=== PATIENT | female | born 1950 | race Caucasian/White ===

== ENCOUNTER 2016-10-13 14:54 | Emergency (ER) | payer OTHER ==
[~2016-10-13] VITALS: Ht 157.5 cm; Wt 46.5 kg
[2016-10-13 14:56] VITALS: BP 182/105; PULSE 85; RESP 18; TEMP 98.4; O2SAT 97
--- NOTE | 2016-10-13 15:13 | PD ---
Physical Exam Time Seen by Provider: 15:08 Narrative 66 y/o female presents for evaluation of h/a stuffy ears, nasal congestion, cough, vomiting. On amoxicillin for 2 weeks, finished one week ago. Sen by urgent care and sent here for further evaluation. vss Seen at triage desk. Awaiting bed placement. Data Data Last Documented VS Vital Signs Date Time Temp Pulse Resp B/P Pulse Ox O2 Delivery O2 Flow Rate FiO2 10/13/16 14:56 98.4 85 18 182/105 97 Room Air [facility] Medical Record Reviewed: Yes Supervised Visit with KELLY: Lamont Galeas October 13, 2016 15:13
== END 2016-10-13 19:05 | disposition left against medical advice (07) ==
LOC: NED 14:54
DX: R05 Cough (principal); R11.10 Vomiting, unspecified; R09.81 Nasal congestion
CPT/HCPCS: 99282

== ENCOUNTER 2016-10-27 22:10 | Inpatient (IN) | payer OTHER, MEDICARE ==
[2016-10-27 22:10] VITALS: O2SAT 98
[2016-10-27 22:13] VITALS: BP 182/96; PULSE 79; RESP 16; TEMP 99.4; O2SAT 94
[2016-10-27] MEDS ORDERED: SODIUM CHLORIDE 0.9% FLUSH 10 ML FLUSH IVF PRN (22:15)
[2016-10-27] MEDS ORDERED: SODIUM CHLOR 0.9% 1000 ML INJ 1,000 ML IV SCH (22:15)
[2016-10-27 22:38] LABS: AUTOMATED NEUTROPHIL # 10.9 TH/MM3 (1.8-7.7); BASOPHIL # 0.1 TH/MM3 (0-0.2); BASOPHIL % 0.9 % (0.0-2.0); EOSINOPHIL % 0.2 % (0.0-4.0); HEMATOCRIT 43.8 % (35.0-46.0); HEMO FLAGS DIFF FINAL; LYMPHOCYTE # 1.6 TH/MM3 (1.0-4.8); MEAN CORPUSCULAR HEMOGLOBIN 31.3 PG (27.0-34.0); MEAN CORPUSCULAR HGB CONC 34.4 % (32.0-36.0); MONO % 5.2 % (0.0-8.0); NEUT % 81.7 % (16.0-70.0); PLATELET COUNT 367 TH/MM3 (150-450); RED BLOOD COUNT 4.82 MIL/MM3 (4.00-5.30); RED CELL DISTRIBUTION WIDTH 13.3 % (11.6-17.2); WHITE BLOOD COUNT 13.3 TH/MM3 (4.0-11.0)
[2016-10-27] MEDS ORDERED: ONDANSETRON HCL 4 MG/2 ML VIAL ONE (22:52)
--- NOTE | 2016-10-27 22:53 | RADRPT ---
EXAM DATE/TIME: 10/27/2016 22:37 [facility] COMPARISON: No previous studies available for comparison. INDICATIONS : Syncope. Altered mental status. MEDICAL HISTORY : None. SURGICAL HISTORY : None. ENCOUNTER: Initial ACUITY: 1 day PAIN SCORE: Non-responsive. LOCATION: Bilateral chest FINDINGS: A single view of the chest demonstrates the lungs to be symmetrically aerated without evidence of mas s, infiltrate or effusion. The cardiomediastinal contours are unremarkable. Osseous structures are intact. CONCLUSION: No acute disease. Kemal Downey MD on October 27, 2016 at 22:51 Board Certified Radiologist. This report was verified electronically.
[2016-10-27] MEDS ORDERED: ONDANSETRON HCL 4 MG/2 ML VIAL IV PUSH ONE (23:00)
[2016-10-27 23:01] LABS: ANION GAP 10 MEQ/L (5-15)
[2016-10-27 23:06] LABS: ACETAMINOPHEN LESS THAN 2.0 MCG/ML (10.0-30.0); ALKALINE PHOSPHATASE 48 U/L (45-117); ALT (GPT) 18 U/L (10-53); AST (GOT) 25 U/L (15-37); BICARBONATE 26.6 MEQ/L (21.0-32.0); BLOOD UREA NITROGEN 8 MG/DL (7-18); CHLORIDE 104 MEQ/L (98-107); CREATINE KINASE 378 U/L (26-192); GLOMERULAR FILTRATION RATE 86 ML/MIN (>89); POTASSIUM 3.2 MEQ/L (3.5-5.1); SODIUM (NA) 141 MEQ/L (136-145); TOTAL BILIRUBIN ADULT 0.7 MG/DL (0.2-1.0)
[2016-10-27] MEDS ORDERED: niCARdipine INJ 25 MG in SODIUM CHLOR 0.9% 250 ML INJ 250 ML IV SCH ×2 (23:15→23:45)
[2016-10-27 23:17] LABS: APTT (PATIENT) 25.9 SEC (24.3-30.1); INTERNATIONAL NORMALIZED RATIO 0.9 RATIO; PROTHROMBIN TIME - PATIENT 10.2 SEC (9.8-11.6)
--- NOTE | 2016-10-27 23:19 | RADRPT ---
EXAM DATE/TIME: 10/27/2016 22:58 [facility] COMPARISON: No previous studies available for comparison. INDICATIONS : Altered mental status. RADIATION DOSE: 37.86 CTDIvol (mGy) MEDICAL HISTORY : None SURGICAL HISTORY : None. ENCOUNTER: Initial ACUITY: 1 day PAIN SCALE: 0/10 LOCATION: cranial TECHNIQUE: Multiple contiguous axial images were obtained of the head. Using automated exposure control and adj ustment of the mA and/or kV according to patient size, radiation dose was kept as low as reasonably a chievable to obtain optimal diagnostic quality images. FINDINGS: There is a large high density acute intracerebral hemorrhage measuring 4 x 3.7 cm in greatest diamete r centered along the anterior interhemispheric fissure above the level of the lateral ventricles. Thi s is mildly eccentric to the left. There is mass effect on the adjacent left lateral ventricle with n o definite intraventricular hemorrhage identified. There is subarachnoid hemorrhage extending along t he interhemispheric fissure with no midline shift. There is mild asymmetry of the pontine cisterns. T he bone windows demonstrate no evidence of fracture. CONCLUSION: Large intracerebral hemorrhage with subarachnoid hemorrhage as well. Nicola Childs MD on October 27, 2016 at 23:14 Board Certified Radiologist. This report was verified electronically.
[2016-10-27 23:21] LABS: CKMB 2.8 NG/ML (0.5-3.6)
[2016-10-27 23:30] VITALS: BP 181/98; PULSE 81; RESP 18; O2SAT 99
[2016-10-27] MEDS ORDERED: METOCLOPRAMIDE HCL 10 MG/2 ML VIAL IV PRN (23:30)
[2016-10-27] MEDS ORDERED: SODIUM CHLORIDE 0.9% FLUSH 10 ML FLUSH PRN (23:30)
[2016-10-27] MEDS ORDERED: ACETAMINOPHEN 325 MG TAB PO PRN (23:30)
[2016-10-27] MEDS ORDERED: ONDANSETRON HCL 4 MG/2 ML VIAL IV PRN (23:30)
[2016-10-27] MEDS ORDERED: MISCELLANEOUS NURSING INFORMATION XX SCH (23:30)
[2016-10-27] MEDS ORDERED: CHLORHEXIDINE GLUCONATE 2 % 1 PACK (2 CLOTHS) TOP PRN (23:30)
[2016-10-27] MEDS ORDERED: MORPHINE SULFATE 4 MG/ML INJ IV PRN (23:30)
[2016-10-27] MEDS ORDERED: RESP: ALBUTEROL 2.5 MG/IPRATROPIUM 0.5 MG NEB (PRN) INH (23:30)
[2016-10-27] MEDS: hydrALAZINE HCL 20 MG/ML VIAL IV PUSH PRN (23:39)
--- NOTE | 2016-10-27 23:40 | HHI.HP ---
HPI Service Critical Care Medicine Primary Care Physician Jose Roberto Sutherland, DO Admission Diagnosis Diagnosis: Travel History International Travel<30 Days: No Contact w/Intl Traveler <30 Da: No Traveled to Known Affected Are: No History of Present Illness 66 year old female was found in her bathtub, fully clothed with no water on. She was unable to get up or talk. She was last seen to be normal yesterday. Patient follows commands appropriately however is unable to talk and cannot provide a history. Per documentation she was recently treated with antibiotics amoxicillin for bronchitis as well as started on blood pressure medications due to new onset of hypertension for about last [address] of the head revealed the ICH with IVH extension. The stat CTA revealed ACOM aneurysm. Review of Systems ROS Unable to obtain patient is nonverbal Past Family Social History Allergies: Coded Allergies: No Known Allergies (Unverified , 10/27/16) Past Medical History Hypertension Past Surgical History None Reported Medications Reported Meds & Active Scripts Active Reported [Blood Pressure] Active Ordered Medications Current Medications Medications (Trade) Dose Ordered Sig/Nilesh Route PRN Reason Start Time Stop Time Status Last Admin Dose Admin Sodium Chloride 2 ml 2 ml UNSCH PRN IVF FLUSH AFTER USING IV ACCESS 10/27/16 22:15 Sodium Chloride (NS 1000 ml Inj) 1,000 ml @ 84 mls/hr [id number] IV 10/27/16 23:30 10/28/16 01:32 Sodium Chloride (NS Flush) 2 ml UNSCH PRN .XX FLUSH AFTER USING IV ACCESS 10/27/16 23:30 Sodium Chloride (NS Flush) 2 ml BID .XX 10/28/16 09:00 Acetaminophen (Tylenol) 650 mg Q6H PRN PO PAIN 1-10 AND/OR FEVER >101F 10/27/16 23:30 Morphine Sulfate (Morphine Inj) 2 mg Q2H PRN IV PAIN SCALE 6 TO 10 10/27/16 23:30 Famotidine (Pepcid Inj) 20 mg Q12HR IV PUSH 10/28/16 09:00 Ondansetron HCl (Zofran Inj) 4 mg Q6H PRN IV NAUSEA OR VOMITING 10/27/16 23:30 Metoclopramide HCl (Reglan Inj) 10 mg Q6H PRN IV NAUSEA OR VOMITING 10/27/16 23:30 10/28/16 00:47 Docusate Sodium (Colace) 100 mg BID PO 10/28/16 09:00 Miscellaneous Information 1 [id number] XX 10/27/16 23:30 Chlorhexidine Gluconate (Chlorhexidine 2% Cloth) 3 pack Taper DAILY@04 TOP 10/28/16 04:00 10/24/17 03:59 Chlorhexidine Gluconate (Chlorhexidine 2% Cloth) 3 pack UNSCH PRN TOP HYGIENIC CARE 10/27/16 23:30 Hydralazine HCl 20 mg 20 mg Q4H PRN IV PUSH SBP>140, DBP>90 10/27/16 23:45 10/27/16 23:39 Nicardipine HCl/ Sodium Chloride (Cardene Inj/NS 250 ml Inj) 260 ml @ 0 mls/hr TITRATE IV 10/27/16 23:45 10/27/16 23:43 Nimodipine (Nimotop) 60 mg Q4HR PO 10/28/16 01:00 10/28/16 01:32 Pravastatin Sodium (Pravachol) 40 mg DAILY PO 10/28/16 09:00 Family History Noncontributory Social History Lifelong smoking No alcohol or illicit drug abuse Physical Exam Vital Signs Vital Signs Date Time Temp Pulse Resp B/P Pulse Ox O2 Delivery O2 Flow Rate FiO2 10/27/16 23:30 81 18 181/98 99 Nasal Cannula 2 10/27/16 22:13 99.4 79 16 182/96 94 10/27/16 22:10 98 Nasal Cannula 2 Physical Exam GENERAL: Well-nourished, well-developed patient. In no acute distress nonverbal. Appropriately following commands SKIN: Warm and dry. HEAD: Normocephalic. EYES: No scleral icterus. No injection or drainage. NECK: Supple, trachea midline. No JVD or lymphadenopathy. CARDIOVASCULAR: Regular rate and rhythm without murmurs, gallops, or rubs. RESPIRATORY: Breath sounds equal bilaterally. No accessory muscle use. GASTROINTESTINAL: Abdomen soft, non-tender, nondistended. MUSCULOSKELETAL: No cyanosis, or edema. BACK: Nontender without obvious deformity. No CVA tenderness. EXTREMITIES: No clubbing cyanosis or edema Laboratory Laboratory Tests Test 10/27/16 22:20 White Blood Count 13.3 Red Blood Count 4.82 Hemoglobin 15.1 Hematocrit 43.8 Mean Corpuscular Volume 91.0 Mean Corpuscular Hemoglobin 31.3 Mean Corpuscular Hemoglobin 34.4 Concent Red Cell Distribution Width 13.3 Platelet Count 367 Mean Platelet Volume 7.4 Neutrophils (%) (Auto) 81.7 Lymphocytes (%) (Auto) 12.0 Monocytes (%) (Auto) 5.2 Eosinophils (%) (Auto) 0.2 Basophils (%) (Auto) 0.9 Neutrophils # (Auto) 10.9 Lymphocytes # (Auto) 1.6 Monocytes # (Auto) 0.7 Eosinophils # (Auto) 0.0 Basophils # (Auto) 0.1 CBC Comment DIFF FINAL Differential Comment Prothrombin Time 10.2 Prothromb Time International 0.9 Ratio Activated Partial 25.9 Thromboplast Time Sodium Level 141 Potassium Level 3.2 Chloride Level 104 Carbon Dioxide Level 26.6 Anion Gap 10 Blood Urea Nitrogen 8 Creatinine 0.68 Estimat Glomerular Filtration 86 Rate Random Glucose 103 Lactic Acid Level 1.3 Calcium Level 8.8 Total Bilirubin 0.7 Aspartate Amino Transf 25 (AST/SGOT) Alanine Aminotransferase 18 (ALT/SGPT) Alkaline Phosphatase 48 Ammonia 12 Total Creatine Kinase 378 Creatine Kinase MB 2.8 Creatine Kinase MB % 0.7 Troponin I LESS THAN 0.02 Total Protein 7.1 Albumin 3.4 Salicylates Level 2.2 Acetaminophen Level LESS THAN 2.0 Ethyl Alcohol Level LESS THAN 3 Date/Time Procedure Status Source Growth 10/27/16 22:25 Aerobic Blood Culture Received Blood Peripheral Pending 10/27/16 22:25 Anaerobic Blood Culture Received Blood Peripheral Pending Result Diagram: 10/27/16 22210/27/16 222 Imaging Last [address] 10/27/162214 Signed Impressions: Service Date/Time: Thursday, October 27, 2016 22:58 - CONCLUSION: Large intracerebral hemorrhage with subarachnoid hemorrhage as well. Nicola Childs MD Chest X-Ray 10/27/162214 Signed Impressions: Service Date/Time: Thursday, October 27, 2016 22:37 - CONCLUSION: No acute disease. 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 - Blood pressure control - Nimodipine - Pravachol - TCD's daily to monitor for vasospasm - Management per neurosurgery Hypertension - Cardene drip - SBP goal less than 140 until aneurysm secured - Hydralazine when necessary Tobacco use disorder - Monitor for withdrawal - Start nicotine replacement if indicated DVT GI prophylaxis - Teds SCDs - No pharmacological DVT prophylaxis due to ICH - Pepcid Critical Care: The total critical care time was 35 minutes. Time to perform other separately billable procedures was not included in the critical care time. Julio Woods MD October 27, 2016 23:40
[2016-10-27 23:41] VITALS: BP 168/87; PULSE 89; RESP 16; O2SAT 99
[2016-10-27 23:42] LABS: AMPHETAMINE, URINE NEG (NEG); BARBITURATES, URINE NEG (NEG); COCAINE, URINE NEG (NEG)
[2016-10-27 23:45] VITALS: BP 153/74; PULSE 101; RESP 16; O2SAT 99
--- NOTE | 2016-10-27 23:47 | PD ---
HPI Chief Complaint: Neuro Symptoms/ Deficits Time Seen by Provider: 22:15 Travel History International Travel<30 days: No Contact w/Intl Traveler<30days: No Traveled to known affect area: No History of Present Illness HPI Patient is a 66 year old female who is BIBEMS due to altered mental status. Patient is unable to talk and cannot provide a history. Per EMS, patient was found in her bathtub, fully clothed with no water on. She was unable to talk. She was last seen to be normal yesterday. Per EMS there is no evidence of trauma. EMS states there able to get her up to walk, but her right leg seemed weak. They found high blood pressure medication as well as a prescription for amoxicillin in her house. Per family they had dinner with her yesterday and she was in her normal state of health. Family states she was recently diagnosed with high blood pressure. They said they were unable to get ahold of her today, so they went to check on her and that is when the found her altered and in the bathtub. [facility] Past Medical History Hypertension: Yes Tetanus Vaccination: Unknown Past Surgical History Surgical History: No Previous Surgery Social History Alcohol Use: No Tobacco Use: Yes Substance Use: No Allergies-Medications (Allergen,Severity, Reaction): Coded Allergies: No Known Allergies (Unverified , 10/27/16) Reported Meds & Prescriptions Reported Meds & Active Scripts Active Reported [Blood Pressure] Review of Systems ROS Limitations: Altered Mental Status Physical Exam Narrative GENERAL: Awake and alert, unable to speak. SKIN: Focused skin assessment warm/dry. HEAD: Atraumatic. Normocephalic. EYES: Pupils equal and round and reactive. No scleral icterus. Extraocular movements intact. ENT: Mucous membranes pink and moist. NECK: Trachea midline. No JVD. CARDIOVASCULAR: Regular rate and rhythm. No murmur appreciated. RESPIRATORY: No accessory muscle use. Clear to auscultation. Breath sounds equal bilaterally. GASTROINTESTINAL: Abdomen soft, non-tender, nondistended. MUSCULOSKELETAL: No obvious deformities. No clubbing. No cyanosis. No edema. NEUROLOGICAL: Awake and alert. No obvious cranial nerve deficits. Complete aphasia. Right leg appears weaker than the left, otherwise moving all of her extremities. Data Data Last Documented VS Vital Signs Date Time Temp Pulse Resp B/P Pulse Ox O2 Delivery O2 Flow Rate FiO2 10/27/16 23:45 101 16 153/74 99 Nasal Cannula 2 10/27/16 22:13 99.4 Orders Ammonia (10/27/16 22:15) Complete Blood Count With Diff (10/27/16 22:15) Comprehensive Metabolic Panel (10/27/16 22:15) Creatine Kinase (Cpk) (10/27/16 22:15) Prothrombin Time / Inr (Pt) (10/27/16 22:15) Act Partial Throm Time (Ptt) (10/27/16 22:15) Troponin I (10/27/16 22:15) Lactic Acid Sepsis Protocol (10/27/16 22:15) Urinalysis - C+S If Indicated (10/27/16 22:15) Ua Includes Microscopic (10/27/16 22:15) Blood Culture (10/27/16 22:15) Chest, Single Ap (10/27/16 22:15) Ct Brain W/O Iv Contrast(Rout) (10/27/16 22:15) Blood Glucose (10/27/16 22:15) Ecg Monitoring (10/27/16 22:15) Iv Access Insert/Monitor (10/27/16 22:15) Cath For Specimen (10/27/16 22:15) Oximetry (10/27/16 22:15) Sodium Chloride 0.9% Flush (Ns Flush) (10/27/16 22:15) Sodium Chlor 0.9% 1000 Ml Inj (Ns 1000 M (10/27/16 22:15) Drug Screen, Random Urine (10/27/16 22:15) Alcohol (Ethanol) (10/27/16 22:15) Salicylates (Aspirin) (10/27/16 22:15) Tylenol (Acetaminophen) (10/27/16 22:15) Ondansetron Inj (Zofran Inj) (10/27/16 23:00) Ondansetron Inj (Zofran Inj) (10/27/16 22:52) Nicardipine Inj (Cardene Inj) (10/27/16 23:15) CKMB (10/27/16 22:20) CKMB% (10/27/16 22:20) Cta Brain W Iv Contrast W 3d (10/27/16 ) Cta Neck W Iv Contrast W 3d (10/27/16 ) Admit To Inpatient (10/27/16 ) Code Status (10/27/16 23:30) Vital Signs (Adult) CAM.Q1H (10/27/16 23:30) Activity Bed Rest (10/27/16 23:30) ^ Elevate Head Of Bed (10/27/16 23:30) Neuro Checks . ORDERED (10/27/16 23:30) Intake + Output Q1H (10/27/16 23:30) Bedside Glucose CAM.BGM (10/27/16 23:30) Diet Npo (10/28/16 Breakfast) Sodium Chlor 0.9% 1000 Ml Inj (Ns 1000 M (10/27/16 23:30) Sodium Chloride 0.9% Flush (Ns Flush) (10/27/16 23:30) Sodium Chloride 0.9% Flush (Ns Flush) (10/28/16 09:00) Acetaminophen (Tylenol) (10/27/16 23:30) Morphine Inj (Morphine Inj) (10/27/16 23:30) Famotidine Inj (Pepcid Inj) (10/28/16 09:00) Ondansetron Inj (Zofran Inj) (10/27/16 23:30) Metoclopramide Inj (Reglan Inj) (10/27/16 23:30) Docusate Sodium (Colace) (10/28/16 09:00) Albuterol-Ipratropium Neb (Duoneb Neb) (10/27/16 23:30) Complete Blood Count With Diff (10/28/16 04:00) Comprehensive Metabolic Panel (10/28/16 04:00) Prothrombin Time / Inr (Pt) (10/28/16 04:00) Magnesium (Mg) (10/28/16 04:00) Phosphorus (Po4) (10/28/16 04:00) Mammal Keeper / Telemetry CAM.Q8H (10/27/16 23:30) Scd Bilateral/Knee High CAM.BID (10/27/16 23:30) Sonny Bilateral/Knee High CAM.QSHIFT (10/27/16 23:30) ^ Initiate Protocol (10/27/16 23:30) ^ Instruction (10/27/16 23:30) Misc Nursing Information (10/27/16 23:30) Chlorhexidine 2% Cloth (Chlorhexidine 2% (10/28/16 04:00) Chlorhexidine 2% Cloth (Chlorhexidine 2% (10/27/16 23:30) Mrsa Pcr Surveillance (10/27/16 23:30) Inpatient Certification (10/27/16 ) Hydralazine Inj (Apresoline Inj) (10/27/16 23:45) Nicardipine Inj (Cardene Inj) (10/27/16 23:45) Consult Neurosurgery (10/27/16 ) Admit Order (Ed Use Only) (10/27/16 ) Urinary Catheter Management CAM.Q8H (10/27/16 23:48) Labs Laboratory Tests Test 10/27/16 10/27/16 22:20 23:10 White Blood Count 13.3 TH/MM3 Red Blood Count 4.82 MIL/MM3 Hemoglobin 15.1 GM/DL Hematocrit 43.8 % Mean Corpuscular Volume 91.0 FL Mean Corpuscular Hemoglobin 31.3 PG Mean Corpuscular Hemoglobin 34.4 % Concent Red Cell Distribution Width 13.3 % Platelet Count 367 TH/MM3 Mean Platelet Volume 7.4 FL Neutrophils (%) (Auto) 81.7 % Lymphocytes (%) (Auto) 12.0 % Monocytes (%) (Auto) 5.2 % Eosinophils (%) (Auto) 0.2 % Basophils (%) (Auto) 0.9 % Neutrophils # (Auto) 10.9 TH/MM3 Lymphocytes # (Auto) 1.6 TH/MM3 Monocytes # (Auto) 0.7 TH/MM3 Eosinophils # (Auto) 0.0 TH/MM3 Basophils # (Auto) 0.1 TH/MM3 CBC Comment DIFF FINAL Differential Comment Prothrombin Time 10.2 SEC Prothromb Time International 0.9 RATIO Ratio Activated Partial 25.9 SEC Thromboplast Time Sodium Level 141 MEQ/L Potassium Level 3.2 MEQ/L Chloride Level 104 MEQ/L Carbon Dioxide Level 26.6 MEQ/L Anion Gap 10 MEQ/L Blood Urea Nitrogen 8 MG/DL Creatinine 0.68 MG/DL Estimat Glomerular Filtration 86 ML/MIN Rate Random Glucose 103 MG/DL Lactic Acid Level 1.3 mmol/L Calcium Level 8.8 MG/DL Total Bilirubin 0.7 MG/DL Aspartate Amino Transf 25 U/L (AST/SGOT) Alanine Aminotransferase 18 U/L (ALT/SGPT) Alkaline Phosphatase 48 U/L Ammonia 12 MCMOL/L Total Creatine Kinase 378 U/L Creatine Kinase MB 2.8 NG/ML Creatine Kinase MB % 0.7 % Troponin I LESS THAN 0.02 NG/ML Total Protein 7.1 GM/DL Albumin 3.4 GM/DL Salicylates Level 2.2 MG/DL Acetaminophen Level LESS THAN 2.0 MCG/ML Ethyl Alcohol Level LESS THAN 3 MG/DL Urine Color YELLOW Urine Turbidity CLEAR Urine pH 7.0 Urine Specific [place] 1.015 Urine Protein TRACE mg/dL Urine Glucose (UA) NEG mg/dL Urine Ketones 40 mg/dL Urine Occult Blood NEG Urine Nitrite NEG Urine Bilirubin NEG Urine Urobilinogen LESS THAN 2.0 MG/DL Urine Leukocyte Esterase NEG Urine RBC 4 /hpf Urine WBC 2 /hpf Urine Bacteria RARE /hpf Urine Mucus FEW /lpf Microscopic Urinalysis Comment CATH-CULTURE IND Urine Opiates Screen NEG Urine Barbiturates Screen NEG Urine Amphetamines Screen NEG Urine Benzodiazepines Screen NEG Urine Cocaine Screen NEG Urine Cannabinoids Screen POS MDM Medical Decision Making Medical Screen Exam Complete: Yes Emergency Medical Condition: Yes Medical Record Reviewed: Yes Interpretation(s) ECG shows normal sinus rhythm at 77, no ST elevation or depression, normal intervals Differential Diagnosis ICH versus CVA versus sepsis versus electrolyte abnormality Narrative Course Patient is a 66-year-old female who comes in due to altered mental status. Exam shows complete aphasia. 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 Patient had an episode of vomiting here, given Zofran. CT of the head performed shows large ICH as well as subarachnoid hemorrhage. Patient started on Cardene drip. She is awake and alert, she is now able to speak her name, she is protecting her airway appropriately. Dr. Cool of neurosurgery consulted. Admitted to ICU, Dr. Woods. Critical Care Narrative Aggregate critical care time was 35 minutes. Time to perform other separately billable procedures was not included in the critical care time. My time did not include minutes spent treating any other patients simultaneously or on activities that did not directly contribute to the patient's treatment. The services I provided to this patient were to treat and/or prevent clinically significant deterioration that could result in: Serious illness or I provided critical care services requiring my management, as noted below: Chart data review, documentation time, medication orders and management, vital sign assessments/reviewing monitor data, ordering and reviewing lab tests, ordering and interpreting/reviewing x-rays and diagnostic studies, care of the patient and discussion of the patient with the admitting physicians. Diagnosis Primary Impression: ICH (intracerebral hemorrhage) Qualified Code: I61.1 - Nontraumatic cortical hemorrhage of left cerebral hemisphere Admitting Information Admitting Physician Requests: it Cari George MD October 27, 2016 23:47
[2016-10-27 23:49] LABS: BACTERIA, URINE RARE /hpf; BLOOD, URINE NEG (NEG); GLUCOSE,URINE NEG (NEG); KETONE, URINE 40 mg/dL (NEG); MUCUS URINE FEW /lpf (OCC); NITRITE,URINE NEG (NEG); URINE COLOR YELLOW (YELLW/STRAW)
[2016-10-27 23:50] LABS: COMMENT (UR) CATH-CULTURE IND; CULTURE IF INDICATED CATH CULTURE IND
[2016-10-27] MEDS ORDERED: BLOOD PRESSURE (23:51)
[2016-10-27 23:55] VITALS: BP 150/72; PULSE 80; RESP 18; O2SAT 99
[2016-10-28] VITALS (14 sets, daily range): BP systolic 110–142; BP diastolic 54–77; PULSE 48–104; RESP 18–21; TEMP 97.8–98.5; O2SAT 94–99
[2016-10-28] MEDS ORDERED: IOHEXOL 350 MG/ML 10 ML VIAL (for RAD DIAG) IV ONE (00:05)
--- NOTE | 2016-10-28 00:05 | PD.CONS ---
History of Present Illness Service Neurosurgery Consult Requested By Emergency room Reason for Consult Intraventricular hemorrhage Primary Care Physician Jose Roberto Sutherland, Diagnoses: History of Present Illness 66-year-old female in relatively good health until 3 or 4 weeks ago when she developed bronchitis. She was treated with a course of amoxicillin which did not help the symptoms. She was given another antibiotic which she finished approximately 3 days ago. She has continued to have a nonproductive cough. No definite fevers or chills. She has had a frontal headache for 2 or 3 weeks. Also some neck pain and stiffness. She was diagnosed with hypertension in the past 2 or 3 months and has been on medication. She does have a long history of smoking cigarettes. She ate dinner with her friend last evening. Her brother called her approximately 10:00 this morning on the telephone, and there was no answer. Her friend found the patient lying in her bathtub at home, significant speech difficulty with no definite seizure activity. Patient indicated to her friend that she had been lying in the bathtub all day long, unable to get up. Review of Systems Review of systems cannot be readily obtained from the patient who is nonverbal. Pertinent review of systems obtained from the family as noted above. In addition she has not had any recent weight gain or change in appetite, fevers, chills. She has had some blockage in her ears diagnosed in the past 2 or 3 weeks and was using some eardrops. Also recently diagnosed with sinusitis. According to family she has had no recent myalgia or arthralgia, swelling in the extremities. Past Family Social History Allergies: Coded Allergies: No Known Allergies (Unverified , 10/27/16) Past Medical History Hypertension Recent bronchitis Sinusitis No other history of significant cardiac, gastrointestinal disease, diabetes Past Surgical History No major surgeries reported Reported Medications Reported Meds & Active Scripts Active Reported [Blood Pressure] She has been on 2 different antibiotics in the past 3 or 4 weeks Family History Her mother who smoked heavily and was obese of lung cancer and had a history of hypertension Social History Patient has smoked cigarettes "all her life" No alcohol use Physical Exam Vital Signs Vital Signs Date Time Temp Pulse Resp B/P Pulse Ox O2 Delivery O2 Flow Rate FiO2 10/27/16 23:45 101 16 153/74 99 Nasal Cannula 2 10/27/16 23:41 89 16 168/87 99 Nasal Cannula 2 10/27/16 23:30 81 18 181/98 99 Nasal Cannula 2 10/27/16 22:13 99.4 79 16 182/96 94 10/27/16 22:10 98 Nasal Cannula 2 Physical Exam GENERAL: Patient is a thin lady, calm and in no apparent distress. SKIN: No rashes, ecchymoses or lesions. Cool and dry. HEAD: Atraumatic. Normocephalic. No temporal or scalp tenderness. EYES: Sclerae are clear and nonicteric ENT: She has a couple firm nontender nodules just beneath the tongue. Tympanic membranes are not seen due to extensive cerumen in the external auditory canals. NECK: Trachea midline. No JVD or lymphadenopathy. Supple, nontender, no meningeal signs. CARDIOVASCULAR: Regular rate and rhythm without murmurs, gallops, or rubs. RESPIRATORY: Clear to auscultation. Breath sounds equal bilaterally. No wheezes , rales, or rhonchi. GASTROINTESTINAL: Abdomen soft, non-tender, nondistended. No hepato-splenomegaly , or palpable masses. No guarding. MUSCULOSKELETAL: Extremities without clubbing, cyanosis, or edema. No joint tenderness, effusion, or edema noted. No calf tenderness. NEUROLOGICAL: Awake and alert Nonverbal. She attempts to say words but can only pucker her lips. Follow simple commands with mild to moderate difficulty Nods her head yes and no in response to questions. Appears to do so mostly appropriately Recent and remote memory cannot be assessed. No obvious anxiety Pupils are equal and reactive to accommodation. Extra-ocular movements, visual gr to confrontation, facial sensorimotor, tongue, palate, sternocleidomastoid testing, hearing to finger rub testing, and bilateral shoulder shrug are all intact. Sensation is intact to light touch in all extremities Strength normal major flexion and extension groups all extremities Juan's absent bilaterally No ankle clonus Plantar responses absent bilateral Fine motor movements are moderately impaired in the right greater than left upper extremity Laboratory Laboratory Tests Test 10/27/16 10/27/16 22:20 23:10 White Blood Count 13.3 Red Blood Count 4.82 Hemoglobin 15.1 Hematocrit 43.8 Mean Corpuscular Volume 91.0 Mean Corpuscular Hemoglobin 31.3 Mean Corpuscular Hemoglobin 34.4 Concent Red Cell Distribution Width 13.3 Platelet Count 367 Mean Platelet Volume 7.4 Neutrophils (%) (Auto) 81.7 Lymphocytes (%) (Auto) 12.0 Monocytes (%) (Auto) 5.2 Eosinophils (%) (Auto) 0.2 Basophils (%) (Auto) 0.9 Neutrophils # (Auto) 10.9 Lymphocytes # (Auto) 1.6 Monocytes # (Auto) 0.7 Eosinophils # (Auto) 0.0 Basophils # (Auto) 0.1 CBC Comment DIFF FINAL Differential Comment Prothrombin Time 10.2 Prothromb Time International 0.9 Ratio Activated Partial 25.9 Thromboplast Time Sodium Level 141 Potassium Level 3.2 Chloride Level 104 Carbon Dioxide Level 26.6 Anion Gap 10 Blood Urea Nitrogen 8 Creatinine 0.68 Estimat Glomerular Filtration 86 Rate Random Glucose 103 Lactic Acid Level 1.3 Calcium Level 8.8 Total Bilirubin 0.7 Aspartate Amino Transf 25 (AST/SGOT) Alanine Aminotransferase 18 (ALT/SGPT) Alkaline Phosphatase 48 Ammonia 12 Total Creatine Kinase 378 Creatine Kinase MB 2.8 Creatine Kinase MB % 0.7 Troponin I LESS THAN 0.02 Total Protein 7.1 Albumin 3.4 Salicylates Level 2.2 Acetaminophen Level LESS THAN 2.0 Ethyl Alcohol Level LESS THAN 3 Urine Color YELLOW Urine Turbidity CLEAR Urine pH 7.0 Urine Specific [place] 1.015 Urine Protein TRACE Urine Glucose (UA) NEG Urine Ketones 40 Urine Occult Blood NEG Urine Nitrite NEG Urine Bilirubin NEG Urine Urobilinogen LESS THAN 2.0 Urine Leukocyte Esterase NEG Urine RBC 4 Urine WBC 2 Urine Bacteria RARE Urine Mucus FEW Microscopic Urinalysis Comment CATH-CULTURE IND Urine Opiates Screen NEG Urine Barbiturates Screen NEG Urine Amphetamines Screen NEG Urine Benzodiazepines Screen NEG Urine Cocaine Screen NEG Urine Cannabinoids Screen POS Date/Time Procedure Status Source Growth 10/27/16 23:10 Urine Culture Received Urine Catheterized Urine Pending 10/27/16 22:25 Aerobic Blood Culture Received Blood Peripheral Pending 10/27/16 22:25 Anaerobic Blood Culture Received Blood Peripheral Pending Result Diagram: 10/27/16 2220 10/27/16 2220 Imaging 10/27/16 CT scan of the head images are reviewed by the undersigned. Patient has a large left primarily frontal parenchymal hemorrhage with intraventricular extension with primarily interhemispheric subarachnoid hemorrhage. There is a calcified lesion just to the right of midline in the suprasellar region. CT angiogram reveals anterior inferior pointing anterior communicating artery aneurysm, approximately 5 x 6 x [address] 10/27/162214 Signed Impressions: Service Date/Time: Thursday, October 27, 2016 22:58 - CONCLUSION: Large intracerebral hemorrhage with subarachnoid hemorrhage as well. Nicola Childs MD Chest X-Ray 10/27/162214 Signed Impressions: Service Date/Time: Thursday, October 27, 2016 22:37 - CONCLUSION: No acute disease. Kemal Downey MD Head CTA 10/27/16 0000 Signed Impressions: Service Date/Time: Friday, October 28, 2016 00:02 - CONCLUSION: Lobular aneurysm extending off the anterior communicating artery. Nicola Childs MD Assessment and Plan Assessment and Plan Impression: 1. Intracranial-intraventricular and subarachnoid hemorrhage. Anterior communicating artery aneurysm 2. Hypertension 3. Recent history of bronchitis Impression: Findings were discussed at length with the patient and her family in the emergency room. CT angiogram results discussed Discussed with cream dipper She is admitted to the intensive surgical care unit No significant hydrocephalus on the initial CT scan. Advised the family that we will watch her clinical exam and follow-up imaging studies closely with possible ventriculostomy required. She has been placed on Cardene for initial management of hypertension Nimodipine started Cerebral angiogram requested for possible aneurysm coiling. Johnnie Cool MD October 28, 2016 00:05
--- NOTE | 2016-10-28 00:39 | RADRPT ---
EXAM DATE/TIME: 10/28/2016 00:02 [facility] COMPARISON: CT BRAIN W/O CONTRAST, October 27, 2016, 22:58. INDICATIONS : Aneurysm. IV CONTRAST: 80 cc Omnipaque 350 (iohexol) IV ; Cumulative dose for multiple exams. RADIATION DOSE: 25.99 CTDIvol (mGy) ; Combined studies MEDICAL HISTORY : None SURGICAL HISTORY : None. ENCOUNTER: Initial ACUITY: 1 day PAIN SCALE: 0/10 LOCATION: cranial TECHNIQUE: Volumetric scanning was performed using a multi-row detector CT scanner. The data was post processed with a variety of visualization algorithms including full volume maximum intensity projection, multi -planar sliding thin slab reformation, curved planar reformation, and surface rendering techniques. Using automated exposure control and adjustment of the mA and/or kV according to patient size, radiat ion dose was kept as low as reasonably achievable to obtain optimal diagnostic quality images. FINDINGS: There is excellent visualization of the major intracranial arteries out to the second-order branch ve ssels. There is no evidence of vessel truncation or stenosis. There is a lobular aneurysm extending off the inferior anterior communicating artery measuring up to 8 x 5 x 6 mm in greatest diameter. No other aneurysm or vascular malformation is identified. The known large intracerebral hemorrhage is ag ain identified. CONCLUSION: Lobular aneurysm extending off the anterior communicating artery. Nicola Childs MD on October 28, 2016 at 0:33 Board Certified Radiologist. This report was verified electronically.
--- NOTE | 2016-10-28 01:11 | RADRPT ---
EXAM DATE/TIME: 10/28/2016 00:02 This report includes an Addendum and supersedes previous reports for this exam. [facility] COMPARISON: CTA BRAIN W 3D RECON, October 28, 2016, 0:02. INDICATIONS : Patient with acute mental status changes and intracerebral hemorrhage from aneurysm. IV CONTRAST: 80 cc Omnipaque 350 (iohexol) IV ; Cumulative dose for multiple exams. RADIATION DOSE: 25.99 CTDIvol (mGy) ; Combined studies MEDICAL HISTORY : None SURGICAL HISTORY : None. ENCOUNTER: Initial ACUITY: 1 day PAIN SCALE: 0/10 LOCATION: neck Elevated flow velocities and ICA/CCA ratios have been found to correlate with increased degrees of vessel stenosis, calculated as percentage of diameter relative to a normal segment of distal ICA/CCA. TECHNIQUE: Volumetric scanning was performed using a multirow detector CT scanner. The data was post processed with a variety of visualization algorithms including full-volume maximum intensity projection, multip lanar sliding thin-slab reformation, curved-planar reformation, and surface-rendering techniques. Us ing automated exposure control and adjustment of the mA and/or kV according to patient size, radiatio n dose was kept as low as reasonably achievable to obtain optimal diagnostic quality images. FINDINGS: The known aneurysm of the anterior communicating artery is again visualized. AORTIC ARCH: There is a three-vessel origin of the great vessels from the aorta. No evidence of ostial narrowing. RIGHT CAROTID: The common carotid artery is intact. The carotid bulb has a normal configuration with minimal calcifi cation and plaque. The internal carotid artery lumen is smooth without stenosis. The external caroti d artery is intact. LEFT CAROTID: The common carotid artery is intact. The carotid bulb has a normal configuration with minimal calcif ication and plaque. The internal carotid artery lumen is smooth without stenosis. The external carot id artery is intact. VERTEBRALS: The vertebral arteries have a symmetric diameter. No stenotic lesions are seen. CONCLUSION: 1. Minimal calcification plaque noted in the carotid systems with no significant stenosis. 2. The known aneurysm extending off the anterior communicating artery is again visualized. Nicola Childs MD on October 28, 2016 at 1:08 Board Certified Radiologist. This report was verified electronically. ADDENDUM: COMPARISON: CT BRAIN W/O CONTRAST, October 27, 2016, 22:58. Note is made of a short segment, nonflow limiting dissection in the distal right internal carotid jus t below the level the skull base. The carotid is minimally aneurysmal in this segment measuring 8 mm in maximum diameter. The remainder of the internal carotid measures 4 mm. Carl Hernandez MD on October 28, 2016 at 8:47 Board Certified Radiologist. This report was verified electronically.
[2016-10-28] MEDS: niMODipine 30 MG CAP PO SCH ×7 (01:32→22:32)
[2016-10-28] MEDS: SODIUM CHLOR 0.9% 1000 ML INJ 1,000 ML IV SCH ×3 (01:32→22:32)
[2016-10-28] MEDS ORDERED: MAGNESIUM OXIDE 400 MG TAB PO PRN (02:15)
[2016-10-28] MEDS ORDERED: POTASSIUM PHOSPHATE MONOBASIC 500 MG TAB PO PRN (02:15)
[2016-10-28] MEDS ORDERED: POTASSIUM PHOSPHATE MONOBASIC 500 MG TAB PO/TUBE PRN (02:15)
[2016-10-28] MEDS ORDERED: MAGNESIUM SULFATE INJ 4 GM in SODIUM CHLORIDE 0.9% INJ 92 ML IV PRN (02:15)
[2016-10-28] MEDS ORDERED: POTASSIUM CHLOR 40 MEQ PREMIX 100 ML IV PRN ×2 (02:15)
[2016-10-28] MEDS ORDERED: MAGNESIUM SULFATE INJ 2 GM in SODIUM CHLORIDE 0.9% INJ 96 ML IV PRN (02:15)
[2016-10-28] MEDS ORDERED: POTASSIUM CHLORIDE 25 MEQ EFFERVESCENT TAB PO PRN (02:15)
[2016-10-28] MEDS ORDERED: SODIUM PHOSPHATE INJ 30 MMOL in SODIUM CHLOR 0.9% 250 ML INJ 240 ML IV PRN (02:15)
[2016-10-28] MEDS: CHLORHEXIDINE GLUCONATE 2 % 1 PACK (2 CLOTHS) TOP SCH (03:08)
[2016-10-28] MEDS ORDERED: niMODipine 30 MG CAP PO SCH (04:00)
[2016-10-28 06:27] LABS: ALT (GPT) 18 U/L (10-53); ANION GAP 11 MEQ/L (5-15); AST (GOT) 22 U/L (15-37); BICARBONATE 22.8 MEQ/L (21.0-32.0); BLOOD UREA NITROGEN 8 MG/DL (7-18); CHLORIDE 109 MEQ/L (98-107); GLOMERULAR FILTRATION RATE 146 ML/MIN (>89); INTERNATIONAL NORMALIZED RATIO 0.9 RATIO; MAGNESIUM 2.1 MG/DL (1.5-2.5); POTASSIUM 3.1 MEQ/L (3.5-5.1); PROTHROMBIN TIME - PATIENT 10.2 SEC (9.8-11.6); SODIUM (NA) 143 MEQ/L (136-145)
[2016-10-28 06:28] LABS: ALKALINE PHOSPHATASE 44 U/L (45-117); TOTAL BILIRUBIN ADULT 0.6 MG/DL (0.2-1.0)
[2016-10-28 07:06] LABS: AUTOMATED NEUTROPHIL # 15.8 TH/MM3 (1.8-7.7); BASOPHIL % 0.2 % (0.0-2.0); HEMATOCRIT 40.3 % (35.0-46.0); HEMO FLAGS DIFF FINAL; LYMPH % 5.9 % (9.0-44.0); MEAN CELL VOLUME 93.2 FL (80.0-100.0); MEAN CORPUSCULAR HEMOGLOBIN 31.6 PG (27.0-34.0); MONO % 2.4 % (0.0-8.0); NEUT % 91.5 % (16.0-70.0); PLATELET COUNT 350 TH/MM3 (150-450); RED BLOOD COUNT 4.33 MIL/MM3 (4.00-5.30); RED CELL DISTRIBUTION WIDTH 13.4 % (11.6-17.2); WHITE BLOOD COUNT 17.3 TH/MM3 (4.0-11.0)
[2016-10-28] MEDS: DOCUSATE SODIUM 100 MG CAP PO SCH ×2 (08:20→19:55)
[2016-10-28] MEDS: FAMOTIDINE 20 MG/2 ML VIAL IV PUSH SCH ×2 (08:20→19:55)
[2016-10-28] MEDS: SODIUM CHLORIDE 0.9% FLUSH 10 ML FLUSH SCH ×2 (08:20→19:55)
[2016-10-28] MEDS: PRAVASTATIN SOD 40 MG TAB PO SCH (08:28)
[2016-10-28] MEDS ORDERED: PHENYLEPH/NS 1000 MCG/10 ML SYR IV ONE ×2 (08:29)
[2016-10-28] MEDS ORDERED: PROPOFOL 200 MG/20 ML AMP IV ONE (08:29)
[2016-10-28] MEDS: POTASSIUM CHLOR 20 MEQ PREMIX 100 ML IV PRN ×3 (08:29→17:40)
[2016-10-28] MEDS ORDERED: ePHEDrine/NS 25 MG/5 ML SYR IV ONE (08:29)
[2016-10-28] MEDS ORDERED: SODIUM CHLOR 0.9% 1000 ML BAG IV ONE (08:29)
[2016-10-28] MEDS ORDERED: VERAPAMIL HCL 5 MG/2 ML VIAL ONE ×3 (08:51→08:58)
[2016-10-28] MEDS ORDERED: ceFAZolin 2 GM PREMIX 50 ML ONE (09:30)
--- NOTE | 2016-10-28 10:17 | HHI.CCPN ---
Subjective Remarks/Hospital Course 10/27: 66 year old female was found in her bathtub, fully clothed with no water on. She was unable to get up or talk. She was last seen to be normal yesterday. Patient follows commands appropriately however is unable to talk and cannot provide a history. Per documentation she was recently treated with antibiotics amoxicillin for bronchitis as well as started on blood pressure medications due to new onset of hypertension for about last [address] of the head revealed the ICH with IVH extension. The stat CTA revealed ACOM aneurysm 10/28: Resting in bed comfortably. Awake and alert. Following commands. Having speech difficulties. Objective Vital Signs Date Time Temp Pulse Resp B/P Pulse Ox O2 Delivery O2 Flow Rate FiO2 10/28/16 06:00 78 10/28/16 04:00 98.5 21 97 121/54 10/28/16 02:00 Nasal Cannula 2.00 Result Diagram: 10/28/16 0355 10/28/16 0355 Imaging Last [address] 10/27/162214 Signed Impressions: Service Date/Time: Thursday, October 27, 2016 22:58 - CONCLUSION: Large intracerebral hemorrhage with subarachnoid hemorrhage as well. Nicola Childs MD Chest X-Ray 10/27/162214 Signed Impressions: Service Date/Time: Thursday, October 27, 2016 22:37 - CONCLUSION: No acute disease. Kemal Downey MD Objective Remarks GENERAL: Well-nourished, well-developed patient. In no acute distress nonverbal. Appropriately following commands SKIN: Warm and dry. HEAD: Normocephalic. EYES: No scleral icterus. No injection or drainage. NECK: Supple, trachea midline. No JVD or lymphadenopathy. CARDIOVASCULAR: Regular rate and rhythm without murmurs, gallops, or rubs. RESPIRATORY: Breath sounds equal bilaterally. No accessory muscle use. GASTROINTESTINAL: Abdomen soft, non-tender, nondistended. MUSCULOSKELETAL: No cyanosis, or edema. BACK: Nontender without obvious deformity. No CVA tenderness. EXTREMITIES: No clubbing cyanosis or edema Neuro: Awake alert, following commands. Pupils equal reacting to light actively. Continues to have speech difficulty. Cannot tell me her name. Moving all 4 extremities A/P Assessment and Plan ICH - Due to ruptured ACom aneurysm Subarachnoid hemorrhage - Nagel Kennedy grade 2 - Mcmillan grade 4 - Awaiting Cerebral angiogram. - Blood pressure control - Nimodipine - Pravachol - TCD's daily to monitor for vasospasm - Management per neurosurgery Hypertension - Cardene drip - SBP goal less than 140 until aneurysm secured - Hydralazine when necessary Tobacco use disorder - Monitor for withdrawal - Start nicotine replacement if indicated DVT GI prophylaxis - Teds SCDs - No pharmacological DVT prophylaxis due to ICH - Arnol Box MD October 28, 2016 10:16
[2016-10-28] MEDS ORDERED: SODIUM CHLOR 0.9% 1000 ML INJ 1,000 ML IV SCH (11:28)
[2016-10-28] MEDS ORDERED: HEPARIN SODIUM - IV 10,000 UNITS/10 ML VIAL ONE (11:30)
--- NOTE | 2016-10-28 11:30 | PD.RAD ---
Post Procedure Progress Note Pre Procedure Diagnosis: (1) ICH (intracerebral hemorrhage) Post Procedure Diagnosis: (1) ICH (intracerebral hemorrhage) Procedure Date: October 28, 2016 Supervising Radiologist: Carl Hernandez Anesthesia: General Plan of Activity Patient to Unit: PACU Patient Condition: Fair Additional Comments: successful coiling of the ACOM aneurism. Complete exclusion from the circulation. Both anterior cerebral remain patent Groin closed with an angioseal Full dictated report to follow. See PACS Report for procedural detail/treatment Carl Hernandez MD October 28, 2016 11:30
[2016-10-28] MEDS ORDERED: IODIXANOL 320 MG/ML 50 ML VIAL (for Cath Lab) I-ARTERIAL ONE (11:49)
[2016-10-28] MEDS ORDERED: fentaNYL CITRATE 250 MCG/5 ML AMP ONE (12:15)
--- NOTE | 2016-10-28 13:26 | RADRPT ---
EXAM DATE/TIME: 10/28/2016 09:47 [facility] COMPARISON: F/U THRU EXISTING CATHETER, October 28, 2016, 0:00. INDICATIONS : Patient is in need of a cerebral angiogram with coiling due to acute ruptured cerebral aneurysm. MEDICAL HISTORY : History of intrancaranial hemorrhage with intraventricylar hemorrhage, HTN, sinusitis, bronchitis. SURGICAL HISTORY : Unknown. ENCOUNTER: Initial ACUITY: 1 day PAIN SCORE: 0/10 FLUORO TIME: 30.4 minutes IMAGE SERIES: 12 ACCESS SITE: Right Femoral artery CONTRAST: 62 cc Visipaque (iodixanol) 1.) 5000 units Heparin IART Vancomycin within 2 hours of procedure, Ancef (or alternative) within 1 hour of procedure. DEVICE(S): 1.) Anterior communicating artery 6mm x 15cm embolic coil(s) Complex Fill 2.) Anterior communicating artery 6mm x 10cm embolic coil(s) Complex Fill 3.) Anterior communicating artery 4mm x 6cm embolic coil(s) Complex Xtrasoft 4.) Anterior communicating artery 3mm x 6cm embolic coil(s) Complex Xtrasoft 5.) Right common femoral artery 6Fr Angio-Seal PROCEDURE : 1. Ultrasound-guided puncture of the access site. 2. Angiography of the access site prior to closure device. 3. Conscious sedation with continuous EKG and Oximetry monitoring. 4. Percutaneous closure of the access site. 5. Angiography of the intracranial situation on the right. 6. Angiography of the intracranial circulation on the left. 7. Multiple followup angiograms. The risks, benefits and alternatives to the procedure were explained to the patient and 2 for brother via telephone verbal and written consent was obtained. The site was prepped in sterile fashion. Fu sterile technique was used, including cap, mask, sterile gloves and gown and a large sterile sheet . Hand hygiene and 2% chlorhexidine and/or betadine/alcohol prep was utilized per protocol for cutan eous antisepsis. The skin and subcutaneous tissues were infiltrated with local anesthetic solution. With ultrasound and fluoroscopic guidance the selected artery was punctured and a vascular sheath was placed. Angiography of the common femoral artery was performed for evaluation prior to percutaneous closure device placement. The patient's CT angiogram was reviewed prior to the procedure. The patient had a known short segment [id number] dissection and area of aneurysmal dilation of the right internal carotid just belo w the level of the skull base. The initial plan was to approach the patient's aneurysm via the left c arotid circulation however, several attempts were made to engage the left internal carotid origin. Th is patient has a semi-bovine arch and an acute angle of the origin of the left common carotid. The ri ght-sided approach provided more favorable access. A 4 Dominican JB2 catheter was advanced into the arch. Several attempts were made to select the left com mon carotid. These were unsuccessful. The right carotid circulation was easily accessed. Angiography of the right carotid confirm the small area of aneurysmal dilation at the level the skull base as well as the patient's large anterior communicating artery aneurysm. A 0.035 angled Glidewire was advanced into the external carotid circulation. The JB2 catheter was adv anced out into the children librarian regular artery. The Glidewire a JB2 catheter were exchanged for a Magic tor que wire. A neuron guide catheter was advanced over the Magic torque wire. The Magic require neuron g uide catheter were then advanced into the internal carotid to a point just below the skull base. Multiple angiographic runs were performed. The patient's intercommunicating artery was easily identif ied. A Prowler select microcatheter and agility wire were advanced through the neuron guide catheter and o ut into the aneurysm without difficulty. Placement was confirmed with multiple angiographic runs. The aneurysm was coiled with a total of 4 coils as listed above. At the conclusion of the procedure t here was complete exclusion of the aneurysm from the circulation. Completion angiography was performed. Both the right and left anterior cerebral circulation was confi rmed to be widely patent. The patient tolerated the procedure well. Completion angiogram again noted the patient's small area o f aneurysmal dilation within the mid right carotid this was unchanged in appearance. Hemostasis was obtained with the prescribed medicated closure device. Conscious sedation was perform ed with the prescribed dosages and duration as above in the presence of an independent trained radiol ogy nurse to assist in the monitoring of the patient. EKG and oximetry remained stable throughout th e procedure. CONCLUSION: 1. 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 There was good filling of the aneurysm with complete exclusion of the aneurysm from the circulation at the conclusion of the procedure. Carl Hernandez MD on October 28, 2016 at 12:47 Board Certified Radiologist. This report was verified electronically.
[2016-10-28] MEDS ORDERED: DO NOT ADM ANY ANTICOAGULANT DRUGS PRN (14:00)
--- NOTE | 2016-10-28 14:20 | EKG ---
Date Performed: 10/27/2016 Time Performed: 22:13:45 PTAGE: 66 years EKG: Sinus rhythm NORMAL ECG NO PREVIOUS TRACING DOCTOR: Vernon Lyons Interpretating Date/Time 10/28/2016 14:17:42
--- NOTE | 2016-10-28 16:14 | HHI.NSPN ---
(Kyaw Talavera) Note Status Status: Progress Note ([facility] WARREN) Interval History Interval History 10/27: 66-year-old female in relatively good health until 3 or 4 weeks ago when she developed bronchitis. She was treated with a course of amoxicillin which did not help the symptoms. She was given another antibiotic which she finished approximately 3 days ago. She has continued to have a nonproductive cough. No definite fevers or chills. She has had a frontal headache for 2 or 3 weeks. Also some neck pain and stiffness. She was diagnosed with hypertension in the past 2 or 3 months and has been on medication. She does have a long history of smoking cigarettes. She ate dinner with her friend last evening. Her brother called her approximately 10:00 this morning on the telephone, and there was no answer. Her friend found the patient lying in her bathtub at home, significant speech difficulty with no definite seizure activity. Patient indicated to her friend that she had been lying in the bathtub all day long, unable to get up. 10/28: The patient went down for an aneurysm coiling in Interventional Radiology this morning. This afternoon when seen the patient is asleep but awakens to verbal stimuli. She remains nonverbal but shook her head "no" when asked if she had a headache or any numbness or tingling. She did follow some commands. ( Kyaw Talavera) Labs, Micro, & Vital Signs Results Allergies Coded Allergies Type Severity Reaction Last Updated Verified No Known Allergies 10/27/16 No Recent Impressions Embolization, Transcatheter 10/28/16 0000 Signed Impressions: Service Date/Time: Friday, October 28, 2016 09:47 - CONCLUSION: 1. 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 There was good filling of the aneurysm with complete exclusion of the aneurysm from the circulation at the conclusion of the procedure. Carl Hernandez MD Head CT 10/27/16 2215 Signed Impressions: Service Date/Time: Thursday, October 27, 2016 22:58 - CONCLUSION: Large intracerebral hemorrhage with subarachnoid hemorrhage as well. Nicola Childs MD Chest X-Ray 10/27/16 2215 Signed Impressions: Service Date/Time: Thursday, October 27, 2016 22:37 - CONCLUSION: No acute disease. Kemal Downey MD Neck CTA 10/27/16 0000 Signed Impressions: Service Date/Time: Friday, October 28, 2016 00:02 - CONCLUSION: 1. Minimal calcification plaque noted in the carotid systems with no significant stenosis. 2. The known aneurysm extending off the anterior communicating artery is again visualized. Nicola Childs MD ADDENDUM: COMPARISON: CT BRAIN W/O CONTRAST, October 27, 2016, 22:58. 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 The carotid is minimally aneurysmal in this segment measuring 8 mm in maximum diameter. The remainder of the internal carotid measures 4 mm. Carl Hernandez MD Head CTA 10/27/16 0000 Signed Impressions: Service Date/Time: Friday, October 28, 2016 00:02 - CONCLUSION: Lobular aneurysm extending off the anterior communicating artery. Nicola Childs MD 10/26///175//175/15/175/16///17 06:00 18:00 06:00 18:00 06:00 18:00 Intake Total 447 ml 324 ml Output Total 650 ml 650 ml Balance -203 ml -326 ml Intake Oral 90 ml IV Total 447 ml 217 ml Other 17 ml Output Urine Total 650 ml 600 ml Estimated Blood Loss 50 ml # Bowel Movements 0 0 Laboratory Tests Test 10/27/16 10/27/16 10/28/16 10/28/16 22:20 23:10 02:10 03:55 White Blood Count 13.3 TH/MM3 17.3 TH/MM3 Red Blood Count 4.82 MIL/MM3 4.33 MIL/MM3 Hemoglobin 15.1 GM/DL 13.7 GM/DL Hematocrit 43.8 % 40.3 % Mean Corpuscular Volume 91.0 FL 93.2 FL Mean Corpuscular Hemoglobin 31.3 PG 31.6 PG Mean Corpuscular Hemoglobin 34.4 % 34.0 % Concent Red Cell Distribution Width 13.3 % 13.4 % Platelet Count 367 TH/MM3 350 TH/MM3 Mean Platelet Volume 7.4 FL 7.7 FL Neutrophils (%) (Auto) 81.7 % 91.5 % Lymphocytes (%) (Auto) 12.0 % 5.9 % Monocytes (%) (Auto) 5.2 % 2.4 % Eosinophils (%) (Auto) 0.2 % 0.0 % Basophils (%) (Auto) 0.9 % 0.2 % Neutrophils # (Auto) 10.9 TH/MM3 15.8 TH/MM3 Lymphocytes # (Auto) 1.6 TH/MM3 1.0 TH/MM3 Monocytes # (Auto) 0.7 TH/MM3 0.4 TH/MM3 Eosinophils # (Auto) 0.0 TH/MM3 0.0 TH/MM3 Basophils # (Auto) 0.1 TH/MM3 0.0 TH/MM3 CBC Comment DIFF FINAL DIFF FINAL Differential Comment Prothrombin Time 10.2 SEC 10.2 SEC Prothromb Time International 0.9 RATIO 0.9 RATIO Ratio Activated Partial 25.9 SEC Thromboplast Time Sodium Level 141 MEQ/L 143 MEQ/L Potassium Level 3.2 MEQ/L 3.1 MEQ/L Chloride Level 104 MEQ/L 109 MEQ/L Carbon Dioxide Level 26.6 MEQ/L 22.8 MEQ/L Anion Gap 10 MEQ/L 11 MEQ/L Blood Urea Nitrogen 8 MG/DL 8 MG/DL Creatinine 0.68 MG/DL 0.43 MG/DL Estimat Glomerular Filtration 86 ML/MIN 146 ML/MIN Rate Random Glucose 103 MG/DL 117 MG/DL Lactic Acid Level 1.3 mmol/L Calcium Level 8.8 MG/DL 8.6 MG/DL Total Bilirubin 0.7 MG/DL 0.6 MG/DL Aspartate Amino Transf 25 U/L 22 U/L (AST/SGOT) Alanine Aminotransferase 18 U/L 18 U/L (ALT/SGPT) Alkaline Phosphatase 48 U/L 44 U/L Ammonia 12 MCMOL/L Total Creatine Kinase 378 U/L Creatine Kinase MB 2.8 NG/ML Creatine Kinase MB % 0.7 % Troponin I LESS THAN 0.02 NG/ML Total Protein 7.1 GM/DL 6.5 GM/DL Albumin 3.4 GM/DL 3.1 GM/DL Salicylates Level 2.2 MG/DL Acetaminophen Level LESS THAN 2.0 MCG/ML Ethyl Alcohol Level LESS THAN 3 MG/DL Urine Color YELLOW Urine Turbidity CLEAR Urine pH 7.0 Urine Specific [place] 1.015 Urine Protein TRACE mg/dL Urine Glucose (UA) NEG mg/dL Urine Ketones 40 mg/dL Urine Occult Blood NEG Urine Nitrite NEG Urine Bilirubin NEG Urine Urobilinogen LESS THAN 2.0 MG/DL Urine Leukocyte Esterase NEG Urine RBC 4 /hpf Urine WBC 2 /hpf Urine Bacteria RARE /hpf Urine Mucus FEW /lpf Microscopic Urinalysis Comment CATH-CULTURE IND Urine Opiates Screen NEG Urine Barbiturates Screen NEG Urine Amphetamines Screen NEG Urine Benzodiazepines Screen NEG Urine Cocaine Screen NEG Urine Cannabinoids Screen POS Nasal Screen MRSA (PCR) MRSA NOT DETECTED Phosphorus Level 2.9 MG/DL Magnesium Level 2.1 MG/DL Constitutional Vital Signs Date Time Temp Pulse Resp B/P Pulse Ox O2 Delivery O2 Flow Rate FiO2 10/28/16 14:00 64 10/28/16 13:00 99 Nasal Cannula 2.00 10/28/16 13:00 97.9 72 18 130/70 99 130/57 10/28/16 12:45 65 16 130/60 99 Nasal Cannula 2 10/28/16 12:30 71 16 137/65 100 Nasal Cannula 2 10/28/16 12:15 69 24 135/64 99 Nasal Cannula 2 10/28/16 12:04 98.0 72 20 135/40 99 Nasal Cannula 4 10/28/16 12:01 98.0 72 20 99 10/28/16 08:15 96 Room Air 10/28/16 08:00 98.4 62 19 120/65 99 118/56 10/28/16 08:00 99 Nasal Cannula 1.00 10/28/16 08:00 62 10/28/16 06:00 78 10/28/16 04:00 98.5 78 21 97 121/54 10/28/16 04:00 78 10/28/16 02:00 96 Nasal Cannula 2.00 10/28/16 02:00 98.3 96 20 116/67 96 10/28/16 02:00 96 10/28/16 01:15 100 18 110/59 98 Nasal Cannula 2 10/28/16 01:00 97 18 117/60 98 Nasal Cannula 2 10/28/16 00:32 104 18 125/67 97 Nasal Cannula 2 10/28/16 00:14 103 18 135/77 97 Nasal Cannula 2 10/27/16 23:55 80 18 150/72 99 Nasal Cannula 2 10/27/16 23:45 101 16 153/74 99 Nasal Cannula 2 10/27/16 23:41 89 16 168/87 99 Nasal Cannula 2 10/27/16 23:30 81 18 181/98 99 Nasal Cannula 2 10/27/16 22:13 99.4 79 16 182/96 94 10/27/16 22:10 98 Nasal Cannula 2 10/28/16 07:00 Intake Total 447 ml Output Total 650 ml Balance -203 ml (Kyaw Talavera) Review of Systems/Exam ROS Unable to obtain a ROS due to the patient being nonverbal. She did shake her head "no" when asked if she had any headache, numbness or tingling. Exam GENERAL: Patient is a thin lady, calm and in no apparent distress. HEENT: Normocephalic, atraumatic. PERRL. CARDIOVASCULAR: S1S2 w/RRR w/o M/G/R, radial & pedal pulses 2+ bilaterally, cap refill < 2 sec, no pedal edema. Monitor is sinus rhythm w/o any ectopy noted. RESPIRATORY: Slight expiratory wheeze noted bilaterally, equal excursion, non- laboured, on NC. GASTROINTESTINAL: Abdomen soft, non-tender, no organomegaly or palpable masses, positive bowel sounds. MUSCULOSKELETAL: WALSH to a degree. No evident deformity, discolouration or clubbing. NEUROLOGICAL: Asleep but awakens to verbal stimuli, drifts back off to sleep Nonverbal, unable to stick tongue out Follow simple commands with mild to moderate difficulty Sensation is intact to light touch in all extremities Motor strength LUE & LUE 5/5, RUE 4+/5, right plantar flexion 5/5, right plantar extension 4/5, right hip flexion 3/5 Right foot drop noted (Kyaw Talavera) Medications Current Medications Current Medications Medications (Trade) Dose Ordered Sig/Nilesh Route Start Time Stop Time Status Last Admin Sodium Chloride 2 ml 2 ml UNSCH PRN IVF 10/27/16 22:15 (NS 1000 ml Inj) 1,000 ml @ 84 mls/hr [id number] IV 10/27/16 23:30 10/28/16 01:32 (NS Flush) 2 ml UNSCH PRN .XX 10/27/16 23:30 (NS Flush) 2 ml BID .XX 10/28/16 09:00 10/28/16 08:20 (Tylenol) 650 mg Q6H PRN PO 10/27/16 23:30 (Morphine Inj) 2 mg Q2H PRN IV 10/27/16 23:30 (Pepcid Inj) 20 mg Q12HR IV PUSH 10/28/16 09:00 10/28/16 08:20 (Zofran Inj) 4 mg Q6H PRN IV 10/27/16 23:30 (Reglan Inj) 10 mg Q6H PRN IV 10/27/16 23:30 10/28/16 00:47 (Colace) 100 mg BID PO 10/28/16 09:00 Miscellaneous Information 1 Q361D XX 10/27/16 23:30 10/27/16 23:30 (Chlorhexidine 2% Cloth) 3 pack Taper DAILY@04 TOP 10/28/16 04:00 10/24/17 03:59 10/28/16 03:08 (Chlorhexidine 2% Cloth) 3 pack UNSCH PRN TOP 10/27/16 23:30 Hydralazine HCl 20 mg 20 mg Q4H PRN IV PUSH 10/27/16 23:45 10/27/16 23:39 (Cardene Inj/NS 250 ml Inj) 260 ml @ 0 mls/hr TITRATE IV 10/27/16 23:45 10/27/16 23:43 (Nimotop) 60 mg Q4HR PO 10/28/16 01:00 10/28/16 13:04 Pravastatin Sodium 40 mg 40 mg DAILY PO 10/28/16 09:00 10/28/16 08:28 Potassium Chloride 100 ml @ 50 mls/hr Q2H PRN IV 10/28/16 02:15 (KCl 20 Meq Premix Inj) 100 ml @ 50 mls/hr Q2H PRN IV 10/28/16 02:15 10/28/16 15:35 Potassium Bicarb/ Potassium Chloride 50 meq 50 meq UNSCH PRN PO 10/28/16 02:15 Potassium Chloride 100 ml @ 25 mls/hr UNSCH PRN IV 10/28/16 02:15 Potassium Chloride 100 ml @ 50 mls/hr Q2H PRN IV 10/28/16 02:15 (Magnesium Sulfate Inj/NS Inj) 100 ml @ 50 mls/hr UNSCH PRN IV 10/28/16 02:15 Magnesium Oxide 800 mg 800 mg UNSCH PRN PO 10/28/16 02:15 (Magnesium Sulfate Inj/NS Inj) 100 ml @ 50 mls/hr UNSCH PRN IV 10/28/16 02:15 Potassium Phosphate 2000 mg 2,000 mg Q4H PRN PO 10/28/16 02:15 (Sodium Phosphate Inj/NS 250 ml Inj) 250 ml @ 42 mls/hr UNSCH PRN IV 10/28/16 02:15 Potassium Phosphate 2000 mg 2,000 mg UNSCH PRN PO/TUBE 10/28/16 02:15 (NS 1000 ml Inj) 1,000 ml @ 100 mls/hr Q10H IV 10/28/16 11:28 10/28/16 21:27 10/28/16 13:03 Miscellaneous Information ALL NURSING DEPARTME... UNSCH PRN .XX 10/28/16 14:00 10/29/16 13:59 (Kyaw Talavera) Medical Decision Making MDM Remarks Impression: 1. Intracranial-intraventricular and subarachnoid hemorrhage. Anterior communicating artery aneurysm 2. Hypertension 3. Recent history of bronchitis POD # 0 s/p (): 1. ACOM aneurysm coiling (Kyaw Talavera) Plan Plan Remarks Continue frequent neuro checks Continue critical care management per Senior Site Manager Will follow patient closely Will need follow up imaging to monitor for possible ventriculostomy Management of hypertension (Kyaw Talavera) Attending Statement I have personally seen and examined the patient on the date of this note. Pertinent documentation and study results have been reviewed by the undersigned. I have personally developed the treatment plan and performed medical decision making. Agree with findings, exam, and treatment plan as noted above. Neurologic exam stable following aneurysm coiling CT scan head without significant overall hydrocephalus. We will continue to follow head CT scans for monitoring of hydrocephalus Continuing on nimodipine for vasospasm prophylaxis (Johnnie Cool MD) Kyaw Talavera October 28, 2016 16:13 Johnnie Cool MD October 29, 2016 20:48
[2016-10-28] MEDS ORDERED: niCARdipine INJ 25 MG in SODIUM CHLOR 0.9% 250 ML INJ 250 ML IV SCH (16:45)
[2016-10-29] VITALS (15 sets, daily range): BP systolic 141–175; BP diastolic 7–99; PULSE 49–92; RESP 20–29; TEMP 97.9–99.5; O2SAT 91–98
[2016-10-29] MEDS: niMODipine 30 MG CAP PO SCH ×6 (02:50→23:28)
[2016-10-29] MEDS: CHLORHEXIDINE GLUCONATE 2 % 1 PACK (2 CLOTHS) TOP SCH (02:50)
[2016-10-29] MEDS ORDERED: EPINEPHrine HCL (1:10,000) 1 MG/10 ML SYRINGE ONE (03:08)
[2016-10-29] MEDS ORDERED: LIDOCAINE HCL 2% 100 MG/5 ML SYRINGE ONE (03:08)
[2016-10-29] MEDS ORDERED: ATROPINE SULFATE 1 MG/10 ML SYRINGE ONE (03:08)
--- NOTE | 2016-10-29 05:05 | RADRPT ---
EXAM DATE/TIME: 10/29/2016 04:28 [facility] COMPARISON: CT BRAIN W/O CONTRAST, October 27, 2016, 22:58. INDICATIONS : Patient with intracranial hemorrhage and anterior communicating artery aneurysm. Patient is status po st aneurysm coiling.. RADIATION DOSE: 36.18 CTDIvol (mGy) MEDICAL HISTORY : Aneurysm, intracranial. SURGICAL HISTORY : None. ENCOUNTER: Initial ACUITY: 1 day PAIN SCALE: 0/10 LOCATION: cranial TECHNIQUE: Multiple contiguous axial images were obtained of the head. Using automated exposure control and adj ustment of the mA and/or kV according to patient size, radiation dose was kept as low as reasonably a chievable to obtain optimal diagnostic quality images. FINDINGS: The patient is status post aneurysm coiling with significant streak artifact noted in the supras ellar region. The hematoma above the lateral ventricles has decreased mildly in size and now measures approximately 3.8 x 3.1 cm in diameter compared to 4 x 3 cm on the prior study. Subarachnoid hemorrh age remains along the falx. There is a small amount of intraventricular hemorrhage now noted in the o ccipital horns. There is no midline shift. Mild mass effect is again noted on the left lateral ventri joycelyn. There is no definite new hemorrhage. CONCLUSION: 1. Status post aneurysm coiling in the anterior cerebral artery. 2. Mild interval decrease in intercerebral hemorrhage. 3. Small amount of intraventricular hemorrhage now noted. Nicola Childs MD on October 29, 2016 at 5:00 Board Certified Radiologist. This report was verified electronically.
[2016-10-29] MEDS: PRAVASTATIN SOD 40 MG TAB PO SCH (08:11)
[2016-10-29] MEDS: FAMOTIDINE 20 MG/2 ML VIAL IV PUSH SCH ×2 (08:11→19:48)
[2016-10-29] MEDS: SODIUM CHLORIDE 0.9% FLUSH 10 ML FLUSH SCH ×2 (08:11→19:48)
[2016-10-29] MEDS: DOCUSATE SODIUM 100 MG CAP PO SCH ×2 (08:11→19:47)
[2016-10-29] MEDS: SODIUM CHLOR 0.9% 1000 ML INJ 1,000 ML IV SCH ×2 (08:45→23:35)
[2016-10-29 11:05] LABS: AUTOMATED NEUTROPHIL # 10.7 TH/MM3 (1.8-7.7); BASOPHIL # 0.1 TH/MM3 (0-0.2); BASOPHIL % 0.7 % (0.0-2.0); HEMATOCRIT 36.1 % (35.0-46.0); HEMO FLAGS DIFF FINAL; LYMPH % 10.3 % (9.0-44.0); LYMPHOCYTE # 1.3 TH/MM3 (1.0-4.8); MEAN CORPUSCULAR HEMOGLOBIN 30.6 PG (27.0-34.0); MEAN CORPUSCULAR HGB CONC 33.6 % (32.0-36.0); MONO % 5.3 % (0.0-8.0); NEUT % 83.7 % (16.0-70.0); PLATELET COUNT 341 TH/MM3 (150-450); RED BLOOD COUNT 3.96 MIL/MM3 (4.00-5.30); RED CELL DISTRIBUTION WIDTH 13.7 % (11.6-17.2); WHITE BLOOD COUNT 12.7 TH/MM3 (4.0-11.0)
--- NOTE | 2016-10-29 11:06 | HHI.NSPN ---
(Kyaw Talavera) Note Status Status: Progress Note (Kyaw Talavera) Interval History Interval History 10/27: 66-year-old female in relatively good health until 3 or 4 weeks ago when she developed bronchitis. She was treated with a course of amoxicillin which did not help the symptoms. She was given another antibiotic which she finished approximately 3 days ago. She has continued to have a nonproductive cough. No definite fevers or chills. She has had a frontal headache for 2 or 3 weeks. Also some neck pain and stiffness. She was diagnosed with hypertension in the past 2 or 3 months and has been on medication. She does have a long history of smoking cigarettes. She ate dinner with her friend last evening. Her brother called her approximately 10:00 this morning on the telephone, and there was no answer. Her friend found the patient lying in her bathtub at home, significant speech difficulty with no definite seizure activity. Patient indicated to her friend that she had been lying in the bathtub all day long, unable to get up. 10/28: The patient went down for an aneurysm coiling in Interventional Radiology this morning. This afternoon when seen the patient is asleep but awakens to verbal stimuli. She remains nonverbal but shook her head "no" when asked if she had a headache or any numbness or tingling. She did follow some commands. 10/29: When the patient was seen with Dr Cool late yesterday afternoon the patient was able to say her name. This morning prior to being seen Nursing reports that the is not verbalising although she was yesterday. When seen the patient was not able to verbalise but she did nod her head appropriately. She nodded "yes" to having a headache. The patient did have a transcranial doppler study this morning, the report is pending. (Kyaw Talavera) Labs, Micro, & Vital Signs Results Allergies Coded Allergies Type Severity Reaction Last Updated Verified No Known Allergies 10/27/16 No Recent Impressions Head CT 10/29/16 0600 Signed Impressions: Service Date/Time: Saturday, October 29, 2016 04:28 - CONCLUSION: 1. Status post aneurysm coiling in the anterior cerebral artery. 2. Mild interval decrease in intercerebral hemorrhage. 3. Small amount of intraventricular hemorrhage now noted. Nicola Childs MD Embolization, Transcatheter 10/28/16 Signed Impressions: Service Date/Time: Friday, October 28, 2016 09:47 - CONCLUSION: 1. 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 There was good filling of the aneurysm with complete exclusion of the aneurysm from the circulation at the conclusion of the procedure. Carl Hernandez MD Head CT 10/27/162214 Signed Impressions: Service Date/Time: Thursday, October 27, 2016 22:58 - CONCLUSION: Large intracerebral hemorrhage with subarachnoid hemorrhage as well. Nicola Childs MD Chest X-Ray 10/27/162214 Signed Impressions: Service Date/Time: Thursday, October 27, 2016 22:37 - CONCLUSION: No acute disease. Kemal Downey MD Neck CTA 10/27/16 Signed Impressions: Service Date/Time: Friday, October 28, 2016 00:02 - CONCLUSION: 1. Minimal calcification plaque noted in the carotid systems with no significant stenosis. 2. The known aneurysm extending off the anterior communicating artery is again visualized. Nicola Childs MD ADDENDUM: COMPARISON: CT BRAIN W/O CONTRAST, October 27, 2016, 22:58. 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 The carotid is minimally aneurysmal in this segment measuring 8 mm in maximum diameter. The remainder of the internal carotid measures 4 mm. Carl Hernandez MD Head CTA 10/27/16 0000 Signed Impressions: Service Date/Time: Friday, October 28, 2016 00:02 - CONCLUSION: Lobular aneurysm extending off the anterior communicating artery. Nicola Childs MD //////// 06:00 18:00 06:00 18:00 06:00 18:00 Intake Total 447 ml 324 ml 1478 ml Output Total 650 ml 650 ml 1400 ml Balance -203 ml -326 ml 78 ml Intake Oral 90 ml IV Total 447 ml 217 ml 1478 ml Other 17 ml Output Urine Total 650 ml 600 ml 1400 ml Estimated Blood Loss 50 ml # Bowel Movements 0 0 Laboratory Tests Test 10/27/16 10/27/16 10/28/16 10/28/16 22:20 23:10 02:10 03:55 White Blood Count 13.3 TH/MM3 17.3 TH/MM3 Red Blood Count 4.82 MIL/MM3 4.33 MIL/MM3 Hemoglobin 15.1 GM/DL 13.7 GM/DL Hematocrit 43.8 % 40.3 % Mean Corpuscular Volume 91.0 FL 93.2 FL Mean Corpuscular Hemoglobin 31.3 PG 31.6 PG Mean Corpuscular Hemoglobin 34.4 % 34.0 % Concent Red Cell Distribution Width 13.3 % 13.4 % Platelet Count 367 TH/MM3 350 TH/MM3 Mean Platelet Volume 7.4 FL 7.7 FL Neutrophils (%) (Auto) 81.7 % 91.5 % Lymphocytes (%) (Auto) 12.0 % 5.9 % Monocytes (%) (Auto) 5.2 % 2.4 % Eosinophils (%) (Auto) 0.2 % 0.0 % Basophils (%) (Auto) 0.9 % 0.2 % Neutrophils # (Auto) 10.9 TH/MM3 15.8 TH/MM3 Lymphocytes # (Auto) 1.6 TH/MM3 1.0 TH/MM3 Monocytes # (Auto) 0.7 TH/MM3 0.4 TH/MM3 Eosinophils # (Auto) 0.0 TH/MM3 0.0 TH/MM3 Basophils # (Auto) 0.1 TH/MM3 0.0 TH/MM3 CBC Comment DIFF FINAL DIFF FINAL Differential Comment Prothrombin Time 10.2 SEC 10.2 SEC Prothromb Time International 0.9 RATIO 0.9 RATIO Ratio Activated Partial 25.9 SEC Thromboplast Time Sodium Level 141 MEQ/L 143 MEQ/L Potassium Level 3.2 MEQ/L 3.1 MEQ/L Chloride Level 104 MEQ/L 109 MEQ/L Carbon Dioxide Level 26.6 MEQ/L 22.8 MEQ/L Anion Gap 10 MEQ/L 11 MEQ/L Blood Urea Nitrogen 8 MG/DL 8 MG/DL Creatinine 0.68 MG/DL 0.43 MG/DL Estimat Glomerular Filtration 86 ML/MIN 146 ML/MIN Rate Random Glucose 103 MG/DL 117 MG/DL Lactic Acid Level 1.3 mmol/L Calcium Level 8.8 MG/DL 8.6 MG/DL Total Bilirubin 0.7 MG/DL 0.6 MG/DL Aspartate Amino Transf 25 U/L 22 U/L (AST/SGOT) Alanine Aminotransferase 18 U/L 18 U/L (ALT/SGPT) Alkaline Phosphatase 48 U/L 44 U/L Ammonia 12 MCMOL/L Total Creatine Kinase 378 U/L Creatine Kinase MB 2.8 NG/ML Creatine Kinase MB % 0.7 % Troponin I LESS THAN 0.02 NG/ML Total Protein 7.1 GM/DL 6.5 GM/DL Albumin 3.4 GM/DL 3.1 GM/DL Salicylates Level 2.2 MG/DL Acetaminophen Level LESS THAN 2.0 MCG/ML Ethyl Alcohol Level LESS THAN 3 MG/DL Urine Color YELLOW Urine Turbidity CLEAR Urine pH 7.0 Urine Specific [place] 1.015 Urine Protein TRACE mg/dL Urine Glucose (UA) NEG mg/dL Urine Ketones 40 mg/dL Urine Occult Blood NEG Urine Nitrite NEG Urine Bilirubin NEG Urine Urobilinogen LESS THAN 2.0 MG/DL Urine Leukocyte Esterase NEG Urine RBC 4 /hpf Urine WBC 2 /hpf Urine Bacteria RARE /hpf Urine Mucus FEW /lpf Microscopic Urinalysis Comment CATH-CULTURE IND Urine Opiates Screen NEG Urine Barbiturates Screen NEG Urine Amphetamines Screen NEG Urine Benzodiazepines Screen NEG Urine Cocaine Screen NEG Urine Cannabinoids Screen POS Nasal Screen MRSA (PCR) MRSA NOT DETECTED Phosphorus Level 2.9 MG/DL Magnesium Level 2.1 MG/DL Constitutional Vital Signs Date Time Temp Pulse Resp B/P Pulse Ox O2 Delivery O2 Flow Rate FiO2 10/29/16 06:00 50 10/29/16 04:00 98.8 50 21 158/75 94 10/29/16 04:00 50 10/29/16 02:00 69 10/29/16 00:00 98.6 74 21 141/76 95 146/71 10/29/16 00:00 74 10/28/16 22:00 48 10/28/16 20:00 98.4 76 21 95 142/70 10/28/16 20:00 76 10/28/16 19:00 95 Room Air 10/28/16 18:00 67 10/28/16 16:00 97.8 72 20 126/71 94 126/54 10/28/16 16:00 94 Room Air 10/28/16 16:00 72 10/28/16 14:00 64 10/28/16 13:45 98 Nasal Cannula 1.00 10/28/16 13:00 99 Nasal Cannula 2.00 10/28/16 13:00 97.9 72 18 130/70 99 130/57 10/28/16 12:45 65 16 130/60 99 Nasal Cannula 2 10/28/16 12:30 71 16 137/65 100 Nasal Cannula 2 10/28/16 12:15 69 24 135/64 99 Nasal Cannula 2 10/28/16 12:04 98.0 72 20 135/40 99 Nasal Cannula 4 10/28/16 12:01 98.0 72 20 99 10/29/16 07:00 Intake Total 1802 ml Output Total 2050 ml Balance -248 ml (Kyaw Talavera) Review of Systems/Exam ROS CARDIOVASCULAR: Patient shook her head "no" to any chest pain, palpitations or irregular heart beat. RESPIRATORY: Patient shook her head "no" to any shortness of breath. GASTROINTESTINAL: Patient shook her head "no" to any abdominal pain or nausea. MUSCULOSKELETAL: Patient shook her head "no" to any arm or leg pain. NEUROLOGICAL: Patient shook her head "yes" to having a headache but "no" to any dizziness, numbness or tingling. Exam GENERAL: Asleep but awakens to verbal stimuli, calm and in no apparent distress. HEENT: Normocephalic, atraumatic. PERRL. CARDIOVASCULAR: S1S2 w/RRR w/o M/G/R, radial & pedal pulses 2+ bilaterally, cap refill < 2 sec, no pedal edema. Monitor is sinus rhythm w/o any ectopy noted. RESPIRATORY: CTAB w/o W/R/R, equal excursion, non-laboured, on NC. GASTROINTESTINAL: Abdomen soft, non-tender, positive bowel sounds. MUSCULOSKELETAL: Only moves LUE spontaneously. No evident deformity, discolouration or clubbing. 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+/5 otherwise LUE 2+ to 3/5, RUE 0+ to 1/5, RLE 0/5, LLE 0/5 except plantar flexion 4/5 as response to touch (Kyaw Talavera) Medications Current Medications Current Medications Medications (Trade) Dose Ordered Sig/Nilesh Route Start Time Stop Time Status Last Admin Sodium Chloride 2 ml 2 ml UNSCH PRN IVF 10/27/16 22:15 (NS 1000 ml Inj) 1,000 ml @ 84 mls/hr [id number] IV 10/27/16 23:30 10/29/16 08:45 (NS Flush) 2 ml UNSCH PRN .XX 10/27/16 23:30 (NS Flush) 2 ml BID .XX 10/28/16 09:00 10/29/16 08:11 (Tylenol) 650 mg Q6H PRN PO 10/27/16 23:30 (Morphine Inj) 2 mg Q2H PRN IV 10/27/16 23:30 (Pepcid Inj) 20 mg Q12HR IV PUSH 10/28/16 09:00 10/29/16 08:11 (Zofran Inj) 4 mg Q6H PRN IV 10/27/16 23:30 (Reglan Inj) 10 mg Q6H PRN IV 10/27/16 23:30 10/28/16 00:47 (Colace) 100 mg BID PO 10/28/16 09:00 10/29/16 08:11 Miscellaneous Information 1 Q361D XX 10/27/16 23:30 10/27/16 23:30 (Chlorhexidine 2% Cloth) 3 pack Taper DAILY@04 TOP 10/28/16 04:00 10/24/17 03:59 10/29/16 02:50 (Chlorhexidine 2% Cloth) 3 pack UNSCH PRN TOP 10/27/16 23:30 (Apresoline Inj) 20 mg Q4H PRN IV PUSH 10/27/16 23:45 10/27/16 23:39 (Nimotop) 60 mg Q4HR PO 10/28/16 01:00 10/29/16 08:11 Pravastatin Sodium 40 mg 40 mg DAILY PO 10/28/16 09:00 10/29/16 08:11 Potassium Chloride 100 ml @ 50 mls/hr Q2H PRN IV 10/28/16 02:15 (KCl 20 Meq Premix Inj) 100 ml @ 50 mls/hr Q2H PRN IV 10/28/16 02:15 10/28/16 17:40 Potassium Bicarb/ Potassium Chloride 50 meq 50 meq UNSCH PRN PO 10/28/16 02:15 Potassium Chloride 100 ml @ 25 mls/hr UNSCH PRN IV 10/28/16 02:15 Potassium Chloride 100 ml @ 50 mls/hr Q2H PRN IV 10/28/16 02:15 (Magnesium Sulfate Inj/NS Inj) 100 ml @ 50 mls/hr UNSCH PRN IV 10/28/16 02:15 Magnesium Oxide 800 mg 800 mg UNSCH PRN PO 10/28/16 02:15 (Magnesium Sulfate Inj/NS Inj) 100 ml @ 50 mls/hr UNSCH PRN IV 10/28/16 02:15 Potassium Phosphate 2000 mg 2,000 mg Q4H PRN PO 10/28/16 02:15 (Sodium Phosphate Inj/NS 250 ml Inj) 250 ml @ 42 mls/hr UNSCH PRN IV 10/28/16 02:15 (K-Phos) 2,000 mg UNSCH PRN PO/TUBE 10/28/16 02:15 Miscellaneous Information ALL NURSING DEPARTME... UNSCH PRN .XX 10/28/16 14:00 10/29/16 13:59 (Cardene Inj/NS 250 ml Inj) 260 ml @ 0 mls/hr TITRATE IV 10/28/16 16:45 (Kyaw Talavera) Medical Decision Making MDM Remarks Impression: 1. Intracranial-intraventricular and subarachnoid hemorrhage. Anterior communicating artery aneurysm 2. Hypertension 3. Recent history of bronchitis POD # 1 s/p (): 1. ACOM aneurysm coiling Worsening neurological exam CT brain w/slight improvement in ICH but now demonstrates new IVH ( Kyaw Talavera) Plan Plan Remarks Continue frequent neuro checks Continue critical care management per Location And Measurement Technician Will follow patient closely Will need follow up imaging to monitor for possible ventriculostomy Management of hypertension (Kyaw Talavera) Attending Statement I have personally seen and examined the patient on the date of this note. Pertinent documentation and study results have been reviewed by the undersigned. I have personally developed the treatment plan and performed medical decision making. Agree with findings, exam, and treatment plan as noted above. Right upper extremity weakness and lower extremity weakness seems somewhat worse today. A follow-up CT angiogram does reveal mostly mild anterior and middle cerebral artery distribution vasospasm. Discussed with process engineering intern today We will maintain systolic blood pressure 160-180 range. Follow transcranial Dopplers. May need interventional radiology depending on clinical course and follow-up transcranial Doppler studies (Johnnie Cool MD) Kyaw Talavera October 29, 2016 11:06 Johnnie Cool MD October 29, 2016 20:50
[2016-10-29 11:29] LABS: BICARBONATE 25.1 MEQ/L (21.0-32.0); POTASSIUM 3.1 MEQ/L (3.5-5.1)
[2016-10-29] MEDS: POTASSIUM CHLOR 20 MEQ PREMIX 100 ML IV PRN ×4 (12:46→20:50)
--- NOTE | 2016-10-29 12:52 | HHI.CCPN ---
Subjective Remarks/Hospital Course 10/27: 66 year old female was found in her bathtub, fully clothed with no water on. She was unable to get up or talk. She was last seen to be normal yesterday. Patient follows commands appropriately however is unable to talk and cannot provide a history. Per documentation she was recently treated with antibiotics amoxicillin for bronchitis as well as started on blood pressure medications due to new onset of hypertension for about last [address] of the head revealed the ICH with IVH extension. The stat CTA revealed ACOM aneurysm 10/28: Resting in bed comfortably. Awake and alert. Following commands. Having speech difficulties. 10/29: Underwent ACOM aneurysm coiling on 10/28. This morning speech appears to have worsened. Patient is nonverbal. Following commands. Head CT shows decreasing size of hemorrhage, the CT is done with results pending. Objective Vital Signs Date Time Temp Pulse Resp B/P Pulse Ox O2 Delivery O2 Flow Rate FiO2 10/29/16 10:00 50 10/29/16 09:00 91 Nasal Cannula 2.00 10/29/16 08:00 98.4 20 152/83 143/95 Intake and Output 10/28/16 10/28/16 10/29/16 08:00 16:00 00:00 Intake Total 447 ml 324 ml 736 ml Output Total 650 ml 650 ml 350 ml Balance -203 ml -326 ml 386 ml Result Diagram: 10/29/16 1040 10/29/16 1040 Other Results Microbiology Date/Time Procedure Status Source Growth 10/27/16 23:10 Urine Culture - Final Complete Urine Catheterized Urine 10-50,000 CFU/ML MIXED GRAM POSITIVE ... Imaging Last [address] 10/27/162214 Signed Impressions: Service Date/Time: Thursday, October 27, 2016 22:58 - CONCLUSION: Large intracerebral hemorrhage with subarachnoid hemorrhage as well. Nicola Childs MD Chest X-Ray 10/27/162214 Signed Impressions: Service Date/Time: Thursday, October 27, 2016 22:37 - CONCLUSION: No acute disease. Kemal Downey MD Objective Remarks GENERAL: Well-nourished, well-developed patient. In no acute distress nonverbal. Appropriately following commands SKIN: Warm and dry. HEAD: Normocephalic. EYES: No scleral icterus. No injection or drainage. NECK: Supple, trachea midline. No JVD or lymphadenopathy. CARDIOVASCULAR: Regular rate and rhythm without murmurs, gallops, or rubs. RESPIRATORY: Breath sounds equal bilaterally. No accessory muscle use. GASTROINTESTINAL: Abdomen soft, non-tender, nondistended. MUSCULOSKELETAL: No cyanosis, or edema. BACK: Nontender without obvious deformity. No CVA tenderness. EXTREMITIES: No clubbing cyanosis or edema Neuro: Awake alert, following commands. Pupils equal reacting to light actively. nonverbal. Weakness in bilateral upper and lower extremities grade 2 power A/P Assessment and Plan ICH - Due to ruptured ACom aneurysm Subarachnoid hemorrhage - Nagel Kennedy grade 2 - Mcmillan grade 4 -Status post A, aneurysm coiling - Blood pressure control - Nimodipine - Pravachol - TCD's daily to monitor for vasospasm - Ventriculostomy to be decided by Neurosurgery - Management per neurosurgery Hypertension - Cardene drip - SBP goal less than 160 - Hydralazine when necessary Tobacco use disorder - Monitor for withdrawal - Start nicotine replacement if indicated DVT GI prophylaxis - Teds SCDs - No pharmacological DVT prophylaxis due to ICH - Arnol Box MD October 29, 2016 12:52
--- NOTE | 2016-10-29 13:11 | RADRPT ---
EXAM DATE/TIME: 10/29/2016 07:41 [facility] COMPARISON: ANGIOGRAM, CEREBRAL WO ARCH, October 28, 2016, 0:00. ANGIOGRAM,SELECT ADD VESSEL,RT, October 28, 2016, 0:00. INDICATIONS : Subarachnoid hemorrhage. MEDICAL HISTORY : Hypertension. CVA. Depression. SURGICAL HISTORY : Bilateral cataract surgery. ENCOUNTER: Initial ACUITY: 1 day PAIN SCORE: 5/10 LOCATION: Bilateral cranial Current Exam: October 29, 2016 [place] Ratio: Right: 4.4 Left: 2.5 De Jesus Ratio: Right: 2.9 Left: Unable to obtain Right: Left: Right: Left: FINDINGS: Examination performed at bedside. Real-time ultrasound with the assistance of color and spectral Dop pler was utilized to evaluate the intracerebral circulation. Time-averaged maximal velocities are ca lculated in cm/s. There are findings of mild spasm involving the right middle cerebral artery. CONCLUSION: 1. Mild spasm involving the right middle cerebral artery Robin Muir MD on October 29, 2016 at 13:07 Board Certified Radiologist. This report was verified electronically.
[2016-10-29] MEDS ORDERED: IOHEXOL 350 MG/ML 10 ML VIAL (for RAD DIAG) IV ONE (13:39)
--- NOTE | 2016-10-29 14:38 | RADRPT ---
EXAM DATE/TIME: 10/29/2016 13:29 [facility] COMPARISON: CT BRAIN W/O CONTRAST, October 29, 2016, 4:28. INDICATIONS : Evaluate for aneurysm. IV CONTRAST: 50 cc Omnipaque 350 (iohexol) IV RADIATION DOSE: 24.73 CTDIvol (mGy) ; Combined studies MEDICAL HISTORY : Hypertension. Cardiovascular disease SURGICAL HISTORY : None. ENCOUNTER: Initial ACUITY: 2 days PAIN SCALE: Non-responsive LOCATION: Bilateral cranial Elevated flow velocities and ICA/CCA ratios have been found to correlate with increased degrees of vessel stenosis, calculated as percentage of diameter relative to a normal segment of distal ICA/CCA. TECHNIQUE: Volumetric scanning was performed using a multirow detector CT scanner. The data was post processed with a variety of visualization algorithms including full-volume maximum intensity projection, multip lanar sliding thin-slab reformation, curved-planar reformation, and surface-rendering techniques. Us ing automated exposure control and adjustment of the mA and/or kV according to patient size, radiatio n dose was kept as low as reasonably achievable to obtain optimal diagnostic quality images. FINDINGS: AORTIC ARCH: There is bilateral branching of the great pulse and arch. The origins of the great vessels are widely patent. RIGHT CAROTID: The common carotid is widely patent throughout its course. There is no significant plaquing at the bi furcation. The internal carotid demonstrates a small nonflow limiting dissection and small pseudoaneu rysm just below the skull base. The internal carotid is widely patent throughout its course. LEFT CAROTID: The common carotid, internal carotid and external carotid arteries are widely patent. The VERTEBRALS: The vertebral arteries have a symmetric diameter. No stenotic lesions are seen. CONCLUSION: 1. There is a small nonflow limiting dissection and small area of aneurysmal dilation in the distal r ight common carotid just below the skull base. This is unchanged from previous exam. The carotid and vertebral circulation is otherwise widely patent. 2. Patient has embolization coils in an anterior communicating artery aneurysm. Intracranial circulat ion will be assessed by separate examination. Carl Hernandez MD on October 29, 2016 at 14:34 Board Certified Radiologist. This report was verified electronically.
--- NOTE | 2016-10-29 15:39 | RADRPT ---
EXAM DATE/TIME: 10/29/2016 13:29 [facility] COMPARISON: CT BRAIN W/O CONTRAST, October 27, 2016, 22:58. CTA BRAIN W 3D RECON, October 28, 2016, 0:02. INDICATIONS : Evaluate for aneurysm. IV CONTRAST: 50 cc Omnipaque 350 (iohexol) IV RADIATION DOSE: 24.73 CTDIvol (mGy) ; Combined studies MEDICAL HISTORY : Cardiovascular disease. Hypertension. CVA SURGICAL HISTORY : None. ENCOUNTER: Initial ACUITY: 1 day PAIN SCALE: Non-responsive LOCATION: Bilateral cranial TECHNIQUE: Volumetric scanning was performed using a multi-row detector CT scanner. The data was post processed with a variety of visualization algorithms including full volume maximum intensity projection, multi -planar sliding thin slab reformation, curved planar reformation, and surface rendering techniques. Using automated exposure control and adjustment of the mA and/or kV according to patient size, radiat ion dose was kept as low as reasonably achievable to obtain optimal diagnostic quality images. FINDINGS: There is coiling of a previous anterior communicating artery aneurysm. No vasospasm is identified in the proximal vessels with mild spasm involving the right middle cerebral artery trifurcation. There i s a patent posterior communicating artery on the right. There is an infundibulum at the origin of the left posterior to indicating artery. CONCLUSION: 1. Mild spasm involving the right middle cervical artery trifurcation vessels within the fissure. The re is also minimal spasm involving the left anterior temporal artery. Robin Muir MD on October 29, 2016 at 15:24 Board Certified Radiologist. This report was verified electronically.
[2016-10-30] VITALS (12 sets, daily range): BP systolic 142–191; BP diastolic 72–99; PULSE 56–101; RESP 18–39; TEMP 98–99.9; O2SAT 95–97
[2016-10-30] MEDS: hydrALAZINE HCL 20 MG/ML VIAL IV PUSH PRN ×2 (02:30→16:09)
[2016-10-30 03:26] LABS: BASOPHIL # 0.1 TH/MM3 (0-0.2); BASOPHIL % 0.4 % (0.0-2.0); EOSINOPHIL % 0.1 % (0.0-4.0); HEMATOCRIT 39.4 % (35.0-46.0); HEMO FLAGS DIFF FINAL; LYMPH % 12.4 % (9.0-44.0); LYMPHOCYTE # 1.9 TH/MM3 (1.0-4.8); MEAN CELL VOLUME 90.7 FL (80.0-100.0); MEAN CORPUSCULAR HEMOGLOBIN 30.2 PG (27.0-34.0); MEAN CORPUSCULAR HGB CONC 33.3 % (32.0-36.0); MONO % 6.6 % (0.0-8.0); NEUT % 80.5 % (16.0-70.0); PLATELET COUNT 361 TH/MM3 (150-450); RED BLOOD COUNT 4.35 MIL/MM3 (4.00-5.30); RED CELL DISTRIBUTION WIDTH 13.3 % (11.6-17.2)
[2016-10-30] MEDS: CHLORHEXIDINE GLUCONATE 2 % 1 PACK (2 CLOTHS) TOP SCH (04:00)
[2016-10-30] MEDS: niMODipine 30 MG CAP PO SCH ×6 (04:10→23:44)
[2016-10-30 04:17] LABS: ALKALINE PHOSPHATASE 43 U/L (45-117); ALT (GPT) 17 U/L (10-53); ANION GAP 11 MEQ/L (5-15); AST (GOT) 16 U/L (15-37); BICARBONATE 22.4 MEQ/L (21.0-32.0); BLOOD UREA NITROGEN 6 MG/DL (7-18); CHLORIDE 104 MEQ/L (98-107); GLOMERULAR FILTRATION RATE 191 ML/MIN (>89); SODIUM (NA) 137 MEQ/L (136-145)
[2016-10-30 04:20] LABS: POTASSIUM 2.9 MEQ/L (3.5-5.1)
[2016-10-30] MEDS: POTASSIUM CHLOR 20 MEQ PREMIX 100 ML IV PRN ×5 (04:25→21:59)
--- NOTE | 2016-10-30 06:17 | PD.PROCEDR ---
Procedure Note Procedure Radial A-line Julio Woods MD October 30, 2016 06:17
[2016-10-30] MEDS: SODIUM CHLORIDE 0.9% FLUSH 10 ML FLUSH SCH ×2 (09:00→19:50)
[2016-10-30] MEDS: PRAVASTATIN SOD 40 MG TAB PO SCH (09:00)
[2016-10-30] MEDS: DOCUSATE SODIUM 100 MG CAP PO SCH ×2 (09:00→19:50)
--- NOTE | 2016-10-30 09:06 | HHI.NSPN ---
([facility]ala[facility] Estelita WARREN) Note Status Status: Progress Note ([facility]ala[facility]) Interval History Interval History 10/27: 66-year-old female in relatively good health until 3 or 4 weeks ago when she developed bronchitis. She was treated with a course of amoxicillin which did not help the symptoms. She was given another antibiotic which she finished approximately 3 days ago. She has continued to have a nonproductive cough. No definite fevers or chills. She has had a frontal headache for 2 or 3 weeks. Also some neck pain and stiffness. She was diagnosed with hypertension in the past 2 or 3 months and has been on medication. She does have a long history of smoking cigarettes. She ate dinner with her friend last evening. Her brother called her approximately 10:00 this morning on the telephone, and there was no answer. Her friend found the patient lying in her bathtub at home, significant speech difficulty with no definite seizure activity. Patient indicated to her friend that she had been lying in the bathtub all day long, unable to get up. 10/28: The patient went down for an aneurysm coiling in Interventional Radiology this morning. This afternoon when seen the patient is asleep but awakens to verbal stimuli. She remains nonverbal but shook her head "no" when asked if she had a headache or any numbness or tingling. She did follow some commands. 10/29: When the patient was seen with Dr Cool late yesterday afternoon the patient was able to say her name. This morning prior to being seen Nursing reports that the is not verbalising although she was yesterday. When seen the patient was not able to verbalise but she did nod her head appropriately. She nodded "yes" to having a headache. The patient did have a transcranial doppler study this morning, the report is pending. 10/30: The patient remains nonverbal this morning and makes no attempt to shake her head "no" when asked if she is able to speak. She is spontaneously moving the left side. A TCD is being done when seen. Yesterday a repeat CT brain demonstrated some improvement in the ICH and a new small IVH. A TCD & CTA demonstrated a right middle cerebral artery vasospasm. A minimal left anterior temporal artery vasospasm was noted on the CTA only. (Ky[facility] Talavera) Labs, Micro, & Vital Signs Results Allergies Coded Allergies Type Severity Reaction Last Updated Verified No Known Allergies 10/27/16 No Recent Impressions Head CT 10/29/16 0600 Signed Impressions: Service Date/Time: Saturday, October 29, 2016 04:28 - CONCLUSION: 1. Status post aneurysm coiling in the anterior cerebral artery. 2. Mild interval decrease in intercerebral hemorrhage. 3. Small amount of intraventricular hemorrhage now noted. Nicola Childs MD Transcranial Doppler Study Complete 10/29/16 0000 Signed Impressions: Service Date/Time: Saturday, October 29, 2016 07:41 - CONCLUSION: 1. Mild spasm involving the right middle cerebral artery Robin Muir MD Neck CTA 10/29/16 0000 Signed Impressions: Service Date/Time: Saturday, October 29, 2016 13:29 - CONCLUSION: 1. There is a small nonflow limiting dissection and small area of aneurysmal dilation in the distal right common carotid just below the skull base. This is unchanged from previous exam. The carotid and vertebral circulation is otherwise widely patent. 2. Patient has embolization coils in an anterior communicating artery aneurysm. Intracranial circulation will be assessed by separate examination. Carl Hernandez MD Head CTA 10/29/16 0000 Signed Impressions: Service Date/Time: Saturday, October 29, 2016 13:29 - CONCLUSION: 1. Mild spasm involving the right middle cervical artery trifurcation vessels within the fissure. There is also minimal spasm involving the left anterior temporal artery. Robin Muir MD Embolization, Transcatheter 10/28/16 0000 Signed Impressions: Service Date/Time: Friday, October 28, 2016 09:47 - CONCLUSION: 1. 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 There was good filling of the aneurysm with complete exclusion of the aneurysm from the circulation at the conclusion of the procedure. Carl Hernandez MD Head CT 10/27/16 2215 Signed Impressions: Service Date/Time: Thursday, October 27, 2016 22:58 - CONCLUSION: Large intracerebral hemorrhage with subarachnoid hemorrhage as well. Nicola Childs MD Chest X-Ray 10/27/16 9823 Signed Impressions: Service Date/Time: Thursday, October 27, 2016 22:37 - CONCLUSION: No acute disease. Kemal Downey MD ///////// 06:00 18:00 06:00 18:00 06:00 18:00 Intake Total 447 ml 324 ml 1478 ml 800 ml 1805 ml Output Total 650 ml 650 ml 1400 ml 975 ml 2325 ml Balance -203 ml -326 ml 78 ml -175 ml -520 ml Intake Oral 90 ml 120 ml IV Total 447 ml 217 ml 1478 ml 680 ml 1805 ml Other 17 ml Output Urine Total 650 ml 600 ml 1400 ml 975 ml 2325 ml Estimated Blood Loss 50 ml # Bowel Movements 0 0 0 0 Laboratory Tests Test 10/27/16 10/27/16 10/28/16 10/28/16 22:20 23:10 02:10 03:55 White Blood Count 13.3 TH/MM3 17.3 TH/MM3 Red Blood Count 4.82 MIL/MM3 4.33 MIL/MM3 Hemoglobin 15.1 GM/DL 13.7 GM/DL Hematocrit 43.8 % 40.3 % Mean Corpuscular Volume 91.0 FL 93.2 FL Mean Corpuscular Hemoglobin 31.3 PG 31.6 PG Mean Corpuscular Hemoglobin 34.4 % 34.0 % Concent Red Cell Distribution Width 13.3 % 13.4 % Platelet Count 367 TH/MM3 350 TH/MM3 Mean Platelet Volume 7.4 FL 7.7 FL Neutrophils (%) (Auto) 81.7 % 91.5 % Lymphocytes (%) (Auto) 12.0 % 5.9 % Monocytes (%) (Auto) 5.2 % 2.4 % Eosinophils (%) (Auto) 0.2 % 0.0 % Basophils (%) (Auto) 0.9 % 0.2 % Neutrophils # (Auto) 10.9 TH/MM3 15.8 TH/MM3 Lymphocytes # (Auto) 1.6 TH/MM3 1.0 TH/MM3 Monocytes # (Auto) 0.7 TH/MM3 0.4 TH/MM3 Eosinophils # (Auto) 0.0 TH/MM3 0.0 TH/MM3 Basophils # (Auto) 0.1 TH/MM3 0.0 TH/MM3 CBC Comment DIFF FINAL DIFF FINAL Differential Comment Prothrombin Time 10.2 SEC 10.2 SEC Prothromb Time International 0.9 RATIO 0.9 RATIO Ratio Activated Partial 25.9 SEC Thromboplast Time Sodium Level 141 MEQ/L 143 MEQ/L Potassium Level 3.2 MEQ/L 3.1 MEQ/L Chloride Level 104 MEQ/L 109 MEQ/L Carbon Dioxide Level 26.6 MEQ/L 22.8 MEQ/L Anion Gap 10 MEQ/L 11 MEQ/L Blood Urea Nitrogen 8 MG/DL 8 MG/DL Creatinine 0.68 MG/DL 0.43 MG/DL Estimat Glomerular Filtration 86 ML/MIN 146 ML/MIN Rate Random Glucose 103 MG/DL 117 MG/DL Lactic Acid Level 1.3 mmol/L Calcium Level 8.8 MG/DL 8.6 MG/DL Total Bilirubin 0.7 MG/DL 0.6 MG/DL Aspartate Amino Transf 25 U/L 22 U/L (AST/SGOT) Alanine Aminotransferase 18 U/L 18 U/L (ALT/SGPT) Alkaline Phosphatase 48 U/L 44 U/L Ammonia 12 MCMOL/L Total Creatine Kinase 378 U/L Creatine Kinase MB 2.8 NG/ML Creatine Kinase MB % 0.7 % Troponin I LESS THAN 0.02 NG/ML Total Protein 7.1 GM/DL 6.5 GM/DL Albumin 3.4 GM/DL 3.1 GM/DL Salicylates Level 2.2 MG/DL Acetaminophen Level LESS THAN 2.0 MCG/ML Ethyl Alcohol Level LESS THAN 3 MG/DL Urine Color YELLOW Urine Turbidity CLEAR Urine pH 7.0 Urine Specific [place] 1.015 Urine Protein TRACE mg/dL Urine Glucose (UA) NEG mg/dL Urine Ketones 40 mg/dL Urine Occult Blood NEG Urine Nitrite NEG Urine Bilirubin NEG Urine Urobilinogen LESS THAN 2.0 MG/DL Urine Leukocyte Esterase NEG Urine RBC 4 /hpf Urine WBC 2 /hpf Urine Bacteria RARE /hpf Urine Mucus FEW /lpf Microscopic Urinalysis Comment CATH-CULTURE IND Urine Opiates Screen NEG Urine Barbiturates Screen NEG Urine Amphetamines Screen NEG Urine Benzodiazepines Screen NEG Urine Cocaine Screen NEG Urine Cannabinoids Screen POS Nasal Screen MRSA (PCR) MRSA NOT DETECTED Phosphorus Level 2.9 MG/DL Magnesium Level 2.1 MG/DL Test 10/29/16 10/30/16 10:40 03:11 White Blood Count 12.7 TH/MM3 15.0 TH/MM3 Red Blood Count 3.96 MIL/MM3 4.35 MIL/MM3 Hemoglobin 12.1 GM/DL 13.1 GM/DL Hematocrit 36.1 % 39.4 % Mean Corpuscular Volume 91.0 FL 90.7 FL Mean Corpuscular Hemoglobin 30.6 PG 30.2 PG Mean Corpuscular Hemoglobin 33.6 % 33.3 % Concent Red Cell Distribution Width 13.7 % 13.3 % Platelet Count 341 TH/MM3 361 TH/MM3 Mean Platelet Volume 7.7 FL 7.4 FL Neutrophils (%) (Auto) 83.7 % 80.5 % Lymphocytes (%) (Auto) 10.3 % 12.4 % Monocytes (%) (Auto) 5.3 % 6.6 % Eosinophils (%) (Auto) 0.0 % 0.1 % Basophils (%) (Auto) 0.7 % 0.4 % Neutrophils # (Auto) 10.7 TH/MM3 12.0 TH/MM3 Lymphocytes # (Auto) 1.3 TH/MM3 1.9 TH/MM3 Monocytes # (Auto) 0.7 TH/MM3 1.0 TH/MM3 Eosinophils # (Auto) 0.0 TH/MM3 0.0 TH/MM3 Basophils # (Auto) 0.1 TH/MM3 0.1 TH/MM3 CBC Comment DIFF FINAL DIFF FINAL Differential Comment Sodium Level 139 MEQ/L 137 MEQ/L Potassium Level 3.1 MEQ/L 2.9 MEQ/L Chloride Level 106 MEQ/L 104 MEQ/L Carbon Dioxide Level 25.1 MEQ/L 22.4 MEQ/L Anion Gap 8 MEQ/L 11 MEQ/L Blood Urea Nitrogen 6 MG/DL 6 MG/DL Creatinine 0.31 MG/DL 0.34 MG/DL Estimat Glomerular Filtration 213 ML/MIN 191 ML/MIN Rate Random Glucose 109 MG/DL 121 MG/DL Calcium Level 8.4 MG/DL 8.7 MG/DL Total Bilirubin 1.0 MG/DL Aspartate Amino Transf 16 U/L (AST/SGOT) Alanine Aminotransferase 17 U/L (ALT/SGPT) Alkaline Phosphatase 43 U/L Total Protein 6.5 GM/DL Albumin 3.1 GM/DL Constitutional Vital Signs Date Time Temp Pulse Resp B/P Pulse Ox O2 Delivery O2 Flow Rate FiO2 10/30/16 06:00 71 10/30/16 04:00 72 10/30/16 04:00 98.0 72 23 142/72 96 148/99 10/30/16 02:00 58 10/30/16 00:00 58 10/30/16 00:00 98.0 60 30 173/92 95 10/29/16 22:00 74 10/29/16 20:00 92 10/29/16 20:00 99.5 81 29 147/78 95 10/29/16 19:00 98 Nasal Cannula 2.00 10/29/16 18:00 81 10/29/16 16:00 98.2 81 29 175/92 95 163/73 10/29/16 16:00 81 10/29/16 16:00 95 Nasal Cannula 2.00 10/29/16 14:00 53 10/29/16 13:00 92 Nasal Cannula 1.00 10/29/16 12:30 93 Room Air 10/29/16 12:00 70 10/29/16 12:00 97.9 70 21 173/99 98 165/70 10/29/16 11:45 98 Nasal Cannula 1.00 10/29/16 10:00 50 10/29/16 09:00 91 Nasal Cannula 2.00 10/30/16 07:00 Intake Total 2605 ml Output Total 3300 ml Balance -695 ml ([facility]) Review of Systems/Exam ROS Unable to obtain a ROS due to the patient's mental status. Exam GENERAL: Awake, calm, no apparent distress. HEENT: Normocephalic, atraumatic. PERRL. CARDIOVASCULAR: S1S2 w/RRR w/o M/G/R, radial & pedal pulses 2+ bilaterally, cap refill < 2 sec, no pedal edema. Monitor is sinus rhythm w/o any ectopy noted. RESPIRATORY: CTAB w/o W/R/R, equal excursion, non-laboured, on NC. GASTROINTESTINAL: Abdomen soft, non-tender, positive bowel sounds. MUSCULOSKELETAL: Moving left side spontaneously. No evident deformity, discolouration or clubbing. NEUROLOGICAL: Awake & alert Nonverbal, no attempt to nod head to questions Did not follow simple commands Spontaneously moving LUE purposefully & LLE nonpurposefully, did have facial grimace with noxious stimuli to right foot, no response to noxious stimuli to RUE Unable to ascertain sensation due to patient's mental status ([facility]) Medications Current Medications Current Medications Medications (Trade) Dose Ordered Sig/Nilesh Route Start Time Stop Time Status Last Admin Sodium Chloride 2 ml 2 ml UNSCH PRN IVF 10/27/16 22:15 (NS 1000 ml Inj) 1,000 ml @ 84 mls/hr [id number] IV 10/27/16 23:30 10/29/16 23:35 (NS Flush) 2 ml UNSCH PRN .XX 10/27/16 23:30 (NS Flush) 2 ml BID .XX 10/28/16 09:00 10/29/16 19:48 (Tylenol) 650 mg Q6H PRN PO 10/27/16 23:30 (Morphine Inj) 2 mg Q2H PRN IV 10/27/16 23:30 (Pepcid Inj) 20 mg Q12HR IV PUSH 10/28/16 09:00 10/29/16 19:48 (Zofran Inj) 4 mg Q6H PRN IV 10/27/16 23:30 (Reglan Inj) 10 mg Q6H PRN IV 10/27/16 23:30 10/28/16 00:47 (Colace) 100 mg BID PO 10/28/16 09:00 10/29/16 19:47 Miscellaneous Information 1 [id number] XX 10/27/16 23:30 10/27/16 23:30 (Chlorhexidine 2% Cloth) 3 pack Taper DAILY@04 TOP 10/28/16 04:00 10/24/17 03:59 10/30/16 04:00 (Chlorhexidine 2% Cloth) 3 pack UNSCH PRN TOP 10/27/16 23:30 (Apresoline Inj) 20 mg Q4H PRN IV PUSH 10/27/16 23:45 10/30/16 02:30 (Nimotop) 60 mg Q4HR PO 10/28/16 01:00 10/30/16 04:10 Pravastatin Sodium 40 mg 40 mg DAILY PO 10/28/16 09:00 10/29/16 08:11 Potassium Chloride 100 ml @ 50 mls/hr Q2H PRN IV 10/28/16 02:15 (KCl 20 Meq Premix Inj) 100 ml @ 50 mls/hr Q2H PRN IV 10/28/16 02:15 10/30/16 06:30 Potassium Bicarb/ Potassium Chloride 50 meq 50 meq UNSCH PRN PO 10/28/16 02:15 Potassium Chloride 100 ml @ 25 mls/hr UNSCH PRN IV 10/28/16 02:15 Potassium Chloride 100 ml @ 50 mls/hr Q2H PRN IV 10/28/16 02:15 (Magnesium Sulfate Inj/NS Inj) 100 ml @ 50 mls/hr UNSCH PRN IV 10/28/16 02:15 Magnesium Oxide 800 mg 800 mg UNSCH PRN PO 10/28/16 02:15 (Magnesium Sulfate Inj/NS Inj) 100 ml @ 50 mls/hr UNSCH PRN IV 10/28/16 02:15 Potassium Phosphate 2000 mg 2,000 mg Q4H PRN PO 10/28/16 02:15 (Sodium Phosphate Inj/NS 250 ml Inj) 250 ml @ 42 mls/hr UNSCH PRN IV 10/28/16 02:15 Potassium Phosphate 2000 mg 2,000 mg UNSCH PRN PO/TUBE 10/28/16 02:15 (Cardene Inj/NS 250 ml Inj) 260 ml @ 0 mls/hr TITRATE IV 10/28/16 16:45 ([facility]) Medical Decision Making MDM Remarks Impression: 1. Intracranial-intraventricular and subarachnoid hemorrhage. Anterior communicating artery aneurysm 2. Hypertension 3. Recent history of bronchitis POD # 2 s/p (): 1. ACOM aneurysm coiling CT brain w/slight improvement in ICH but now demonstrates new IVH Right cerebral artery vasospasm, mild on Left temporal artery vasospams, minimal on Neurological function seems to still be declining Hypokalemia, being treated ([facility]ala[facility]) Plan Plan Remarks Continue frequent neuro checks Continue critical care management per Nurse Discharge Planner Daily TCD studies Will follow patient closely May need ventriculostomy Maintain SBP between 160 and 180 mm Hg due to vasospasms Vasopressors as needed to maintain SBP ([facility]alavera) Attending Statement I have personally seen and examined the patient on the date of this note. Pertinent documentation and study results have been reviewed by the undersigned. I have personally developed the treatment plan and performed medical decision making. Agree with findings, exam, and treatment plan as noted above. Patient a little more alert on examination this evening. She waves with her left hand to her family. Still seems weak with the right upper and lower extremity. Remains nonverbal Transcranial Doppler study today without definite vasospasm. Continuing hypertensive therapy with Levophed for possible vasospasm as evidenced on this recent CTA. Discussed at length with the patient's family in the room this evening and all questions answered. (Johnnei Cool MD) [facility] October 30, 2016 09:06 Johnnie Cool MD October 30, 2016 20:39
[2016-10-30] MEDS: FAMOTIDINE 20 MG/2 ML VIAL IV PUSH SCH ×2 (09:23→19:50)
--- NOTE | 2016-10-30 10:54 | HHI.CCPN ---
Subjective Remarks/Hospital Course 10/27: 66 year old female was found in her bathtub, fully clothed with no water on. She was unable to get up or talk. She was last seen to be normal yesterday. Patient follows commands appropriately however is unable to talk and cannot provide a history. Per documentation she was recently treated with antibiotics amoxicillin for bronchitis as well as started on blood pressure medications due to new onset of hypertension for about last [address] of the head revealed the ICH with IVH extension. The stat CTA revealed ACOM aneurysm 10/28: Resting in bed comfortably. Awake and alert. Following commands. Having speech difficulties. 10/29: Underwent ACOM aneurysm coiling on 10/28. This morning speech appears to have worsened. Patient is nonverbal. Following commands. Head CT shows decreasing size of hemorrhage, the CT is done with results pending. 10/30: Remains nonverbal. Awake and alert. Moves bilateral upper extremities and left lower extremity. Does not move right lower extremity. Objective Vital Signs Date Time Temp Pulse Resp B/P Pulse Ox O2 Delivery O2 Flow Rate FiO2 10/30/16 07:00 100 Mechanical Ventilator 40 10/30/16 06:00 71 10/30/16 04:00 98.0 23 142/72 148/99 10/29/16 19:00 2.00 Intake and Output 10/29/16 10/29/16 10/30/16 08:00 16:00 00:00 Intake Total 742 ml 800 ml 955 ml Output Total 1050 ml 975 ml 1700 ml Balance -308 ml -175 ml -745 ml Result Diagram: 10/30/16 0311 10/30/16 0311 Other Results Laboratory Tests Test 10/30/16 03:11 White Blood Count 15.0 TH/MM3 Red Blood Count 4.35 MIL/MM3 Hemoglobin 13.1 GM/DL Hematocrit 39.4 % Mean Corpuscular Volume 90.7 FL Mean Corpuscular Hemoglobin 30.2 PG Mean Corpuscular Hemoglobin 33.3 % Concent Red Cell Distribution Width 13.3 % Platelet Count 361 TH/MM3 Mean Platelet Volume 7.4 FL Neutrophils (%) (Auto) 80.5 % Lymphocytes (%) (Auto) 12.4 % Monocytes (%) (Auto) 6.6 % Eosinophils (%) (Auto) 0.1 % Basophils (%) (Auto) 0.4 % Neutrophils # (Auto) 12.0 TH/MM3 Lymphocytes # (Auto) 1.9 TH/MM3 Monocytes # (Auto) 1.0 TH/MM3 Eosinophils # (Auto) 0.0 TH/MM3 Basophils # (Auto) 0.1 TH/MM3 CBC Comment DIFF FINAL Differential Comment Sodium Level 137 MEQ/L Potassium Level 2.9 MEQ/L Chloride Level 104 MEQ/L Carbon Dioxide Level 22.4 MEQ/L Anion Gap 11 MEQ/L Blood Urea Nitrogen 6 MG/DL Creatinine 0.34 MG/DL Estimat Glomerular Filtration 191 ML/MIN Rate Random Glucose 121 MG/DL Calcium Level 8.7 MG/DL Total Bilirubin 1.0 MG/DL Aspartate Amino Transf 16 U/L (AST/SGOT) Alanine Aminotransferase 17 U/L (ALT/SGPT) Alkaline Phosphatase 43 U/L Total Protein 6.5 GM/DL Albumin 3.1 GM/DL Imaging Last [address] 10/27/162214 Signed Impressions: Service Date/Time: Thursday, October 27, 2016 22:58 - CONCLUSION: Large intracerebral hemorrhage with subarachnoid hemorrhage as well. Nicola Childs MD Chest X-Ray 10/27/162214 Signed Impressions: Service Date/Time: Thursday, October 27, 2016 22:37 - CONCLUSION: No acute disease. Kemal Downey MD Objective Remarks GENERAL: Well-nourished, well-developed patient. In no acute distress nonverbal. Not following commands SKIN: Warm and dry. HEAD: Normocephalic. EYES: No scleral icterus. No injection or drainage. NECK: Supple, trachea midline. No JVD or lymphadenopathy. CARDIOVASCULAR: Regular rate and rhythm without murmurs, gallops, or rubs. RESPIRATORY: Breath sounds equal bilaterally. No accessory muscle use. GASTROINTESTINAL: Abdomen soft, non-tender, nondistended. MUSCULOSKELETAL: No cyanosis, or edema. BACK: Nontender without obvious deformity. No CVA tenderness. EXTREMITIES: No clubbing cyanosis or edema Neuro: Awake alert, following commands. Pupils equal reacting to light actively. nonverbal. Moves bilateral upper extremities and left lower extremity. Not moving right lower extremity. A/P Assessment and Plan ICH - Due to ruptured ACom aneurysm Subarachnoid hemorrhage - Nagel Kennedy grade 2 - Mcmillan grade 4 -Status post ACOM aneurysm coiling - Start Levophed to keep SBP 160-1 80 mmHg. PICC line placement - Nimodipine - Pravachol - TCD's daily to monitor for vasospasm - Ventriculostomy to be decided by Neurosurgery - Management per neurosurgery Hypertension -Hold antihypertensives - SBP goal 160-180 due to vasospasm Tobacco use disorder - Monitor for withdrawal - Start nicotine replacement if indicated DVT GI prophylaxis - Teds SCDs - No pharmacological DVT prophylaxis due to ICH - Pepcid Condition critical. Time spent on critical care excluding procedures 30 minutes Arnol Jones MD October 30, 2016 10:54
[2016-10-30] MEDS ORDERED: TERBUTALINE INJ 1 MG/ML AMP SQ PRN (12:15)
--- NOTE | 2016-10-30 14:10 | RADRPT ---
EXAM DATE/TIME: 10/30/2016 07:49 [facility] COMPARISON: US TRANSCRANIAL DOPPLER COMPLETE, October 29, 2016, 7:41. INDICATIONS : Subarachnoid hemorrhage. MEDICAL HISTORY : Hypertension. CVA. Depression. SURGICAL HISTORY : Bilateral cataract surgery. ENCOUNTER: Subsequent ACUITY: 2 days PAIN SCORE: Nonresponsive. LOCATION: Bilateral cranial Current Exam: October 30, 2016 [place] Ratio: Right: 3.95 Left: 1.5 [place] Ratio: Right: 2.98 Left: Previous Exam: October 29, 2016 [place] Ratio: Right: 4.4 Left: 2.5 [place] Ratio: Right: 2.9 Left: Unable to obtain FINDINGS: Examination performed at bedside. Real-time ultrasound with the assistance of color and spectral Dop pler was utilized to evaluate the intracerebral circulation. Time-averaged maximal velocities are ca lculated in cm/s. There is a upper limits of normal ratios on the right slightly decreased from the prior study. Left s hansa remains normal. CONCLUSION: 1. No evidence of vasospasm. Robin Muir MD on October 30, 2016 at 13:56 Board Certified Radiologist. This report was verified electronically.
[2016-10-30] MEDS ORDERED: SODIUM CHLORIDE 0.9% FLUSH 10 ML FLUSH IV FLUSH PRN (16:00)
--- NOTE | 2016-10-30 16:17 | RADRPT ---
EXAM DATE/TIME: 10/30/2016 15:58 [facility] COMPARISON: CHEST SINGLE AP, October 27, 2016, 22:37. INDICATIONS : PICC line placement MEDICAL HISTORY : Hypertension. CVA. Depression. SURGICAL HISTORY : ENCOUNTER: Subsequent ACUITY: 3 days PAIN SCORE: Non-responsive. LOCATION: Bilateral chest FINDINGS: The cardiac silhouette is normal in transverse diameter. A PICC line is in place via right-sided appr oac with its tip in the region of the superior vena cava. The lungs are free of acute parenchymal op acity. No effusions are identified. CONCLUSION: 1. Uncomplicated PICC line placement. Robin Muir MD on October 30, 2016 at 16:14 Board Certified Radiologist. This report was verified electronically.
[2016-10-30] MEDS: NOREPINEPHRINE-DEXTROSE DRIP 250 ML IV SCH (16:40)
[2016-10-30] MEDS: SODIUM CHLOR 0.9% 1000 ML INJ 1,000 ML IV SCH ×2 (16:47→21:59)
[2016-10-31] VITALS (14 sets, daily range): BP systolic 157–178; BP diastolic 76–96; PULSE 65–91; RESP 15–21; TEMP 98.4–99.6; O2SAT 95–99
[2016-10-31] MEDS: POTASSIUM CHLOR 20 MEQ PREMIX 100 ML IV PRN ×4 (00:07→23:28)
[2016-10-31] MEDS: CHLORHEXIDINE GLUCONATE 2 % 1 PACK (2 CLOTHS) TOP SCH (03:07)
[2016-10-31] MEDS: niMODipine 30 MG CAP PO SCH ×6 (03:07→23:28)
[2016-10-31] MEDS: hydrALAZINE HCL 20 MG/ML VIAL IV PUSH PRN (06:32)
[2016-10-31] MEDS: PRAVASTATIN SOD 40 MG TAB PO SCH (08:08)
--- NOTE | 2016-10-31 08:53 | HHI.NSPN ---
(Kyaw Talavera Estelita WARREN) Note Status Status: Progress Note (Kyaw Talavera) Interval History Interval History 10/27: 66-year-old female in relatively good health until 3 or 4 weeks ago when she developed bronchitis. She was treated with a course of amoxicillin which did not help the symptoms. She was given another antibiotic which she finished approximately 3 days ago. She has continued to have a nonproductive cough. No definite fevers or chills. She has had a frontal headache for 2 or 3 weeks. Also some neck pain and stiffness. She was diagnosed with hypertension in the past 2 or 3 months and has been on medication. She does have a long history of smoking cigarettes. She ate dinner with her friend last evening. Her brother called her approximately 10:00 this morning on the telephone, and there was no answer. Her friend found the patient lying in her bathtub at home, significant speech difficulty with no definite seizure activity. Patient indicated to her friend that she had been lying in the bathtub all day long, unable to get up. 10/28: The patient went down for an aneurysm coiling in Interventional Radiology this morning. This afternoon when seen the patient is asleep but awakens to verbal stimuli. She remains nonverbal but shook her head "no" when asked if she had a headache or any numbness or tingling. She did follow some commands. 10/29: When the patient was seen with Dr Cool late yesterday afternoon the patient was able to say her name. This morning prior to being seen Nursing reports that the is not verbalising although she was yesterday. When seen the patient was not able to verbalise but she did nod her head appropriately. She nodded "yes" to having a headache. The patient did have a transcranial doppler study this morning, the report is pending. 10/30: The patient remains nonverbal this morning and makes no attempt to shake her head "no" when asked if she is able to speak. She is spontaneously moving the left side. A TCD is being done when seen. Yesterday a repeat CT brain demonstrated some improvement in the ICH and a new small IVH. A TCD & CTA demonstrated a right middle cerebral artery vasospasm. A minimal left anterior temporal artery vasospasm was noted on the CTA only. 10/31: The patient is having a TCD done when seen this morning. She remains nonverbal and makes no attempt to speak or stick her tongue out. She does follow commands to wiggle the toes and electrical inspector with the left hand. Yesterday the TCD was unremarkable for any vasospasm. (Kyaw Talavera) Labs, Micro, & Vital Signs Constitutional Vital Signs Date Time Temp Pulse Resp B/P Pulse Ox O2 Delivery O2 Flow Rate FiO2 10/31/16 08:00 98.5 80 17 169/84 96 10/31/16 08:00 74 10/31/16 07:00 96 Room Air 10/31/16 06:00 68 10/31/16 04:00 99.4 66 16 157/84 95 10/31/16 04:00 70 10/31/16 02:00 91 10/31/16 00:00 98.5 70 21 168/76 99 10/31/16 00:00 70 10/30/16 22:00 84 10/30/16 20:00 101 10/30/16 20:00 98.8 101 18 191/86 96 10/30/16 19:00 95 Room Air 10/30/16 18:00 71 10/30/16 16:00 99.9 56 18 184/79 96 10/30/16 16:00 56 10/30/16 14:00 87 10/30/16 12:00 74 10/30/16 12:00 98.4 74 34 188/84 97 10/30/16 10:00 64 10/31/16 07:00 Intake Total 4001 ml Output Total 3247 ml Balance 754 ml (Kyaw Talavera) Review of Systems/Exam ROS Unable to obtain a ROS due to the patient's mental status. Exam GENERAL: Awake, calm, no apparent distress. HEENT: Normocephalic, atraumatic. PERRL. CARDIOVASCULAR: S1S2 w/RRR w/o M/G/R, radial & pedal pulses 2+ bilaterally, cap refill < 2 sec, no pedal edema. Monitor is sinus rhythm w/o any ectopy noted. RESPIRATORY: CTAB w/o W/R/R, equal excursion, non-laboured, on RA. GASTROINTESTINAL: Abdomen soft, non-tender, positive bowel sounds. MUSCULOSKELETAL: Limited movement only to command. No evident deformity, discolouration or clubbing. NEUROLOGICAL: Awake & alert Nonverbal, no attempt to nod head to questions Followed simple commands Patient wiggles toes to both feet to command, tries to lift knees but unable, only trace movement, extremely weak electrical inspector left hand, no further movement of LUE noted to command, no response RUE to noxious stimuli Unable to ascertain sensation due to patient's mental status (Kyaw Talavera) Medications Current Medications Current Medications Medications (Trade) Dose Ordered Sig/Nilesh Route Start Time Stop Time Status Last Admin Sodium Chloride 2 ml 2 ml UNSCH PRN IVF 10/27/16 22:15 (NS 1000 ml Inj) 1,000 ml @ 84 mls/hr [id number] IV 10/27/16 23:30 10/30/16 21:59 (NS Flush) 2 ml UNSCH PRN .XX 10/27/16 23:30 (NS Flush) 2 ml BID .XX 10/28/16 09:00 10/30/16 19:50 (Tylenol) 650 mg Q6H PRN PO 10/27/16 23:30 (Morphine Inj) 2 mg Q2H PRN IV 10/27/16 23:30 (Pepcid Inj) 20 mg Q12HR IV PUSH 10/28/16 09:00 10/30/16 19:50 (Zofran Inj) 4 mg Q6H PRN IV 10/27/16 23:30 (Reglan Inj) 10 mg Q6H PRN IV 10/27/16 23:30 10/28/16 00:47 (Colace) 100 mg BID PO 10/28/16 09:00 10/30/16 19:50 Miscellaneous Information 1 [id number] XX 10/27/16 23:30 10/27/16 23:30 (Chlorhexidine 2% Cloth) 3 pack Taper DAILY@04 TOP 10/28/16 04:00 10/24/17 03:59 10/31/16 03:07 (Chlorhexidine 2% Cloth) 3 pack UNSCH PRN TOP 10/27/16 23:30 (Apresoline Inj) 20 mg Q4H PRN IV PUSH 10/27/16 23:45 10/31/16 06:32 (Nimotop) 60 mg Q4HR PO 10/28/16 01:00 10/31/16 03:07 Pravastatin Sodium 40 mg 40 mg DAILY PO 10/28/16 09:00 10/29/16 08:11 Potassium Chloride 100 ml @ 50 mls/hr Q2H PRN IV 10/28/16 02:15 (KCl 20 Meq Premix Inj) 100 ml @ 50 mls/hr Q2H PRN IV 10/28/16 02:15 10/31/16 02:11 Potassium Bicarb/ Potassium Chloride 50 meq 50 meq UNSCH PRN PO 10/28/16 02:15 Potassium Chloride 100 ml @ 25 mls/hr UNSCH PRN IV 10/28/16 02:15 Potassium Chloride 100 ml @ 50 mls/hr Q2H PRN IV 10/28/16 02:15 (Magnesium Sulfate Inj/NS Inj) 100 ml @ 50 mls/hr UNSCH PRN IV 10/28/16 02:15 Magnesium Oxide 800 mg 800 mg UNSCH PRN PO 10/28/16 02:15 (Magnesium Sulfate Inj/NS Inj) 100 ml @ 50 mls/hr UNSCH PRN IV 10/28/16 02:15 Potassium Phosphate 2000 mg 2,000 mg Q4H PRN PO 10/28/16 02:15 (Sodium Phosphate Inj/NS 250 ml Inj) 250 ml @ 42 mls/hr UNSCH PRN IV 10/28/16 02:15 Potassium Phosphate 2000 mg 2,000 mg UNSCH PRN PO/TUBE 10/28/16 02:15 Nicardipine HCl 25 mg/Sodium Chloride 260 ml @ 0 mls/hr TITRATE IV 10/28/16 16:45 (Levophed-Dextrose Drip) 250 ml @ 0 mls/hr TITRATE IV 10/30/16 12:15 10/30/16 16:40 (Brethine Inj) 1 mg UNSCH PRN SQ 10/30/16 12:15 (NS Flush) See Protocol DAILY IV FLUSH 10/31/16 09:00 (NS Flush) See Protocol UNSCH PRN IV FLUSH 10/30/16 16:00 (Heparin Central Flush) See Protocol DAILY IV FLUSH 10/31/16 09:00 (Heparin Central Flush) See Protocol UNSCH PRN IV FLUSH 10/30/16 16:00 (NS Flush) UNSCH PRN IV FLUSH 10/30/16 16:00 (Kyaw Talavera) Medical Decision Making MDM Remarks Impression: 1. Intracranial-intraventricular and subarachnoid hemorrhage. Anterior communicating artery aneurysm 2. Hypertension 3. Recent history of bronchitis POD # 3 s/p (): 1. ACOM aneurysm coiling CT brain w/slight improvement in ICH but now demonstrates new IVH No vasospasms on TCD Neurological function slightly better today Hypokalemia, minimal improvement (Kyaw Talavera) Plan Plan Remarks Continue frequent neuro checks Continue critical care management per Plastics [employer]ator Or Welder Daily TCD studies Will follow patient closely May need ventriculostomy Maintain SBP between 160 and 180 mm Hg due to vasospasms Vasopressors as needed to maintain SBP (Kyaw Talavera) Attending Statement I have personally seen and examined the patient on 10/31/2016. Pertinent documentation and study results have been reviewed by the undersigned. I have personally developed the treatment plan and performed medical decision making. Agree with findings, exam, and treatment plan as noted above. Patient's transcranial Doppler study reviewed earlier today. Discussed with radiology. Patient has undergone endovascular verapamil injection for vasospasm. Undersigned present during part of the procedure today, and discussed with radiology during the endovascular procedure. This evening the patient is a little more alert, still with right hemiparesis and nonverbal. She seems to attempt to follow some commands with her left upper extremity. Continuing to maintain blood pressure and 160-180 range. Continuing nimodipine. Continuing transcranial Doppler studies (Johnnie Cool MD) Kyaw Talavera October 31, 2016 08:53 Johnnie Cool MD November 01, 2016 00:07
[2016-10-31] MEDS: SODIUM CHLORIDE 0.9% FLUSH 10 ML FLUSH IV FLUSH SCH (09:00)
[2016-10-31] MEDS: SODIUM CHLORIDE 0.9% FLUSH 10 ML FLUSH SCH ×2 (09:00→20:36)
[2016-10-31] MEDS: FAMOTIDINE 20 MG/2 ML VIAL IV PUSH SCH ×2 (09:32→20:36)
[2016-10-31] MEDS: DOCUSATE SODIUM 100 MG CAP PO SCH ×2 (09:32→20:37)
--- NOTE | 2016-10-31 09:41 | HHI.CCPN ---
Subjective Remarks/Hospital Course 10/27: 66 year old female was found in her bathtub, fully clothed with no water on. She was unable to get up or talk. She was last seen to be normal yesterday. Patient follows commands appropriately however is unable to talk and cannot provide a history. Per documentation she was recently treated with antibiotics amoxicillin for bronchitis as well as started on blood pressure medications due to new onset of hypertension for about last [address] of the head revealed the ICH with IVH extension. The stat CTA revealed ACOM aneurysm 10/28: Resting in bed comfortably. Awake and alert. Following commands. Having speech difficulties. 10/29: Underwent ACOM aneurysm coiling on 10/28. This morning speech appears to have worsened. Patient is nonverbal. Following commands. Head CT shows decreasing size of hemorrhage, the CT is done with results pending. 10/30: Remains nonverbal. Awake and alert. Moves bilateral upper extremities and left lower extremity. Does not move right lower extremity. 10/31: Awake and alert, remains nonverbal. Does not move right lower extremity, moves bilateral upper extremities and left lower extremity. On Levophed to keep systolic blood pressure 160-180 Objective Vital Signs Date Time Temp Pulse Resp B/P Pulse Ox O2 Delivery O2 Flow Rate FiO2 10/31/16 08:00 98.5 80 17 169/84 96 10/31/16 07:00 Room Air 10/30/16 07:00 40 10/29/16 19:00 2.00 Intake and Output 10/30/16 10/30/16 10/31/16 08:00 16:00 00:00 Intake Total 850 ml 1609 ml 806 ml Output Total 625 ml 1900 ml 522 ml Balance 225 ml -291 ml 284 ml Result Diagram: 10/30/16 0311 10/30/16 1700 Imaging Last [address] 10/27/162214 Signed Impressions: Service Date/Time: Thursday, October 27, 2016 22:58 - CONCLUSION: Large intracerebral hemorrhage with subarachnoid hemorrhage as well. Nicola Childs MD Chest X-Ray 10/27/162214 Signed Impressions: Service Date/Time: Thursday, October 27, 2016 22:37 - CONCLUSION: No acute disease. Kemal Downey MD Objective Remarks GENERAL: Well-nourished, well-developed patient. In no acute distress nonverbal. Not following commands SKIN: Warm and dry. HEAD: Normocephalic. EYES: No scleral icterus. No injection or drainage. NECK: Supple, trachea midline. No JVD or lymphadenopathy. CARDIOVASCULAR: Regular rate and rhythm without murmurs, gallops, or rubs. RESPIRATORY: Breath sounds equal bilaterally. No accessory muscle use. GASTROINTESTINAL: Abdomen soft, non-tender, nondistended. MUSCULOSKELETAL: No cyanosis, or edema. BACK: Nontender without obvious deformity. No CVA tenderness. EXTREMITIES: No clubbing cyanosis or edema Neuro: Awake alert, following commands. Pupils equal reacting to light actively. nonverbal. Moves bilateral upper extremities and left lower extremity. Not moving right lower extremity. A/P Assessment and Plan ICH - Due to ruptured ACom aneurysm Subarachnoid hemorrhage - Nagel Kennedy grade 2 - Mcmillan grade 4 -Status post ACOM aneurysm coiling - Levophed as needed to keep SBP 160-180 mmHg. PICC line placement on 10/31 - Nimodipine - Pravachol - TCD's daily to monitor for vasospasm - Ventriculostomy to be decided by Neurosurgery - Management per neurosurgery Hypertension -Hold antihypertensives - SBP goal 160-180 due to vasospasm Tobacco use disorder - Monitor for withdrawal - Start nicotine replacement if indicated DVT GI prophylaxis - Teds SCDs - No pharmacological DVT prophylaxis due to ICH - Pepcid Condition critical. Time spent on critical care excluding procedures 30 minutes Arnol Jones MD October 31, 2016 09:41
--- NOTE | 2016-10-31 13:35 | RADRPT ---
EXAM DATE/TIME: 10/31/2016 07:50 [facility] COMPARISON: CT BRAIN W/O CONTRAST, October 27, 2016, 22:58. ANGIOGRAM, CEREBRAL WO ARCH, October 28, 2016, 0:00. US TRA NSCRANIAL DOPPLER COMPLETE, October 30, 2016, 7:49. INDICATIONS : Subarachnoid hemorrhage. MEDICAL HISTORY : Hypertension. CVA. Depression. SURGICAL HISTORY : Bilateral cataract surgery. ENCOUNTER: Subsequent ACUITY: 3 days PAIN SCORE: Nonresponsive. LOCATION: Bilateral cranial Current Exam: October 31, 2016 [place] Ratio: Right: 8.4 Left: 2.5 De Jesus Ratio: Right: 3.2 Left: 1.2 Previous Exam: October 30, 2016 [place] Ratio: Right: 3.95 Left: 1.5 De Jesus Ratio: Right: 2.98 Left: Unable to obtain FINDINGS: Examination performed at bedside. Real-time ultrasound with the assistance of color and spectral Dop pler was utilized to evaluate the intracerebral circulation. Time-averaged maximal velocities are ca lculated in cm/s. There is elevation of the Lindegaard ratio on the right side significantly changed from the prior curt dy characteristic of severe spasm. Catheter angiography is recommended for further evaluation if clin ically indicated. The left side is unremarkable. CONCLUSION: 1. Findings of severe vasospasm involving the right middle cerebral artery. The findings have worsene d when compared with the prior examination. Catheter angiography is recommended for further evaluati on if clinically indicated. Robin Muir MD on October 31, 2016 at 13:30 Board Certified Radiologist. This report was verified electronically.
[2016-10-31] MEDS: SODIUM CHLOR 0.9% 1000 ML INJ 1,000 ML IV SCH ×2 (14:00→21:19)
[2016-10-31] MEDS ORDERED: MIDAZOLAM HCL 5 MG/5 ML VIAL ONE (14:23)
[2016-10-31] MEDS ORDERED: VERAPAMIL INJ 10 MG/4 ML VIAL ONE (14:23)
[2016-10-31] MEDS ORDERED: fentaNYL CITRATE 250 MCG/5 ML AMP ONE (14:23)
[2016-10-31] MEDS ORDERED: VERAPAMIL HCL 5 MG/2 ML VIAL ONE (14:24)
[2016-10-31] MEDS ORDERED: IODIXANOL 320 MG/ML 50 ML VIAL (for RAD SPEC) I-ARTERIAL ONE (15:35)
--- NOTE | 2016-10-31 15:55 | PD.RAD ---
Post Procedure Progress Note Pre Procedure Diagnosis: (1) ICH (intracerebral hemorrhage) (2) Cerebral vasospasm Post Procedure Diagnosis: (1) ICH (intracerebral hemorrhage) (2) Cerebral vasospasm Procedure Date: October 31, 2016 Supervising Radiologist: Chidi Elise Proceduralist/Assist: Melly Torres, RT(R), Khloe Rey RT(R) Anesthesia: Local, Analgesia, Conscious Sedation Plan of Activity Patient to Unit: Nursing Unit Patient Condition: Fair See PACS Report for procedural detail/treatment Vascular-Arterial Procedure Procedure 1 Procedure Site: Cerebral (Bilateral ICA) Procedure(s): Angiogram (Spasmolytic therapy bilateral ICA) Access Access Site(s): Right Femoral Artery Closure Site(s): Right hemostasis patch, Right manual pressure Findings: No significant spasm on the right. Moderately severe spasm in the left LEONARDO territory. Verapamil injected into both ICA's (10mg on each side) Chidi Elise MD October 31, 2016 15:55
--- NOTE | 2016-10-31 17:13 | RADRPT ---
EXAM DATE/TIME: 10/31/2016 14:45 [facility] COMPARISON: No previous studies available for comparison. INDICATIONS : Patient with history of ruptured brain aneurysm in need of angiogram for spasmolytic therapy. MEDICAL HISTORY : HTN, SAH SURGICAL HISTORY : ACOM aneurysm coiling ENCOUNTER: Subsequent ACUITY: 4-6 days PAIN SCORE: Nonresponsive. FLUORO TIME: 17.3 minutes IMAGE SERIES: 3 ACCESS SITE: Right Femoral artery SEDATION TIME: 45 minutes CONTRAST: 30 cc Visipaque (iodixanol) MEDICATION(S): 1.) 1.5 mg midazolam (Versed) IV 2.) 75 mcg fentanyl (Sublimaze) IV 3.) 20 mg Verapamil IART DEVICE(S): 1.) Right common femoral artery Syvek patch PROCEDURE : 1. Ultrasound-guided puncture of the access site. 2. Conscious sedation with continuous EKG and Oximetry monitoring. 3. Angiography of the right internal carotid 4. Angiography of the left internal carotid 5. Spasmolytic infusion, right and left internal carotid arteries. The risks, benefits and alternatives to the procedure were explained and verbal and written consent w as obtained. The site was prepped in sterile fashion. Full sterile technique was used, including ca p, mask, sterile gloves and gown and a large sterile sheet. Hand hygiene and 2% chlorhexidine and/or betadine/alcohol prep was utilized per protocol for cutaneous antisepsis. The skin and subcutaneous tissues were infiltrated with local anesthetic solution. With ultrasound and fluoroscopic guidance the selected artery was punctured and a vascular sheath was placed A DAVID 2 catheter was used to select the right internal carotid artery. Contrast injection confirmed po sition. 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 This was identified on the prior CTA. Otherwise, the internal carotid artery w as patent. Despite the elevated Lindegard ratios, both the MCA and LEONARDO vessels on the right appear pa tent. Dense compaction of the previously coiled a- com aneurysm with no residual opacification. Due t o the elevated ratios, 10 mg of verapamil was infused directly into the internal carotid. A modu one type catheter was used to select the left common carotid/internal. Position was confirm ed with positive contrast. This did show some spasm in the anterior cerebral artery but the left MCA appear to be patent. An additional 10 mg of verapamil was infused directly into the left internal car otid. The puncture site was closed with manual pressure and hemostasis was obtained. The patient tolerated the procedure well and there were no complications. Conscious sedation was performed with the prescribed dosages and duration as above in the presence of an independent trained radiology nurse to assist in the monitoring of the patient. EKG and oximetry remained stable throughout the procedure. CONCLUSION: 1. Moderately severe vasospasm in the left LEONARDO territory. The left MCA territory and the right MCA an d LEONARDO territories remain patent. 2. 10 mg of verapamil was infused into both internal carotid arteries as detailed above. 3. 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 This is below the dural ring it would not be contributing to the intracranial hemorrhage identi fied. Chidi Elise MD on October 31, 2016 at 17:04 Board Certified Radiologist. This report was verified electronically.
[2016-10-31] MEDS: NOREPINEPHRINE-DEXTROSE DRIP 250 ML IV SCH (20:37)
[2016-11-01] VITALS (15 sets, daily range): BP systolic 130–186; BP diastolic 67–104; PULSE 62–85; RESP 17–23; TEMP 97.5–99.4; O2SAT 95–99
[2016-11-01] MEDS: CHLORHEXIDINE GLUCONATE 2 % 1 PACK (2 CLOTHS) TOP SCH (03:42)
[2016-11-01] MEDS: niMODipine 30 MG CAP PO SCH ×5 (03:42→20:44)
[2016-11-01 04:25] LABS: AUTOMATED NEUTROPHIL # 8.6 TH/MM3 (1.8-7.7); BASOPHIL % 0.3 % (0.0-2.0); EOSINOPHIL % 0.2 % (0.0-4.0); HEMATOCRIT 35.4 % (35.0-46.0); HEMO FLAGS DIFF FINAL; LYMPH % 15.1 % (9.0-44.0); LYMPHOCYTE # 1.7 TH/MM3 (1.0-4.8); MEAN CELL VOLUME 89.7 FL (80.0-100.0); MEAN CORPUSCULAR HEMOGLOBIN 31.1 PG (27.0-34.0); MEAN CORPUSCULAR HGB CONC 34.6 % (32.0-36.0); MONO % 7.8 % (0.0-8.0); NEUT % 76.6 % (16.0-70.0); PLATELET COUNT 376 TH/MM3 (150-450); RED BLOOD COUNT 3.94 MIL/MM3 (4.00-5.30); RED CELL DISTRIBUTION WIDTH 13.5 % (11.6-17.2); WHITE BLOOD COUNT 11.2 TH/MM3 (4.0-11.0)
[2016-11-01 05:07] LABS: ALT (GPT) 19 U/L (10-53); ANION GAP 11 MEQ/L (5-15); AST (GOT) 13 U/L (15-37); BICARBONATE 23.2 MEQ/L (21.0-32.0); BLOOD UREA NITROGEN 7 MG/DL (7-18); CHLORIDE 101 MEQ/L (98-107); GLOMERULAR FILTRATION RATE 221 ML/MIN (>89); POTASSIUM 3.1 MEQ/L (3.5-5.1); SODIUM (NA) 135 MEQ/L (136-145)
[2016-11-01 05:09] LABS: ALKALINE PHOSPHATASE 38 U/L (45-117); TOTAL BILIRUBIN ADULT 1.1 MG/DL (0.2-1.0)
[2016-11-01] MEDS: SODIUM CHLOR 0.9% 1000 ML INJ 1,000 ML IV SCH (05:27)
[2016-11-01] MEDS: POTASSIUM CHLOR 20 MEQ PREMIX 100 ML IV PRN ×4 (05:27→10:20)
[2016-11-01] MEDS: SODIUM CHLORIDE 0.9% FLUSH 10 ML FLUSH SCH ×2 (08:13→20:44)
[2016-11-01] MEDS: SODIUM CHLORIDE 0.9% FLUSH 10 ML FLUSH IV FLUSH SCH (08:13)
[2016-11-01] MEDS: PRAVASTATIN SOD 40 MG TAB PO SCH (08:14)
[2016-11-01] MEDS: FAMOTIDINE 20 MG/2 ML VIAL IV PUSH SCH ×2 (08:14→20:44)
[2016-11-01] MEDS ORDERED: BISACODYL 10 MG SUPP RECTAL PRN (08:15)
[2016-11-01] MEDS: DOCUSATE SODIUM 50 MG/SENNA 8.6 MG TAB PO SCH ×2 (08:18→17:05)
[2016-11-01] MEDS: NS + KCL 40 MEQ INJ 1,000 ML IV SCH ×2 (08:18→17:05)
--- NOTE | 2016-11-01 08:35 | HHI.CCPN ---
Subjective Remarks/Hospital Course 10/27: 66 year old female was found in her bathtub, fully clothed with no water on. She was unable to get up or talk. She was last seen to be normal yesterday. Patient follows commands appropriately however is unable to talk and cannot provide a history. Per documentation she was recently treated with antibiotics amoxicillin for bronchitis as well as started on blood pressure medications due to new onset of hypertension for about last [address] of the head revealed the ICH with IVH extension. The stat CTA revealed ACOM aneurysm 10/28: Resting in bed comfortably. Awake and alert. Following commands. Having speech difficulties. 10/29: Underwent ACOM aneurysm coiling on 10/28. This morning speech appears to have worsened. Patient is nonverbal. Following commands. Head CT shows decreasing size of hemorrhage, the CT is done with results pending. 10/30: Remains nonverbal. Awake and alert. Moves bilateral upper extremities and left lower extremity. Does not move right lower extremity. 10/31: Awake and alert, remains nonverbal. Does not move right lower extremity, moves bilateral upper extremities and left lower extremity. On Levophed to keep systolic blood pressure 160-180 11/01: Awake, alert, still having speech difficulty. On asking her name she repeats mind. Moves both upper extremities and left lower extremity. Underwent angiogram with injection of verapamil and bilateral internal carotid arteries by interventional radiology on 10/31 for vasospasm. Objective Vital Signs Date Time Temp Pulse Resp B/P Pulse Ox O2 Delivery O2 Flow Rate FiO2 11/01/16 07:14 99 21 11/01/16 06:00 64 11/01/16 04:45 172/81 11/01/16 04:00 98.9 22 10/31/16 20:00 Room Air 10/29/16 19:00 2.00 Intake and Output 10/31/16 10/31/16 11/01/16 08:00 16:00 00:00 Intake Total 1586 ml 1793 ml Output Total 825 ml 1650 ml Balance 761 ml 143 ml Result Diagram: 11/01/16 0328 11/01/16 0328 Imaging Last [address] 10/27/16 4360 Signed Impressions: Service Date/Time: Thursday, October 27, 2016 22:58 - CONCLUSION: Large intracerebral hemorrhage with subarachnoid hemorrhage as well. Nicola Childs MD Chest X-Ray 10/27/16 2215 Signed Impressions: Service Date/Time: Thursday, October 27, 2016 22:37 - CONCLUSION: No acute disease. Kemal Downey MD Objective Remarks GENERAL: Well-nourished, well-developed patient. In no acute distress nonverbal. Not following commands SKIN: Warm and dry. HEAD: Normocephalic. EYES: No scleral icterus. No injection or drainage. NECK: Supple, trachea midline. No JVD or lymphadenopathy. CARDIOVASCULAR: Regular rate and rhythm without murmurs, gallops, or rubs. RESPIRATORY: Breath sounds equal bilaterally. No accessory muscle use. GASTROINTESTINAL: Abdomen soft, non-tender, nondistended. MUSCULOSKELETAL: No cyanosis, or edema. BACK: Nontender without obvious deformity. No CVA tenderness. EXTREMITIES: No clubbing cyanosis or edema Neuro: Awake alert, continues to have speech difficulty. Mall Manager my fingers with bilateral upper extremities. Pupils equal reacting to light actively. nonverbal. Moves bilateral upper extremities and left lower extremity. Not moving right lower extremity. A/P Assessment and Plan ICH - Due to ruptured ACom aneurysm Subarachnoid hemorrhage - Nagel Kennedy grade 2 - Mcmillan grade 4 -Status post ACOM aneurysm coiling - Levophed as needed to keep SBP 160-180 mmHg. PICC line placement on 10/31 - Nimodipine - Pravachol - TCD's daily to monitor for vasospasm. Underwent cerebral angiogram with intra -arterial verapamil and bilateral internal carotid arteries on 10/31 by interventional radiology. - Ventriculostomy to be decided by Neurosurgery - Management per neurosurgery Hypertension -Hold antihypertensives - SBP goal 160-180 due to vasospasm Tobacco use disorder - Monitor for withdrawal - Start nicotine replacement if indicated DVT GI prophylaxis - Teds SCDs - No pharmacological DVT prophylaxis due to ICH - Pepcid Condition critical. Time spent on critical care excluding procedures 30 minutes Arnol Jones MD November 01, 2016 08:35
[2016-11-01] MEDS: NOREPINEPHRINE-DEXTROSE DRIP 250 ML IV SCH (09:01)
--- NOTE | 2016-11-01 09:47 | HHI.NSPN ---
(Kyaw Talavera Estelita WARREN) Note Status Status: Progress Note (Kyaw Talavera) Interval History Interval History 10/27: 66-year-old female in relatively good health until 3 or 4 weeks ago when she developed bronchitis. She was treated with a course of amoxicillin which did not help the symptoms. She was given another antibiotic which she finished approximately 3 days ago. She has continued to have a nonproductive cough. No definite fevers or chills. She has had a frontal headache for 2 or 3 weeks. Also some neck pain and stiffness. She was diagnosed with hypertension in the past 2 or 3 months and has been on medication. She does have a long history of smoking cigarettes. She ate dinner with her friend last evening. Her brother called her approximately 10:00 this morning on the telephone, and there was no answer. Her friend found the patient lying in her bathtub at home, significant speech difficulty with no definite seizure activity. Patient indicated to her friend that she had been lying in the bathtub all day long, unable to get up. 10/28: The patient went down for an aneurysm coiling in Interventional Radiology this morning. This afternoon when seen the patient is asleep but awakens to verbal stimuli. She remains nonverbal but shook her head "no" when asked if she had a headache or any numbness or tingling. She did follow some commands. 10/29: When the patient was seen with Dr Cool late yesterday afternoon the patient was able to say her name. This morning prior to being seen Nursing reports that the is not verbalising although she was yesterday. When seen the patient was not able to verbalise but she did nod her head appropriately. She nodded "yes" to having a headache. The patient did have a transcranial doppler study this morning, the report is pending. 10/30: The patient remains nonverbal this morning and makes no attempt to shake her head "no" when asked if she is able to speak. She is spontaneously moving the left side. A TCD is being done when seen. Yesterday a repeat CT brain demonstrated some improvement in the ICH and a new small IVH. A TCD & CTA demonstrated a right middle cerebral artery vasospasm. A minimal left anterior temporal artery vasospasm was noted on the CTA only. 10/31: The patient is having a TCD done when seen this morning. She remains nonverbal and makes no attempt to speak or stick her tongue out. She does follow commands to wiggle the toes and clinical nurse specialist with the left hand. Yesterday the TCD was unremarkable for any vasospasm. 11/01: The patient is awake and alert this morning. Ultrasound is finishing the TCD. She is nonverbal but does try to speak. She is able to stick her tongue out and has varying degrees of movement to the extremities. She went to Interventional Radiology yesterday afternoon for a cerebral angiogram which demonstrated a moderately severe spasm in the left LEONARDO territory. She received verapamil injected into both ICAs. (Kyaw Talavera) Labs, Micro, & Vital Signs Results Allergies Coded Allergies Type Severity Reaction Last Updated Verified No Known Allergies 10/27/16 No Recent Impressions Cerebral Arteriogram 10/31/16 0000 Signed Impressions: Service Date/Time: Monday, October 31, 2016 14:45 - CONCLUSION: 1. Moderately severe vasospasm in the left LEONARDO territory. The left MCA territory and the right MCA and LEONARDO territories remain patent. 2. 10 mg of verapamil was infused into both internal carotid arteries as detailed above. 3. 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 This is below the dural ring it would not be contributing to the intracranial hemorrhage identified. Chidi Elise MD Transcranial Doppler Study Complete 10/31/16 0000 Signed Impressions: Service Date/Time: Monday, October 31, 2016 07:50 - CONCLUSION: 1. Findings of severe vasospasm involving the right middle cerebral artery. The findings have worsened when compared with the prior examination. Catheter angiography is recommended for further evaluation if clinically indicated. Robin Muir MD Chest X-Ray 10/30/16 0000 Signed Impressions: Service Date/Time: October 15:58 - CONCLUSION: 1. Uncomplicated PICC line placement. Robin Muir MD Transcranial Doppler Study Complete 10/30/16 0000 Signed Impressions: Service Date/Time: October 07:49 - CONCLUSION: 1. No evidence of vasospasm. Robin Muir MD ///// 06:00 18:00 06:00 18:00 06:00 18:00 Intake Total 1805 ml 1609 ml 2392 ml 815 ml 2079 ml 240 ml Output Total 2325 ml 1900 ml 1347 ml 700 ml 1950 ml 800 ml Balance -520 ml -291 ml 1045 ml 115 ml 129 ml -560 ml Intake Oral 240 ml 240 ml IV Total 1805 ml 1609 ml 2392 ml 815 ml 1839 ml Output Urine Total 2325 ml 1900 ml 1347 ml 700 ml 1950 ml 800 ml # Bowel Movements 0 0 0 0 0 Laboratory Tests Test 10/29/16 10/30/16 10/30/16 10/31/16 10:40 03:11 17:00 10:38 White Blood Count 12.7 TH/MM3 15.0 TH/MM3 Red Blood Count 3.96 MIL/MM3 4.35 MIL/MM3 Hemoglobin 12.1 GM/DL 13.1 GM/DL Hematocrit 36.1 % 39.4 % Mean Corpuscular Volume 91.0 FL 90.7 FL Mean Corpuscular Hemoglobin 30.6 PG 30.2 PG Mean Corpuscular Hemoglobin 33.6 % 33.3 % Concent Red Cell Distribution Width 13.7 % 13.3 % Platelet Count 341 TH/MM3 361 TH/MM3 Mean Platelet Volume 7.7 FL 7.4 FL Neutrophils (%) (Auto) 83.7 % 80.5 % Lymphocytes (%) (Auto) 10.3 % 12.4 % Monocytes (%) (Auto) 5.3 % 6.6 % Eosinophils (%) (Auto) 0.0 % 0.1 % Basophils (%) (Auto) 0.7 % 0.4 % Neutrophils # (Auto) 10.7 TH/MM3 12.0 TH/MM3 Lymphocytes # (Auto) 1.3 TH/MM3 1.9 TH/MM3 Monocytes # (Auto) 0.7 TH/MM3 1.0 TH/MM3 Eosinophils # (Auto) 0.0 TH/MM3 0.0 TH/MM3 Basophils # (Auto) 0.1 TH/MM3 0.1 TH/MM3 CBC Comment DIFF FINAL DIFF FINAL Differential Comment Sodium Level 139 MEQ/L 137 MEQ/L Potassium Level 3.1 MEQ/L 2.9 MEQ/L 3.0 MEQ/L 2.9 MEQ/L Chloride Level 106 MEQ/L 104 MEQ/L Carbon Dioxide Level 25.1 MEQ/L 22.4 MEQ/L Anion Gap 8 MEQ/L 11 MEQ/L Blood Urea Nitrogen 6 MG/DL 6 MG/DL Creatinine 0.31 MG/DL 0.34 MG/DL Estimat Glomerular Filtration 213 ML/MIN 191 ML/MIN Rate Random Glucose 109 MG/DL 121 MG/DL Calcium Level 8.4 MG/DL 8.7 MG/DL Total Bilirubin 1.0 MG/DL Aspartate Amino Transf 16 U/L (AST/SGOT) Alanine Aminotransferase 17 U/L (ALT/SGPT) Alkaline Phosphatase 43 U/L Total Protein 6.5 GM/DL Albumin 3.1 GM/DL Test 10/31/16 11/01/16 18:15 03:28 Potassium Level 3.3 MEQ/L 3.1 MEQ/L White Blood Count 11.2 TH/MM3 Red Blood Count 3.94 MIL/MM3 Hemoglobin 12.2 GM/DL Hematocrit 35.4 % Mean Corpuscular Volume 89.7 FL Mean Corpuscular Hemoglobin 31.1 PG Mean Corpuscular Hemoglobin 34.6 % Concent Red Cell Distribution Width 13.5 % Platelet Count 376 TH/MM3 Mean Platelet Volume 7.6 FL Neutrophils (%) (Auto) 76.6 % Lymphocytes (%) (Auto) 15.1 % Monocytes (%) (Auto) 7.8 % Eosinophils (%) (Auto) 0.2 % Basophils (%) (Auto) 0.3 % Neutrophils # (Auto) 8.6 TH/MM3 Lymphocytes # (Auto) 1.7 TH/MM3 Monocytes # (Auto) 0.9 TH/MM3 Eosinophils # (Auto) 0.0 TH/MM3 Basophils # (Auto) 0.0 TH/MM3 CBC Comment DIFF FINAL Differential Comment Sodium Level 135 MEQ/L Chloride Level 101 MEQ/L Carbon Dioxide Level 23.2 MEQ/L Anion Gap 11 MEQ/L Blood Urea Nitrogen 7 MG/DL Creatinine 0.30 MG/DL Estimat Glomerular Filtration 221 ML/MIN Rate Random Glucose 112 MG/DL Calcium Level 8.3 MG/DL Total Bilirubin 1.1 MG/DL Aspartate Amino Transf 13 U/L (AST/SGOT) Alanine Aminotransferase 19 U/L (ALT/SGPT) Alkaline Phosphatase 38 U/L Total Protein 6.0 GM/DL Albumin 2.8 GM/DL Constitutional Vital Signs Date Time Temp Pulse Resp B/P Pulse Ox O2 Delivery O2 Flow Rate FiO2 11/01/16 08:00 98 Room Air 11/01/16 07:14 99 21 11/01/16 06:00 64 11/01/16 04:45 172/81 11/01/16 04:00 98.9 85 22 139/69 95 11/01/16 04:00 85 11/01/16 02:00 70 11/01/16 01:30 174/86 11/01/16 00:00 99.4 85 18 130/67 98 11/01/16 00:00 85 10/31/16 22:00 65 10/31/16 20:06 95 10/31/16 20:00 65 10/31/16 20:00 97 Room Air 10/31/16 20:00 99.6 65 15 178/95 97 10/31/16 19:17 69 10/31/16 18:00 74 10/31/16 16:00 98.6 68 21 175/96 97 10/31/16 16:00 69 10/31/16 14:00 86 10/31/16 12:00 88 10/31/16 12:00 98.4 88 18 174/91 96 10/31/16 10:00 75 11/01/16 07:00 Intake Total 2894 ml Output Total 2650 ml Balance 244 ml (Kyaw Talavera) Review of Systems/Exam ROS Unable to obtain a ROS due to the patient's mental status. Exam GENERAL: Awake, calm, no apparent distress. HEENT: Normocephalic, atraumatic. PERRLA, EOM intact. MMM & pink. CARDIOVASCULAR: S1S2 w/RRR w/o M/G/R, radial & pedal pulses 2+ bilaterally, cap refill < 2 sec, no pedal edema. Monitor is sinus rhythm w/o any ectopy noted. RESPIRATORY: CTAB w/o W/R/R, equal excursion, non-laboured, on RA. GASTROINTESTINAL: Abdomen soft, non-tender, positive bowel sounds. MUSCULOSKELETAL: Limited movement of all extremities. No evident deformity, discolouration or clubbing. NEUROLOGICAL: Awake & alert Nonverbal but does try to speak/mouth words. Nursing reports she has verbalised for her this morning. She is able to stick her tongue out to command. Followed simple commands She is independently moving the LUE and has a weak clinical nurse specialist. She moves the right thumb and does open the right hand partially. She did move the RUE minimally and lift the elbow off the pillow. She does wiggle the toes of both feet to command and is able to lift the left leg slightly off the bed but not the right. Unable to ascertain sensation due to patient's mental status (Kyaw Talavera) Medications Current Medications Current Medications Medications (Trade) Dose Ordered Sig/Nilesh Route Start Time Stop Time Status Last Admin (NS Flush) 2 ml UNSCH PRN .XX 10/27/16 23:30 (NS Flush) 2 ml BID .XX 10/28/16 09:00 11/01/16 08:13 (Tylenol) 650 mg Q6H PRN PO 10/27/16 23:30 (Morphine Inj) 2 mg Q2H PRN IV 10/27/16 23:30 (Pepcid Inj) 20 mg Q12HR IV PUSH 10/28/16 09:00 11/01/16 08:14 (Zofran Inj) 4 mg Q6H PRN IV 10/27/16 23:30 (Reglan Inj) 10 mg Q6H PRN IV 10/27/16 23:30 10/28/16 00:47 Miscellaneous Information 1 Q361D XX 10/27/16 23:30 10/27/16 23:30 (Chlorhexidine 2% Cloth) 3 pack Taper DAILY@04 TOP 10/28/16 04:00 10/24/17 03:59 11/01/16 03:42 (Chlorhexidine 2% Cloth) 3 pack UNSCH PRN TOP 10/27/16 23:30 (Apresoline Inj) 20 mg Q4H PRN IV PUSH 10/27/16 23:45 10/31/16 06:32 (Nimotop) 60 mg Q4HR PO 10/28/16 01:00 11/01/16 08:13 Pravastatin Sodium 40 mg 40 mg DAILY PO 10/28/16 09:00 11/01/16 08:14 Potassium Chloride 100 ml @ 50 mls/hr Q2H PRN IV 10/28/16 02:15 (KCl 20 Meq Premix Inj) 100 ml @ 50 mls/hr Q2H PRN IV 10/28/16 02:15 11/01/16 09:02 Potassium Bicarb/ Potassium Chloride 50 meq 50 meq UNSCH PRN PO 10/28/16 02:15 Potassium Chloride 100 ml @ 25 mls/hr UNSCH PRN IV 10/28/16 02:15 Potassium Chloride 100 ml @ 50 mls/hr Q2H PRN IV 10/28/16 02:15 10/31/16 23:28 (Magnesium Sulfate Inj/NS Inj) 100 ml @ 50 mls/hr UNSCH PRN IV 10/28/16 02:15 Magnesium Oxide 800 mg 800 mg UNSCH PRN PO 10/28/16 02:15 (Magnesium Sulfate Inj/NS Inj) 100 ml @ 50 mls/hr UNSCH PRN IV 10/28/16 02:15 Potassium Phosphate 2000 mg 2,000 mg Q4H PRN PO 10/28/16 02:15 (Sodium Phosphate Inj/NS 250 ml Inj) 250 ml @ 42 mls/hr UNSCH PRN IV 10/28/16 02:15 Potassium Phosphate 2000 mg 2,000 mg UNSCH PRN PO/TUBE 10/28/16 02:15 Nicardipine HCl 25 mg/Sodium Chloride 260 ml @ 0 mls/hr TITRATE IV 10/28/16 16:45 (Levophed-Dextrose Drip) 250 ml @ 0 mls/hr TITRATE IV 10/30/16 12:15 11/01/16 09:01 (Brethine Inj) 1 mg UNSCH PRN SQ 10/30/16 12:15 (NS Flush) See Protocol DAILY IV FLUSH 10/31/16 09:00 (NS Flush) See Protocol UNSCH PRN IV FLUSH 10/30/16 16:00 (Heparin Central Flush) See Protocol DAILY IV FLUSH 10/31/16 09:00 (Heparin Central Flush) See Protocol UNSCH PRN IV FLUSH 10/30/16 16:00 Sodium Chloride UNSCH PRN IV FLUSH 10/30/16 16:00 (NS + KCl 40 Meq Inj) 1,000 ml @ 84 mls/hr [id number] IV 11/01/16 08:15 11/01/16 08:18 (Natty-Colace) 1 tab BID PO 11/01/16 09:00 11/01/16 08:18 (Dulcolax Supp) 10 mg DAILY PRN RECTAL 11/01/16 08:15 (Kyaw Talavera) Medical Decision Making MDM Remarks Impression: 1. Intracranial-intraventricular and subarachnoid hemorrhage. Anterior communicating artery aneurysm 2. Hypertension 3. Recent history of bronchitis POD # 4 s/p (): 1. ACOM aneurysm coiling CT brain w/slight improvement in ICH but now demonstrates new IVH No vasospasms on TCD Cerebral angiogram for spasmolytic therapy bilateral ICA with verapamil Moderately severe spasm in the left LEONARDO territory demonstrated Neurological function improved today Hypokalemia, interval decrease (Kyaw Talavera) Plan Plan Remarks Continue frequent neuro checks Continue critical care management per Pattern Duplicator Daily TCD studies Will follow patient closely May need ventriculostomy Maintain SBP between 160 and 180 mm Hg due to vasospasms Vasopressors as needed to maintain SBP Primary management per Pattern Duplicator (Kyaw Talavera) Attending Statement I have personally seen and examined the patient on the date of this note. Pertinent documentation and study results have been reviewed by the undersigned. I have personally developed the treatment plan and performed medical decision making. Agree with findings, exam, and treatment plan as noted above. Continuing-controlled hypertension Follow-up transcranial Doppler study today reveals probable recurrent vasospasm Neurologic exam stable (Johnnie Cool MD) [facility] Tala[facility]a November 01, 2016 09:47 Johnnie Cool MD November 01, 2016 20:48
--- NOTE | 2016-11-01 15:19 | RADRPT ---
EXAM DATE/TIME: 11/01/2016 08:11 [facility] COMPARISON: US TRANSCRANIAL DOPPLER COMPLETE, October 31, 2016, 7:50. INDICATIONS : Subarachnoid hemorrhage. MEDICAL HISTORY : Hypertension. CVA. Depression. Subarachnoid hemorrhage. Bronchitis. SURGICAL HISTORY : Bilateral cataract surgery. Aneurysm coil. ENCOUNTER: Sequela ACUITY: 4-6 days PAIN SCORE: Nonresponsive. LOCATION: Bilateral cranial Current Exam: November 01, 2016 [place] Ratio: Right: 5.8 Left: 2.4 [place] Ratio: Right: 1.9 Left: UTO Previous Exam: October 31, 2016 [place] Ratio: Right: 8.4 Left: 2.5 [place] Ratio: Right: 3.2 Left: 1.2 FINDINGS: Examination performed at bedside. Real-time ultrasound with the assistance of color and spectral Dop pler was utilized to evaluate the intracerebral circulation. Time-averaged maximal velocities are ca lculated in cm/s. There is persistent elevation of the velocities in the right middle cerebral artery and an elevated L indegaard ratio. The ratio and the velocities have slightly improved. The left anterior cervical artery analysis could not be obtained. CONCLUSION: Persistent spasm in the right MCA territory with mild improvement from the prior exam. Jose Roberto Shirley MD on November 01, 2016 at 15:14 Board Certified Radiologist. This report was verified electronically.
[2016-11-02] VITALS (13 sets, daily range): BP systolic 136–182; BP diastolic 73–104; PULSE 69–89; RESP 15–22; TEMP 97.6–98.4; O2SAT 96–100
[2016-11-02] MEDS: niMODipine 30 MG CAP PO SCH ×6 (00:05→20:25)
[2016-11-02] MEDS: NOREPINEPHRINE-DEXTROSE DRIP 250 ML IV SCH ×4 (02:25→20:40)
[2016-11-02] MEDS: CHLORHEXIDINE GLUCONATE 2 % 1 PACK (2 CLOTHS) TOP SCH (03:31)
[2016-11-02] MEDS: NS + KCL 40 MEQ INJ 1,000 ML IV SCH ×2 (05:24→20:40)
[2016-11-02] MEDS: SODIUM CHLORIDE 0.9% FLUSH 10 ML FLUSH SCH ×2 (08:47→20:26)
[2016-11-02] MEDS: PRAVASTATIN SOD 40 MG TAB PO SCH (08:48)
[2016-11-02] MEDS: DOCUSATE SODIUM 50 MG/SENNA 8.6 MG TAB PO SCH ×2 (08:48→20:40)
[2016-11-02] MEDS: FAMOTIDINE 20 MG/2 ML VIAL IV PUSH SCH ×2 (08:48→20:25)
--- NOTE | 2016-11-02 09:11 | HHI.CCPN ---
Subjective Remarks/Hospital Course 10/27: 66 year old female was found in her bathtub, fully clothed with no water on. She was unable to get up or talk. She was last seen to be normal yesterday. Patient follows commands appropriately however is unable to talk and cannot provide a history. Per documentation she was recently treated with antibiotics amoxicillin for bronchitis as well as started on blood pressure medications due to new onset of hypertension for about last [address] of the head revealed the ICH with IVH extension. The stat CTA revealed ACOM aneurysm 10/28: Resting in bed comfortably. Awake and alert. Following commands. Having speech difficulties. 10/29: Underwent ACOM aneurysm coiling on 10/28. This morning speech appears to have worsened. Patient is nonverbal. Following commands. Head CT shows decreasing size of hemorrhage, the CT is done with results pending. 10/30: Remains nonverbal. Awake and alert. Moves bilateral upper extremities and left lower extremity. Does not move right lower extremity. 10/31: Awake and alert, remains nonverbal. Does not move right lower extremity, moves bilateral upper extremities and left lower extremity. On Levophed to keep systolic blood pressure 160-180 11/01: Awake, alert, still having speech difficulty. On asking her name she repeats mind. Moves both upper extremities and left lower extremity. Underwent angiogram with injection of verapamil and bilateral internal carotid arteries by interventional radiology on 10/31 for vasospasm. 11/02: Awake, alert. Speech appears somewhat better. She can tell me her name. Following commands. Thinks she is at home. Moves both upper extremities and left lower extremity. Decreased movement in right lower extremity. Objective Vital Signs Date Time Temp Pulse Resp B/P Pulse Ox O2 Delivery O2 Flow Rate FiO2 11/02/16 08:00 73 11/02/16 08:00 97.9 17 175/95 100 11/02/16 07:07 21 11/02/16 07:00 Room Air 10/29/16 19:00 2.00 Intake and Output 11/01/16 11/01/16 11/02/16 08:00 16:00 00:00 Intake Total 1101 ml 2940 ml 1335 ml Output Total 1000 ml 2650 ml 1800 ml Balance 101 ml 290 ml -465 ml Result Diagram: 11/01/16 0328 11/01/16 1545 Imaging Last [address] 10/27/162214 Signed Impressions: Service Date/Time: Thursday, October 27, 2016 22:58 - CONCLUSION: Large intracerebral hemorrhage with subarachnoid hemorrhage as well. Nicola Childs MD Chest X-Ray 10/27/162214 Signed Impressions: Service Date/Time: Thursday, October 27, 2016 22:37 - CONCLUSION: No acute disease. Kemal Downey MD Objective Remarks GENERAL: Well-nourished, well-developed patient. In no acute distress nonverbal. Not following commands SKIN: Warm and dry. HEAD: Normocephalic. EYES: No scleral icterus. No injection or drainage. NECK: Supple, trachea midline. No JVD or lymphadenopathy. CARDIOVASCULAR: Regular rate and rhythm without murmurs, gallops, or rubs. RESPIRATORY: Breath sounds equal bilaterally. No accessory muscle use. GASTROINTESTINAL: Abdomen soft, non-tender, nondistended. MUSCULOSKELETAL: No cyanosis, or edema. BACK: Nontender without obvious deformity. No CVA tenderness. EXTREMITIES: No clubbing cyanosis or edema Neuro: Awake alert, continues to have speech difficulty. Director Of Claims my fingers with bilateral upper extremities. Pupils equal reacting to light actively. nonverbal. Moves bilateral upper extremities and left lower extremity. minimal movement right lower extremity(Grade 1). A/P Assessment and Plan ICH - Due to ruptured ACom aneurysm Subarachnoid hemorrhage - Nagel Kennedy grade 2 - Mcmillan grade 4 -Status post ACOM aneurysm coiling - Levophed as needed to keep SBP 160-180 mmHg. PICC line placed on 10/31 - Nimodipine - Pravachol - TCD's daily to monitor for vasospasm. Underwent cerebral angiogram with intra -arterial verapamil and bilateral internal carotid arteries on 10/31 by interventional radiology. - Ventriculostomy to be decided by Neurosurgery - Management per neurosurgery Hypertension -Hold antihypertensives - SBP goal 160-180 due to vasospasm Tobacco use disorder - Monitor for withdrawal - Start nicotine replacement if indicated DVT GI prophylaxis - Teds SCDs - No pharmacological DVT prophylaxis due to ICH - Pepcid Condition critical. Time spent on critical care excluding procedures 30 minutes Arnol Jones MD November 02, 2016 09:11
--- NOTE | 2016-11-02 09:14 | HHI.NSPN ---
(Kyaw Talavera Estelita WARREN) Note Status Status: Progress Note (Kyaw Talavera) Interval History Interval History 10/27: 66-year-old female in relatively good health until 3 or 4 weeks ago when she developed bronchitis. She was treated with a course of amoxicillin which did not help the symptoms. She was given another antibiotic which she finished approximately 3 days ago. She has continued to have a nonproductive cough. No definite fevers or chills. She has had a frontal headache for 2 or 3 weeks. Also some neck pain and stiffness. She was diagnosed with hypertension in the past 2 or 3 months and has been on medication. She does have a long history of smoking cigarettes. She ate dinner with her friend last evening. Her brother called her approximately 10:00 this morning on the telephone, and there was no answer. Her friend found the patient lying in her bathtub at home, significant speech difficulty with no definite seizure activity. Patient indicated to her friend that she had been lying in the bathtub all day long, unable to get up. 10/28: The patient went down for an aneurysm coiling in Interventional Radiology this morning. This afternoon when seen the patient is asleep but awakens to verbal stimuli. She remains nonverbal but shook her head "no" when asked if she had a headache or any numbness or tingling. She did follow some commands. 10/29: When the patient was seen with Dr Cool late yesterday afternoon the patient was able to say her name. This morning prior to being seen Nursing reports that the is not verbalising although she was yesterday. When seen the patient was not able to verbalise but she did nod her head appropriately. She nodded "yes" to having a headache. The patient did have a transcranial doppler study this morning, the report is pending. 10/30: The patient remains nonverbal this morning and makes no attempt to shake her head "no" when asked if she is able to speak. She is spontaneously moving the left side. A TCD is being done when seen. Yesterday a repeat CT brain demonstrated some improvement in the ICH and a new small IVH. A TCD & CTA demonstrated a right middle cerebral artery vasospasm. A minimal left anterior temporal artery vasospasm was noted on the CTA only. 10/31: The patient is having a TCD done when seen this morning. She remains nonverbal and makes no attempt to speak or stick her tongue out. She does follow commands to wiggle the toes and oleo hasher and renderer with the left hand. Yesterday the TCD was unremarkable for any vasospasm. 11/01: The patient is awake and alert this morning. Ultrasound is finishing the TCD. She is nonverbal but does try to speak. She is able to stick her tongue out and has varying degrees of movement to the extremities. She went to Interventional Radiology yesterday afternoon for a cerebral angiogram which demonstrated a moderately severe spasm in the left LEONARDO territory. She received verapamil injected into both ICAs. 11/02: The patient is awake & alert this morning. She is feeding herself breakfast. She is able to verbalise but is confused. The TCD yesterday demonstrated a persistent right MCA territory vasospasm with mild improvement. (Kyaw Talavera) Labs, Micro, & Vital Signs Results Allergies Coded Allergies Type Severity Reaction Last Updated Verified No Known Allergies 10/27/16 No Recent Impressions Transcranial Doppler Study Complete 11/01/16 0000 Signed Impressions: Service Date/Time: Tuesday, November 01, 2016 08:11 - CONCLUSION: Persistent spasm in the right MCA territory with mild improvement from the prior exam. Jose Roberto Shirley MD Cerebral Arteriogram 10/31/16 0000 Signed Impressions: Service Date/Time: Monday, October 31, 2016 14:45 - CONCLUSION: 1. Moderately severe vasospasm in the left LEONARDO territory. The left MCA territory and the right MCA and LEONARDO territories remain patent. 2. 10 mg of verapamil was infused into both internal carotid arteries as detailed above. 3. 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 This is below the dural ring it would not be contributing to the intracranial hemorrhage identified. Chidi Elise MD Transcranial Doppler Study Complete 10/31/16 0000 Signed Impressions: Service Date/Time: Monday, October 31, 2016 07:50 - CONCLUSION: 1. Findings of severe vasospasm involving the right middle cerebral artery. The findings have worsened when compared with the prior examination. Catheter angiography is recommended for further evaluation if clinically indicated. Robin Muir MD 05:59 17:59 05:59 17:59 05:59 17:59 Intake Total 806 ml 2401 ml 978 ml 4041 ml 1335 ml 1267 ml Output Total 522 ml 1525 ml 950 ml 3650 ml 1800 ml 2250 ml Balance 284 ml 876 ml 28 ml 391 ml -465 ml -983 ml Intake Oral 2070 ml 480 ml 480 ml IV Total 806 ml 2401 ml 978 ml 1971 ml 855 ml 787 ml Output Urine Total 522 ml 1525 ml 950 ml 3650 ml 1800 ml 2250 ml # Bowel Movements 0 0 0 1 2 0 Laboratory Tests Test 10/30/16 10/31/16 10/31/16 11/01/16 17:00 10:38 18:15 03:28 Potassium Level 3.0 MEQ/L 2.9 MEQ/L 3.3 MEQ/L 3.1 MEQ/L White Blood Count 11.2 TH/MM3 Red Blood Count 3.94 MIL/MM3 Hemoglobin 12.2 GM/DL Hematocrit 35.4 % Mean Corpuscular Volume 89.7 FL Mean Corpuscular Hemoglobin 31.1 PG Mean Corpuscular Hemoglobin 34.6 % Concent Red Cell Distribution Width 13.5 % Platelet Count 376 TH/MM3 Mean Platelet Volume 7.6 FL Neutrophils (%) (Auto) 76.6 % Lymphocytes (%) (Auto) 15.1 % Monocytes (%) (Auto) 7.8 % Eosinophils (%) (Auto) 0.2 % Basophils (%) (Auto) 0.3 % Neutrophils # (Auto) 8.6 TH/MM3 Lymphocytes # (Auto) 1.7 TH/MM3 Monocytes # (Auto) 0.9 TH/MM3 Eosinophils # (Auto) 0.0 TH/MM3 Basophils # (Auto) 0.0 TH/MM3 CBC Comment DIFF FINAL Differential Comment Sodium Level 135 MEQ/L Chloride Level 101 MEQ/L Carbon Dioxide Level 23.2 MEQ/L Anion Gap 11 MEQ/L Blood Urea Nitrogen 7 MG/DL Creatinine 0.30 MG/DL Estimat Glomerular Filtration 221 ML/MIN Rate Random Glucose 112 MG/DL Calcium Level 8.3 MG/DL Total Bilirubin 1.1 MG/DL Aspartate Amino Transf 13 U/L (AST/SGOT) Alanine Aminotransferase 19 U/L (ALT/SGPT) Alkaline Phosphatase 38 U/L Total Protein 6.0 GM/DL Albumin 2.8 GM/DL Test 11/01/16 15:45 Potassium Level 3.7 MEQ/L Constitutional Vital Signs Date Time Temp Pulse Resp B/P Pulse Ox O2 Delivery O2 Flow Rate FiO2 11/02/16 08:00 73 11/02/16 08:00 97.9 73 17 175/95 100 11/02/16 07:07 99 21 11/02/16 07:00 Room Air 11/02/16 06:00 75 11/02/16 04:00 98.1 87 16 136/73 96 11/02/16 04:00 87 11/02/16 02:00 71 11/02/16 00:00 70 11/02/16 00:00 98.4 70 17 158/84 97 11/01/16 22:00 83 11/01/16 20:00 82 11/01/16 20:00 98.3 82 21 181/104 97 11/01/16 20:00 97 Room Air 11/01/16 18:00 85 11/01/16 16:00 98.3 78 17 175/96 98 11/01/16 16:00 78 11/01/16 14:00 83 11/01/16 12:00 74 11/01/16 12:00 97.5 74 23 186/97 97 11/01/16 10:00 69 11/02/16 06:59 Intake Total 5542 ml Output Total 6700 ml Balance -1158 ml (Kyaw Talavera) Review of Systems/Exam ROS Patient shakes her head "no" when asked if she has any headache, dizziness, numbness, tingling, shortness of breath, chest pain, palpitations, irregular heart beat, abdominal pain or nausea. Exam GENERAL: Awake, calm, no apparent distress, feeding self. HEENT: Normocephalic, atraumatic. PERRLA, EOM intact. MMM & pink. CARDIOVASCULAR: S1S2 w/RRR w/o M/G/R, radial & pedal pulses 2+ bilaterally, cap refill < 2 sec, no pedal edema. Monitor is sinus rhythm w/o any ectopy noted. RESPIRATORY: CTAB w/o W/R/R, equal excursion, non-laboured, on RA. GASTROINTESTINAL: Abdomen soft, non-tender, positive bowel sounds. MUSCULOSKELETAL: WALSH but limited. No evident deformity, discolouration or clubbing. NEUROLOGICAL: Awake & alert, oriented to person & president, disoriented to place, time & what happened to her Speech clear Followed simple commands She is independently moving the LUE, motor strength 2-3/5. She has a very weak oleo hasher and renderer on the right with minimal movement of the RUE. She does wiggle the toes of both feet to command and is able to lift the left leg slightly off the bed but not the right. When asked if she is able to feel light touch the patient shakes her head "no." ([facility] Talavera) Medications Current Medications Current Medications Medications (Trade) Dose Ordered Sig/Nilesh Route Start Time Stop Time Status Last Admin (NS Flush) 2 ml UNSCH PRN .XX 10/27/16 23:30 (NS Flush) 2 ml BID .XX 10/28/16 09:00 11/02/16 08:47 (Tylenol) 650 mg Q6H PRN PO 10/27/16 23:30 (Morphine Inj) 2 mg Q2H PRN IV 10/27/16 23:30 (Pepcid Inj) 20 mg Q12HR IV PUSH 10/28/16 09:00 11/02/16 08:48 (Zofran Inj) 4 mg Q6H PRN IV 10/27/16 23:30 (Reglan Inj) 10 mg Q6H PRN IV 10/27/16 23:30 10/28/16 00:47 Miscellaneous Information 1 Q361D XX 10/27/16 23:30 10/27/16 23:30 (Chlorhexidine 2% Cloth) Taper DAILY@04 TOP 10/28/16 04:00 10/24/17 03:59 11/02/16 03:31 (Chlorhexidine 2% Cloth) 3 pack UNSCH PRN TOP 10/27/16 23:30 (Apresoline Inj) 20 mg Q4H PRN IV PUSH 10/27/16 23:45 5/19/17 06:32 (Nimotop) 60 mg Q4HR PO 10/28/16 01:00 11/02/16 08:48 Pravastatin Sodium 40 mg 40 mg DAILY PO 10/28/16 09:00 11/02/16 08:48 Potassium Chloride 100 ml @ 50 mls/hr Q2H PRN IV 10/28/16 02:15 (KCl 20 Meq Premix Inj) 100 ml @ 50 mls/hr Q2H PRN IV 10/28/16 02:15 11/01/16 10:20 Potassium Bicarb/ Potassium Chloride 50 meq 50 meq UNSCH PRN PO 10/28/16 02:15 Potassium Chloride 100 ml @ 25 mls/hr UNSCH PRN IV 10/28/16 02:15 Potassium Chloride 100 ml @ 50 mls/hr Q2H PRN IV 10/28/16 02:15 10/31/16 23:28 (Magnesium Sulfate Inj/NS Inj) 100 ml @ 50 mls/hr UNSCH PRN IV 10/28/16 02:15 Magnesium Oxide 800 mg 800 mg UNSCH PRN PO 10/28/16 02:15 (Magnesium Sulfate Inj/NS Inj) 100 ml @ 50 mls/hr UNSCH PRN IV 10/28/16 02:15 Potassium Phosphate 2000 mg 2,000 mg Q4H PRN PO 10/28/16 02:15 (Sodium Phosphate Inj/NS 250 ml Inj) 250 ml @ 42 mls/hr UNSCH PRN IV 10/28/16 02:15 Potassium Phosphate 2000 mg 2,000 mg UNSCH PRN PO/TUBE 10/28/16 02:15 Nicardipine HCl 25 mg/Sodium Chloride 260 ml @ 0 mls/hr TITRATE IV 10/28/16 16:45 (Levophed-Dextrose Drip) 250 ml @ 0 mls/hr TITRATE IV 10/30/16 12:15 11/02/16 02:25 (Brethine Inj) 1 mg UNSCH PRN SQ 10/30/16 12:15 (NS Flush) See Protocol DAILY IV FLUSH 10/31/16 09:00 (NS Flush) See Protocol UNSCH PRN IV FLUSH 10/30/16 16:00 (Heparin Central Flush) See Protocol DAILY IV FLUSH 10/31/16 09:00 (Heparin Central Flush) See Protocol UNSCH PRN IV FLUSH 10/30/16 16:00 Sodium Chloride UNSCH PRN IV FLUSH 10/30/16 16:00 (NS + KCl 40 Meq Inj) 1,000 ml @ 84 mls/hr [id number] IV 11/01/16 08:15 11/02/16 05:24 (Natty-Colace) 1 tab BID PO 11/01/16 09:00 11/02/16 08:48 (Dulcolax Supp) 10 mg DAILY PRN RECTAL 11/01/16 08:15 (Kyaw Talavera) Medical Decision Making MDM Remarks Impression: 1. Intracranial-intraventricular and subarachnoid hemorrhage. Anterior communicating artery aneurysm 2. Hypertension 3. Recent history of bronchitis POD # 5 s/p (): 1. ACOM aneurysm coiling CT brain w/slight improvement in ICH but now demonstrates new IVH No vasospasms on TCD Cerebral angiogram for spasmolytic therapy bilateral ICA with verapamil Moderately severe spasm in the left LEONARDO territory demonstrated TCD with persistent right MCA territory vasospasm, mild improvement Neurological function significantly improved today Hypokalemia, resolved (Kyaw Talavera) Plan Plan Remarks Continue frequent neuro checks Continue critical care management per Industrial Hygiene Technician Daily TCD studies Will follow patient closely May need ventriculostomy Maintain SBP between 160 and 180 mm Hg due to vasospasms Vasopressors as needed to maintain SBP Primary management per Industrial Hygiene Technician (Kyaw Talavera) Attending Statement I have personally seen and examined the patient on the date of this note. Pertinent documentation and study results have been reviewed by the undersigned. I have personally developed the treatment plan and performed medical decision making. Agree with findings, exam, and treatment plan as noted above. Patient more alert today She is now starting to verbalize, still not following commands well. Persistent right upper extremity paresis. Gradually improving. Transcranial Doppler today with normalized ratios. Continue to maintain controlled hypertension for vasospasm. Continue transcranial Doppler studies (Johnnie Cool MD) [facility] Tala[facility]a November 02, 2016 09:14 Johnnie Cool MD November 02, 2016 15:49
[2016-11-02] MEDS: SODIUM CHLORIDE 0.9% FLUSH 10 ML FLUSH IV FLUSH SCH (10:15)
--- NOTE | 2016-11-02 10:16 | RADRPT ---
EXAM DATE/TIME: 11/02/2016 07:16 [facility] COMPARISON: US TRANSCRANIAL DOPPLER COMPLETE, November 01, 2016, 8:11. INDICATIONS : Subarachnoid hemorrhage. MEDICAL HISTORY : Hypertension. CVA. Depression. Subarachnoid hemorrhage. SURGICAL HISTORY : Bilateral cataract surgery. Aneurysm coil. ENCOUNTER: Subsequent ACUITY: 4-6 days PAIN SCORE: Nonresponsive. LOCATION: Bilateral cranial Current Exam: November 02, 2016 [place] Ratio: Right: 1.6 Left: 2.3 [place] Jesus Ratio: Right: 0.9 Left: UTO Previous Exam: November 01, 2016 [place] Ratio: Right: 5.8 Left: 2.4 De Jesus Ratio: Right: 1.9 Left: UTO FINDINGS: Examination performed at bedside. Real-time ultrasound with the assistance of color and spectral Dop pler was utilized to evaluate the intracerebral circulation. Time-averaged maximal velocities are ca lculated in cm/s. The current examination there is continued normalization of the [place] [facility] CONCLUSION: 1. On the current examination the ratios have normalized. Benji Zapata MD on November 02, 2016 at 10:04 Board Certified Radiologist. This report was verified electronically.
--- NOTE | 2016-11-02 17:02 | RADRPT ---
EXAM DATE/TIME: 11/02/2016 16:38 [facility] COMPARISON: CT BRAIN W/O CONTRAST, October 29, 2016, 4:28. INDICATIONS : Evaluate hemorrhage. RADIATION DOSE: 46.55 CTDIvol (mGy) MEDICAL HISTORY : Stroke. Aneurysm, intracranial. SURGICAL HISTORY : brain. ENCOUNTER: Initial ACUITY: 1 day PAIN SCALE: 3/10 LOCATION: Bilateral cranial TECHNIQUE: Multiple contiguous axial images were obtained of the head. Using automated exposure control and adj ustment of the mA and/or kV according to patient size, radiation dose was kept as low as reasonably a chievable to obtain optimal diagnostic quality images. FINDINGS: Bifrontal parenchymal hemorrhage again noted crossing the midline at the anterior corpus callosu m. The parenchymal hemorrhage is similar in size, proximally 3.1 x 3.8 cm in greatest transaxial dime nsion. Surrounding cerebral edema is slightly worse in the interim. Patient is status post a com aneu rysm coiling. No measurable midline shift. No mass lesion seen. No evidence of an acute ischemic even t. CONCLUSION: Status post anterior communicating artery aneurysm coiling. The parenchymal hemorrhage of the left fr ontal lobe crossing to the right at the genu of the corpus callosum is unchanged in size. Modestly wo rse surrounding cerebral edema. No measurable midline shift. No new blood seen. Jose Roberto Rivas MD on November 02, 2016 at 16:54 Board Certified Radiologist. This report was verified electronically.
[2016-11-03] VITALS (14 sets, daily range): BP systolic 144–177; BP diastolic 68–90; PULSE 65–99; RESP 13–23; TEMP 97.9–98.5; O2SAT 96–100
[2016-11-03] MEDS: niMODipine 30 MG CAP PO SCH ×7 (00:14→22:39)
[2016-11-03] MEDS: NS + KCL 40 MEQ INJ 1,000 ML IV SCH ×2 (00:15→19:50)
[2016-11-03] MEDS: CHLORHEXIDINE GLUCONATE 2 % 1 PACK (2 CLOTHS) TOP SCH (02:37)
[2016-11-03 03:24] LABS: AUTOMATED NEUTROPHIL # 8.7 TH/MM3 (1.8-7.7); BASOPHIL % 0.4 % (0.0-2.0); EOSINOPHIL # 0.2 TH/MM3 (0-0.4); EOSINOPHIL % 1.4 % (0.0-4.0); HEMATOCRIT 40.4 % (35.0-46.0); HEMO FLAGS DIFF FINAL; LYMPH % 15.6 % (9.0-44.0); LYMPHOCYTE # 1.8 TH/MM3 (1.0-4.8); MEAN CELL VOLUME 90.3 FL (80.0-100.0); MEAN CORPUSCULAR HEMOGLOBIN 30.3 PG (27.0-34.0); MEAN CORPUSCULAR HGB CONC 33.6 % (32.0-36.0); MONO % 7.8 % (0.0-8.0); NEUT % 74.8 % (16.0-70.0); PLATELET COUNT 388 TH/MM3 (150-450); RED BLOOD COUNT 4.48 MIL/MM3 (4.00-5.30); RED CELL DISTRIBUTION WIDTH 13.2 % (11.6-17.2); WHITE BLOOD COUNT 11.6 TH/MM3 (4.0-11.0)
[2016-11-03 04:12] LABS: ALT (GPT) 17 U/L (10-53); ANION GAP 8 MEQ/L (5-15); AST (GOT) 13 U/L (15-37); BICARBONATE 29.4 MEQ/L (21.0-32.0); BLOOD UREA NITROGEN 7 MG/DL (7-18); CHLORIDE 103 MEQ/L (98-107); GLOMERULAR FILTRATION RATE 185 ML/MIN (>89); POTASSIUM 3.7 MEQ/L (3.5-5.1); SODIUM (NA) 140 MEQ/L (136-145)
[2016-11-03 04:14] LABS: ALKALINE PHOSPHATASE 43 U/L (45-117); TOTAL BILIRUBIN ADULT 0.7 MG/DL (0.2-1.0)
--- NOTE | 2016-11-03 08:20 | HHI.CCPN ---
Subjective Remarks/Hospital Course 10/27: 66 year old female was found in her bathtub, fully clothed with no water on. She was unable to get up or talk. She was last seen to be normal yesterday. Patient follows commands appropriately however is unable to talk and cannot provide a history. Per documentation she was recently treated with antibiotics amoxicillin for bronchitis as well as started on blood pressure medications due to new onset of hypertension for about last [address] of the head revealed the ICH with IVH extension. The stat CTA revealed ACOM aneurysm 10/28: Resting in bed comfortably. Awake and alert. Following commands. Having speech difficulties. 10/29: Underwent ACOM aneurysm coiling on 10/28. This morning speech appears to have worsened. Patient is nonverbal. Following commands. Head CT shows decreasing size of hemorrhage, the CT is done with results pending. 10/30: Remains nonverbal. Awake and alert. Moves bilateral upper extremities and left lower extremity. Does not move right lower extremity. 10/31: Awake and alert, remains nonverbal. Does not move right lower extremity, moves bilateral upper extremities and left lower extremity. On Levophed to keep systolic blood pressure 160-180 11/01: Awake, alert, still having speech difficulty. On asking her name she repeats mind. Moves both upper extremities and left lower extremity. Underwent angiogram with injection of verapamil and bilateral internal carotid arteries by interventional radiology on 10/31 for vasospasm. 11/02: Awake, alert. Speech appears somewhat better. She can tell me her name. Following commands. Thinks she is at home. Moves both upper extremities and left lower extremity. Decreased movement in right lower extremity. 11/03: Awake, alert. Speech appears to be improving. She thinks she is at her niece's home. Following commands. Right lower extremity remains weak. Objective Vital Signs Date Time Temp Pulse Resp B/P Pulse Ox O2 Delivery O2 Flow Rate FiO2 11/03/16 07:55 100 21 11/03/16 07:00 Room Air 11/03/16 06:00 70 11/03/16 04:00 97.9 17 144/68 Intake and Output 11/02/16 11/02/16 11/03/16 08:00 16:00 00:00 Intake Total 1267 ml 1348 ml 1139 ml Output Total 2250 ml 1400 ml 2200 ml Balance -983 ml -52 ml -1061 ml Result Diagram: 11/03/160 11/03/16 0310 Imaging Last [address] 10/27/162214 Signed Impressions: Service Date/Time: Thursday, October 27, 2016 22:58 - CONCLUSION: Large intracerebral hemorrhage with subarachnoid hemorrhage as well. Nicola Childs MD Chest X-Ray 10/27/162214 Signed Impressions: Service Date/Time: Thursday, October 27, 2016 22:37 - CONCLUSION: No acute disease. Kemal Downey MD Objective Remarks GENERAL: Well-nourished, well-developed patient. In no acute distress, following commands SKIN: Warm and dry. HEAD: Normocephalic. EYES: No scleral icterus. No injection or drainage. NECK: Supple, trachea midline. No JVD or lymphadenopathy. CARDIOVASCULAR: Regular rate and rhythm without murmurs, gallops, or rubs. RESPIRATORY: Breath sounds equal bilaterally. No accessory muscle use. GASTROINTESTINAL: Abdomen soft, non-tender, nondistended. MUSCULOSKELETAL: No cyanosis, or edema. BACK: Nontender without obvious deformity. No CVA tenderness. EXTREMITIES: No clubbing cyanosis or edema Neuro: Awake alert, continues to have speech difficulty. Flat Finisher my fingers with bilateral upper extremities. Pupils equal reacting to light actively. nonverbal. Moves bilateral upper extremities and left lower extremity. minimal movement right lower extremity(Grade 1). A/P Assessment and Plan ICH - Due to ruptured ACom aneurysm Subarachnoid hemorrhage - Nagel Kennedy grade 2 - Mcmillan grade 4 -Status post ACOM aneurysm coiling - Levophed as needed to keep SBP 160-180 mmHg. PICC line placed on 10/31 - Nimodipine - Pravachol - TCD's daily to monitor for vasospasm. Underwent cerebral angiogram with intra -arterial verapamil and bilateral internal carotid arteries on 10/31 by interventional radiology. - Ventriculostomy to be decided by Neurosurgery - Management per neurosurgery Hypertension -Hold antihypertensives - SBP goal 160-180 due to vasospasm Tobacco use disorder - Monitor for withdrawal - Start nicotine replacement if indicated DVT GI prophylaxis - Teds SCDs - No pharmacological DVT prophylaxis due to ICH - Pepcid Condition critical. Time spent on critical care excluding procedures 30 minutes Arnol Jones MD November 03, 2016 08:20
[2016-11-03] MEDS: FAMOTIDINE 20 MG/2 ML VIAL IV PUSH SCH ×2 (08:48→19:11)
[2016-11-03] MEDS: DOCUSATE SODIUM 50 MG/SENNA 8.6 MG TAB PO SCH ×2 (08:48→19:12)
[2016-11-03] MEDS: SODIUM CHLORIDE 0.9% FLUSH 10 ML FLUSH SCH ×2 (08:48→19:11)
[2016-11-03] MEDS: PRAVASTATIN SOD 40 MG TAB PO SCH (08:48)
[2016-11-03] MEDS: SODIUM CHLORIDE 0.9% FLUSH 10 ML FLUSH IV FLUSH SCH (08:51)
--- NOTE | 2016-11-03 09:58 | HHI.NSPN ---
(Kyaw Talavera Estelita WARREN) Note Status Status: Progress Note (Kyaw Talavera) Interval History Interval History 10/27: 66-year-old female in relatively good health until 3 or 4 weeks ago when she developed bronchitis. She was treated with a course of amoxicillin which did not help the symptoms. She was given another antibiotic which she finished approximately 3 days ago. She has continued to have a nonproductive cough. No definite fevers or chills. She has had a frontal headache for 2 or 3 weeks. Also some neck pain and stiffness. She was diagnosed with hypertension in the past 2 or 3 months and has been on medication. She does have a long history of smoking cigarettes. She ate dinner with her friend last evening. Her brother called her approximately 10:00 this morning on the telephone, and there was no answer. Her friend found the patient lying in her bathtub at home, significant speech difficulty with no definite seizure activity. Patient indicated to her friend that she had been lying in the bathtub all day long, unable to get up. 10/28: The patient went down for an aneurysm coiling in Interventional Radiology this morning. This afternoon when seen the patient is asleep but awakens to verbal stimuli. She remains nonverbal but shook her head "no" when asked if she had a headache or any numbness or tingling. She did follow some commands. 10/29: When the patient was seen with Dr Cool late yesterday afternoon the patient was able to say her name. This morning prior to being seen Nursing reports that the is not verbalising although she was yesterday. When seen the patient was not able to verbalise but she did nod her head appropriately. She nodded "yes" to having a headache. The patient did have a transcranial doppler study this morning, the report is pending. 10/30: The patient remains nonverbal this morning and makes no attempt to shake her head "no" when asked if she is able to speak. She is spontaneously moving the left side. A TCD is being done when seen. Yesterday a repeat CT brain demonstrated some improvement in the ICH and a new small IVH. A TCD & CTA demonstrated a right middle cerebral artery vasospasm. A minimal left anterior temporal artery vasospasm was noted on the CTA only. 10/31: The patient is having a TCD done when seen this morning. She remains nonverbal and makes no attempt to speak or stick her tongue out. 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 Yesterday the TCD was unremarkable for any vasospasm. 11/01: The patient is awake and alert this morning. Ultrasound is finishing the TCD. She is nonverbal but does try to speak. She is able to stick her tongue out and has varying degrees of movement to the extremities. She went to Interventional Radiology yesterday afternoon for a cerebral angiogram which demonstrated a moderately severe spasm in the left LEONARDO territory. She received verapamil injected into both ICAs. 11/02: The patient is awake & alert this morning. She is feeding herself breakfast. She is able to verbalise but is confused. The TCD yesterday demonstrated a persistent right MCA territory vasospasm with mild improvement. 11/03: The patient is awake & alert, feeding herself breakfast. She has no complaints although her verbal response and nodding of her head are not necessarily consistent. A repeat CT brain this morning demonstrated a stable bleed although worsening cerebral edema. The TCD study yesterday demonstrated normalised ratios. (Kyaw Talavera) Labs, Micro, & Vital Signs Results Allergies Coded Allergies Type Severity Reaction Last Updated Verified No Known Allergies 10/27/16 No Recent Impressions Head CT 11/02/16 0000 Signed Impressions: Service Date/Time: Wednesday, November 02, 2016 16:38 - CONCLUSION: Status post anterior communicating artery aneurysm coiling. The parenchymal hemorrhage of the left frontal lobe crossing to the right at the genu of the corpus callosum is unchanged in size. Modestly worse surrounding cerebral edema. No measurable midline shift. No new blood seen. Jose Roberto Rivas MD Transcranial Doppler Study Complete 11/02/16 0000 Signed Impressions: Service Date/Time: Wednesday, November 02, 2016 07:16 - CONCLUSION: 1. On the current examination the ratios have normalized. Benji Zapata MD Transcranial Doppler Study Complete 11/01/16 0000 Signed Impressions: Service Date/Time: Tuesday, November 01, 2016 08:11 - CONCLUSION: Persistent spasm in the right MCA territory with mild improvement from the prior exam. Jose Roberto Shirley MD / 06:00 18:00 06:00 18:00 06:00 18:00 Intake Total 2079 ml 3677 ml 1865 ml 1348 ml 1379 ml Output Total 1950 ml 3400 ml 3300 ml 1400 ml 3750 ml Balance 129 ml 277 ml -1435 ml -52 ml -2371 ml Intake Oral 240 ml 2070 ml 720 ml 480 ml 480 ml IV Total 1839 ml 1607 ml 1145 ml 868 ml 899 ml Output Urine Total 1950 ml 3400 ml 3300 ml 1400 ml 3750 ml # Bowel Movements 0 2 1 0 0 Laboratory Tests Test 10/31/16 10/31/16 11/01/16 11/01/16 10:38 18:15 03:28 15:45 Potassium Level 2.9 MEQ/L 3.3 MEQ/L 3.1 MEQ/L 3.7 MEQ/L White Blood Count 11.2 TH/MM3 Red Blood Count 3.94 MIL/MM3 Hemoglobin 12.2 GM/DL Hematocrit 35.4 % Mean Corpuscular Volume 89.7 FL Mean Corpuscular Hemoglobin 31.1 PG Mean Corpuscular Hemoglobin 34.6 % Concent Red Cell Distribution Width 13.5 % Platelet Count 376 TH/MM3 Mean Platelet Volume 7.6 FL Neutrophils (%) (Auto) 76.6 % Lymphocytes (%) (Auto) 15.1 % Monocytes (%) (Auto) 7.8 % Eosinophils (%) (Auto) 0.2 % Basophils (%) (Auto) 0.3 % Neutrophils # (Auto) 8.6 TH/MM3 Lymphocytes # (Auto) 1.7 TH/MM3 Monocytes # (Auto) 0.9 TH/MM3 Eosinophils # (Auto) 0.0 TH/MM3 Basophils # (Auto) 0.0 TH/MM3 CBC Comment DIFF FINAL Differential Comment Sodium Level 135 MEQ/L Chloride Level 101 MEQ/L Carbon Dioxide Level 23.2 MEQ/L Anion Gap 11 MEQ/L Blood Urea Nitrogen 7 MG/DL Creatinine 0.30 MG/DL Estimat Glomerular Filtration 221 ML/MIN Rate Random Glucose 112 MG/DL Calcium Level 8.3 MG/DL Total Bilirubin 1.1 MG/DL Aspartate Amino Transf 13 U/L (AST/SGOT) Alanine Aminotransferase 19 U/L (ALT/SGPT) Alkaline Phosphatase 38 U/L Total Protein 6.0 GM/DL Albumin 2.8 GM/DL Test 11/03/16 03:10 White Blood Count 11.6 TH/MM3 Red Blood Count 4.48 MIL/MM3 Hemoglobin 13.6 GM/DL Hematocrit 40.4 % Mean Corpuscular Volume 90.3 FL Mean Corpuscular Hemoglobin 30.3 PG Mean Corpuscular Hemoglobin 33.6 % Concent Red Cell Distribution Width 13.2 % Platelet Count 388 TH/MM3 Mean Platelet Volume 6.9 FL Neutrophils (%) (Auto) 74.8 % Lymphocytes (%) (Auto) 15.6 % Monocytes (%) (Auto) 7.8 % Eosinophils (%) (Auto) 1.4 % Basophils (%) (Auto) 0.4 % Neutrophils # (Auto) 8.7 TH/MM3 Lymphocytes # (Auto) 1.8 TH/MM3 Monocytes # (Auto) 0.9 TH/MM3 Eosinophils # (Auto) 0.2 TH/MM3 Basophils # (Auto) 0.0 TH/MM3 CBC Comment DIFF FINAL Differential Comment Sodium Level 140 MEQ/L Potassium Level 3.7 MEQ/L Chloride Level 103 MEQ/L Carbon Dioxide Level 29.4 MEQ/L Anion Gap 8 MEQ/L Blood Urea Nitrogen 7 MG/DL Creatinine 0.35 MG/DL Estimat Glomerular Filtration 185 ML/MIN Rate Random Glucose 127 MG/DL Calcium Level 8.7 MG/DL Total Bilirubin 0.7 MG/DL Aspartate Amino Transf 13 U/L (AST/SGOT) Alanine Aminotransferase 17 U/L (ALT/SGPT) Alkaline Phosphatase 43 U/L Total Protein 6.3 GM/DL Albumin 3.0 GM/DL Constitutional Vital Signs Date Time Temp Pulse Resp B/P Pulse Ox O2 Delivery O2 Flow Rate FiO2 11/03/16 08:00 98.4 72 21 165/81 100 11/03/16 08:00 84 11/03/16 07:55 100 21 11/03/16 07:00 100 Room Air 11/03/16 06:00 70 11/03/16 04:00 97.9 65 17 144/68 100 11/03/16 04:00 65 11/03/16 02:00 82 11/03/16 00:00 78 11/03/16 00:00 98.0 78 13 171/81 98 11/02/16 22:00 69 11/02/16 20:00 98.0 76 20 182/97 97 11/02/16 20:00 75 11/02/16 20:00 97 Room Air 11/02/16 18:01 89 11/02/16 16:00 86 11/02/16 16:00 97.6 87 22 140/80 97 11/02/16 14:00 85 11/02/16 12:00 98.3 87 15 167/104 100 11/02/16 12:00 77 11/02/16 10:00 80 11/03/16 07:00 Intake Total 2727 ml Output Total 5150 ml Balance -2423 ml ([facility] Tala[facility]a) Review of Systems/Exam ROS CONSTITUTIONAL: Patient denies any fever or chills. CARDIOVASCULAR: Patient denies any chest pain, palpitations or irregular heart beat. RESPIRATORY: Patient denies any shortness of breath or productive cough. GASTROINTESTINAL: Patient denies any abdominal pain, nausea or vomiting. MUSCULOSKELETAL: Patient denies any pain or weakness to the extremities. NEUROLOGICAL: Patient denies any headache, dizziness, numbness or tingling. The ROS may not accurately reflect what the patient intended to say, during examination the patient would shake her head "no" but answer "yes" to some questions. Exam GENERAL: Awake & alert, calm, no apparent distress, feeding self. HEENT: Normocephalic, atraumatic. PERRLA, EOM intact. MMM & pink, tongue midline. CARDIOVASCULAR: S1S2 w/RRR w/o M/G/R, radial & pedal pulses 2+ bilaterally, cap refill < 2 sec, no pedal edema. Monitor is sinus rhythm w/o any ectopy noted. RESPIRATORY: CTAB w/o W/R/R, equal excursion, non-laboured, on RA. GASTROINTESTINAL: Abdomen soft, non-tender, positive bowel sounds. MUSCULOSKELETAL: WALSH but limited. NTTP. No evident deformity, discolouration or clubbing. NEUROLOGICAL: Awake & alert, oriented to person, place & time Speech clear Followed simple commands She is independently moving the LUE, motor strength 3+ to 4/5, RUE is2+ to 3/5, LLE is 4/5, RLE is 1+ to 2+/5. When asked if she is able to feel light touch the patient shakes her head "no" but says "Yes." (Kyaw Talavera) Medications Current Medications Current Medications Medications (Trade) Dose Ordered Sig/Nilesh Route Start Time Stop Time Status Last Admin (NS Flush) 2 ml UNSCH PRN .XX 10/27/16 23:30 (NS Flush) 2 ml BID .XX 10/28/16 09:00 11/03/16 08:48 (Tylenol) 650 mg Q6H PRN PO 10/27/16 23:30 (Morphine Inj) 2 mg Q2H PRN IV 10/27/16 23:30 (Pepcid Inj) 20 mg Q12HR IV PUSH 10/28/16 09:00 11/03/16 08:48 (Zofran Inj) 4 mg Q6H PRN IV 10/27/16 23:30 (Reglan Inj) 10 mg Q6H PRN IV 10/27/16 23:30 10/28/16 00:47 Miscellaneous Information 1 Q361D XX 10/27/16 23:30 10/27/16 23:30 (Chlorhexidine 2% Cloth) Taper DAILY@04 TOP 10/28/16 04:00 10/24/17 03:59 11/03/16 02:37 (Chlorhexidine 2% Cloth) 3 pack UNSCH PRN TOP 10/27/16 23:30 (Apresoline Inj) 20 mg Q4H PRN IV PUSH 10/27/16 23:45 10/31/16 06:32 (Nimotop) 60 mg Q4HR PO 10/28/16 01:00 11/03/16 07:42 Pravastatin Sodium 40 mg 40 mg DAILY PO 10/28/16 09:00 11/03/16 08:48 Potassium Chloride 100 ml @ 50 mls/hr Q2H PRN IV 10/28/16 02:15 (KCl 20 Meq Premix Inj) 100 ml @ 50 mls/hr Q2H PRN IV 10/28/16 02:15 11/01/16 10:20 Potassium Bicarb/ Potassium Chloride 50 meq 50 meq UNSCH PRN PO 10/28/16 02:15 Potassium Chloride 100 ml @ 25 mls/hr UNSCH PRN IV 10/28/16 02:15 Potassium Chloride 100 ml @ 50 mls/hr Q2H PRN IV 10/28/16 02:15 10/31/16 23:28 (Magnesium Sulfate Inj/NS Inj) 100 ml @ 50 mls/hr UNSCH PRN IV 10/28/16 02:15 Magnesium Oxide 800 mg 800 mg UNSCH PRN PO 10/28/16 02:15 (Magnesium Sulfate Inj/NS Inj) 100 ml @ 50 mls/hr UNSCH PRN IV 10/28/16 02:15 Potassium Phosphate 2000 mg 2,000 mg Q4H PRN PO 10/28/16 02:15 (Sodium Phosphate Inj/NS 250 ml Inj) 250 ml @ 42 mls/hr UNSCH PRN IV 10/28/16 02:15 Potassium Phosphate 2000 mg 2,000 mg UNSCH PRN PO/TUBE 10/28/16 02:15 Nicardipine HCl 25 mg/Sodium Chloride 260 ml @ 0 mls/hr TITRATE IV 10/28/16 16:45 (Levophed-Dextrose Drip) 250 ml @ 0 mls/hr TITRATE IV 10/30/16 12:15 11/02/16 20:40 (Brethine Inj) 1 mg UNSCH PRN SQ 10/30/16 12:15 (NS Flush) See Protocol DAILY IV FLUSH 10/31/16 09:00 11/03/16 08:51 (NS Flush) See Protocol UNSCH PRN IV FLUSH 10/30/16 16:00 (Heparin Central Flush) See Protocol DAILY IV FLUSH 10/31/16 09:00 11/03/16 08:48 (Heparin Central Flush) See Protocol UNSCH PRN IV FLUSH 10/30/16 16:00 Sodium Chloride UNSCH PRN IV FLUSH 10/30/16 16:00 (NS + KCl 40 Meq Inj) 1,000 ml @ 84 mls/hr [id number] IV 11/01/16 08:15 11/02/16 20:40 (Natty-Colace) 1 tab BID PO 11/01/16 09:00 11/03/16 08:48 (Dulcolax Supp) 10 mg DAILY PRN RECTAL 11/01/16 08:15 (Kyaw Talavera) Medical Decision Making MDM Remarks Impression: 1. Intracranial-intraventricular and subarachnoid hemorrhage. Anterior communicating artery aneurysm 2. Hypertension 3. Recent history of bronchitis POD # 6 s/p (): 1. ACOM aneurysm coiling CT brain w/slight improvement in ICH but now demonstrates new IVH Cerebral angiogram for spasmolytic therapy bilateral ICA with verapamil Moderately severe spasm in the left LEONARDO territory demonstrated TCD with normalised ratios CT brain w/stable ICH although worsening cerebral edema, no new blood , no midline shift Neurological function stable Hypokalemia, resolved (Kyaw Talavera) Plan Plan Remarks Continue frequent neuro checks Continue critical care management per Double Back Operator Daily TCD studies Will follow patient closely May need ventriculostomy Maintain SBP between 160 and 180 mm Hg due to vasospasms Vasopressors as needed to maintain SBP Primary management per Double Back Operator Will discuss adding Decadron to regimen due to worsening cerebral edema (Kyaw Talavera) Attending Statement I have personally seen and examined the patient on 11/03/16. Pertinent documentation and study results have been reviewed by the undersigned. I have personally developed the treatment plan and performed medical decision making. Agree with findings, exam, and treatment plan as noted above. Right upper extremity strength gradually improving Mental status gradually improving Continue TCD (Johnnie Cool MD) Kyaw Talavera November 03, 2016 09:58 Johnnie Cool MD November 05, 2016 23:40
--- NOTE | 2016-11-03 10:16 | RADRPT ---
EXAM DATE/TIME: 11/03/2016 07:46 [facility] COMPARISON: US TRANSCRANIAL DOPPLER COMPLETE, November 02, 2016, 7:16. INDICATIONS : Subarachnoid hemorrhage. MEDICAL HISTORY : Hypertension. Stroke Depression. Subarachnoid hemorrhage. SURGICAL HISTORY : Bilateral cataract surgery. Aneurysm coil. ENCOUNTER: Subsequent ACUITY: 1 week PAIN SCORE: Nonresponsive. LOCATION: Bilateral cranial Current Exam: November 03, 2016 [place] Ratio: Right: 3.1 Left: 1.7 [place] Ratio: Right: 1.2 Left: UTO. Previous Exam: November 02, 2016 [place] Ratio: Right: 5.8 Left: 2.4 [place] Jesus Ratio: Right: 1.9 Left: UTO. FINDINGS: Examination performed at bedside. Real-time ultrasound with the assistance of color and spectral Dop pler was utilized to evaluate the intracerebral circulation. Time-averaged maximal velocities are ca lculated in cm/s. Mean flow velocities are within normal limits. Lind[place]ard ratio on the right is slightly elevated but given the normal velocities, this suggests it is related to physiologic changes. CONCLUSION: There are no findings to indicate vasospasm. Jose Roberto Mejia MD on November 03, 2016 at 10:12 Board Certified Radiologist. This report was verified electronically.
[2016-11-03] MEDS: NOREPINEPHRINE-DEXTROSE DRIP 250 ML IV SCH (11:09)
[2016-11-03] MEDS: SODIUM CHLORIDE 23.4% INJ 188 MEQ in SODIUM CHLOR 0.9% 1000 ML INJ 1,000 ML IV SCH (16:07)
[2016-11-03] MEDS: DEXAMETHASONE SOD PHOS 4 MG/ML VIAL IV PUSH SCH ×2 (18:18→22:39)
[2016-11-03] MEDS: hydrALAZINE HCL 20 MG/ML VIAL IV PUSH PRN (22:38)
[2016-11-04] VITALS (11 sets, daily range): BP systolic 156–168; BP diastolic 75–102; PULSE 65–95; RESP 12–22; TEMP 96.3–98.5; O2SAT 96–99
[2016-11-04] MEDS: NS + KCL 40 MEQ INJ 1,000 ML IV SCH ×2 (03:05→15:29)
[2016-11-04] MEDS: niMODipine 30 MG CAP PO SCH ×6 (03:05→23:44)
[2016-11-04] MEDS: CHLORHEXIDINE GLUCONATE 2 % 1 PACK (2 CLOTHS) TOP SCH (04:00)
[2016-11-04] MEDS: DEXAMETHASONE SOD PHOS 4 MG/ML VIAL IV PUSH SCH ×4 (05:05→23:44)
[2016-11-04] MEDS: DOCUSATE SODIUM 50 MG/SENNA 8.6 MG TAB PO SCH ×2 (08:23→21:31)
[2016-11-04] MEDS: FAMOTIDINE 20 MG/2 ML VIAL IV PUSH SCH ×2 (08:23→21:42)
[2016-11-04] MEDS: SODIUM CHLORIDE 0.9% FLUSH 10 ML FLUSH SCH ×2 (08:23→21:00)
[2016-11-04] MEDS: SODIUM CHLORIDE 0.9% FLUSH 10 ML FLUSH IV FLUSH SCH (08:23)
[2016-11-04] MEDS: PRAVASTATIN SOD 40 MG TAB PO SCH (08:24)
--- NOTE | 2016-11-04 10:01 | RADRPT ---
EXAM DATE/TIME: 11/04/2016 07:55 [facility] COMPARISON: US TRANSCRANIAL DOPPLER COMPLETE, November 03, 2016, 7:46. INDICATIONS : Subarachnoid hemorrhage MEDICAL HISTORY : Hypertension. Stroke Depression. Subarachnoid hemorrhage. SURGICAL HISTORY : Bialteral cataract. Aneurysm coil. ENCOUNTER: [facility] ACUITY: 1 day PAIN SCORE: Nonresponsive. LOCATION: Bilateral cranial Current Exam: November 04, 2016 [place] Ratio: Right: 4.0 Left: 1.6 [place] Jesus Ratio: Right: 1.0 Left: UTO. Previous Exam: November 03, 2016 [place] Ratio: Right: 3.1 Left: 1.7 [place] Jesus Ratio: Right: 1.2 Left: UTO. FINDINGS: Examination performed at bedside. Real-time ultrasound with the assistance of color and spectral Dop pler was utilized to evaluate the intracerebral circulation. Time-averaged maximal velocities are ca lculated in cm/s. There has been interval increase in inflow velocity in the distal middle cerebral artery and there is associated elevated Lindegard ratio. All of the remaining velocities and ratios are within normal li mits. CONCLUSION: 1. Interval increase in the distal right middle cerebral artery velocity along with mildly elevated L indegard ratio characteristic of mild vasospasm. This vessel also demonstrated abnormal velocities an d ratios on the 10/31/2016 and 11/01/2016 exams. 2. Remaining vessels demonstrate no features to indicate vasospasm. Jose Roberto Mejia MD on November 04, 2016 at 9:56 Board Certified Radiologist. This report was verified electronically.
--- NOTE | 2016-11-04 11:14 | HHI.NSPN ---
(Kyaw Talavera Estelita WARREN) Note Status Status: Progress Note (Kyaw Talavera) Interval History Interval History 10/27: 66-year-old female in relatively good health until 3 or 4 weeks ago when she developed bronchitis. She was treated with a course of amoxicillin which did not help the symptoms. She was given another antibiotic which she finished approximately 3 days ago. She has continued to have a nonproductive cough. No definite fevers or chills. She has had a frontal headache for 2 or 3 weeks. Also some neck pain and stiffness. She was diagnosed with hypertension in the past 2 or 3 months and has been on medication. She does have a long history of smoking cigarettes. She ate dinner with her friend last evening. Her brother called her approximately 10:00 this morning on the telephone, and there was no answer. Her friend found the patient lying in her bathtub at home, significant speech difficulty with no definite seizure activity. Patient indicated to her friend that she had been lying in the bathtub all day long, unable to get up. 10/28: The patient went down for an aneurysm coiling in Interventional Radiology this morning. This afternoon when seen the patient is asleep but awakens to verbal stimuli. She remains nonverbal but shook her head "no" when asked if she had a headache or any numbness or tingling. She did follow some commands. 10/29: When the patient was seen with Dr Cool late yesterday afternoon the patient was able to say her name. This morning prior to being seen Nursing reports that the is not verbalising although she was yesterday. When seen the patient was not able to verbalise but she did nod her head appropriately. She nodded "yes" to having a headache. The patient did have a transcranial doppler study this morning, the report is pending. 10/30: The patient remains nonverbal this morning and makes no attempt to shake her head "no" when asked if she is able to speak. She is spontaneously moving the left side. A TCD is being done when seen. Yesterday a repeat CT brain demonstrated some improvement in the ICH and a new small IVH. A TCD & CTA demonstrated a right middle cerebral artery vasospasm. A minimal left anterior temporal artery vasospasm was noted on the CTA only. 10/31: The patient is having a TCD done when seen this morning. She remains nonverbal and makes no attempt to speak or stick her tongue out. She does follow commands to wiggle the toes and case management associate with the left hand. Yesterday the TCD was unremarkable for any vasospasm. 11/01: The patient is awake and alert this morning. Ultrasound is finishing the TCD. She is nonverbal but does try to speak. She is able to stick her tongue out and has varying degrees of movement to the extremities. She went to Interventional Radiology yesterday afternoon for a cerebral angiogram which demonstrated a moderately severe spasm in the left LEONARDO territory. She received verapamil injected into both ICAs. 11/02: The patient is awake & alert this morning. She is feeding herself breakfast. She is able to verbalise but is confused. The TCD yesterday demonstrated a persistent right MCA territory vasospasm with mild improvement. 11/03: The patient is awake & alert, feeding herself breakfast. She has no complaints although her verbal response and nodding of her head are not necessarily consistent. A repeat CT brain this morning demonstrated a stable bleed although worsening cerebral edema. The TCD study yesterday demonstrated normalised ratios. 11/04: The patient is awake & alert this morning and working with Physical Therapy when seen. She is verbalising to questions. She lifts the right lower extremity off the bed when asked. (Kyaw Talavera) Labs, Micro, & Vital Signs Results Allergies Coded Allergies Type Severity Reaction Last Updated Verified No Known Allergies 10/27/16 No Recent Impressions Transcranial Doppler Study Complete 11/04/16 0000 Signed Impressions: Service Date/Time: Friday, November 04, 2016 07:55 - CONCLUSION: 1. Interval increase in the distal right middle cerebral artery velocity along with mildly elevated Lindegard ratio characteristic of mild vasospasm. This vessel also demonstrated abnormal velocities and ratios on the 10/31/2016 and 11/01/2016 exams. 2. Remaining vessels demonstrate no features to indicate vasospasm. Jose Roberto Mejia MD Transcranial Doppler Study Complete 11/03/16 0000 Signed Impressions: Service Date/Time: Thursday, November 03, 2016 07:46 - CONCLUSION: There are no findings to indicate vasospasm. Jose Roberto Mejia MD Head CT 11/02/16 0000 Signed Impressions: Service Date/Time: Wednesday, November 02, 2016 16:38 - CONCLUSION: Status post anterior communicating artery aneurysm coiling. The parenchymal hemorrhage of the left frontal lobe crossing to the right at the genu of the corpus callosum is unchanged in size. Modestly worse surrounding cerebral edema. No measurable midline shift. No new blood seen. Jose Roberto Rivas MD Transcranial Doppler Study Complete 11/02/16 0000 Signed Impressions: Service Date/Time: Wednesday, November 02, 2016 07:16 - CONCLUSION: 1. On the current examination the ratios have normalized. Benji Zapata MD // 05:59 17:59 05:59 17:59 05:59 17:59 Intake Total 1335 ml 2615 ml 1139 ml 1470 ml 1225 ml 984 ml Output Total 1800 ml 3650 ml 2200 ml 2550 ml 1400 ml 1200 ml Balance -465 ml -1035 ml -1061 ml -1080 ml -175 ml -216 ml Intake Oral 480 ml 960 ml 240 ml 720 ml 480 ml 240 ml IV Total 855 ml 1655 ml 899 ml 750 ml 745 ml 744 ml Output Urine Total 1800 ml 3650 ml 2200 ml 2550 ml 1400 ml 1200 ml # Bowel Movements 2 0 0 0 0 0 Laboratory Tests Test 11/01/16 11/03/16 11/03/16 11/04/16 15:45 03:10 18:00 02:15 Potassium Level 3.7 MEQ/L 3.7 MEQ/L White Blood Count 11.6 TH/MM3 Red Blood Count 4.48 MIL/MM3 Hemoglobin 13.6 GM/DL Hematocrit 40.4 % Mean Corpuscular Volume 90.3 FL Mean Corpuscular Hemoglobin 30.3 PG Mean Corpuscular Hemoglobin 33.6 % Concent Red Cell Distribution Width 13.2 % Platelet Count 388 TH/MM3 Mean Platelet Volume 6.9 FL Neutrophils (%) (Auto) 74.8 % Lymphocytes (%) (Auto) 15.6 % Monocytes (%) (Auto) 7.8 % Eosinophils (%) (Auto) 1.4 % Basophils (%) (Auto) 0.4 % Neutrophils # (Auto) 8.7 TH/MM3 Lymphocytes # (Auto) 1.8 TH/MM3 Monocytes # (Auto) 0.9 TH/MM3 Eosinophils # (Auto) 0.2 TH/MM3 Basophils # (Auto) 0.0 TH/MM3 CBC Comment DIFF FINAL Differential Comment Sodium Level 140 MEQ/L 136 MEQ/L 137 MEQ/L Chloride Level 103 MEQ/L Carbon Dioxide Level 29.4 MEQ/L Anion Gap 8 MEQ/L Blood Urea Nitrogen 7 MG/DL Creatinine 0.35 MG/DL Estimat Glomerular Filtration 185 ML/MIN Rate Random Glucose 127 MG/DL Calcium Level 8.7 MG/DL Total Bilirubin 0.7 MG/DL Aspartate Amino Transf 13 U/L (AST/SGOT) Alanine Aminotransferase 17 U/L (ALT/SGPT) Alkaline Phosphatase 43 U/L Total Protein 6.3 GM/DL Albumin 3.0 GM/DL Test 11/04/16 05:15 Sodium Level 140 MEQ/L Procedure Category Date Status Time Potassium, Serum (K) LAB 11/01/16 Complete 17:35 Multipolus Boot ORTHO 11/01/[address] Cognitive Eval ST 11/01/16 Logged Order 15:15 Consult Pt Eval & Tx PT 11/01/16 Logged Bed Rest 15:15 Diet Regular Basic DIET 11/02/16 Transmitted Breakfast Complete Blood Count LAB 11/03/16 Complete With Diff 06:00 Comprehensive LAB 11/03/16 Complete Metabolic Panel 06:00 Ct Brain W/O Iv RADCT 11/02/16 Resulted Contrast(Rout) Dexamethasone Inj MED 11/03/16 In Process (Decadron Inj) 18:00 ^ Other Nursing Orders CAM 11/03/16 In Process 13:59 Sodium (Na) LAB 11/03/16 Complete 18:00 Sodium (Na) LAB 11/04/16 Complete 00:00 Sodium (Na) LAB 11/04/16 Complete 06:00 Sodium (Na) LAB 11/04/16 In Process 12:00 Sodium (Na) LAB 11/04/16 Logged 18:00 Sodium (Na) LAB 11/05/16 Verified 00:00 Sodium (Na) LAB 11/05/16 Verified 06:00 Sodium (Na) LAB 11/05/16 Verified 12:00 Sodium (Na) LAB 11/05/16 Verified 18:00 Sodium (Na) LAB 11/06/16 Verified 00:00 Sodium (Na) LAB 11/06/16 Verified 06:00 Sodium (Na) LAB 11/06/16 Verified 12:00 Sodium (Na) LAB 11/06/16 Verified 18:00 Sodium (Na) LAB 11/07/16 Verified 00:00 Sodium (Na) LAB 11/07/16 Verified 06:00 Sodium (Na) LAB 11/07/16 Verified 12:00 Sodium (Na) LAB 11/07/16 Verified 18:00 Sodium Chlor 0.9% MED 11/03/16 In Process 1... W/Sodium Chloride 16:00 Vital Signs Date Time Temp Pulse Resp B/P Pulse Ox O2 Delivery O2 Flow Rate FiO2 11/04/16 08:00 98 Room Air 11/04/16 08:00 97.4 75 17 165/76 98 11/04/16 08:00 75 11/04/16 07:29 98 21 11/04/16 06:00 66 11/04/16 04:00 82 11/04/16 04:00 98.4 82 16 167/102 97 11/04/16 02:00 84 11/04/16 00:00 95 11/04/16 00:00 98.5 95 12 160/75 96 11/03/16 22:00 91 11/03/16 20:00 98.5 76 19 177/90 96 11/03/16 20:00 80 11/03/16 20:00 96 Room Air 11/03/16 19:56 96 21 11/03/16 18:00 81 11/03/16 16:00 98.0 85 23 163/72 100 11/03/16 16:00 85 11/03/16 14:00 99 11/03/16 12:00 98.2 82 20 155/75 100 11/03/16 12:00 81 11/03/16 10:00 73 11/03/16 08:00 98.4 72 21 165/81 100 11/03/16 08:00 84 11/03/16 07:55 100 21 11/03/16 07:00 100 Room Air 11/03/16 06:00 70 11/03/16 04:00 97.9 65 17 144/68 100 11/03/16 04:00 65 11/03/16 02:00 82 11/03/16 00:00 78 11/03/16 00:00 98.0 78 13 171/81 98 11/02/16 22:00 69 11/02/16 20:00 98.0 76 20 182/97 97 11/02/16 20:00 75 11/02/16 20:00 97 Room Air 11/02/16 18:01 89 11/02/16 16:00 86 11/02/16 16:00 97.6 87 22 140/80 97 11/02/16 14:00 85 11/02/16 12:00 98.3 87 15 167/104 100 11/02/16 12:00 77 11/02/16 10:00 80 11/02/16 08:00 73 11/02/16 08:00 97.9 73 17 175/95 100 11/02/16 07:07 99 21 11/02/16 07:00 Room Air 11/02/16 06:00 75 11/02/16 04:00 98.1 87 16 136/73 96 11/02/16 04:00 87 11/02/16 02:00 71 11/02/16 00:00 70 11/02/16 00:00 98.4 70 17 158/84 97 11/01/16 22:00 83 11/01/16 20:00 82 11/01/16 20:00 98.3 82 21 181/104 97 11/01/16 20:00 97 Room Air 11/01/16 18:00 85 11/01/16 16:00 98.3 78 17 175/96 98 11/01/16 16:00 78 11/01/16 14:00 83 11/01/16 12:00 74 11/01/16 12:00 97.5 74 23 186/97 97 Constitutional Vital Signs Date Time Temp Pulse Resp B/P Pulse Ox O2 Delivery O2 Flow Rate FiO2 11/04/16 08:00 98 Room Air 11/04/16 08:00 97.4 75 17 165/76 98 11/04/16 08:00 75 11/04/16 07:29 98 21 11/04/16 06:00 66 11/04/16 04:00 82 11/04/16 04:00 98.4 82 16 167/102 97 11/04/16 02:00 84 11/04/16 00:00 95 11/04/16 00:00 98.5 95 12 160/75 96 11/03/16 22:00 91 11/03/16 20:00 98.5 76 19 177/90 96 11/03/16 20:00 80 11/03/16 20:00 96 Room Air 11/03/16 19:56 96 21 11/03/16 18:00 81 11/03/16 16:00 98.0 85 23 163/72 100 11/03/16 16:00 85 11/03/16 14:00 99 11/03/16 12:00 98.2 82 20 155/75 100 11/03/16 12:00 81 11/04/16 06:59 Intake Total 3439 ml Output Total 3600 ml Balance -161 ml ([facility]ala[facility]a) Review of Systems/Exam ROS CONSTITUTIONAL: Patient denies any fever or chills. CARDIOVASCULAR: Patient denies any chest pain, palpitations or irregular heart beat. RESPIRATORY: Patient denies any shortness of breath or productive cough. GASTROINTESTINAL: Patient denies any abdominal pain, nausea or vomiting. MUSCULOSKELETAL: Patient denies any pain or weakness to the extremities. NEUROLOGICAL: Patient denies any headache, dizziness, numbness or tingling. Exam GENERAL: Awake & alert, calm, no apparent distress, sitting in chair looking at menu. HEENT: Normocephalic, atraumatic. CARDIOVASCULAR: S1S2 w/RRR w/o M/G/R, radial & pedal pulses 2+ bilaterally, cap refill < 2 sec, no pedal edema. Monitor is sinus rhythm w/o any ectopy noted. RESPIRATORY: CTAB w/o W/R/R, equal excursion, non-laboured, on RA. GASTROINTESTINAL: Abdomen soft, non-tender, positive bowel sounds. MUSCULOSKELETAL: WALSH but limited. NTTP. No evident deformity, discolouration or clubbing. NEUROLOGICAL: Awake & alert, oriented to person, place & time Speech clear Followed simple commands She is independently moving the BUE, motor strength LUE 4/5, RUE is 3+/5, LLE is 4/5, RLE is 3/5. Sensation to light touch appears grossly intact to all extremities (Ky[facility] Talavera) Medications Current Medications Current Medications Medications (Trade) Dose Ordered Sig/Nilesh Route Start Time Stop Time Status Last Admin (NS Flush) 2 ml UNSCH PRN .XX 10/27/16 23:30 (NS Flush) 2 ml BID .XX 10/28/16 09:00 11/03/16 19:11 (Tylenol) 650 mg Q6H PRN PO 10/27/16 23:30 (Morphine Inj) 2 mg Q2H PRN IV 10/27/16 23:30 (Pepcid Inj) 20 mg Q12HR IV PUSH 10/28/16 09:00 11/04/16 08:23 (Zofran Inj) 4 mg Q6H PRN IV 10/27/16 23:30 (Reglan Inj) 10 mg Q6H PRN IV 10/27/16 23:30 10/28/16 00:47 Miscellaneous Information 1 [id number] XX 10/27/16 23:30 10/27/16 23:30 (Chlorhexidine 2% Cloth) Taper DAILY@04 TOP 10/28/16 04:00 10/24/17 03:59 11/04/16 04:00 (Chlorhexidine 2% Cloth) 3 pack UNSCH PRN TOP 10/27/16 23:30 (Apresoline Inj) 20 mg Q4H PRN IV PUSH 10/27/16 23:45 11/03/16 22:38 (Nimotop) 60 mg Q4HR PO 10/28/16 01:00 11/04/16 08:11 Pravastatin Sodium 40 mg 40 mg DAILY PO 10/28/16 09:00 11/04/16 08:24 Potassium Chloride 100 ml @ 50 mls/hr Q2H PRN IV 10/28/16 02:15 (KCl 20 Meq Premix Inj) 100 ml @ 50 mls/hr Q2H PRN IV 10/28/16 02:15 11/01/16 10:20 Potassium Bicarb/ Potassium Chloride 50 meq 50 meq UNSCH PRN PO 10/28/16 02:15 Potassium Chloride 100 ml @ 25 mls/hr UNSCH PRN IV 10/28/16 02:15 Potassium Chloride 100 ml @ 50 mls/hr Q2H PRN IV 10/28/16 02:15 10/31/16 23:28 (Magnesium Sulfate Inj/NS Inj) 100 ml @ 50 mls/hr UNSCH PRN IV 10/28/16 02:15 Magnesium Oxide 800 mg 800 mg UNSCH PRN PO 10/28/16 02:15 (Magnesium Sulfate Inj/NS Inj) 100 ml @ 50 mls/hr UNSCH PRN IV 10/28/16 02:15 Potassium Phosphate 2000 mg 2,000 mg Q4H PRN PO 10/28/16 02:15 (Sodium Phosphate Inj/NS 250 ml Inj) 250 ml @ 42 mls/hr UNSCH PRN IV 10/28/16 02:15 Potassium Phosphate 2000 mg 2,000 mg UNSCH PRN PO/TUBE 10/28/16 02:15 Nicardipine HCl 25 mg/Sodium Chloride 260 ml @ 0 mls/hr TITRATE IV 10/28/16 16:45 (Levophed-Dextrose Drip) 250 ml @ 0 mls/hr TITRATE IV 10/30/16 12:15 11/03/16 11:09 (Brethine Inj) 1 mg UNSCH PRN SQ 10/30/16 12:15 (NS Flush) See Protocol DAILY IV FLUSH 10/31/16 09:00 11/03/16 08:51 (NS Flush) See Protocol UNSCH PRN IV FLUSH 10/30/16 16:00 (Heparin Central Flush) See Protocol DAILY IV FLUSH 10/31/16 09:00 11/03/16 08:48 (Heparin Central Flush) See Protocol UNSCH PRN IV FLUSH 10/30/16 16:00 Sodium Chloride UNSCH PRN IV FLUSH 10/30/16 16:00 (NS + KCl 40 Meq Inj) 1,000 ml @ 84 mls/hr [id number] IV 11/01/16 08:15 11/04/16 03:05 (Natty-Colace) 1 tab BID PO 11/01/16 09:00 11/04/16 08:23 (Dulcolax Supp) 10 mg DAILY PRN RECTAL 11/01/16 08:15 Dexamethasone Sodium Phosphate 4 mg 4 mg Q6HR IV PUSH 11/03/16 18:00 11/04/16 05:05 (Sodium Chloride 23.4% Inj/NS 1000 ml Inj) 1,047 ml @ 20 mls/hr Q24H IV 11/03/16 16:00 11/03/16 16:07 (Kyaw Talavera) Medical Decision Making MDM Remarks Impression: 1. Intracranial-intraventricular and subarachnoid hemorrhage. Anterior communicating artery aneurysm 2. Hypertension 3. Recent history of bronchitis POD # 7 s/p (): 1. ACOM aneurysm coiling CT brain w/slight improvement in ICH but now demonstrates new IVH Cerebral angiogram for spasmolytic therapy bilateral ICA with verapamil Moderately severe spasm in the left LEONARDO territory demonstrated CT brain w/stable ICH although worsening cerebral edema, no new blood , no midline shift TCD with mild right middle cerebral artery vasospasm Neurological function stable with slow improvement Sodium level WNL Hypokalemia, resolved (Kyaw Talavera) Plan Plan Remarks Continue frequent neuro checks Continue critical care management per Winter Sports Manager Daily TCD studies Will follow patient closely May need ventriculostomy Maintain SBP between 160 and 180 mm Hg due to vasospasms Vasopressors as needed to maintain SBP Decadron 4 mg IV q6h for cerebral edema 2% saline to keep sodium level at 155 for cerebral edema Primary management per Winter Sports Manager (Kyaw Talavera) Attending Statement I have personally seen and examined the patient on 11/04/16. Pertinent documentation and study results have been reviewed by the undersigned. I have personally developed the treatment plan and performed medical decision making. Agree with findings, exam, and treatment plan as noted above. Neurologic exam remained stable. 11/04/16 TCD with possible mild MCA spasm. Continue hypertensive therapy (Johnnie Cool MD) Kyaw Talavera November 04, 2016 11:09 Johnnie Cool MD November 05, 2016 23:42
--- NOTE | 2016-11-04 13:32 | HHI.CCPN ---
Subjective Remarks/Hospital Course 10/27: 66 year old female was found in her bathtub, fully clothed with no water on. She was unable to get up or talk. She was last seen to be normal yesterday. Patient follows commands appropriately however is unable to talk and cannot provide a history. Per documentation she was recently treated with antibiotics amoxicillin for bronchitis as well as started on blood pressure medications due to new onset of hypertension for about last [address] of the head revealed the ICH with IVH extension. The stat CTA revealed ACOM aneurysm 10/28: Resting in bed comfortably. Awake and alert. Following commands. Having speech difficulties. 10/29: Underwent ACOM aneurysm coiling on 10/28. This morning speech appears to have worsened. Patient is nonverbal. Following commands. Head CT shows decreasing size of hemorrhage, the CT is done with results pending. 10/30: Remains nonverbal. Awake and alert. Moves bilateral upper extremities and left lower extremity. Does not move right lower extremity. 10/31: Awake and alert, remains nonverbal. Does not move right lower extremity, moves bilateral upper extremities and left lower extremity. On Levophed to keep systolic blood pressure 160-180 11/01: Awake, alert, still having speech difficulty. On asking her name she repeats mind. Moves both upper extremities and left lower extremity. Underwent angiogram with injection of verapamil and bilateral internal carotid arteries by interventional radiology on 10/31 for vasospasm. 11/02: Awake, alert. Speech appears somewhat better. She can tell me her name. Following commands. Thinks she is at home. Moves both upper extremities and left lower extremity. Decreased movement in right lower extremity. 11/03: Awake, alert. Speech appears to be improving. She thinks she is at her niece's home. Following commands. Right lower extremity remains weak. 11/04: Awake, alert, speech improved. Knows she is at the hospital and knows she had a head bleed. On 2% saline. Objective Vital Signs Date Time Temp Pulse Resp B/P Pulse Ox O2 Delivery O2 Flow Rate FiO2 11/04/16 08:00 98 Room Air 11/04/16 08:00 97.4 75 17 165/76 11/04/16 07:29 21 Intake and Output 11/03/16 11/03/16 11/04/16 08:00 16:00 00:00 Intake Total 240 ml 1230 ml 1225 ml Output Total 1550 ml 1000 ml 1400 ml Balance -1310 ml 230 ml -175 ml Result Diagram: 11/03/16 0310 11/04/16 0515 Imaging Last [address] 10/27/162214 Signed Impressions: Service Date/Time: Thursday, October 27, 2016 22:58 - CONCLUSION: Large intracerebral hemorrhage with subarachnoid hemorrhage as well. Nicola Childs MD Chest X-Ray 10/27/162214 Signed Impressions: Service Date/Time: Thursday, October 27, 2016 22:37 - CONCLUSION: No acute disease. Kemal Downey MD Objective Remarks GENERAL: Well-nourished, well-developed patient. In no acute distress, following commands SKIN: Warm and dry. HEAD: Normocephalic. EYES: No scleral icterus. No injection or drainage. NECK: Supple, trachea midline. No JVD or lymphadenopathy. CARDIOVASCULAR: Regular rate and rhythm without murmurs, gallops, or rubs. RESPIRATORY: Breath sounds equal bilaterally. No accessory muscle use. GASTROINTESTINAL: Abdomen soft, non-tender, nondistended. MUSCULOSKELETAL: No cyanosis, or edema. BACK: Nontender without obvious deformity. No CVA tenderness. EXTREMITIES: No clubbing cyanosis or edema Neuro: Awake alert, speech significantly improved. Moves bilateral upper extremities and left lower extremity. Also moves right lower extremity though has some weakness A/P Assessment and Plan ICH - Due to ruptured ACom aneurysm Subarachnoid hemorrhage - Nagel Kennedy grade 2 - Mcmillan grade 4 -Status post ACOM aneurysm coiling - Levophed as needed to keep SBP 160-180 mmHg, currently off Levophed. PICC line placed on 10/31 - Nimodipine. On 2% saline to bring sodium up to 150 - Pravachol - TCD's daily to monitor for vasospasm. Underwent cerebral angiogram with intra -arterial verapamil and bilateral internal carotid arteries on 10/31 by interventional radiology. - Management per neurosurgery Hypertension -Hold antihypertensives - SBP goal 160-180 due to vasospasm Tobacco use disorder - Monitor for withdrawal - Start nicotine replacement if indicated DVT GI prophylaxis - Teds SCDs - No pharmacological DVT prophylaxis due to ICH - Arnol Box MD November 04, 2016 13:32
[2016-11-05] VITALS (14 sets, daily range): BP systolic 158–183; BP diastolic 84–94; PULSE 66–98; RESP 16–21; TEMP 97.9–98.6; O2SAT 96–100
[2016-11-05] MEDS: niMODipine 30 MG CAP PO SCH ×5 (03:55→20:46)
[2016-11-05] MEDS: CHLORHEXIDINE GLUCONATE 2 % 1 PACK (2 CLOTHS) TOP SCH (03:55)
[2016-11-05] MEDS: NS + KCL 40 MEQ INJ 1,000 ML IV SCH ×2 (03:56→15:15)
[2016-11-05] MEDS: DEXAMETHASONE SOD PHOS 4 MG/ML VIAL IV PUSH SCH ×3 (05:32→17:31)
[2016-11-05] MEDS: NOREPINEPHRINE-DEXTROSE DRIP 250 ML IV SCH ×2 (06:05→14:12)
--- NOTE | 2016-11-05 07:20 | HHI.CCPN ---
Subjective Remarks/Hospital Course 10/27: 66 year old female was found in her bathtub, fully clothed with no water on. She was unable to get up or talk. She was last seen to be normal yesterday. Patient follows commands appropriately however is unable to talk and cannot provide a history. Per documentation she was recently treated with antibiotics amoxicillin for bronchitis as well as started on blood pressure medications due to new onset of hypertension for about last [address] of the head revealed the ICH with IVH extension. The stat CTA revealed ACOM aneurysm 10/28: Resting in bed comfortably. Awake and alert. Following commands. Having speech difficulties. 10/29: Underwent ACOM aneurysm coiling on 10/28. This morning speech appears to have worsened. Patient is nonverbal. Following commands. Head CT shows decreasing size of hemorrhage, the CT is done with results pending. 10/30: Remains nonverbal. Awake and alert. Moves bilateral upper extremities and left lower extremity. Does not move right lower extremity. 10/31: Awake and alert, remains nonverbal. Does not move right lower extremity, moves bilateral upper extremities and left lower extremity. On Levophed to keep systolic blood pressure 160-180 11/01: Awake, alert, still having speech difficulty. On asking her name she repeats mind. Moves both upper extremities and left lower extremity. Underwent angiogram with injection of verapamil and bilateral internal carotid arteries by interventional radiology on 10/31 for vasospasm. 11/02: Awake, alert. Speech appears somewhat better. She can tell me her name. Following commands. Thinks she is at home. Moves both upper extremities and left lower extremity. Decreased movement in right lower extremity. 11/03: Awake, alert. Speech appears to be improving. She thinks she is at her niece's home. Following commands. Right lower extremity remains weak. 11/04: Awake, alert, speech improved. Knows she is at the hospital and knows she had a head bleed. On 2% saline. 11/05: became more agitated overnight last night. pulled out goel catheter. also , now on norepinephrine to maintain map goals. TCDs yesterday with moderate vasospasm and worse than the day prior. net euvolemic. Objective Vital Signs Date Time Temp Pulse Resp B/P Pulse Ox O2 Delivery O2 Flow Rate FiO2 11/05/16 06:00 66 11/05/16 04:00 97.9 17 174/84 99 11/04/16 19:24 Nasal Cannula 11/04/16 07:29 21 Intake and Output 11/04/16 11/04/16 11/05/16 08:00 16:00 00:00 Intake Total 984 ml 1485 ml 1191 ml Output Total 1200 ml 850 ml 1250 ml Balance -216 ml 635 ml -59 ml Result Diagram: 11/03/16 0310 11/05/16 0030 Imaging Last [address] 10/27/162214 Signed Impressions: Service Date/Time: Thursday, October 27, 2016 22:58 - CONCLUSION: Large intracerebral hemorrhage with subarachnoid hemorrhage as well. Nicola Childs MD Chest X-Ray 10/27/162214 Signed Impressions: Service Date/Time: Thursday, October 27, 2016 22:37 - CONCLUSION: No acute disease. Kemal Downey MD Objective Remarks GENERAL: Well-nourished, well-developed patient. confused. still follows commands. SKIN: Warm and dry. HEAD: Normocephalic. EYES: No scleral icterus. No injection or drainage. NECK: trachea midline. No JVD CARDIOVASCULAR: Regular rate and rhythm. sinus by tele. RESPIRATORY: unlabored. equal chest rise. GASTROINTESTINAL: Abdomen soft, non-tender, nondistended. MUSCULOSKELETAL: No cyanosis, or edema. EXTREMITIES: No clubbing cyanosis or edema Neuro: Awake, confused. RASS -1. CAM +. oriented to person only. follows commands in all 4 extremities. PARVIZ 5/5. no pronator drift. A/P Assessment and Plan Assessment: 66yF aneurysmal SAH PBD 8. s/p ACOM aneurysm coiling. evidence of moderate vasospasm. clinically worse this morning. appears to have LEONARDO spasm clinically with agitation. will follow up TCDs. continue levo for SBP goals. maintain euvolemia. would have low threshold for CTA head/neck if her agitation continues to worsen. 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 On 2% saline to bring sodium up to 150 - Pravachol - TCD's daily to monitor for vasospasm. Underwent cerebral angiogram with intra -arterial verapamil and bilateral internal carotid arteries on 10/31 by interventional radiology. - Nsgy: Silvina following. - low threshold for CT angio. - q1h uop - frequent neuro checks. Hypertension -Hold antihypertensives - SBP goal 160-180 due to vasospasm Tobacco use disorder - Monitor for withdrawal DVT GI prophylaxis - Teds SCDs - No pharmacological DVT prophylaxis due to ICH - Pepcid PICC line 10/31: keep while in spasm and on levo Goel: keep while in spasm. Dispo: remain in the ICU. Ck Sharma MD November 05, 2016 07:20
[2016-11-05] MEDS: SODIUM CHLORIDE 0.9% FLUSH 10 ML FLUSH SCH ×2 (08:55→20:47)
[2016-11-05] MEDS: SODIUM CHLORIDE 0.9% FLUSH 10 ML FLUSH IV FLUSH SCH (09:00)
[2016-11-05] MEDS: DOCUSATE SODIUM 50 MG/SENNA 8.6 MG TAB PO SCH ×2 (09:04→20:47)
[2016-11-05] MEDS: PRAVASTATIN SOD 40 MG TAB PO SCH (09:05)
[2016-11-05] MEDS: FAMOTIDINE 20 MG/2 ML VIAL IV PUSH SCH ×2 (09:05→20:46)
[2016-11-05] MEDS: SODIUM CHLORIDE 23.4% INJ 188 MEQ in SODIUM CHLOR 0.9% 1000 ML INJ 1,000 ML IV SCH ×2 (09:38→16:11)
--- NOTE | 2016-11-05 13:49 | RADRPT ---
EXAM DATE/TIME: 11/05/2016 07:54 [facility] COMPARISON: US TRANSCRANIAL DOPPLER COMPLETE, November 04, 2016, 7:55. INDICATIONS : Subarachnoid hemorrhage. MEDICAL HISTORY : Hypertension. Stroke Depression. Subarachnoid hemorrhage. SURGICAL HISTORY : Cataract bilateral. Aneurysm coil. ENCOUNTER: Sequela ACUITY: 4-6 days PAIN SCORE: Nonresponsive. LOCATION: Bilateral cranial Current Exam: November 05, 2016 [place]ard Ratio: Right: 4.2 Left: 1.8 De Jesus Ratio: Right: 1.0 Left: UTO. Previous Exam: November 04, 2016 [place]ard Ratio: Right: 4.0 Left: 1.6 De Jesus Ratio: Right: 1.0 Left: UTO. FINDINGS: Examination performed at bedside. Real-time ultrasound with the assistance of color and spectral Dop pler was utilized to evaluate the intracerebral circulation. Time-averaged maximal velocities are ca lculated in cm/s. As on multiple prior studies, unable to obtain a wave form in the left anterior cerebral artery. Othe rwise, the De Jesus and Lindegard ratios are basically unchanged with findings of stable, mild vasospasm in the right MCA territory. CONCLUSION: 1. No change from prior. Ratios suggest mild vasospasm the right MCA territory. 2. Unable to obtain a waveform in the left anterior cerebral artery. This is unchanged over multiple prior studies, however. Chidi Elise MD on November 05, 2016 at 13:37 Board Certified Radiologist. This report was verified electronically.
[2016-11-05] MEDS: NOREPINEPHRINE INJ 4 MG in SODIUM CHLOR 0.9% 250 ML INJ 250 ML IV SCH ×2 (14:40→18:37)
--- NOTE | 2016-11-05 16:39 | HHI.NSPN ---
([facility] Estelita WARREN) Note Status Status: Progress Note ([facility]) Interval History Interval History 10/27: 66-year-old female in relatively good health until 3 or 4 weeks ago when she developed bronchitis. She was treated with a course of amoxicillin which did not help the symptoms. She was given another antibiotic which she finished approximately 3 days ago. She has continued to have a nonproductive cough. No definite fevers or chills. She has had a frontal headache for 2 or 3 weeks. Also some neck pain and stiffness. She was diagnosed with hypertension in the past 2 or 3 months and has been on medication. She does have a long history of smoking cigarettes. She ate dinner with her friend last evening. Her brother called her approximately 10:00 this morning on the telephone, and there was no answer. Her friend found the patient lying in her bathtub at home, significant speech difficulty with no definite seizure activity. Patient indicated to her friend that she had been lying in the bathtub all day long, unable to get up. 10/28: The patient went down for an aneurysm coiling in Interventional Radiology this morning. This afternoon when seen the patient is asleep but awakens to verbal stimuli. She remains nonverbal but shook her head "no" when asked if she had a headache or any numbness or tingling. She did follow some commands. 10/29: When the patient was seen with Dr Cool late yesterday afternoon the patient was able to say her name. This morning prior to being seen Nursing reports that the is not verbalising although she was yesterday. When seen the patient was not able to verbalise but she did nod her head appropriately. She nodded "yes" to having a headache. The patient did have a transcranial doppler study this morning, the report is pending. 10/30: The patient remains nonverbal this morning and makes no attempt to shake her head "no" when asked if she is able to speak. She is spontaneously moving the left side. A TCD is being done when seen. Yesterday a repeat CT brain demonstrated some improvement in the ICH and a new small IVH. A TCD & CTA demonstrated a right middle cerebral artery vasospasm. A minimal left anterior temporal artery vasospasm was noted on the CTA only. 10/31: The patient is having a TCD done when seen this morning. She remains nonverbal and makes no attempt to speak or stick her tongue out. She does follow commands to wiggle the toes and prison officer with the left hand. Yesterday the TCD was unremarkable for any vasospasm. 11/01: The patient is awake and alert this morning. Ultrasound is finishing the TCD. She is nonverbal but does try to speak. She is able to stick her tongue out and has varying degrees of movement to the extremities. She went to Interventional Radiology yesterday afternoon for a cerebral angiogram which demonstrated a moderately severe spasm in the left LEONARDO territory. She received verapamil injected into both ICAs. 11/02: The patient is awake & alert this morning. She is feeding herself breakfast. She is able to verbalise but is confused. The TCD yesterday demonstrated a persistent right MCA territory vasospasm with mild improvement. 11/03: The patient is awake & alert, feeding herself breakfast. She has no complaints although her verbal response and nodding of her head are not necessarily consistent. A repeat CT brain this morning demonstrated a stable bleed although worsening cerebral edema. The TCD study yesterday demonstrated normalised ratios. 11/04: The patient is awake & alert this morning and working with Physical Therapy when seen. She is verbalising to questions. She lifts the right lower extremity off the bed when asked. 11/05: The patient is awake & alert when seen this afternoon. She is verbalising and following commands. She is able to move all extremities on her own. She had a TCD done this morning. ([facility]) Labs, Micro, & Vital Signs Results Allergies Coded Allergies Type Severity Reaction Last Updated Verified No Known Allergies 10/27/16 No Recent Impressions Transcranial Doppler Study Complete 11/05/16 0000 Signed Impressions: Service Date/Time: Saturday, November 05, 2016 07:54 - CONCLUSION: 1. No change from prior. Ratios suggest mild vasospasm the right MCA territory. 2. Unable to obtain a waveform in the left anterior cerebral artery. This is unchanged over multiple prior studies, however. Chidi Elise MD Transcranial Doppler Study Complete 11/04/16 0000 Signed Impressions: Service Date/Time: Friday, November 04, 2016 07:55 - CONCLUSION: 1. Interval increase in the distal right middle cerebral artery velocity along with mildly elevated Lindegard ratio characteristic of mild vasospasm. This vessel also demonstrated abnormal velocities and ratios on the 10/31/2016 and 11/01/2016 exams. 2. Remaining vessels demonstrate no features to indicate vasospasm. Jose Roberto Mejia MD Transcranial Doppler Study Complete 11/03/16 0000 Signed Impressions: Service Date/Time: Thursday, November 03, 2016 07:46 - CONCLUSION: There are no findings to indicate vasospasm. Jose Roberto Mejia MD /////// 06:00 18:00 06:00 18:00 06:00 18:00 Intake Total 1379 ml 1230 ml 2209 ml 1725 ml 1885 ml 1514 ml Output Total 3750 ml 1000 ml 2600 ml 850 ml 2250 ml 1350 ml Balance -2371 ml 230 ml -391 ml 875 ml -365 ml 164 ml Intake Oral 480 ml 480 ml 720 ml 840 ml 100 ml 300 ml IV Total 899 ml 750 ml 1489 ml 885 ml 1785 ml 1214 ml Output Urine Total 3750 ml 1000 ml 2600 ml 850 ml 2250 ml 1350 ml # Bowel Movements 0 0 0 0 0 Laboratory Tests Test 11/03/16 11/03/16 11/04/16 11/04/16 03:10 18:00 02:15 05:15 White Blood Count 11.6 TH/MM3 Red Blood Count 4.48 MIL/MM3 Hemoglobin 13.6 GM/DL Hematocrit 40.4 % Mean Corpuscular Volume 90.3 FL Mean Corpuscular Hemoglobin 30.3 PG Mean Corpuscular Hemoglobin 33.6 % Concent Red Cell Distribution Width 13.2 % Platelet Count 388 TH/MM3 Mean Platelet Volume 6.9 FL Neutrophils (%) (Auto) 74.8 % Lymphocytes (%) (Auto) 15.6 % Monocytes (%) (Auto) 7.8 % Eosinophils (%) (Auto) 1.4 % Basophils (%) (Auto) 0.4 % Neutrophils # (Auto) 8.7 TH/MM3 Lymphocytes # (Auto) 1.8 TH/MM3 Monocytes # (Auto) 0.9 TH/MM3 Eosinophils # (Auto) 0.2 TH/MM3 Basophils # (Auto) 0.0 TH/MM3 CBC Comment DIFF FINAL Differential Comment Sodium Level 140 MEQ/L 136 MEQ/L 137 MEQ/L 140 MEQ/L Potassium Level 3.7 MEQ/L Chloride Level 103 MEQ/L Carbon Dioxide Level 29.4 MEQ/L Anion Gap 8 MEQ/L Blood Urea Nitrogen 7 MG/DL Creatinine 0.35 MG/DL Estimat Glomerular Filtration 185 ML/MIN Rate Random Glucose 127 MG/DL Calcium Level 8.7 MG/DL Total Bilirubin 0.7 MG/DL Aspartate Amino Transf 13 U/L (AST/SGOT) Alanine Aminotransferase 17 U/L (ALT/SGPT) Alkaline Phosphatase 43 U/L Total Protein 6.3 GM/DL Albumin 3.0 GM/DL Test 11/04/16 11/04/16 11/05/16 11/05/16 12:46 17:45 00:30 04:00 Sodium Level 141 MEQ/L 142 MEQ/L 143 MEQ/L Urine Osmolality 585 MOSM/KG Test 11/05/16 11/05/16 11/05/16 05:20 05:45 11:20 Urine Specific [place] 1.014 Sodium Level 144 MEQ/L 142 MEQ/L Constitutional Vital Signs Date Time Temp Pulse Resp B/P Pulse Ox O2 Delivery O2 Flow Rate FiO2 11/05/16 16:00 92 11/05/16 16:00 98.6 90 16 158/84 97 11/05/16 14:00 87 11/05/16 12:00 98.5 85 17 183/94 100 11/05/16 12:00 77 11/05/16 10:00 86 11/05/16 08:00 98.2 69 21 173/86 99 11/05/16 08:00 94 11/05/16 07:30 99 21 11/05/16 07:00 99 Room Air 11/05/16 06:00 66 11/05/16 04:00 68 11/05/16 04:00 97.9 68 17 174/84 99 11/05/16 02:00 70 11/05/16 00:00 80 11/05/16 00:00 98.2 78 18 175/90 98 11/04/16 22:00 65 11/04/16 20:00 86 11/04/16 20:00 98.3 86 22 156/80 96 11/04/16 19:24 96 Nasal Cannula 11/04/16 19:00 95 Room Air 11/05/16 07:00 Intake Total 3610 ml Output Total 3100 ml Balance 510 ml ([facility]) Review of Systems/Exam ROS CONSTITUTIONAL: Patient denies any fever or chills. CARDIOVASCULAR: Patient denies any chest pain, palpitations or irregular heart beat. RESPIRATORY: Patient denies any shortness of breath or productive cough. GASTROINTESTINAL: Patient denies any abdominal pain, nausea or vomiting. MUSCULOSKELETAL: Patient denies any pain or weakness to the extremities. NEUROLOGICAL: Patient denies any headache, dizziness, numbness or tingling. Exam GENERAL: Awake & alert, calm, no apparent distress. HEENT: Normocephalic, atraumatic. CARDIOVASCULAR: S1S2 w/RRR w/o M/G/R, radial & pedal pulses 2+ bilaterally, cap refill < 2 sec, no pedal edema. Monitor is sinus rhythm w/o any ectopy noted. RESPIRATORY: CTAB w/o W/R/R, equal excursion, non-laboured, on RA. GASTROINTESTINAL: Abdomen soft, non-tender, positive bowel sounds. MUSCULOSKELETAL: WALSH but limited. NTTP. No evident deformity, discolouration or clubbing. NEUROLOGICAL: Awake & alert, oriented to person, place & time (originally couldn't come up with year but looked for it written on the whiteboard) Speech clear but at times inappropriate to conversation Followed simple commands She is independently moving the BUE, motor strength LUE 4+/5, RUE is 4/5, LLE is 4+/5, RLE is 4/5. Sensation to light touch appears grossly intact to all extremities ([facility]) Medications Current Medications Current Medications Medications (Trade) Dose Ordered Sig/Nilesh Route Start Time Stop Time Status Last Admin (NS Flush) 2 ml UNSCH PRN .XX 10/27/16 23:30 (NS Flush) 2 ml BID .XX 10/28/16 09:00 11/05/16 08:55 (Tylenol) 650 mg Q6H PRN PO 10/27/16 23:30 (Morphine Inj) 2 mg Q2H PRN IV 10/27/16 23:30 (Pepcid Inj) 20 mg Q12HR IV PUSH 10/28/16 09:00 11/05/16 09:05 (Zofran Inj) 4 mg Q6H PRN IV 10/27/16 23:30 (Reglan Inj) 10 mg Q6H PRN IV 10/27/16 23:30 10/28/16 00:47 Miscellaneous Information 1 Q361D XX 10/27/16 23:30 10/27/16 23:30 (Chlorhexidine 2% Cloth) Taper DAILY@04 TOP 10/28/16 04:00 10/24/17 03:59 11/04/16 04:00 (Chlorhexidine 2% Cloth) 3 pack UNSCH PRN TOP 10/27/16 23:30 (Apresoline Inj) 20 mg Q4H PRN IV PUSH 10/27/16 23:45 11/03/16 22:38 (Nimotop) 60 mg Q4HR PO 10/28/16 01:00 11/05/16 15:54 Pravastatin Sodium 40 mg 40 mg DAILY PO 10/28/16 09:00 11/05/16 09:05 Potassium Chloride 100 ml @ 50 mls/hr Q2H PRN IV 10/28/16 02:15 (KCl 20 Meq Premix Inj) 100 ml @ 50 mls/hr Q2H PRN IV 10/28/16 02:15 11/01/16 10:20 Potassium Bicarb/ Potassium Chloride 50 meq 50 meq UNSCH PRN PO 10/28/16 02:15 Potassium Chloride 100 ml @ 25 mls/hr UNSCH PRN IV 10/28/16 02:15 Potassium Chloride 100 ml @ 50 mls/hr Q2H PRN IV 10/28/16 02:15 10/31/16 23:28 (Magnesium Sulfate Inj/NS Inj) 100 ml @ 50 mls/hr UNSCH PRN IV 10/28/16 02:15 Magnesium Oxide 800 mg 800 mg UNSCH PRN PO 10/28/16 02:15 (Magnesium Sulfate Inj/NS Inj) 100 ml @ 50 mls/hr UNSCH PRN IV 10/28/16 02:15 Potassium Phosphate 2000 mg 2,000 mg Q4H PRN PO 10/28/16 02:15 (Sodium Phosphate Inj/NS 250 ml Inj) 250 ml @ 42 mls/hr UNSCH PRN IV 10/28/16 02:15 Potassium Phosphate 2000 mg 2,000 mg UNSCH PRN PO/TUBE 10/28/16 02:15 (Cardene Inj/NS 250 ml Inj) 260 ml @ 0 mls/hr TITRATE IV 10/28/16 16:45 (Brethine Inj) 1 mg UNSCH PRN SQ 10/30/16 12:15 (NS Flush) See Protocol DAILY IV FLUSH 10/31/16 09:00 11/05/16 09:00 (NS Flush) See Protocol UNSCH PRN IV FLUSH 10/30/16 16:00 (Heparin Central Flush) See Protocol DAILY IV FLUSH 10/31/16 09:00 11/03/16 08:48 (Heparin Central Flush) See Protocol UNSCH PRN IV FLUSH 10/30/16 16:00 Sodium Chloride UNSCH PRN IV FLUSH 10/30/16 16:00 (NS + KCl 40 Meq Inj) 1,000 ml @ 84 mls/hr [id number] IV 11/01/16 08:15 11/05/16 15:15 (Natty-Colace) 1 tab BID PO 11/01/16 09:00 11/05/16 09:04 (Dulcolax Supp) 10 mg DAILY PRN RECTAL 11/01/16 08:15 Dexamethasone Sodium Phosphate 4 mg 4 mg Q6HR IV PUSH 11/03/16 18:00 11/05/16 12:26 Sodium Chloride 188 meq/Sodium Chloride 1,047 ml @ 20 mls/hr Q24H IV 11/03/16 16:00 11/05/16 16:11 (Levophed Inj/NS 250 ml Inj) 254 ml @ 0 mls/hr TITRATE IV 11/05/16 14:30 11/05/16 14:40 ([facility]) Medical Decision Making MDM Remarks Impression: 1. Intracranial-intraventricular and subarachnoid hemorrhage. Anterior communicating artery aneurysm 2. Hypertension 3. Recent history of bronchitis POD # 8 s/p (): 1. ACOM aneurysm coiling CT brain w/slight improvement in ICH but now demonstrates new IVH Cerebral angiogram for spasmolytic therapy bilateral ICA with verapamil Moderately severe spasm in the left LEONARDO territory demonstrated CT brain w/stable ICH although worsening cerebral edema, no new blood , no midline shift TCD with mild right middle cerebral artery vasospasm Neurological function stable with slow improvement Sodium level WNL Hypokalemia, resolved ([facility]ala[facility]) Plan Plan Remarks Continue frequent neuro checks Continue critical care management per Physician Locums Urgent Care Daily TCD studies Will follow patient closely May need ventriculostomy Maintain SBP between 160 and 180 mm Hg due to vasospasms Vasopressors as needed to maintain SBP Decadron 4 mg IV q6h for cerebral edema 2% saline to keep sodium level at 155 for cerebral edema Primary management per Physician Loc[facility] Urgent Care ([facility]) Attending Statement I have personally seen and examined the patient on 11/05/16. Pertinent documentation and study results have been reviewed by the undersigned. I have personally developed the treatment plan and performed medical decision making. Agree with findings, exam, and treatment plan as noted above. Remains relatively alert, minimal speech, following some commands. 11/05/16 TCD with suggestion of persistent mild right MCA spasm. Continuing systolic blood pressure 160-180. Monitor sodium (Johnnie Cool MD) [facility] November 05, 2016 16:39 Johnnie Cool MD November 05, 2016 23:43
[2016-11-06] VITALS (13 sets, daily range): BP systolic 157–183; BP diastolic 81–92; PULSE 56–86; RESP 13–19; TEMP 97.6–98.4; O2SAT 97–100
[2016-11-06] MEDS: niMODipine 30 MG CAP PO SCH ×6 (01:31→19:49)
[2016-11-06] MEDS: DEXAMETHASONE SOD PHOS 4 MG/ML VIAL IV PUSH SCH ×4 (01:32→18:27)
[2016-11-06] MEDS: NS + KCL 40 MEQ INJ 1,000 ML IV SCH (02:32)
[2016-11-06] MEDS: CHLORHEXIDINE GLUCONATE 2 % 1 PACK (2 CLOTHS) TOP SCH (04:00)
[2016-11-06] MEDS: PRAVASTATIN SOD 40 MG TAB PO SCH (08:32)
[2016-11-06] MEDS: SODIUM CHLORIDE 0.9% FLUSH 10 ML FLUSH IV FLUSH SCH (08:32)
[2016-11-06] MEDS: DOCUSATE SODIUM 50 MG/SENNA 8.6 MG TAB PO SCH ×2 (08:32→21:36)
[2016-11-06] MEDS: SODIUM CHLORIDE 0.9% FLUSH 10 ML FLUSH SCH (08:32)
[2016-11-06] MEDS: FAMOTIDINE 20 MG/2 ML VIAL IV PUSH SCH ×2 (08:33→21:36)
[2016-11-06] MEDS: NOREPINEPHRINE INJ 4 MG in SODIUM CHLOR 0.9% 250 ML INJ 250 ML IV SCH ×2 (08:51→18:42)
--- NOTE | 2016-11-06 09:15 | HHI.NSPN ---
(Kyaw Talavera Estelita WARREN) Note Status Status: Progress Note (Kyaw Talavera) Interval History Interval History 10/27: 66-year-old female in relatively good health until 3 or 4 weeks ago when she developed bronchitis. She was treated with a course of amoxicillin which did not help the symptoms. She was given another antibiotic which she finished approximately 3 days ago. She has continued to have a nonproductive cough. No definite fevers or chills. She has had a frontal headache for 2 or 3 weeks. Also some neck pain and stiffness. She was diagnosed with hypertension in the past 2 or 3 months and has been on medication. She does have a long history of smoking cigarettes. She ate dinner with her friend last evening. Her brother called her approximately 10:00 this morning on the telephone, and there was no answer. Her friend found the patient lying in her bathtub at home, significant speech difficulty with no definite seizure activity. Patient indicated to her friend that she had been lying in the bathtub all day long, unable to get up. 10/28: The patient went down for an aneurysm coiling in Interventional Radiology this morning. This afternoon when seen the patient is asleep but awakens to verbal stimuli. She remains nonverbal but shook her head "no" when asked if she had a headache or any numbness or tingling. She did follow some commands. 10/29: When the patient was seen with Dr Cool late yesterday afternoon the patient was able to say her name. This morning prior to being seen Nursing reports that the is not verbalising although she was yesterday. When seen the patient was not able to verbalise but she did nod her head appropriately. She nodded "yes" to having a headache. The patient did have a transcranial doppler study this morning, the report is pending. 10/30: The patient remains nonverbal this morning and makes no attempt to shake her head "no" when asked if she is able to speak. She is spontaneously moving the left side. A TCD is being done when seen. Yesterday a repeat CT brain demonstrated some improvement in the ICH and a new small IVH. A TCD & CTA demonstrated a right middle cerebral artery vasospasm. A minimal left anterior temporal artery vasospasm was noted on the CTA only. 10/31: The patient is having a TCD done when seen this morning. She remains nonverbal and makes no attempt to speak or stick her tongue out. 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 Yesterday the TCD was unremarkable for any vasospasm. 11/01: The patient is awake and alert this morning. Ultrasound is finishing the TCD. She is nonverbal but does try to speak. She is able to stick her tongue out and has varying degrees of movement to the extremities. She went to Interventional Radiology yesterday afternoon for a cerebral angiogram which demonstrated a moderately severe spasm in the left LEONARDO territory. She received verapamil injected into both ICAs. 11/02: The patient is awake & alert this morning. She is feeding herself breakfast. She is able to verbalise but is confused. The TCD yesterday demonstrated a persistent right MCA territory vasospasm with mild improvement. 11/03: The patient is awake & alert, feeding herself breakfast. She has no complaints although her verbal response and nodding of her head are not necessarily consistent. A repeat CT brain this morning demonstrated a stable bleed although worsening cerebral edema. The TCD study yesterday demonstrated normalised ratios. 11/04: The patient is awake & alert this morning and working with Physical Therapy when seen. She is verbalising to questions. She lifts the right lower extremity off the bed when asked. 11/05: The patient is awake & alert when seen this afternoon. She is verbalising and following commands. She is able to move all extremities on her own. She had a TCD done this morning. 11/06: The patient is seen standing at the edge of the bed with a walker and Physical Therapy. She ambulates with an unsteady gait to the chair and sits down. She is unable to keep her balance without support. Once in the chair she states she feels "extremely good." (Kyaw Talavera) Labs, Micro, & Vital Signs Results Allergies Coded Allergies Type Severity Reaction Last Updated Verified No Known Allergies 10/27/16 No Recent Impressions Transcranial Doppler Study Complete 11/05/16 0000 Signed Impressions: Service Date/Time: Saturday, November 05, 2016 07:54 - CONCLUSION: 1. No change from prior. Ratios suggest mild vasospasm the right MCA territory. 2. Unable to obtain a waveform in the left anterior cerebral artery. This is unchanged over multiple prior studies, however. Chidi Elise MD Transcranial Doppler Study Complete 11/04/16 0000 Signed Impressions: Service Date/Time: Friday, November 04, 2016 07:55 - CONCLUSION: 1. Interval increase in the distal right middle cerebral artery velocity along with mildly elevated Lindegard ratio characteristic of mild vasospasm. This vessel also demonstrated abnormal velocities and ratios on the 10/31/2016 and 11/01/2016 exams. 2. Remaining vessels demonstrate no features to indicate vasospasm. Jose Roberto Mejia MD ////// 06:00 18:00 06:00 18:00 06:00 18:00 Intake Total 2209 ml 1725 ml 1885 ml 1514 ml 2668 ml Output Total 2600 ml 850 ml 2250 ml 1350 ml 4000 ml Balance -391 ml 875 ml -365 ml 164 ml -1332 ml Intake Oral 720 ml 840 ml 100 ml 300 ml 480 ml IV Total 1489 ml 885 ml 1785 ml 1214 ml 2188 ml Output Urine Total 2600 ml 850 ml 2250 ml 1350 ml 4000 ml # Bowel Movements 0 0 0 0 Laboratory Tests Test 11/03/16 11/04/16 11/04/16 11/04/16 18:00 02:15 05:15 12:46 Sodium Level 136 MEQ/L 137 MEQ/L 140 MEQ/L 141 MEQ/L Test 11/04/16 11/05/16 11/05/16 11/05/16 17:45 00:30 04:00 05:20 Sodium Level 142 MEQ/L 143 MEQ/L Urine Osmolality 585 MOSM/KG Urine Specific Koppel 1.014 Test 11/05/16 11/05/16 11/05/16 11/05/16 05:45 11:20 19:30 23:30 Sodium Level 144 MEQ/L 142 MEQ/L 142 MEQ/L 143 MEQ/L Test 11/06/16 05:30 Sodium Level 142 MEQ/L Constitutional Vital Signs Date Time Temp Pulse Resp B/P Pulse Ox O2 Delivery O2 Flow Rate FiO2 11/06/16 07:15 100 21 11/06/16 07:00 100 Room Air 11/06/16 06:00 56 11/06/16 04:00 58 11/06/16 04:00 97.6 58 17 182/81 98 11/06/16 02:00 60 11/06/16 00:00 98.0 86 13 171/92 97 11/06/16 00:00 82 11/05/16 22:00 80 11/05/16 20:34 97 21 11/05/16 20:00 98.5 88 21 175/86 96 11/05/16 20:00 98 11/05/16 19:00 96 Room Air 11/05/16 18:00 98 11/05/16 16:00 92 11/05/16 16:00 98.6 90 16 158/84 97 11/05/16 14:00 87 11/05/16 12:00 98.5 85 17 183/94 100 11/05/16 12:00 77 11/05/16 10:00 86 11/06/16 07:00 Intake Total 4182 ml Output Total 5350 ml Balance -1168 ml (Kyaw Talavera) Review of Systems/Exam ROS CONSTITUTIONAL: Patient denies any fever or chills. CARDIOVASCULAR: Patient denies any chest pain, palpitations or irregular heart beat. RESPIRATORY: Patient denies any shortness of breath or productive cough. GASTROINTESTINAL: Patient denies any abdominal pain, nausea or vomiting. MUSCULOSKELETAL: Patient denies any pain or weakness to the extremities. NEUROLOGICAL: Patient denies any headache, dizziness, numbness or tingling. Exam GENERAL: Awake & alert, calm, no apparent distress. HEENT: Normocephalic, atraumatic. CARDIOVASCULAR: S1S2 w/regular rate but fast w/o M/G/R, radial & pedal pulses 2 + bilaterally, cap refill < 2 sec, no pedal edema. Monitor is sinus tachycardia (100s to 110s) w/o any ectopy noted. RESPIRATORY: CTAB w/o W/R/R, equal excursion, non-laboured, on RA. GASTROINTESTINAL: Abdomen soft, non-tender, positive bowel sounds. MUSCULOSKELETAL: WALSH but limited. NTTP. No evident deformity, discolouration or clubbing. NEUROLOGICAL: Awake & alert, oriented to person, place & time Speech clear Followed simple commands She is independently moving the BUE, motor strength LUE 4+/5, RUE is 4/5, LLE is 4+/5, RLE is 3+ to 4/5. Sensation to light touch appears grossly intact to all extremities (Kyaw Talavera) Medications Current Medications Current Medications Medications (Trade) Dose Ordered Sig/Nilesh Route Start Time Stop Time Status Last Admin (NS Flush) 2 ml UNSCH PRN .XX 10/27/16 23:30 (NS Flush) 2 ml BID .XX 10/28/16 09:00 11/06/16 08:32 (Tylenol) 650 mg Q6H PRN PO 10/27/16 23:30 (Morphine Inj) 2 mg Q2H PRN IV 10/27/16 23:30 (Pepcid Inj) 20 mg Q12HR IV PUSH 10/28/16 09:00 11/06/16 08:33 (Zofran Inj) 4 mg Q6H PRN IV 10/27/16 23:30 (Reglan Inj) 10 mg Q6H PRN IV 10/27/16 23:30 10/28/16 00:47 Miscellaneous Information 1 Q361D XX 10/27/16 23:30 10/27/16 23:30 (Chlorhexidine 2% Cloth) Taper DAILY@04 TOP 10/28/16 04:00 10/24/17 03:59 11/04/16 04:00 (Chlorhexidine 2% Cloth) 3 pack UNSCH PRN TOP 10/27/16 23:30 (Apresoline Inj) 20 mg Q4H PRN IV PUSH 10/27/16 23:45 11/03/16 22:38 (Nimotop) 60 mg Q4HR PO 10/28/16 01:00 11/06/16 08:31 Pravastatin Sodium 40 mg 40 mg DAILY PO 10/28/16 09:00 11/06/16 08:32 Potassium Chloride 100 ml @ 50 mls/hr Q2H PRN IV 10/28/16 02:15 (KCl 20 Meq Premix Inj) 100 ml @ 50 mls/hr Q2H PRN IV 10/28/16 02:15 11/01/16 10:20 Potassium Bicarb/ Potassium Chloride 50 meq 50 meq UNSCH PRN PO 10/28/16 02:15 Potassium Chloride 100 ml @ 25 mls/hr UNSCH PRN IV 10/28/16 02:15 Potassium Chloride 100 ml @ 50 mls/hr Q2H PRN IV 10/28/16 02:15 10/31/16 23:28 (Magnesium Sulfate Inj/NS Inj) 100 ml @ 50 mls/hr UNSCH PRN IV 10/28/16 02:15 Magnesium Oxide 800 mg 800 mg UNSCH PRN PO 10/28/16 02:15 (Magnesium Sulfate Inj/NS Inj) 100 ml @ 50 mls/hr UNSCH PRN IV 10/28/16 02:15 Potassium Phosphate 2000 mg 2,000 mg Q4H PRN PO 10/28/16 02:15 (Sodium Phosphate Inj/NS 250 ml Inj) 250 ml @ 42 mls/hr UNSCH PRN IV 10/28/16 02:15 Potassium Phosphate 2000 mg 2,000 mg UNSCH PRN PO/TUBE 10/28/16 02:15 (Cardene Inj/NS 250 ml Inj) 260 ml @ 0 mls/hr TITRATE IV 10/28/16 16:45 (Brethine Inj) 1 mg UNSCH PRN SQ 10/30/16 12:15 (NS Flush) See Protocol DAILY IV FLUSH 10/31/16 09:00 11/06/16 08:32 (NS Flush) See Protocol UNSCH PRN IV FLUSH 10/30/16 16:00 (Heparin Central Flush) See Protocol DAILY IV FLUSH 10/31/16 09:00 11/03/16 08:48 (Heparin Central Flush) See Protocol UNSCH PRN IV FLUSH 10/30/16 16:00 Sodium Chloride UNSCH PRN IV FLUSH 10/30/16 16:00 (NS + KCl 40 Meq Inj) 1,000 ml @ 84 mls/hr [id number] IV 11/01/16 08:15 11/06/16 02:32 (Natty-Colace) 1 tab BID PO 11/01/16 09:00 11/06/16 08:32 (Dulcolax Supp) 10 mg DAILY PRN RECTAL 11/01/16 08:15 Dexamethasone Sodium Phosphate 4 mg 4 mg Q6HR IV PUSH 11/03/16 18:00 11/06/16 06:10 Sodium Chloride 188 meq/Sodium Chloride 1,047 ml @ 20 mls/hr Q24H IV 11/03/16 16:00 11/05/16 16:11 (Levophed Inj/NS 250 ml Inj) 254 ml @ 0 mls/hr TITRATE IV 11/05/16 14:30 11/06/16 08:51 (Kyaw Talavera) Medical Decision Making MDM Remarks Impression: 1. Intracranial-intraventricular and subarachnoid hemorrhage. Anterior communicating artery aneurysm 2. Hypertension 3. Recent history of bronchitis POD # 9 s/p (): 1. ACOM aneurysm coiling CT brain w/slight improvement in ICH but now demonstrates new IVH Cerebral angiogram for spasmolytic therapy bilateral ICA with verapamil Moderately severe spasm in the left LEONARDO territory demonstrated CT brain w/stable ICH although worsening cerebral edema, no new blood , no midline shift TCD with mild right middle cerebral artery vasospasm Neurological function stable with slow improvement Sodium level WNL Hypokalemia, resolved (Kyaw Talavera) Plan Plan Remarks Continue frequent neuro checks Continue critical care management per Knotting Machine Operator Daily TCD studies Will follow patient closely May need ventriculostomy Maintain SBP between 160 and 180 mm Hg due to vasospasms Vasopressors as needed to maintain SBP Decadron 4 mg IV q6h for cerebral edema 2% saline to keep sodium level at 155 for cerebral edema Primary management per Knotting Machine Operator (Kyaw Talavera) Attending Statement I have personally seen and examined the patient on 11/06/16. Pertinent documentation and study results have been reviewed by the undersigned. I have personally developed the treatment plan and performed medical decision making. Agree with findings, exam, and treatment plan as noted above. Ambulating better today with some improvement in speech. TCD today with possible mild residual right MCA spasm. Continuing controlled hypertensive therapy. Continue PT/OT. (Johnnie Cool MD) Kyaw Talavera November 06, 2016 09:15 Johnnie Cool MD November 06, 2016 20:25
[2016-11-06 09:59] LABS: BICARBONATE 27.5 MEQ/L (21.0-32.0); MAGNESIUM 2.3 MG/DL (1.5-2.5)
--- NOTE | 2016-11-06 10:30 | HHI.CCPN ---
Subjective Remarks/Hospital Course 10/27: 66 year old female was found in her bathtub, fully clothed with no water on. She was unable to get up or talk. She was last seen to be normal yesterday. Patient follows commands appropriately however is unable to talk and cannot provide a history. Per documentation she was recently treated with antibiotics amoxicillin for bronchitis as well as started on blood pressure medications due to new onset of hypertension for about last [address] of the head revealed the ICH with IVH extension. The stat CTA revealed ACOM aneurysm 10/28: Resting in bed comfortably. Awake and alert. Following commands. Having speech difficulties. 10/29: Underwent ACOM aneurysm coiling on 10/28. This morning speech appears to have worsened. Patient is nonverbal. Following commands. Head CT shows decreasing size of hemorrhage, the CT is done with results pending. 10/30: Remains nonverbal. Awake and alert. Moves bilateral upper extremities and left lower extremity. Does not move right lower extremity. 10/31: Awake and alert, remains nonverbal. Does not move right lower extremity, moves bilateral upper extremities and left lower extremity. On Levophed to keep systolic blood pressure 160-180 11/01: Awake, alert, still having speech difficulty. On asking her name she repeats mind. Moves both upper extremities and left lower extremity. Underwent angiogram with injection of verapamil and bilateral internal carotid arteries by interventional radiology on 10/31 for vasospasm. 11/02: Awake, alert. Speech appears somewhat better. She can tell me her name. Following commands. Thinks she is at home. Moves both upper extremities and left lower extremity. Decreased movement in right lower extremity. 11/03: Awake, alert. Speech appears to be improving. She thinks she is at her niece's home. Following commands. Right lower extremity remains weak. 11/04: Awake, alert, speech improved. Knows she is at the hospital and knows she had a head bleed. On 2% saline. 11/05: became more agitated overnight last night. pulled out goel catheter. also , now on norepinephrine to maintain map goals. TCDs yesterday with moderate vasospasm and worse than the day prior. net euvolemic. 11/06: oob to chair. looks much better today. less agitated. oriented. TCDs with only mild vasospasm yesterday, today's pending. Objective Vital Signs Date Time Temp Pulse Resp B/P Pulse Ox O2 Delivery O2 Flow Rate FiO2 11/06/16 07:15 100 21 11/06/16 07:00 Room Air 11/06/16 06:00 56 11/06/16 04:00 97.6 17 182/81 Intake and Output 11/05/16 11/05/16 11/06/16 08:00 16:00 00:00 Intake Total 934 ml 1514 ml 1444 ml Output Total 1000 ml 1350 ml 1850 ml Balance -66 ml 164 ml -406 ml Result Diagram: 11/03/16 0310 11/06/16 0910 Imaging Last [address] 10/27/162214 Signed Impressions: Service Date/Time: Thursday, October 27, 2016 22:58 - CONCLUSION: Large intracerebral hemorrhage with subarachnoid hemorrhage as well. Nicola Childs MD Chest X-Ray 10/27/162214 Signed Impressions: Service Date/Time: Thursday, October 27, 2016 22:37 - CONCLUSION: No acute disease. Kemal Downey MD Objective Remarks GENERAL: Well-nourished, well-developed patient. oob in a chair this morning, following commands. SKIN: Warm and dry. HEAD: Normocephalic. EYES: No scleral icterus. No injection or drainage. NECK: trachea midline. No JVD CARDIOVASCULAR: Regular rate and rhythm. sinus by tele. RESPIRATORY: unlabored. equal chest rise. GASTROINTESTINAL: Abdomen soft, non-tender, nondistended. MUSCULOSKELETAL: No cyanosis, or edema. EXTREMITIES: No clubbing cyanosis or edema Neuro: Awake, much less confused. RASS 0. follows commands in all 4 extremities. PARVIZ 5/5. no pronator drift. A/P Assessment and Plan Assessment: 66yF aneurysmal SAH PBD 9. s/p ACOM aneurysm coiling. evidence of resolving mild vasospasm. clinically improving from yesterday. continue to follow up TCDs. will start to liberalize SBP goals in the setting of resolvling spasm and clinical improvements, goal SBP 120 - 180. 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 d/c 2% sodium. - Pravachol - TCD's daily to monitor for vasospasm. Underwent cerebral angiogram with intra -arterial verapamil and bilateral internal carotid arteries on 10/31 by interventional radiology. - Cristinagy: Silvina following. - low threshold for CT angio. - q1h uop - frequent neuro checks. Hypertension -Hold antihypertensives - SBP goal 120-180, start to liberalize. Tobacco use disorder - Monitor for withdrawal DVT GI prophylaxis - Teds SCDs - No pharmacological DVT prophylaxis due to ICH - Pepcid PICC line 10/31: keep while in spasm and on levo Goel: keep while in spasm. Dispo: remain in the ICU. Ck Sharma MD November 06, 2016 10:30
--- NOTE | 2016-11-06 11:01 | RADRPT ---
EXAM DATE/TIME: 11/06/2016 07:50 [facility] COMPARISON: US TRANSCRANIAL DOPPLER COMPLETE, November 05, 2016, 7:54. INDICATIONS : Subarachnoid hemorrhage. MEDICAL HISTORY : Hypertension. Stroke Depression. Subarachnoid hemorrhage. SURGICAL HISTORY : Bilateral cataract. Aneurysm coil. ENCOUNTER: Initial ACUITY: 1 week PAIN SCORE: 1/10 LOCATION: Bilateral cranial Current Exam: November 06, 2016 Lindegaard Ratio: Right: 3.9 Left: 2.4 De Jesus Ratio: Right: 1.2 Left: 1.4 Previous Exam: November 05, 2016 Lindegaard Ratio: Right: 4.2 Left: 1.6 De Jesus Ratio: Right: 1.0 Left: UTO. FINDINGS: Examination performed at bedside. Real-time ultrasound with the assistance of color and spectral Dop pler was utilized to evaluate the intracerebral circulation. Time-averaged maximal velocities are ca lculated in cm/s. The right middle cerebral artery velocities have decreased from the prior study but remain mildly joyce vated in the distal MCA region. Lindegard ratio also is mildly elevated in this region. LEONARDO and ROOFER v alues are within normal limits. CONCLUSION: 1. The velocities have decreased in the right middle cerebral artery but still suggest mild vasospasm in the distal middle cerebral artery territory. 2. Remaining velocities and ratios are within normal limits. Jose Roberto Mejia MD on November 06, 2016 at 10:57 Board Certified Radiologist. This report was verified electronically.
[2016-11-06] MEDS: MELATONIN 5 MG TAB PO SCH (21:36)
[2016-11-07] VITALS (14 sets, daily range): BP systolic 141–164; BP diastolic 75–83; PULSE 54–97; RESP 14–21; TEMP 97.4–98.2; O2SAT 97–100
[2016-11-07] MEDS: niMODipine 30 MG CAP PO SCH ×7 (00:30→23:29)
[2016-11-07] MEDS: DEXAMETHASONE SOD PHOS 4 MG/ML VIAL IV PUSH SCH ×5 (00:31→23:28)
[2016-11-07] MEDS: CHLORHEXIDINE GLUCONATE 2 % 1 PACK (2 CLOTHS) TOP SCH (03:57)
[2016-11-07 06:05] LABS: BACTERIA, URINE MOD /hpf; BLOOD, URINE MOD (NEG); GLUCOSE,URINE NEG (NEG); KETONE, URINE NEG (NEG); NITRITE,URINE NEG (NEG); URINE COLOR YELLOW (YELLW/STRAW)
[2016-11-07 06:06] LABS: COMMENT (UR) CATH-CULTURE IND; CULTURE IF INDICATED CATH CULTURE IND
[2016-11-07] MEDS: FAMOTIDINE 20 MG/2 ML VIAL IV PUSH SCH ×2 (08:05→20:11)
[2016-11-07] MEDS: DOCUSATE SODIUM 50 MG/SENNA 8.6 MG TAB PO SCH ×2 (08:06→20:11)
[2016-11-07] MEDS: PRAVASTATIN SOD 40 MG TAB PO SCH (08:06)
[2016-11-07] MEDS ORDERED: MAGNESIUM SULFATE 1 GM PREMIX 100 ML ONE (09:24)
[2016-11-07] MEDS ORDERED: ATROPINE SULFATE 1 MG/10 ML SYRINGE ONE (09:24)
[2016-11-07] MEDS ORDERED: SODIUM BICARBONATE 8.4% INJ 50 ML ONE (09:25)
[2016-11-07] MEDS ORDERED: EPINEPHrine HCL (1:10,000) 1 MG/10 ML SYRINGE ONE (09:25)
[2016-11-07] MEDS ORDERED: CALCIUM CHLORIDE 10% SOLN 1 GRAM/10 ML SYR ONE (09:26)
--- NOTE | 2016-11-07 11:30 | HHI.NSPN ---
(Kyaw Talavera Estelita WARREN) Note Status Status: Progress Note (Kyaw Talavera) Interval History Interval History 10/27: 66-year-old female in relatively good health until 3 or 4 weeks ago when she developed bronchitis. She was treated with a course of amoxicillin which did not help the symptoms. She was given another antibiotic which she finished approximately 3 days ago. She has continued to have a nonproductive cough. No definite fevers or chills. She has had a frontal headache for 2 or 3 weeks. Also some neck pain and stiffness. She was diagnosed with hypertension in the past 2 or 3 months and has been on medication. She does have a long history of smoking cigarettes. She ate dinner with her friend last evening. Her brother called her approximately 10:00 this morning on the telephone, and there was no answer. Her friend found the patient lying in her bathtub at home, significant speech difficulty with no definite seizure activity. Patient indicated to her friend that she had been lying in the bathtub all day long, unable to get up. 10/28: The patient went down for an aneurysm coiling in Interventional Radiology this morning. This afternoon when seen the patient is asleep but awakens to verbal stimuli. She remains nonverbal but shook her head "no" when asked if she had a headache or any numbness or tingling. She did follow some commands. 10/29: When the patient was seen with Dr Cool late yesterday afternoon the patient was able to say her name. This morning prior to being seen Nursing reports that the is not verbalising although she was yesterday. When seen the patient was not able to verbalise but she did nod her head appropriately. She nodded "yes" to having a headache. The patient did have a transcranial doppler study this morning, the report is pending. 10/30: The patient remains nonverbal this morning and makes no attempt to shake her head "no" when asked if she is able to speak. She is spontaneously moving the left side. A TCD is being done when seen. Yesterday a repeat CT brain demonstrated some improvement in the ICH and a new small IVH. A TCD & CTA demonstrated a right middle cerebral artery vasospasm. A minimal left anterior temporal artery vasospasm was noted on the CTA only. 10/31: The patient is having a TCD done when seen this morning. She remains nonverbal and makes no attempt to speak or stick her tongue out. She does follow commands to wiggle the toes and cleaner wall with the left hand. Yesterday the TCD was unremarkable for any vasospasm. 11/01: The patient is awake and alert this morning. Ultrasound is finishing the TCD. She is nonverbal but does try to speak. She is able to stick her tongue out and has varying degrees of movement to the extremities. She went to Interventional Radiology yesterday afternoon for a cerebral angiogram which demonstrated a moderately severe spasm in the left LEONARDO territory. She received verapamil injected into both ICAs. 11/02: The patient is awake & alert this morning. She is feeding herself breakfast. She is able to verbalise but is confused. The TCD yesterday demonstrated a persistent right MCA territory vasospasm with mild improvement. 11/03: The patient is awake & alert, feeding herself breakfast. She has no complaints although her verbal response and nodding of her head are not necessarily consistent. A repeat CT brain this morning demonstrated a stable bleed although worsening cerebral edema. The TCD study yesterday demonstrated normalised ratios. 11/04: The patient is awake & alert this morning and working with Physical Therapy when seen. She is verbalising to questions. She lifts the right lower extremity off the bed when asked. 11/05: The patient is awake & alert when seen this afternoon. She is verbalising and following commands. She is able to move all extremities on her own. She had a TCD done this morning. 11/06: The patient is seen standing at the edge of the bed with a walker and Physical Therapy. She ambulates with an unsteady gait to the chair and sits down. She is unable to keep her balance without support. Once in the chair she states she feels "extremely good. 11/07: As I was going to see patient the [employer] Consultant was entering the room. The patient had just become non-responsive while sitting in the chair. She was still breathing and had a pulse. After being placed in the bed and the head raised she did open her eyes and was noted to be pill rolling with the right thumb & index finger. She was also repetitively sticking her tongue partially out but was nonverbal. She was not following commands. (Kyaw Talavera) Labs, Micro, & Vital Signs Results Allergies Coded Allergies Type Severity Reaction Last Updated Verified No Known Allergies 10/27/16 No Recent Impressions Transcranial Doppler Study Complete 11/06/16 0000 Signed Impressions: Service Date/Time: October 07:50 - CONCLUSION: 1. The velocities have decreased in the right middle cerebral artery but still suggest mild vasospasm in the distal middle cerebral artery territory. 2. Remaining velocities and ratios are within normal limits. Jose Roberto Mejia MD Transcranial Doppler Study Complete 11/05/16 0000 Signed Impressions: Service Date/Time: Saturday, November 05, 2016 07:54 - CONCLUSION: 1. No change from prior. Ratios suggest mild vasospasm the right MCA territory. 2. Unable to obtain a waveform in the left anterior cerebral artery. This is unchanged over multiple prior studies, however. Chidi Elise MD /////// 06:00 18:00 06:00 18:00 06:00 18:00 Intake Total 1885 ml 1514 ml 2668 ml 1275 ml 628 ml Output Total 2250 ml 1350 ml 4000 ml 1650 ml 2400 ml Balance -365 ml 164 ml -1332 ml -375 ml -1772 ml Intake Oral 100 ml 300 ml 480 ml 300 ml 480 ml IV Total 1785 ml 1214 ml 2188 ml 975 ml 148 ml Output Urine Total 2250 ml 1350 ml 4000 ml 1650 ml 2400 ml # Bowel Movements 0 0 Laboratory Tests Test 11/04/16 11/04/16 11/05/16 11/05/16 12:46 17:45 00:30 04:00 Sodium Level 141 MEQ/L 142 MEQ/L 143 MEQ/L Urine Osmolality 585 MOSM/KG Test 11/05/16 11/05/16 11/05/16 11/05/16 05:20 05:45 11:20 19:30 Urine Specific [place] 1.014 Sodium Level 144 MEQ/L 142 MEQ/L 142 MEQ/L Test 511/06/16 11/06/16 11/06/16 23:30 05:30 09:10 12:14 Sodium Level 143 MEQ/L 142 MEQ/L 139 MEQ/L 140 MEQ/L Potassium Level 4.0 MEQ/L Chloride Level 103 MEQ/L Carbon Dioxide Level 27.5 MEQ/L Anion Gap 9 MEQ/L Blood Urea Nitrogen 8 MG/DL Creatinine 0.48 MG/DL Estimat Glomerular Filtration 129 ML/MIN Rate Random Glucose 144 MG/DL Calcium Level 8.8 MG/DL Phosphorus Level 3.1 MG/DL Magnesium Level 2.3 MG/DL Test 11/07/16 11/07/16 05:00 05:45 Sodium Level 140 MEQ/L Urine Color YELLOW Urine Turbidity HAZY Urine pH 7.0 Urine Specific [place] 1.018 Urine Protein NEG mg/dL Urine Glucose (UA) NEG mg/dL Urine Ketones NEG mg/dL Urine Occult Blood MOD Urine Nitrite NEG Urine Bilirubin NEG Urine Urobilinogen LESS THAN 2.0 MG/DL Urine Leukocyte Esterase MOD Urine RBC /hpf Urine WBC 23 /hpf Urine Amorphous Sediment RARE Urine Bacteria MOD /hpf Microscopic Urinalysis Comment CATH-CULTURE IND Constitutional Vital Signs Date Time Temp Pulse Resp B/P Pulse Ox O2 Delivery O2 Flow Rate FiO2 11/07/16 10:00 80 11/07/16 08:00 63 11/07/16 08:00 97.8 54 16 156/83 98 11/07/16 07:07 98 21 11/07/16 07:00 98 Room Air 11/07/16 06:00 57 11/07/16 04:00 62 11/07/16 04:00 97.6 62 14 164/78 97 11/07/16 02:00 66 11/07/16 00:00 70 11/07/16 00:00 97.5 64 18 152/78 98 11/06/16 22:00 68 11/06/16 20:00 97.6 81 19 163/84 100 11/06/16 20:00 81 11/06/16 19:00 99 Room Air 11/06/16 18:00 82 11/06/16 16:00 98.4 80 18 183/90 99 11/06/16 16:00 78 11/06/16 14:00 80 11/06/16 12:00 67 11/06/16 12:00 98.2 68 18 157/88 100 11/07/16 07:00 Intake Total 1903 ml Output Total 4050 ml Balance -2147 ml (Kyaw Talavera) Review of Systems/Exam ROS Unable to obtain ROS due to patient's mental status Exam GENERAL: Nonresponsive when initially seen but did open eyes later once back in bed. HEENT: Normocephalic, atraumatic. CARDIOVASCULAR: S1S2 w/regular rate but slow w/o M/G/R, radial & pedal pulses 1 + bilaterally, cap refill < 2 sec, no pedal edema. Monitor is sinus bradycardia w/o any ectopy noted. RESPIRATORY: CTAB w/o W/R/R, equal excursion, non-laboured, slightly shallow initially, on RA and placed on NC. GASTROINTESTINAL: Abdomen soft, non-tender, positive bowel sounds. MUSCULOSKELETAL: Only movement is pill rolling noted with right thumb & index finger. No evident deformity, discolouration or clubbing. NEUROLOGICAL: Initially non-responsive but eventually opened eyes on own Nonverbal, repetitively sticking tongue partially out Not following commands Only movement noted was pilling rolling with right thumb & index finger Unable to assess sensation (Kyaw Talavera) Medications Current Medications Current Medications Medications (Trade) Dose Ordered Sig/Nilesh Route Start Time Stop Time Status Last Admin (NS Flush) 2 ml UNSCH PRN .XX 10/27/16 23:30 (Tylenol) 650 mg Q6H PRN PO 10/27/16 23:30 (Morphine Inj) 2 mg Q2H PRN IV 10/27/16 23:30 (Pepcid Inj) 20 mg Q12HR IV PUSH 10/28/16 09:00 11/07/16 08:05 (Zofran Inj) 4 mg Q6H PRN IV 10/27/16 23:30 (Reglan Inj) 10 mg Q6H PRN IV 10/27/16 23:30 10/28/16 00:47 Miscellaneous Information 1 Q361D XX 10/27/16 23:30 10/27/16 23:30 (Chlorhexidine 2% Cloth) Taper DAILY@04 TOP 10/28/16 04:00 10/24/17 03:59 11/04/16 04:00 (Chlorhexidine 2% Cloth) 3 pack UNSCH PRN TOP 10/27/16 23:30 (Apresoline Inj) 20 mg Q4H PRN IV PUSH 10/27/16 23:45 11/03/16 22:38 (Nimotop) 60 mg Q4HR PO 10/28/16 01:00 11/07/16 08:05 Pravastatin Sodium 40 mg 40 mg DAILY PO 10/28/16 09:00 11/07/16 08:06 Potassium Chloride 100 ml @ 50 mls/hr Q2H PRN IV 10/28/16 02:15 (KCl 20 Meq Premix Inj) 100 ml @ 50 mls/hr Q2H PRN IV 10/28/16 02:15 11/01/16 10:20 Potassium Bicarb/ Potassium Chloride 50 meq 50 meq UNSCH PRN PO 10/28/16 02:15 Potassium Chloride 100 ml @ 25 mls/hr UNSCH PRN IV 10/28/16 02:15 Potassium Chloride 100 ml @ 50 mls/hr Q2H PRN IV 10/28/16 02:15 10/31/16 23:28 (Magnesium Sulfate Inj/NS Inj) 100 ml @ 50 mls/hr UNSCH PRN IV 10/28/16 02:15 Magnesium Oxide 800 mg 800 mg UNSCH PRN PO 10/28/16 02:15 (Magnesium Sulfate Inj/NS Inj) 100 ml @ 50 mls/hr UNSCH PRN IV 10/28/16 02:15 Potassium Phosphate 2000 mg 2,000 mg Q4H PRN PO 10/28/16 02:15 (Sodium Phosphate Inj/NS 250 ml Inj) 250 ml @ 42 mls/hr UNSCH PRN IV 10/28/16 02:15 (K-Phos) 2,000 mg UNSCH PRN PO/TUBE 10/28/16 02:15 (Brethine Inj) 1 mg UNSCH PRN SQ 10/30/16 12:15 (NS Flush) See Protocol UNSCH PRN IV FLUSH 10/30/16 16:00 (Heparin Central Flush) See Protocol DAILY IV FLUSH 10/31/16 09:00 11/07/16 08:05 (Heparin Central Flush) See Protocol UNSCH PRN IV FLUSH 10/30/16 16:00 (NS Flush) UNSCH PRN IV FLUSH 10/30/16 16:00 (Natty-Colace) 1 tab BID PO 11/01/16 09:00 11/07/16 08:06 (Dulcolax Supp) 10 mg DAILY PRN RECTAL 11/01/16 08:15 Dexamethasone Sodium Phosphate 4 mg 4 mg Q6HR IV PUSH 11/03/16 18:00 11/07/16 06:10 (Levophed Inj/NS 250 ml Inj) 254 ml @ 0 mls/hr TITRATE IV 11/05/16 14:30 11/06/16 18:42 (Melatonin) 5 mg HS PO 11/06/16 21:00 11/06/16 21:36 (SEROquel) 25 mg Q24H PRN PO 11/06/16 23:00 (Kyaw Talavera) Medical Decision Making MDM Remarks Impression: 1. Intracranial-intraventricular and subarachnoid hemorrhage. Anterior communicating artery aneurysm 2. Hypertension 3. Recent history of bronchitis POD # 10 s/p (): 1. ACOM aneurysm coiling CT brain w/slight improvement in ICH but now demonstrates new IVH Cerebral angiogram for spasmolytic therapy bilateral ICA with verapamil Moderately severe spasm in the left LEONARDO territory demonstrated CT brain w/stable ICH although worsening cerebral edema, no new blood , no midline shift TCD with decreases velocities but still suggestive of mild right middle cerebral artery vasospasm Sodium level WNL Hypokalemia, resolved Worsening of neurological status, probable vasospasm (Kyaw Talavera) Plan Plan Remarks Stat CT brain & possible interventional angiography for vasospasm Continue frequent neuro checks Continue critical care management per [employer] Consultant Daily TCD studies Will follow patient closely May need ventriculostomy Maintain SBP between 160 and 180 mm Hg due to vasospasms Vasopressors as needed to maintain SBP Decadron 4 mg IV q6h for cerebral edema 2% saline to keep sodium level at 155 for cerebral edema Primary management per [employer] Consultant (Kyaw Talavera) Attending Statement I have personally seen and examined the patient on 11/07/16. Pertinent documentation and study results have been reviewed by the undersigned. I have personally developed the treatment plan and performed medical decision making. Agree with findings, exam, and treatment plan as noted above. Discussed with nursing staff. Discussed with family in the room today She has remained awake and alert following earlier than when she became abruptly unresponsive. Neurologic exam is now stable. Continuing increased blood pressure for potential vasospasm. (Johnnie Cool MD ) Kyaw Talavera November 07, 2016 11:30 Johnnie Cool MD November 08, 2016 21:33
--- NOTE | 2016-11-07 11:52 | RADRPT ---
EXAM DATE/TIME: 11/07/2016 11:31 [facility] COMPARISON: CT BRAIN W/O CONTRAST, November 02, 2016, 16:38. INDICATIONS : Altered mental status. RADIATION DOSE: 56.35 CTDIvol (mGy) MEDICAL HISTORY : Stroke. SURGICAL HISTORY : Aneurysm clipping. ENCOUNTER: Initial ACUITY: 1 day PAIN SCALE: Non-responsive LOCATION: cranial TECHNIQUE: Multiple contiguous axial images were obtained of the head. Using automated exposure control and adj ustment of the mA and/or kV according to patient size, radiation dose was kept as low as reasonably a chievable to obtain optimal diagnostic quality images. FINDINGS: Compare November 02. Again seen are changes of aneurysm coiling in the anterior communicating artery. Prev iously described bifrontal parenchymal hemorrhage extending across midline at the anterior corpus cynthia losum is decreasing in size slightly. There is persistent surrounding edema. No significant midline s hift. There is a wedge-shaped area of decreased attenuation in the right cerebellar hemisphere likely an ev olving infarct. Paranasal sinuses clear except retention cyst in the left sphenoid. CONCLUSION: 1. Evolving infarct right cerebellar hemisphere. 2. Evolving bifrontal hemorrhage and surrounding edema without any mass effect or shift. 3. Status post coiling of anterior communicating artery aneurysm. Estrada Hall MD on November 07, 2016 at 11:45 Board Certified Radiologist. This report was verified electronically.
[2016-11-07] MEDS ORDERED: IOHEXOL 350 MG/ML 10 ML VIAL (for RAD DIAG) IV ONE (11:58)
--- NOTE | 2016-11-07 13:42 | RADRPT ---
EXAM DATE/TIME: 11/07/2016 11:38 [facility] COMPARISON: CTA BRAIN W 3D RECON, October 28, 2016, 0:02. CTA BRAIN W 3D RECON, October 29, 2016, 13:29. ANGIOGRAM, CER EBRAL W ARCH, October 31, 2016, 14:45. CT BRAIN W/O CONTRAST, November 07, 2016, 11:31. INDICATIONS : Altered mental status. IV CONTRAST: 74 cc Omnipaque 350 (iohexol) IV ; Cumulative dose for multiple exams. RADIATION DOSE: 13.86 CTDIvol (mGy) ; Combined studies MEDICAL HISTORY : Stroke. SURGICAL HISTORY : Intracranial aneurysm repair. ENCOUNTER: Initial ACUITY: 1 day PAIN SCALE: Non-responsive LOCATION: cranial TECHNIQUE: Volumetric scanning was performed using a multi-row detector CT scanner. The data was post processed with a variety of visualization algorithms including full volume maximum intensity projection, multi -planar sliding thin slab reformation, curved planar reformation, and surface rendering techniques. Using automated exposure control and adjustment of the mA and/or kV according to patient size, radiat ion dose was kept as low as reasonably achievable to obtain optimal diagnostic quality images. FINDINGS: Coil mass is again noted in the anterior communicating artery region. There is good symmetric filling of the middle cerebral vessels. Stable appearance of the anterior cerebral vessels in the posterior circulation remains intact and unremarkable. Symmetric filling of peripheral parenchymal vessels bila terally. CONCLUSION: No evidence of significant vasospasm at present Jose Roberto Monaco MD on November 07, 2016 at 13:35 Board Certified Radiologist. This report was verified electronically.
[2016-11-07 13:45] LABS: MEAN CELL VOLUME 90.7 FL (80.0-100.0); MEAN CORPUSCULAR HEMOGLOBIN 31.2 PG (27.0-34.0); MEAN CORPUSCULAR HGB CONC 34.4 % (32.0-36.0); PLATELET COUNT 490 TH/MM3 (150-450); RED BLOOD COUNT 4.08 MIL/MM3 (4.00-5.30); RED CELL DISTRIBUTION WIDTH 13.4 % (11.6-17.2); REVIEW FLAG FINAL; WHITE BLOOD COUNT 15.9 TH/MM3 (4.0-11.0)
--- NOTE | 2016-11-07 13:46 | RADRPT ---
EXAM DATE/TIME: 11/07/2016 11:38 [facility] COMPARISON: CTA CAROTID ARTERIES W 3D RECON, October 29, 2016, 13:29. INDICATIONS : Altered mental status; evaluate for vasospasm. IV CONTRAST: 74 cc Omnipaque 350 (iohexol) IV ; Cumulative dose for multiple exams. RADIATION DOSE: 13.86 CTDIvol (mGy) ; Combined studies MEDICAL HISTORY : Stroke. SURGICAL HISTORY : Intracranial aneurysm repair. ENCOUNTER: Initial ACUITY: 1 day PAIN SCALE: Non-responsive LOCATION: neck Elevated flow velocities and ICA/CCA ratios have been found to correlate with increased degrees of vessel stenosis, calculated as percentage of diameter relative to a normal segment of distal ICA/CCA. TECHNIQUE: Volumetric scanning was performed using a multirow detector CT scanner. The data was post processed with a variety of visualization algorithms including full-volume maximum intensity projection, multip lanar sliding thin-slab reformation, curved-planar reformation, and surface-rendering techniques. Us ing automated exposure control and adjustment of the mA and/or kV according to patient size, radiatio n dose was kept as low as reasonably achievable to obtain optimal diagnostic quality images. FINDINGS: AORTIC ARCH: There is a three-vessel origin of the great vessels from the aorta. No evidence of ostial narrowing. RIGHT CAROTID: The common carotid artery is intact. The carotid bulb has a normal configuration without ulceration o r narrowing. The internal carotid artery the is again notable for a small sessile area of aneurysmal dilatation just below the skull base without significant associated luminal stenosis. The external ca rotid artery is intact. LEFT CAROTID: The common carotid artery is intact. The carotid bulb has a normal configuration without ulceration or narrowing. The internal carotid artery lumen is smooth without stenosis. The external carotid ar spike is intact. VERTEBRALS: Patent bilaterally with left side slightly dominant CONCLUSION: Stable appearance of the carotids Jose Roberto Monaco MD on November 07, 2016 at 13:41 Board Certified Radiologist. This report was verified electronically.
[2016-11-07 14:04] LABS: BICARBONATE 32.2 MEQ/L (21.0-32.0); POTASSIUM 3.8 MEQ/L (3.5-5.1)
--- NOTE | 2016-11-07 14:39 | RADRPT ---
EXAM DATE/TIME: 11/07/2016 07:51 [facility] COMPARISON: US TRANSCRANIAL DOPPLER COMPLETE, November 06, 2016, 7:50. INDICATIONS : Subarachnoid hemorrhage. MEDICAL HISTORY : Hypertension. Stroke. Depression. Subarachnoid hemorrhage. SURGICAL HISTORY : Bilateral cataract. Aneurysm coil. ENCOUNTER: Initial ACUITY: 1 week PAIN SCORE: 0/10 LOCATION: Bilateral cranial Current Exam: November 07, 2016 [place] Ratio: Right: 3.4 Left: 1.9 [place] Ratio: Right: 1.2 Left: 1.0 Previous Exam: November 06, 2016 [place] Ratio: Right: 3.9 Left: 2.4 [place] Ratio: Right: 1.2 Left: 1.4 FINDINGS: Examination performed at bedside. Real-time ultrasound with the assistance of color and spectral Dop pler was utilized to evaluate the intracerebral circulation. Time-averaged maximal velocities are ca lculated in cm/s. The ratios are normal. There has been no significant change when compared to the prior exam. CONCLUSION: 1. No evidence of vasospasm Robin Muir MD on November 07, 2016 at 14:37 Board Certified Radiologist. This report was verified electronically.
--- NOTE | 2016-11-07 15:14 | HHI.CCPN ---
Subjective Remarks/Hospital Course 10/27: 66 year old female was found in her bathtub, fully clothed with no water on. She was unable to get up or talk. She was last seen to be normal yesterday. Patient follows commands appropriately however is unable to talk and cannot provide a history. Per documentation she was recently treated with antibiotics amoxicillin for bronchitis as well as started on blood pressure medications due to new onset of hypertension for about last [address] of the head revealed the ICH with IVH extension. The stat CTA revealed ACOM aneurysm 10/28: Resting in bed comfortably. Awake and alert. Following commands. Having speech difficulties. 10/29: Underwent ACOM aneurysm coiling on 10/28. This morning speech appears to have worsened. Patient is nonverbal. Following commands. Head CT shows decreasing size of hemorrhage, the CT is done with results pending. 10/30: Remains nonverbal. Awake and alert. Moves bilateral upper extremities and left lower extremity. Does not move right lower extremity. 10/31: Awake and alert, remains nonverbal. Does not move right lower extremity, moves bilateral upper extremities and left lower extremity. On Levophed to keep systolic blood pressure 160-180 11/01: Awake, alert, still having speech difficulty. On asking her name she repeats mind. Moves both upper extremities and left lower extremity. Underwent angiogram with injection of verapamil and bilateral internal carotid arteries by interventional radiology on 10/31 for vasospasm. 11/02: Awake, alert. Speech appears somewhat better. She can tell me her name. Following commands. Thinks she is at home. Moves both upper extremities and left lower extremity. Decreased movement in right lower extremity. 11/03: Awake, alert. Speech appears to be improving. She thinks she is at her niece's home. Following commands. Right lower extremity remains weak. 11/04: Awake, alert, speech improved. Knows she is at the hospital and knows she had a head bleed. On 2% saline. 11/05: became more agitated overnight last night. pulled out goel catheter. also , now on norepinephrine to maintain map goals. TCDs yesterday with moderate vasospasm and worse than the day prior. net euvolemic. 11/06: oob to chair. looks much better today. less agitated. oriented. TCDs with only mild vasospasm yesterday, today's pending. 11/07: this morning, roddy woods, participated in speech therapy, around 11am, had acute onset of altered mental status, not following commands, not talking. I evaluated the patient and she appears acutely aphasic. taken emergently for CT head/CTA head/neck which demonstrated stable hemorrhage and no evidence of vasospasm or thrombosis. taken back to room for emergent EEG. Norepinephrine started to maintain cerebral perfusion pressure. talked with neurosurgery who agrees with plan. after approximately 1 hour, patient returned to neurologic baseline. Objective Vital Signs Date Time Temp Pulse Resp B/P Pulse Ox O2 Delivery O2 Flow Rate FiO2 11/07/16 14:00 79 11/07/16 12:00 97.4 18 155/79 100 11/07/16 07:07 21 11/07/16 07:00 Room Air Intake and Output 11/06/16 11/06/16 11/07/16 08:00 16:00 00:00 Intake Total 1224 ml 1275 ml 388 ml Output Total 2150 ml 1650 ml 1600 ml Balance -926 ml -375 ml -1212 ml Result Diagram: 11/07/16 1325 11/07/16 1325 Imaging Last [address] 10/27/162214 Signed Impressions: Service Date/Time: Thursday, October 27, 2016 22:58 - CONCLUSION: Large intracerebral hemorrhage with subarachnoid hemorrhage as well. Nicola Childs MD Chest X-Ray 10/27/162214 Signed Impressions: Service Date/Time: Thursday, October 27, 2016 22:37 - CONCLUSION: No acute disease. Kemal Downey MD Objective Remarks GENERAL: middle-aged female, lying in bed, in distress on my exam due to her mental status change. SKIN: Warm and dry. HEAD: Normocephalic. EYES: No scleral icterus. No injection or drainage. NECK: trachea midline. No JVD CARDIOVASCULAR: Regular rate and rhythm. sinus by tele. RESPIRATORY: unlabored. equal chest rise. GASTROINTESTINAL: Abdomen soft, non-tender, nondistended. MUSCULOSKELETAL: No cyanosis, or edema. EXTREMITIES: No clubbing cyanosis or edema Neuro: Awake, does not follow commands. appears to have receptive and expressive aphasia. tracks with eyes. does appear to be strong in all 4 extremities. moves them spontaneously. briskly purposeful, localizes, withdraws. A/P Assessment and Plan Assessment: 66yF aneurysmal SAH PBD 10. s/p ACOM aneurysm coiling. significant clinical change and critically ill this morning. will f/u CT/CTA and EEG. would keep in ICU. continue vasopressors to maintain cerebral perfusion pressure. f/u TCDs. ICH - Due to ruptured ACom aneurysm Subarachnoid hemorrhage - Nagel Kennedy grade 2 - Mcmillan grade 4 -Status post ACOM aneurysm coiling - Levophed as needed to keep SBP 120-180 mmHg - Nimodipine. - Pravachol - TCD's daily to monitor for vasospasm. Underwent cerebral angiogram with intra -arterial verapamil and bilateral internal carotid arteries on 10/31 by interventional radiology. - Nsgy: Silvina following. - f/u CT/CTA and EEG. - frequent neuro checks. Hypertension -Hold antihypertensives - SBP goal 120-180 Tobacco use disorder - Monitor for withdrawal DVT GI prophylaxis - Teds SCDs - No pharmacological DVT prophylaxis due to ICH - Pepcid PICC line 10/31: keep while in spasm and on levo Goel: keep while in spasm. Dispo: remain in the ICU. this acute mental status change is worrisome. This patient remains critically ill with one or more organ systems which are or may become a threat to life. I have spent in excess of 65 minutes discontinuously in the care and management of this patient. This time is exclusive of procedures, and includes, but is not limited to, evaluation of the patient, review of the medical record, discussions with family, consultants, nursing staff, or respiratory therapy, and documentation in the medical record. Ck Sharma MD November 07, 2016 15:14
[2016-11-07] MEDS: MELATONIN 5 MG TAB PO SCH (20:11)
[2016-11-07] MEDS: QUEtiapine FUMARATE 25 MG TAB PO PRN (23:29)
[2016-11-08] VITALS (14 sets, daily range): BP systolic 115–160; BP diastolic 69–83; PULSE 55–76; RESP 15–24; TEMP 97.5–98.1; O2SAT 95–97
[2016-11-08 03:54] LABS: HEMATOCRIT 34.6 % (35.0-46.0); MEAN CELL VOLUME 90.5 FL (80.0-100.0); MEAN CORPUSCULAR HGB CONC 34.2 % (32.0-36.0); PLATELET COUNT 474 TH/MM3 (150-450); RED BLOOD COUNT 3.82 MIL/MM3 (4.00-5.30); RED CELL DISTRIBUTION WIDTH 13.7 % (11.6-17.2); REVIEW FLAG FINAL; WHITE BLOOD COUNT 12.6 TH/MM3 (4.0-11.0)
[2016-11-08] MEDS: CHLORHEXIDINE GLUCONATE 2 % 1 PACK (2 CLOTHS) TOP SCH (04:00)
[2016-11-08] MEDS: niMODipine 30 MG CAP PO SCH ×5 (04:25→21:54)
[2016-11-08 04:50] LABS: BICARBONATE 32.4 MEQ/L (21.0-32.0); POTASSIUM 4.1 MEQ/L (3.5-5.1)
[2016-11-08] MEDS: DEXAMETHASONE SOD PHOS 4 MG/ML VIAL IV PUSH SCH ×3 (06:55→17:54)
--- NOTE | 2016-11-08 07:40 | HHI.CCPN ---
Subjective Remarks/Hospital Course 10/27: 66 year old female was found in her bathtub, fully clothed with no water on. She was unable to get up or talk. She was last seen to be normal yesterday. Patient follows commands appropriately however is unable to talk and cannot provide a history. Per documentation she was recently treated with antibiotics amoxicillin for bronchitis as well as started on blood pressure medications due to new onset of hypertension for about last [address] of the head revealed the ICH with IVH extension. The stat CTA revealed ACOM aneurysm 10/28: Resting in bed comfortably. Awake and alert. Following commands. Having speech difficulties. 10/29: Underwent ACOM aneurysm coiling on 10/28. This morning speech appears to have worsened. Patient is nonverbal. Following commands. Head CT shows decreasing size of hemorrhage, the CT is done with results pending. 10/30: Remains nonverbal. Awake and alert. Moves bilateral upper extremities and left lower extremity. Does not move right lower extremity. 10/31: Awake and alert, remains nonverbal. Does not move right lower extremity, moves bilateral upper extremities and left lower extremity. On Levophed to keep systolic blood pressure 160-180 11/01: Awake, alert, still having speech difficulty. On asking her name she repeats mind. Moves both upper extremities and left lower extremity. Underwent angiogram with injection of verapamil and bilateral internal carotid arteries by interventional radiology on 10/31 for vasospasm. 11/02: Awake, alert. Speech appears somewhat better. She can tell me her name. Following commands. Thinks she is at home. Moves both upper extremities and left lower extremity. Decreased movement in right lower extremity. 11/03: Awake, alert. Speech appears to be improving. She thinks she is at her niece's home. Following commands. Right lower extremity remains weak. 11/04: Awake, alert, speech improved. Knows she is at the hospital and knows she had a head bleed. On 2% saline. 11/05: became more agitated overnight last night. pulled out goel catheter. also , now on norepinephrine to maintain map goals. TCDs yesterday with moderate vasospasm and worse than the day prior. net euvolemic. 11/06: oob to chair. looks much better today. less agitated. oriented. TCDs with only mild vasospasm yesterday, today's pending. 11/07: this morning, roddy woods, participated in speech therapy, around 11am, had acute onset of altered mental status, not following commands, not talking. I evaluated the patient and she appears acutely aphasic. taken emergently for CT head/CTA head/neck which demonstrated stable hemorrhage and no evidence of vasospasm or thrombosis. taken back to room for emergent EEG. Norepinephrine started to maintain cerebral perfusion pressure. talked with neurosurgery who agrees with plan. after approximately 1 hour, patient returned to neurologic baseline. 11/08: the neuro exam change yesterday has now completely resolved. u/a yesterday positive. on 2 mcg/min levophed. otherwise awake and alert today. Objective Vital Signs Date Time Temp Pulse Resp B/P Pulse Ox O2 Delivery O2 Flow Rate FiO2 11/08/16 06:00 67 11/08/16 04:00 98.1 20 140/71 97 11/07/16 19:00 Room Air 11/07/16 07:07 21 Intake and Output 11/07/16 11/07/16 11/08/16 08:00 16:00 00:00 Intake Total 240 ml 318 ml 335 ml Output Total 800 ml 550 ml 375 ml Balance -560 ml -232 ml -40 ml Result Diagram: 11/08/16 0340 11/08/16 0340 Imaging Last [address] 10/27/162214 Signed Impressions: Service Date/Time: Thursday, October 27, 2016 22:58 - CONCLUSION: Large intracerebral hemorrhage with subarachnoid hemorrhage as well. Nicola Childs MD Chest X-Ray 10/27/162214 Signed Impressions: Service Date/Time: Thursday, October 27, 2016 22:37 - CONCLUSION: No acute disease. Kemal Downey MD Objective Remarks GENERAL: middle-aged female, lying in bed, no distress this morning. SKIN: Warm and dry. HEAD: Normocephalic. EYES: No scleral icterus. No injection or drainage. NECK: trachea midline. No JVD CARDIOVASCULAR: Regular rate and rhythm. sinus by tele. RESPIRATORY: unlabored. equal chest rise. GASTROINTESTINAL: Abdomen soft, non-tender, nondistended. MUSCULOSKELETAL: No cyanosis, or edema. EXTREMITIES: No clubbing cyanosis or edema Neuro: Awake, follows commands x 4. oriented. back to her prior baseline from 2 days ago. A/P Assessment and Plan Assessment: 66yF aneurysmal SAH PBD 11. s/p ACOM aneurysm coiling. the neuro exam change from yesterday has resolved. still unclear etiology from that: CT/ CTA negative, EEG negative. still on very low dose vasopressors. + u/a. will start rocephin IV for presumed UTI and follow cultures. will try to wean vasopressor support and start midodrine to augment cerebral perfusion pressure. ICH - Due to ruptured ACom aneurysm Subarachnoid hemorrhage - Nagel Kennedy grade 2 - Mcmillan grade 4 -Status post ACOM aneurysm coiling - Levophed as needed to keep SBP 120-180 mmHg - Nimodipine. - Pravachol - TCD's daily to monitor for vasospasm. Underwent cerebral angiogram with intra -arterial verapamil and bilateral internal carotid arteries on 10/31 by interventional radiology. - Nsgy: Silvina following. - frequent neuro checks. Hypotension -Hold antihypertensives - SBP goal 110-180 - start midodrine 5mg po tid to augment cerebral perfusion pressure. wean levo as tolerated. - will start NS @ 50cc/hr Urinary Tract Infection - rocephin 1gm iv q24h - follow up cultures - daily cbc Tobacco use disorder - Monitor for withdrawal DVT GI prophylaxis - Teds SCDs - No pharmacological DVT prophylaxis due to ICH - Pepcid PICC line 10/31: will obtain 2 piv and d/c. Goel: keep today while on pressors. would ideally like to aggressively move to remove this. Dispo: remain in the ICU. Ck Sharma MD November 08, 2016 07:40
[2016-11-08] MEDS: FAMOTIDINE 20 MG/2 ML VIAL IV PUSH SCH ×2 (08:19→21:54)
[2016-11-08] MEDS: MIDODRINE 5 MG TAB PO SCH ×3 (08:19→16:37)
[2016-11-08] MEDS: cefTRIAXone INJ 1,000 MG in SODIUM CHLORIDE 0.9% INJ 100 ML IV SCH (08:19)
[2016-11-08] MEDS: PRAVASTATIN SOD 40 MG TAB PO SCH (08:22)
[2016-11-08] MEDS: SODIUM CHLOR 0.9% 1000 ML INJ 1,000 ML IV SCH (08:22)
[2016-11-08] MEDS: DOCUSATE SODIUM 50 MG/SENNA 8.6 MG TAB PO SCH ×2 (08:22→21:53)
--- NOTE | 2016-11-08 11:08 | RADRPT ---
EXAM DATE/TIME: 11/08/2016 07:31 [facility] COMPARISON: US TRANSCRANIAL DOPPLER COMPLETE, November 07, 2016, 7:51. INDICATIONS : Subarachnoid hemorrhage. MEDICAL HISTORY : Hypertension. Stroke. Depression. Subarachnoid hemorrhage. SURGICAL HISTORY : Bilateral cataract. Aneurysm coil. ENCOUNTER: Sequela ACUITY: 1 week PAIN SCORE: 0/10 LOCATION: cranial Current Exam: November 08, 2016 Lind[place]ard Ratio: Right: 3.1 Left: 1.6 De Jesus Ratio: Right: 0.82 Left: UTO Previous Exam: November 07, 2016 [place]ard Ratio: Right: 3.4 Left: 1.9 De Jesus Ratio: Right: 1.2 Left: 1.0 FINDINGS: Examination performed at bedside. Real-time ultrasound with the assistance of color and spectral Dop pler was utilized to evaluate the intracerebral circulation. Time-averaged maximal velocities are ca lculated in cm/s. The right M1 segment demonstrates mildly elevated mean flow velocity as well as very mildly elevated Lindegard ratio. Remaining velocities are within normal limits. CONCLUSION: 1. Very mildly elevated right MCA velocity and elevated Lindegard ratio may indicate mild vasospasm. 2. Remaining values are within normal limits. Jose Roberto Mejia MD on November 08, 2016 at 11:05 Board Certified Radiologist. This report was verified electronically.
--- NOTE | 2016-11-08 11:59 | MG ---
cc: GURINDER BONE Lab No: [id number] Date: Age: 66 Sex: F Race: Hyperventilation not performed. 66-year-old woman acutely unresponsive, was acting aphasic, severe headache. MEDICATIONS: Decadron. DESCRIPTION OF THE RECORDING: Diffuse 7 Hz rhythm is noted. Some 5 Hz slowing is at times seen bilaterally. Some bitemporal sharply contoured waves are seen; however, the patient is noted be clinically asleep and this could be a sleep variant. A high amplitude sharp slow wave is seen bilaterally, a little bit more prominent on the left than the right at epoch 77, and on the bipolar montage it looks with a sharp slow coming out of the occipital lobe posterior parietal head regions. Photic stimulation was performed without significant posterior driving. IMPRESSION: Some bilateral hemisphere sharply contoured waves could be consistent with increased tendency for epilepsy or seizure versus significant metabolic encephalopathy. Clinical correlation is needed. MD KIMBERLY Howard/SIA /11:37 AM /11:54 AM
--- NOTE | 2016-11-08 21:43 | HHI.NSPN ---
History Chief Complaint: no complaints Interval History No further episodes of altered mental status reported. Exam Results Vital Signs Date Time Temp Pulse Resp B/P Pulse Ox O2 Delivery O2 Flow Rate FiO2 11/08/16 18:00 76 11/08/16 16:00 97.7 19 131/78 97 11/08/16 08:42 21 11/08/16 07:00 Room Air Intake and Output 11/07/16 11/07/16 11/08/16 08:00 16:00 00:00 Intake Total 240 ml 318 ml 335 ml Output Total 800 ml 550 ml 375 ml Balance -560 ml -232 ml -40 ml Physical Examination GENERAL: Sitting up in a chair. Awake and alert. He appears comfortable HEENT: Normocephalic, atraumatic. CARDIOVASCULAR: Regular rhythm RESPIRATORY: Clear nonlabored GASTROINTESTINAL: Abdomen soft, non-tender, positive bowel sounds. MUSCULOSKELETAL: No significant extremity edema NEUROLOGICAL: Awake and alert, sitting up in chair Follow simple commands all extremities Says a few words with mostly appropriate responses to simple questions. Her speech is reasonably clear Moves left greater than right upper extremity with moderate strength. Remains with decreased coordination in the right upper extremity. Moves the lower extremities well in major flexion and extension groups Extraocular movements intact Facial motor movement symmetric Lab, Micro, Other Results Laboratory Tests Test 11/08/16 03:40 White Blood Count 12.6 TH/MM3 Red Blood Count 3.82 MIL/MM3 Hemoglobin 11.8 GM/DL Hematocrit 34.6 % Mean Corpuscular Volume 90.5 FL Mean Corpuscular Hemoglobin 31.0 PG Mean Corpuscular Hemoglobin 34.2 % Concent Red Cell Distribution Width 13.7 % Platelet Count 474 TH/MM3 Mean Platelet Volume 7.1 FL Sodium Level 142 MEQ/L Potassium Level 4.1 MEQ/L Chloride Level 104 MEQ/L Carbon Dioxide Level 32.4 MEQ/L Anion Gap 6 MEQ/L Blood Urea Nitrogen 18 MG/DL Creatinine 0.46 MG/DL Estimat Glomerular Filtration 135 ML/MIN Rate Random Glucose 123 MG/DL Calcium Level 8.6 MG/DL Medical Decision Making Impression and Plan Impression: 1. Neurologic exam continues to slowly improve. No clinical evidence of vasospasm. 11/08/16 TCD reveals persistent increased velocity right MCA distribution suggestive of mild vasospasm. The patient's EEG preliminary reports indicate some sharp waves both hemispheres suggestive of tendencies for epileptiform activity versus encephalopathy. Plan: Continue to keep systolic blood pressure 160-180 range. Wean Levophed as tolerated. On midodrine for blood pressure support. Wean Decadron Continue nimodipine Continuing therapy. Johnnie Cool MD November 08, 2016 21:43
[2016-11-08] MEDS: MELATONIN 5 MG TAB PO SCH (21:54)
[2016-11-09] VITALS (9 sets, daily range): BP systolic 119–151; BP diastolic 63–97; PULSE 60–84; RESP 12–18; TEMP 97.6–98.3; O2SAT 17–97
[2016-11-09] MEDS: niMODipine 30 MG CAP PO SCH ×6 (00:42→20:37)
[2016-11-09] MEDS: CHLORHEXIDINE GLUCONATE 2 % 1 PACK (2 CLOTHS) TOP SCH (04:00)
[2016-11-09] MEDS: SODIUM CHLOR 0.9% 1000 ML INJ 1,000 ML IV SCH ×2 (04:29→23:45)
[2016-11-09 04:39] LABS: HEMATOCRIT 35.9 % (35.0-46.0); MEAN CELL VOLUME 90.6 FL (80.0-100.0); MEAN CORPUSCULAR HEMOGLOBIN 31.2 PG (27.0-34.0); MEAN CORPUSCULAR HGB CONC 34.5 % (32.0-36.0); PLATELET COUNT 432 TH/MM3 (150-450); RED BLOOD COUNT 3.96 MIL/MM3 (4.00-5.30); RED CELL DISTRIBUTION WIDTH 13.5 % (11.6-17.2); REVIEW FLAG FINAL; WHITE BLOOD COUNT 13.7 TH/MM3 (4.0-11.0)
[2016-11-09 04:47] LABS: BICARBONATE 31.1 MEQ/L (21.0-32.0); POTASSIUM 3.7 MEQ/L (3.5-5.1)
[2016-11-09] MEDS: MIDODRINE 5 MG TAB PO SCH ×3 (07:07→16:42)
--- NOTE | 2016-11-09 07:10 | HHI.CCPN ---
Subjective Remarks/Hospital Course 10/27: 66 year old female was found in her bathtub, fully clothed with no water on. She was unable to get up or talk. She was last seen to be normal yesterday. Patient follows commands appropriately however is unable to talk and cannot provide a history. Per documentation she was recently treated with antibiotics amoxicillin for bronchitis as well as started on blood pressure medications due to new onset of hypertension for about last [address] of the head revealed the ICH with IVH extension. The stat CTA revealed ACOM aneurysm 10/28: Resting in bed comfortably. Awake and alert. Following commands. Having speech difficulties. 10/29: Underwent ACOM aneurysm coiling on 10/28. This morning speech appears to have worsened. Patient is nonverbal. Following commands. Head CT shows decreasing size of hemorrhage, the CT is done with results pending. 10/30: Remains nonverbal. Awake and alert. Moves bilateral upper extremities and left lower extremity. Does not move right lower extremity. 10/31: Awake and alert, remains nonverbal. Does not move right lower extremity, moves bilateral upper extremities and left lower extremity. On Levophed to keep systolic blood pressure 160-180 11/01: Awake, alert, still having speech difficulty. On asking her name she repeats mind. Moves both upper extremities and left lower extremity. Underwent angiogram with injection of verapamil and bilateral internal carotid arteries by interventional radiology on 10/31 for vasospasm. 11/02: Awake, alert. Speech appears somewhat better. She can tell me her name. Following commands. Thinks she is at home. Moves both upper extremities and left lower extremity. Decreased movement in right lower extremity. 11/03: Awake, alert. Speech appears to be improving. She thinks she is at her niece's home. Following commands. Right lower extremity remains weak. 11/04: Awake, alert, speech improved. Knows she is at the hospital and knows she had a head bleed. On 2% saline. 11/05: became more agitated overnight last night. pulled out goel catheter. also , now on norepinephrine to maintain map goals. TCDs yesterday with moderate vasospasm and worse than the day prior. net euvolemic. 11/06: oob to chair. looks much better today. less agitated. oriented. TCDs with only mild vasospasm yesterday, today's pending. 11/07: this morning, roddy woods, participated in speech therapy, around 11am, had acute onset of altered mental status, not following commands, not talking. I evaluated the patient and she appears acutely aphasic. taken emergently for CT head/CTA head/neck which demonstrated stable hemorrhage and no evidence of vasospasm or thrombosis. taken back to room for emergent EEG. Norepinephrine started to maintain cerebral perfusion pressure. talked with neurosurgery who agrees with plan. after approximately 1 hour, patient returned to neurologic baseline. 11/08: the neuro exam change yesterday has now completely resolved. u/a yesterday positive. on 2 mcg/min levophed. otherwise awake and alert today. 11/09: has remained neuro stable x 48h. urine growing GNRs. off vasopressors x 24h. mental status continues to improve. Objective Vital Signs Date Time Temp Pulse Resp B/P Pulse Ox O2 Delivery O2 Flow Rate FiO2 11/09/16 02:00 60 11/09/16 00:00 97.8 12 142/97 96 11/08/16 20:20 21 11/08/16 19:00 Room Air Intake and Output 11/08/16 11/08/16 11/09/16 08:00 16:00 00:00 Intake Total 293 ml 736 ml 681 ml Output Total 1250 ml 325 ml 550 ml Balance -957 ml 411 ml 131 ml Result Diagram: 11/09/16 0320 11/09/16 0320 Imaging Last [address] 10/27/162214 Signed Impressions: Service Date/Time: Thursday, October 27, 2016 22:58 - CONCLUSION: Large intracerebral hemorrhage with subarachnoid hemorrhage as well. Nicola Childs MD Chest X-Ray 10/27/162214 Signed Impressions: Service Date/Time: Thursday, October 27, 2016 22:37 - CONCLUSION: No acute disease. Kemal Downey MD Objective Remarks GENERAL: middle-aged female, lying in bed, no distress this morning. SKIN: Warm and dry. HEAD: Normocephalic. EYES: No scleral icterus. No injection or drainage. NECK: trachea midline. No JVD CARDIOVASCULAR: Regular rate and rhythm. sinus by tele. RESPIRATORY: unlabored. equal chest rise. GASTROINTESTINAL: Abdomen soft, non-tender, nondistended. MUSCULOSKELETAL: No cyanosis, or edema. EXTREMITIES: No clubbing cyanosis or edema Neuro: Awake, follows commands x 4. oriented. A/P Assessment and Plan Assessment: 66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 s/p ACOM aneurysm coiling. the neuro exam change from yesterday has resolved. still unclear etiology from that: CT/ CTA negative, EEG negative. still on very low dose vasopressors. + u/a. will start rocephin IV for presumed UTI and follow cultures. will try to wean vasopressor support and start midodrine to augment cerebral perfusion pressure. ICH - Due to ruptured ACom aneurysm Subarachnoid hemorrhage - Nagel Kennedy grade 2 - Mcmillan grade 4 -Status post ACOM aneurysm coiling - Nimodipine. - Pravachol - TCD's daily to monitor for vasospasm. Underwent cerebral angiogram with intra -arterial verapamil and bilateral internal carotid arteries on 10/31 by interventional radiology. - Nsgy: Silvina following. - frequent neuro checks. Hypotension -Hold antihypertensives - SBP goal 110-180 - midodrine 5mg po tid to augment cerebral perfusion pressure. may be able to wean this slowly as patient continues overall improvements. - continue NS @ 50cc/hr Urinary Tract Infection: growing GNRs, speciation to follow. - rocephin 1gm iv q24h - follow up cultures - daily cbc Tobacco use disorder - Monitor for withdrawal DVT GI prophylaxis - Teds SCDs - No pharmacological DVT prophylaxis due to ICH - Pepcid piv's Goel: d/c today. Dispo: transfer to floor with hospitalist following. Ck Sharma MD November 09, 2016 07:10
[2016-11-09] MEDS: cefTRIAXone INJ 1,000 MG in SODIUM CHLORIDE 0.9% INJ 100 ML IV SCH (08:08)
[2016-11-09] MEDS: FAMOTIDINE 20 MG/2 ML VIAL IV PUSH SCH ×2 (08:08→20:37)
[2016-11-09] MEDS: DEXAMETHASONE 4 MG TAB PO SCH ×2 (08:08→20:37)
[2016-11-09] MEDS: DOCUSATE SODIUM 50 MG/SENNA 8.6 MG TAB PO SCH ×2 (08:09→20:37)
[2016-11-09] MEDS: PRAVASTATIN SOD 40 MG TAB PO SCH (08:09)
--- NOTE | 2016-11-09 10:06 | RADRPT ---
EXAM DATE/TIME: 11/09/2016 08:23 [facility] COMPARISON: US TRANSCRANIAL DOPPLER COMPLETE, November 08, 2016, 7:31. INDICATIONS : Subarachnoid hemorrhage. MEDICAL HISTORY : Hypertension. Stroke. Depression. Subarachnoid hemorrhage. SURGICAL HISTORY : Bilateral cataract. Aneurysm coil. ENCOUNTER: Sequela ACUITY: 4-6 days PAIN SCORE: 0/10 LOCATION: Bilateral cranial Current Exam: November 09, 2016 Lind[place]ard Ratio: Right: 3.2 Left: 2.6 De Jesus Ratio: Right: 1.3 Left: UTO Previous Exam: November 08, 2016 [place] Ratio: Right: 3.1 Left: 1.6 De Jesus Ratio: Right: 0.8 Left: UTO FINDINGS: Examination performed at bedside. Real-time ultrasound with the assistance of color and spectral Dop pler was utilized to evaluate the intracerebral circulation. Time-averaged maximal velocities are ca lculated in cm/s. The right middle cerebral artery velocities have normalized. All of the other velocities and ratios a re within normal limits. CONCLUSION: The right middle cerebral artery mean flow velocities have normalized well the Lindegard ratio remain s mildly elevated suggesting physiologic changes. There are no definite findings to indicate vasospas mBrian Mejia MD on November 09, 2016 at 10:03 Board Certified Radiologist. This report was verified electronically.
--- NOTE | 2016-11-09 17:43 | HHI.NSPN ---
History Chief Complaint: no complaints Interval History No further episodes of altered mental status reported. Exam Results Vital Signs Date Time Temp Pulse Resp B/P Pulse Ox O2 Delivery O2 Flow Rate FiO2 11/09/16 16:24 98.2 67 17 135/85 97 11/09/16 08:00 Room Air 11/08/16 20:20 21 Intake and Output 11/08/16 11/08/16 11/08/16 07:59 15:59 23:59 Intake Total 293 ml 736 ml 681 ml Output Total 1250 ml 325 ml 550 ml Balance -957 ml 411 ml 131 ml Physical Examination GENERAL: In bed with head of bed elevated Awake and alert. He appears comfortable HEENT: Normocephalic, atraumatic. CARDIOVASCULAR: Regular rhythm RESPIRATORY: Clear nonlabored GASTROINTESTINAL: Abdomen soft, non-tender, positive bowel sounds. MUSCULOSKELETAL: No significant extremity edema NEUROLOGICAL: Mild lethargy. Arouses easily to voice Follow simple commands all extremities Says a few words with mostly appropriate responses to simple questions. Her speech is reasonably clear Moves left greater than right upper extremity with moderate strength. Remains with decreased coordination in the right upper extremity. Moves the lower extremities well in major flexion and extension groups Extraocular movements intact Facial motor movement symmetric Lab, Micro, Other Results Laboratory Tests Test 11/09/16 03:20 White Blood Count 13.7 TH/MM3 Red Blood Count 3.96 MIL/MM3 Hemoglobin 12.4 GM/DL Hematocrit 35.9 % Mean Corpuscular Volume 90.6 FL Mean Corpuscular Hemoglobin 31.2 PG Mean Corpuscular Hemoglobin 34.5 % Concent Red Cell Distribution Width 13.5 % Platelet Count 432 TH/MM3 Mean Platelet Volume 7.1 FL Sodium Level 139 MEQ/L Potassium Level 3.7 MEQ/L Chloride Level 100 MEQ/L Carbon Dioxide Level 31.1 MEQ/L Anion Gap 8 MEQ/L Blood Urea Nitrogen 15 MG/DL Creatinine 0.39 MG/DL Estimat Glomerular Filtration 163 ML/MIN Rate Random Glucose 103 MG/DL Calcium Level 8.3 MG/DL Medical Decision Making Impression and Plan Impression: 1. Neurologic exam continues to slowly improve. No clinical evidence of vasospasm. 11/08/16 TCD reveals persistent increased velocity right MCA distribution suggestive of mild vasospasm. The patient's EEG preliminary reports indicate some sharp waves both hemispheres suggestive of tendencies for epileptiform activity versus encephalopathy. Plan: May allow blood pressure to normalize On midodrine for blood pressure support. Wean Decadron Continue nimodipine Continuing therapy. Johnnie Cool MD November 09, 2016 17:43
[2016-11-09] MEDS: MELATONIN 5 MG TAB PO SCH (20:37)
[2016-11-10] VITALS: BP 151/88; PULSE 71; RESP 16; TEMP 97.3; O2SAT 97
[2016-11-10] MEDS: niMODipine 30 MG CAP PO SCH ×6 (00:01→21:02)
[2016-11-10] MEDS: CHLORHEXIDINE GLUCONATE 2 % 1 PACK (2 CLOTHS) TOP SCH (03:57)
[2016-11-10 04:00] VITALS: BP 153/88; PULSE 72; RESP 18; TEMP 97.8; O2SAT 95
[2016-11-10] MEDS: MIDODRINE 5 MG TAB PO SCH ×3 (06:09→17:00)
[2016-11-10] MEDS: cefTRIAXone INJ 1,000 MG in SODIUM CHLORIDE 0.9% INJ 100 ML IV SCH (08:01)
[2016-11-10] MEDS: PRAVASTATIN SOD 40 MG TAB PO SCH (08:02)
[2016-11-10] MEDS: FAMOTIDINE 20 MG/2 ML VIAL IV PUSH SCH (08:02)
[2016-11-10] MEDS: DEXAMETHASONE 4 MG TAB PO SCH ×2 (08:02→21:02)
[2016-11-10] MEDS: DOCUSATE SODIUM 50 MG/SENNA 8.6 MG TAB PO SCH ×2 (08:02→21:02)
[2016-11-10 08:48] VITALS: BP 175/93; PULSE 69; RESP 16; TEMP 96.4; O2SAT 95
--- NOTE | 2016-11-10 12:19 | RADRPT ---
EXAM DATE/TIME: 11/10/2016 09:06 [place] COMPARISON: US TRANSCRANIAL DOPPLER COMPLETE, November 09, 2016, 8:23. INDICATIONS : Subarachnoid hemorrhage. MEDICAL HISTORY : Hypertension. Stroke. Depression. Subarachnoid hemorrhage. SURGICAL HISTORY : Bilateral cataract. Aneurysm coil. ENCOUNTER: Sequela ACUITY: 2 weeks PAIN SCORE: 0/10 LOCATION: Bilateral cranial Current Exam: November 10, 2016 [place] Ratio: Right: 3.1 Left: 2.2 [place] Ratio: Right: 2.3 Left: UTO Previous Exam: November 09, 2016 [place] Ratio: Right: 3.2 Left: 2.6 [place] Ratio: Right: 1.3 Left: UTO FINDINGS: Examination performed at bedside. Real-time ultrasound with the assistance of color and spectral Dop pler was utilized to evaluate the intracerebral circulation. Time-averaged maximal velocities are ca lculated in cm/s. All mean flow velocities are within normal limits. The right [place] ratio remains mildly elevated. CONCLUSION: There are no findings to indicate vasospasm. Jose Roberto Mejia MD on November 10, 2016 at 12:16 Board Certified Radiologist. This report was verified electronically.
--- NOTE | 2016-11-10 12:52 | HHI.PR ---
Subjective Remarks Follow up for intracranial bleeding UTI. Patient sitting comfortably in a chair. Patient stated that she has right- sided weakness but that has improved. She has no complaints. Denies any headache, nausea/ vomiting, or any other new focal neurological deficit. Objective Vitals Vital Signs Date Time Temp Pulse Resp B/P Pulse Ox O2 Delivery O2 Flow Rate FiO2 11/10/16 08:48 96.4 69 16 175/93 95 11/10/16 08:26 Room Air 11/10/16 04:00 97.8 72 18 153/88 95 11/10/16 00:00 97.3 71 16 151/88 97 11/09/16 20:15 Room Air 11/09/16 20:00 98.3 73 16 125/76 95 11/09/16 16:24 98.2 67 17 135/85 97 I/O 11/09/16 11/09/16 11/09/16 11/10/16 11/10/16 11/10/16 07:00 15:00 23:00 07:00 15:00 23:00 Intake Total 578 ml 678 ml 840 ml Output Total 1800 ml 600 ml Balance -1222 ml 78 ml 840 ml Intake Oral 200 ml 440 ml 240 ml IV Total 378 ml 238 ml 600 ml Output Urine Total 1800 ml 600 ml # Voids 1 1 Result Diagram: 11/09/16 0320 11/09/16 032 Objective Remarks GENERAL: in NAD CARDIOVASCULAR: Regular rate and rhythm without murmurs, gallops, or rubs. RESPIRATORY: Breath sounds equal bilaterally. No accessory muscle use. GASTROINTESTINAL: Abdomen soft, non-tender, nondistended. MUSCULOSKELETAL: Right upper strength 5 out of 5, right lower strength 3-4 out of 5. Left upper extremity and lower she restraint is 5 out of 5. NEURO: CN 2-12 intact. Medications and IVs Current Medications Sodium Chloride 2 ml 2 ml UNSCH PRN IVF FLUSH AFTER USING IV ACCESS; Start at 22:15; Stop 11/01/16 at 08:11; Status DC Sodium Chloride (NS 1000 ml Inj) 1,000 ml @ 1,000 mls/hr Q1H IV Last administered on 10/27/16t 23:26; Start 10/27/16 at 22:15; Stop 10/27/16 at 23:14 ; Status DC Ondansetron HCl (Zofran Inj) 4 mg ONCE ONCE IV PUSH Last administered on 22:55; Start 10/27/16 at 23:00; Stop 10/27/16 at 23:01; Status DC Ondansetron HCl 4 mg 4 mg STK-MED ONCE .ROUTE ; Start 10/27/16 at 22:52; Stop at 22:53; Status DC Nicardipine HCl 25 mg/Sodium Chloride 260 ml @ 0 mls/hr TITRATE IV Last administered on 10/27/16 23:26; Start 10/27/16 at 23:15; Stop 10/27/16 at 23:37 ; Status DC Sodium Chloride (NS 1000 ml Inj) 1,000 ml @ 84 mls/hr [id number] IV Last administered on 11/01/16 05:27; Start 10/27/16 at 23:30; Stop 11/01/16 at 08:08 ; Status DC Sodium Chloride (NS Flush) 2 ml UNSCH PRN .XX FLUSH AFTER USING IV ACCESS; Start 10/27/16 at 23:30 Sodium Chloride (NS Flush) 2 ml BID .XX Last administered on 11/06/16 08:32; Start 10/28/16 at 09:00; Stop 11/06/16 at 10:31; Status DC Acetaminophen (Tylenol) 650 mg Q6H PRN PO PAIN 1-10 AND/OR FEVER >101F; Start 10/27/16 at 23:30 Morphine Sulfate (Morphine Inj) 2 mg Q2H PRN IV PAIN SCALE 6 TO 10; Start 10/27 at 23:30 Famotidine (Pepcid Inj) 20 mg Q12HR IV PUSH Last administered on 11/10/16 08: 02; Start 10/28/16 at 09:00; Stop 11/10/16 at 12:40; Status DC Ondansetron HCl (Zofran Inj) 4 mg Q6H PRN IV NAUSEA OR VOMITING; Start at 23:30 Metoclopramide HCl (Reglan Inj) 10 mg Q6H PRN IV NAUSEA OR VOMITING Last administered on 10/28/16 00:47; Start 10/27/16 at 23:30 Docusate Sodium (Colace) 100 mg BID PO Last administered on 10/31/16 20:37; Start 10/28/16 at 09:00; Stop 11/01/16 at 08:10; Status DC Albuterol/ Ipratropium (Duoneb Neb) 1 ampule Q2HR NEB PRN INH WHEEZING; Start 10/27/16 at 23:30 Miscellaneous Information 1 [id number] XX Last administered on 10/27/16 23:30; Start 10/27/16 at 23:30 Chlorhexidine Gluconate (Chlorhexidine 2% Cloth) Taper DAILY@04 TOP Last administered on 11/04/16 04:00; Start 10/28/16 at 04:00; Stop 10/24/17 at 03:59 Chlorhexidine Gluconate (Chlorhexidine 2% Cloth) 3 pack UNSCH PRN TOP HYGIENIC CARE; Start 10/27/16 at 23:30 Hydralazine HCl 20 mg 20 mg Q4H PRN IV PUSH SBP>170, DBP>110 Last administered on 11/03/16 22:38; Start 10/27/16 at 23:45 Nicardipine HCl/ Sodium Chloride (Cardene Inj/NS 250 ml Inj) 260 ml @ 0 mls/hr TITRATE IV Last administered on 10/27/16 23:43; Start 10/27/16 at 23:45; Stop 10/28/16 at 16:42; Status DC Iohexol (Omnipaque 350 Inj) 80 ml STK-MED ONCE IV Last administered on 00:05; Start 10/28/16 at 00:05; Stop 10/28/16 at 00:06; Status DC Nimodipine (Nimotop) 60 mg Q4HR PO Last administered on 11/10/16 12:37; Start 10/28/16 at 01:00 Nimodipine (Nimotop) 60 mg Q4HR PO ; Start 10/28/16 at 04:00; Stop 10/28/16 at 04:00; Status DC Pravastatin Sodium 40 mg 40 mg DAILY PO Last administered on 11/10/16 08:02; Start 10/28/16 at 09:00 Potassium Chloride 100 ml @ 50 mls/hr Q2H PRN IV For Potassium 2.8 - 3.2 mEq/L ; Start 10/28/16 at 02:15; Stop 11/09/16 at 11:33; Status DC Potassium Chloride (KCl 20 Meq Premix Inj) 100 ml @ 50 mls/hr Q2H PRN IV For Potassium 2.8 - 3.2 mEq/L Last administered on 11/01/16t 10:20; Start 10/28/16 at 02:15; Stop 11/09/16 at 11:33; Status DC Potassium Bicarb/ Potassium Chloride 50 meq 50 meq UNSCH PRN PO For Potassium 3.3 - 3.5 mEq/L; Start 10/28/16 at 02:15; Stop 11/09/16 at 11:33; Status DC Potassium Chloride 100 ml @ 25 mls/hr UNSCH PRN IV For Potassium 3.3 - 3.5 mEq /L; Start 10/28/16 at 02:15; Stop 11/09/16 at 11:33; Status DC Potassium Chloride 100 ml @ 50 mls/hr Q2H PRN IV For Potassium 3.3 - 3.5 mEq/ L Last administered on 10/31/16t 23:28; Start 10/28/16 at 02:15; Stop 11/09/16 at 11:33; Status DC Magnesium Sulfate/ Sodium Chloride (Magnesium Sulfate Inj/NS Inj) 100 ml @ 50 mls/hr UNSCH PRN IV For Magnesium 0.9 - 1.1 mg/dL; Start 10/28/16 at 02:15; Stop 11/09/16 at 11:33; Status DC Magnesium Oxide 800 mg 800 mg UNSCH PRN PO For Magnesium 1.2 - 1.6 mg/dL; Start 10/28/16 at 02:15; Stop 11/09/16 at 11:33; Status DC Magnesium Sulfate/ Sodium Chloride (Magnesium Sulfate Inj/NS Inj) 100 ml @ 50 mls/hr UNSCH PRN IV For Magnesium 1.2 - 1.6 mg/dL; Start 10/28/16 at 02:15; Stop 11/09/16 at 11:33; Status DC Potassium Phosphate 2000 mg 2,000 mg Q4H PRN PO For Phosphorus < 2.5 mg/dL; Start 10/28/16 at 02:15; Stop 11/09/16 at 11:33; Status DC Sodium Phosphate/ Sodium Chloride (Sodium Phosphate Inj/NS 250 ml Inj) 250 ml @ 42 mls/hr UNSCH PRN IV For Phosphorus < 2.5 mg/dL; Start 10/28/16 at 02:15; Stop 11/09/16 at 11:33; Status DC Potassium Phosphate (K-Phos) 2,000 mg UNSCH PRN PO/TUBE SEE LABEL COMMENTS; Start 10/28/16 at 02:15; Stop 11/09/16 at 11:33; Status DC Verapamil HCl (Isoptin Inj) 10 mg STK-MED ONCE .ROUTE ; Start 10/28/16 at 08:51 ; Stop 10/28/16 at 08:52; Status DC Verapamil HCl (Isoptin Inj) 35 mg STK-MED ONCE .ROUTE ; Start 10/28/16 at 08:57 ; Stop 10/28/16 at 08:58; Status DC Verapamil HCl 5 mg 5 mg STK-MED ONCE .ROUTE ; Start 10/28/16 at 08:58; Stop at 08:59; Status DC Cefazolin Sodium/ Dextrose 50 ml @ As Directed STK-MED ONCE .ROUTE ; Start 10/28 at 09:30; Stop 10/28/16 at 09:31; Status DC Sodium Chloride (NS 1000 ml Inj) 1,000 ml @ 100 mls/hr Q10H IV Last administered on 10/28/16t 13:03; Start 10/28/16 at 11:28; Stop 10/28/16 at 21:27 ; Status DC Heparin Sodium (Porcine) (Heparin Inj) 10,000 units STK-MED ONCE .ROUTE ; Start 10/28/16 at 11:30; Stop 10/28/16 at 11:31; Status DC Iodixanol (VISIPAQUE 320 INJ ([employer] Manager)) 62 ml STK-MED ONCE I-ARTERIAL Last administered on 10/28/16t 11:49; Start 10/28/16 at 11:49; Stop 10/28/16 at 11:50 ; Status DC Fentanyl Citrate (fentaNYL INJ) 250 mcg STK-MED ONCE .ROUTE ; Start 10/28/16 at 12:15; Stop 10/28/16 at 12:16; Status DC Miscellaneous Information ALL NURSING DEPARTME... UNSCH PRN .XX SEE LABEL COMMENTS; Start 10/28/16 at 14:00; Stop 10/29/16 at 13:59; Status DC Nicardipine HCl/ Sodium Chloride (Cardene Inj/NS 250 ml Inj) 260 ml @ 0 mls/hr TITRATE IV ; Start 10/28/16 at 16:45; Stop 11/06/16 at 10:31; Status DC Epinephrine HCl (EPINEPHrine (1:10,000) INJ) 1 mg STK-MED ONCE .ROUTE ; Start at 03:08; Stop 10/29/16 at 03:09; Status DC Atropine Sulfate (Atropine Inj) 1 mg STK-MED ONCE .ROUTE ; Start 10/29/16 at 03: 08; Stop 10/29/16 at 03:09; Status DC Lidocaine HCl (Xylocaine 2% Inj) 100 mg STK-MED ONCE .ROUTE ; Start 10/29/16 at 03:08; Stop 10/29/16 at 03:09; Status DC Iohexol (Omnipaque 350 Inj) 50 ml STK-MED ONCE IV Last administered on 13:39; Start 10/29/16 at 13:39; Stop 10/29/16 at 13:40; Status DC Propofol (Diprivan 200 Mg/20 ml Inj) 20 mg STK-MED ONCE IV ; Start 10/28/16 at 08:29; Stop 10/30/16 at 08:33; Status DC Ephedrine Sulfate (ePHEDrine/NS 25 MG/5 ML SYR) 5 mg STK-MED ONCE IV ; Start at 08:29; Stop 10/30/16 at 08:33; Status DC Phenylephrine HCl (Neosynephrine/ NS 1000 Mcg/10ml Syr) 2 mcg STK-MED ONCE IV ; Start 10/28/16 at 08:29; Stop 10/30/16 at 08:33; Status DC Phenylephrine HCl (Neosynephrine/ NS 1000 Mcg/10ml Syr) 4 mcg STK-MED ONCE IV ; Start 10/28/16 at 08:29; Stop 10/30/16 at 08:33; Status DC Sodium Chloride 1000 ml 1,000 ml STK-MED ONCE IV ; Start 10/28/16 at 08:29; Stop 10/30/16 at 08:33; Status DC Norepinephrine Bitartrate (Levophed-Dextrose Drip) 250 ml @ 0 mls/hr TITRATE IV Last administered on 11/05/16 14:12; Start 10/30/16 at 12:15; Stop 11/05/16 at 14:28; Status DC Terbutaline Sulfate (Brethine Inj) 1 mg UNSCH PRN SQ For Extravasation; Start 10/30/16 at 12:15; Stop 11/09/16 at 07:10; Status DC Sodium Chloride (NS Flush) See Protocol DAILY IV FLUSH Last administered on 08:32; Start 10/31/16 at 09:00; Stop 11/06/16 at 10:31; Status DC Sodium Chloride (NS Flush) See Protocol UNSCH PRN IV FLUSH SEE PROTOCOL TABLE; Start 10/30/16 at 16:00 Heparin Sodium (Porcine) (Heparin Central Flush) See Protocol DAILY IV FLUSH Last administered on 11/07/16 08:05; Start 10/31/16 at 09:00; Stop 11/09/16 at 07:10; Status DC Heparin Sodium (Porcine) (Heparin Central Flush) See Protocol UNSCH PRN IV FLUSH SEE PROTOCOL TABLE; Start 10/30/16 at 16:00; Stop 11/09/16 at 07:10; Status DC Sodium Chloride (NS Flush) UNSCH PRN IV FLUSH SEE PROTOCOL TABLE; Start at 16:00 Midazolam HCl (Versed Inj) 5 mg STK-MED ONCE .ROUTE Last administered on 15:30; Start 10/31/16 at 14:23; Stop 10/31/16 at 14:24; Status DC Fentanyl Citrate (fentaNYL INJ) 250 mcg STK-MED ONCE .ROUTE Last administered on 10/31/16 15:30; Start 10/31/16 at 14:23; Stop 10/31/16 at 14:24; Status DC Verapamil HCl (Isoptin Inj) 10 mg STK-MED ONCE .ROUTE Last administered on 10/31 14:23; Start 10/31/16 at 14:23; Stop 10/31/16 at 14:24; Status DC Verapamil HCl (Isoptin Inj) 10 mg STK-MED ONCE .ROUTE Last administered on 10/31 15:00; Start 10/31/16 at 14:24; Stop 10/31/16 at 14:25; Status DC Iodixanol 30 ml 30 ml STK-MED ONCE I-ARTERIAL Last administered on 10/31/16 15 :00; Start 10/31/16 at 15:35; Stop 10/31/16 at 15:36; Status DC Potassium Chloride/Sodium Chloride (NS + KCl 40 Meq Inj) 1,000 ml @ 84 mls/hr [id number] IV Last administered on 11/06/16 02:32; Start 11/01/16 at 08:15; Stop 11/06/16 at 10:31; Status DC Senna/Docusate Sodium (Natty-Colace) 1 tab BID PO Last administered on 08:02; Start 11/01/16 at 09:00 Bisacodyl (Dulcolax Supp) 10 mg DAILY PRN RECTAL CONSTIPATION; Start 11/01/16 at 08:15 Dexamethasone Sodium Phosphate 4 mg 4 mg Q6HR IV PUSH Last administered on 11/08 17:54; Start 11/03/16 at 18:00; Stop 11/08/16 at 21:37; Status DC Sodium Chloride 188 meq/Sodium Chloride 1,047 ml @ 20 mls/hr Q24H IV Last administered on 11/05/16 16:11; Start 11/03/16 at 16:00; Stop 11/06/16 at 10:32 ; Status DC Norepinephrine Bitartrate/Sodium Chloride (Levophed Inj/NS 250 ml Inj) 254 ml @ 0 mls/hr TITRATE IV Last administered on 11/06/16 18:42; Start 11/05/16 at 14: 30; Stop 11/09/16 at 07:10; Status DC Melatonin (Melatonin) 5 mg HS PO Last administered on 11/09/16 20:37; Start at 21:00 Quetiapine Fumarate 25 mg 25 mg Q24H PRN PO if not asleep by 2300 Last administered on 11/07/16 23:29; Start 11/06/16 at 23:00 Magnesium Sulfate/ Dextrose (Magnesium Sulfate 1 Gm Premix) 100 ml @ As Directed STK-MED ONCE .ROUTE ; Start 11/07/16 at 09:24; Stop 11/07/16 at 09:25; Status DC Atropine Sulfate (Atropine Inj) 1 mg STK-MED ONCE .ROUTE ; Start 11/07/16 at 09: 24; Stop 11/07/16 at 09:25; Status DC Epinephrine HCl 1 mg 1 mg STK-MED ONCE .ROUTE ; Start 11/07/16 at 09:25; Stop at 09:26; Status DC Sodium Bicarbonate (Sodium Bicarbonate 8.4% Inj) 50 ml @ As Directed STK-MED ONCE .ROUTE ; Start 11/07/16 at 09:25; Stop 11/07/16 at 09:26; Status DC Calcium Chloride (Calcium Chloride Inj) 1 gm STK-MED ONCE .ROUTE ; Start at 09:26; Stop 11/07/16 at 09:27; Status DC Iohexol 74 ml 74 ml STK-MED ONCE IV Last administered on 11/07/16 11:58; Start 11/07/16 at 11:58; Stop 11/07/16 at 11:59; Status DC Ceftriaxone Sodium/Sodium Chloride (Rocephin Inj/NS Inj) 100 ml @ 200 mls/hr Q24H IV Last administered on 11/10/16 08:01; Start 11/08/16 at 08:00 Midodrine 5 mg 5 mg TID@07,12,17 PO Last administered on 11/10/16 12:36; Start 11/08/16 at 07:35 Sodium Chloride (NS 1000 ml Inj) 1,000 ml @ 50 mls/hr Q20H IV Last administered on 11/09/16 04:29; Start 11/08/16 at 07:45 Dexamethasone (Decadron) 4 mg Q12HR PO Last administered on 11/10/16 08:02; Start 11/09/16 at 09:00 Famotidine (Pepcid) 20 mg BID PO ; Start 11/10/16 at 21:00 A/P Assessment and Plan Assessment: 66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 s/p ACOM aneurysm coiling. the neuro exam change from yesterday has resolved. still unclear etiology from that: CT/ CTA negative, EEG negative. still on very low dose vasopressors. + u/a. will start rocephin IV for presumed UTI and follow cultures. will try to wean vasopressor support and start midodrine to augment cerebral perfusion pressure. ICH - Due to ruptured ACom aneurysm Subarachnoid hemorrhage -Status post ACOM aneurysm coiling - Nimodipine. - Pravachol - TCD's daily to monitor for vasospasm. Underwent cerebral angiogram with intra -arterial verapamil and bilateral internal carotid arteries on 10/31 by interventional radiology. - Nsgy: Silvina following. - frequent neuro checks. -Per neurologist weaning Decadron. Hypotension -Resolved. - SBP goal 110-180 -On midodrine for blood pressure support. - continue NS @ 50cc/hr Urinary Tract Infection: growing GNRs, speciation to follow. - rocephin 1gm iv q24h - Cultures growing Escherichia coli sensitive to Rocephin. - daily cbc Tobacco use disorder - Monitor for withdrawal DVT GI prophylaxis - Teds SCDs - No pharmacological DVT prophylaxis due to ICH - Brittney Brewer MD November 10, 2016 12:52 Dispo: transfer to floor with hospitalist following. Brittney Harper MD November 10, 2016 12:52
[2016-11-10 12:56] LABS: HEMATOCRIT 38.7 % (35.0-46.0); MEAN CELL VOLUME 91.8 FL (80.0-100.0); MEAN CORPUSCULAR HEMOGLOBIN 31.1 PG (27.0-34.0); MEAN CORPUSCULAR HGB CONC 33.9 % (32.0-36.0); PLATELET COUNT 492 TH/MM3 (150-450); RED BLOOD COUNT 4.21 MIL/MM3 (4.00-5.30); RED CELL DISTRIBUTION WIDTH 13.8 % (11.6-17.2); REVIEW FLAG FINAL; WHITE BLOOD COUNT 13.8 TH/MM3 (4.0-11.0)
[2016-11-10 13:01] VITALS: BP 150/98; PULSE 84; RESP 16; TEMP 96.4; O2SAT 95
[2016-11-10 13:20] LABS: BICARBONATE 33.3 MEQ/L (21.0-32.0); POTASSIUM 3.8 MEQ/L (3.5-5.1)
[2016-11-10 16:24] VITALS: BP 161/93; PULSE 64; RESP 16; TEMP 97.8; O2SAT 95
[2016-11-10 20:00] VITALS: BP 158/91; PULSE 75; RESP 28; TEMP 97.2; O2SAT 96
[2016-11-10] MEDS: SODIUM CHLOR 0.9% 1000 ML INJ 1,000 ML IV SCH (21:02)
[2016-11-10] MEDS: MELATONIN 5 MG TAB PO SCH (21:02)
[2016-11-10] MEDS: FAMOTIDINE 20 MG TAB PO SCH (21:03)
[2016-11-11] VITALS (7 sets, daily range): BP systolic 126–184; BP diastolic 74–97; PULSE 53–83; RESP 16–22; TEMP 96.9–98.9; O2SAT 94–98
[2016-11-11] MEDS: niMODipine 30 MG CAP PO SCH ×7 (00:07→23:38)
[2016-11-11] MEDS: CHLORHEXIDINE GLUCONATE 2 % 1 PACK (2 CLOTHS) TOP SCH (03:09)
[2016-11-11] MEDS: MIDODRINE 5 MG TAB PO SCH (06:16)
[2016-11-11 07:10] LABS: HEMATOCRIT 35.4 % (35.0-46.0); MEAN CELL VOLUME 91.1 FL (80.0-100.0); MEAN CORPUSCULAR HEMOGLOBIN 31.7 PG (27.0-34.0); MEAN CORPUSCULAR HGB CONC 34.7 % (32.0-36.0); PLATELET COUNT 447 TH/MM3 (150-450); RED BLOOD COUNT 3.88 MIL/MM3 (4.00-5.30); REVIEW FLAG FINAL; WHITE BLOOD COUNT 10.5 TH/MM3 (4.0-11.0)
[2016-11-11 07:22] LABS: BICARBONATE 29.8 MEQ/L (21.0-32.0); POTASSIUM 3.7 MEQ/L (3.5-5.1)
[2016-11-11] MEDS: DOCUSATE SODIUM 50 MG/SENNA 8.6 MG TAB PO SCH ×2 (09:10→20:24)
[2016-11-11] MEDS: DEXAMETHASONE 4 MG TAB PO SCH ×2 (09:10→20:24)
[2016-11-11] MEDS: PRAVASTATIN SOD 40 MG TAB PO SCH (09:10)
[2016-11-11] MEDS: cefTRIAXone INJ 1,000 MG in SODIUM CHLORIDE 0.9% INJ 100 ML IV SCH (09:10)
[2016-11-11] MEDS: FAMOTIDINE 20 MG TAB PO SCH ×2 (09:10→20:24)
--- NOTE | 2016-11-11 12:51 | HHI.PR ---
Subjective Remarks Follow-up for subarachnoid hemorrhage. Patient has no complaints. Systolic Blood pressure has been in the 150s to 160s. No acute events. Objective Vitals Vital Signs Date Time Temp Pulse Resp B/P Pulse Ox O2 Delivery O2 Flow Rate FiO2 11/11/16 08:00 98.2 70 17 155/91 97 11/11/16 06:15 158/91 11/11/16 04:48 95 Room Air 11/11/16 04:00 98.9 64 16 184/97 97 11/11/16 00:00 98.5 72 22 157/97 95 11/10/16 20:00 97.2 75 28 158/91 96 11/10/16 16:24 97.8 64 16 161/93 95 11/10/16 13:01 96.4 84 16 150/98 95 I/O 11/10/16 11/10/16 11/10/16 11/11/16 11/11/16 11/11/16 06:59 14:59 22:59 06:59 14:59 22:59 Intake Total 840 ml 840 ml 589 ml Balance 840 ml 840 ml 589 ml Intake Oral 240 ml 840 ml IV Total 600 ml 589 ml # Voids 1 1 4 5 Result Diagram: 11/11/1662511/11/16625 Objective Remarks GENERAL: in NAD CARDIOVASCULAR: Regular rate and rhythm without murmurs, gallops, or rubs. RESPIRATORY: Breath sounds equal bilaterally. No accessory muscle use. GASTROINTESTINAL: Abdomen soft, non-tender, nondistended. MUSCULOSKELETAL: Right upper strength 5 out of 5, right lower strength 3-4 out of 5. Left upper extremity and lower she restraint is 5 out of 5. NEURO: CN 2-12 intact. Medications and IVs Current Medications Sodium Chloride 2 ml 2 ml UNSCH PRN IVF FLUSH AFTER USING IV ACCESS; Start at 22:15; Stop 11/01/16 at 08:11; Status DC Sodium Chloride (NS 1000 ml Inj) 1,000 ml @ 1,000 mls/hr Q1H IV Last administered on 10/27/16t 23:26; Start 10/27/16 at 22:15; Stop 10/27/16 at 23:14 ; Status DC Ondansetron HCl (Zofran Inj) 4 mg ONCE ONCE IV PUSH Last administered on 22:55; Start 10/27/16 at 23:00; Stop 10/27/16 at 23:01; Status DC Ondansetron HCl 4 mg 4 mg STK-MED ONCE .ROUTE ; Start 10/27/16 at 22:52; Stop at 22:53; Status DC Nicardipine HCl 25 mg/Sodium Chloride 260 ml @ 0 mls/hr TITRATE IV Last administered on 10/27/16 23:26; Start 10/27/16 at 23:15; Stop 10/27/16 at 23:37 ; Status DC Sodium Chloride (NS 1000 ml Inj) 1,000 ml @ 84 mls/hr [id number] IV Last administered on 11/01/16 05:27; Start 10/27/16 at 23:30; Stop 11/01/16 at 08:08 ; Status DC Sodium Chloride (NS Flush) 2 ml UNSCH PRN .XX FLUSH AFTER USING IV ACCESS; Start 10/27/16 at 23:30 Sodium Chloride (NS Flush) 2 ml BID .XX Last administered on 11/06/16 08:32; Start 10/28/16 at 09:00; Stop 11/06/16 at 10:31; Status DC Acetaminophen (Tylenol) 650 mg Q6H PRN PO PAIN 1-10 AND/OR FEVER >101F; Start 10/27/16 at 23:30 Morphine Sulfate (Morphine Inj) 2 mg Q2H PRN IV PAIN SCALE 6 TO 10; Start 10/27 at 23:30 Famotidine (Pepcid Inj) 20 mg Q12HR IV PUSH Last administered on 11/10/16 08: 02; Start 10/28/16 at 09:00; Stop 11/10/16 at 12:40; Status DC Ondansetron HCl (Zofran Inj) 4 mg Q6H PRN IV NAUSEA OR VOMITING; Start at 23:30 Metoclopramide HCl (Reglan Inj) 10 mg Q6H PRN IV NAUSEA OR VOMITING Last administered on 10/28/16 00:47; Start 10/27/16 at 23:30 Docusate Sodium (Colace) 100 mg BID PO Last administered on 10/31/16 20:37; Start 10/28/16 at 09:00; Stop 11/01/16 at 08:10; Status DC Albuterol/ Ipratropium (Duoneb Neb) 1 ampule Q2HR NEB PRN INH WHEEZING; Start 10/27/16 at 23:30 Miscellaneous Information 1 [id number] XX Last administered on 10/27/16 23:30; Start 10/27/16 at 23:30 Chlorhexidine Gluconate (Chlorhexidine 2% Cloth) Taper DAILY@04 TOP Last administered on 11/04/16 04:00; Start 10/28/16 at 04:00; Stop 10/24/17 at 03:59 Chlorhexidine Gluconate (Chlorhexidine 2% Cloth) 3 pack UNSCH PRN TOP HYGIENIC CARE; Start 10/27/16 at 23:30 Hydralazine HCl 20 mg 20 mg Q4H PRN IV PUSH SBP>170, DBP>110 Last administered on 11/03/16 22:38; Start 10/27/16 at 23:45 Nicardipine HCl/ Sodium Chloride (Cardene Inj/NS 250 ml Inj) 260 ml @ 0 mls/hr TITRATE IV Last administered on 10/27/16 23:43; Start 10/27/16 at 23:45; Stop 10/28/16 at 16:42; Status DC Iohexol (Omnipaque 350 Inj) 80 ml STK-MED ONCE IV Last administered on 00:05; Start 10/28/16 at 00:05; Stop 10/28/16 at 00:06; Status DC Nimodipine (Nimotop) 60 mg Q4HR PO Last administered on 11/11/16 09:11; Start 10/28/16 at 01:00 Nimodipine (Nimotop) 60 mg Q4HR PO ; Start 10/28/16 at 04:00; Stop 10/28/16 at 04:00; Status DC Pravastatin Sodium 40 mg 40 mg DAILY PO Last administered on 11/11/16 09:10; Start 10/28/16 at 09:00 Potassium Chloride 100 ml @ 50 mls/hr Q2H PRN IV For Potassium 2.8 - 3.2 mEq/L ; Start 10/28/16 at 02:15; Stop 11/09/16 at 11:33; Status DC Potassium Chloride (KCl 20 Meq Premix Inj) 100 ml @ 50 mls/hr Q2H PRN IV For Potassium 2.8 - 3.2 mEq/L Last administered on 11/01/16t 10:20; Start 10/28/16 at 02:15; Stop 11/09/16 at 11:33; Status DC Potassium Bicarb/ Potassium Chloride 50 meq 50 meq UNSCH PRN PO For Potassium 3.3 - 3.5 mEq/L; Start 10/28/16 at 02:15; Stop 11/09/16 at 11:33; Status DC Potassium Chloride 100 ml @ 25 mls/hr UNSCH PRN IV For Potassium 3.3 - 3.5 mEq /L; Start 10/28/16 at 02:15; Stop 11/09/16 at 11:33; Status DC Potassium Chloride 100 ml @ 50 mls/hr Q2H PRN IV For Potassium 3.3 - 3.5 mEq/ L Last administered on 10/31/16t 23:28; Start 10/28/16 at 02:15; Stop 11/09/16 at 11:33; Status DC Magnesium Sulfate/ Sodium Chloride (Magnesium Sulfate Inj/NS Inj) 100 ml @ 50 mls/hr UNSCH PRN IV For Magnesium 0.9 - 1.1 mg/dL; Start 10/28/16 at 02:15; Stop 11/09/16 at 11:33; Status DC Magnesium Oxide 800 mg 800 mg UNSCH PRN PO For Magnesium 1.2 - 1.6 mg/dL; Start 10/28/16 at 02:15; Stop 11/09/16 at 11:33; Status DC Magnesium Sulfate/ Sodium Chloride (Magnesium Sulfate Inj/NS Inj) 100 ml @ 50 mls/hr UNSCH PRN IV For Magnesium 1.2 - 1.6 mg/dL; Start 10/28/16 at 02:15; Stop 11/09/16 at 11:33; Status DC Potassium Phosphate 2000 mg 2,000 mg Q4H PRN PO For Phosphorus < 2.5 mg/dL; Start 10/28/16 at 02:15; Stop 11/09/16 at 11:33; Status DC Sodium Phosphate/ Sodium Chloride (Sodium Phosphate Inj/NS 250 ml Inj) 250 ml @ 42 mls/hr UNSCH PRN IV For Phosphorus < 2.5 mg/dL; Start 10/28/16 at 02:15; Stop 11/09/16 at 11:33; Status DC Potassium Phosphate (K-Phos) 2,000 mg UNSCH PRN PO/TUBE SEE LABEL COMMENTS; Start 10/28/16 at 02:15; Stop 11/09/16 at 11:33; Status DC Verapamil HCl (Isoptin Inj) 10 mg STK-MED ONCE .ROUTE ; Start 10/28/16 at 08:51 ; Stop 10/28/16 at 08:52; Status DC Verapamil HCl (Isoptin Inj) 35 mg STK-MED ONCE .ROUTE ; Start 10/28/16 at 08:57 ; Stop 10/28/16 at 08:58; Status DC Verapamil HCl 5 mg 5 mg STK-MED ONCE .ROUTE ; Start 10/28/16 at 08:58; Stop at 08:59; Status DC Cefazolin Sodium/ Dextrose 50 ml @ As Directed STK-MED ONCE .ROUTE ; Start 10/28 at 09:30; Stop 10/28/16 at 09:31; Status DC Sodium Chloride (NS 1000 ml Inj) 1,000 ml @ 100 mls/hr Q10H IV Last administered on 10/28/16t 13:03; Start 10/28/16 at 11:28; Stop 10/28/16 at 21:27 ; Status DC Heparin Sodium (Porcine) (Heparin Inj) 10,000 units STK-MED ONCE .ROUTE ; Start 10/28/16 at 11:30; Stop 10/28/16 at 11:31; Status DC Iodixanol (VISIPAQUE 320 INJ (Physical Education Instructor)) 62 ml STK-MED ONCE I-ARTERIAL Last administered on 10/28/16t 11:49; Start 10/28/16 at 11:49; Stop 10/28/16 at 11:50 ; Status DC Fentanyl Citrate (fentaNYL INJ) 250 mcg STK-MED ONCE .ROUTE ; Start 10/28/16 at 12:15; Stop 10/28/16 at 12:16; Status DC Miscellaneous Information ALL NURSING DEPARTME... UNSCH PRN .XX SEE LABEL COMMENTS; Start 10/28/16 at 14:00; Stop 10/29/16 at 13:59; Status DC Nicardipine HCl/ Sodium Chloride (Cardene Inj/NS 250 ml Inj) 260 ml @ 0 mls/hr TITRATE IV ; Start 10/28/16 at 16:45; Stop 11/06/16 at 10:31; Status DC Epinephrine HCl (EPINEPHrine (1:10,000) INJ) 1 mg STK-MED ONCE .ROUTE ; Start at 03:08; Stop 10/29/16 at 03:09; Status DC Atropine Sulfate (Atropine Inj) 1 mg STK-MED ONCE .ROUTE ; Start 10/29/16 at 03: 08; Stop 10/29/16 at 03:09; Status DC Lidocaine HCl (Xylocaine 2% Inj) 100 mg STK-MED ONCE .ROUTE ; Start 10/29/16 at 03:08; Stop 10/29/16 at 03:09; Status DC Iohexol (Omnipaque 350 Inj) 50 ml STK-MED ONCE IV Last administered on t 13:39; Start 10/29/16 at 13:39; Stop 10/29/16 at 13:40; Status DC Propofol (Diprivan 200 Mg/20 ml Inj) 20 mg STK-MED ONCE IV ; Start 10/28/16 at 08:29; Stop 10/30/16 at 08:33; Status DC Ephedrine Sulfate (ePHEDrine/NS 25 MG/5 ML SYR) 5 mg STK-MED ONCE IV ; Start at 08:29; Stop 10/30/16 at 08:33; Status DC Phenylephrine HCl (Neosynephrine/ NS 1000 Mcg/10ml Syr) 2 mcg STK-MED ONCE IV ; Start 10/28/16 at 08:29; Stop 10/30/16 at 08:33; Status DC Phenylephrine HCl (Neosynephrine/ NS 1000 Mcg/10ml Syr) 4 mcg STK-MED ONCE IV ; Start 10/28/16 at 08:29; Stop 10/30/16 at 08:33; Status DC Sodium Chloride 1000 ml 1,000 ml STK-MED ONCE IV ; Start 10/28/16 at 08:29; Stop 10/30/16 at 08:33; Status DC Norepinephrine Bitartrate (Levophed-Dextrose Drip) 250 ml @ 0 mls/hr TITRATE IV Last administered on 11/05/16t 14:12; Start 10/30/16 at 12:15; Stop 11/05/16 at 14:28; Status DC Terbutaline Sulfate (Brethine Inj) 1 mg UNSCH PRN SQ For Extravasation; Start 10/30/16 at 12:15; Stop 11/09/16 at 07:10; Status DC Sodium Chloride (NS Flush) See Protocol DAILY IV FLUSH Last administered on 08:32; Start 10/31/16 at 09:00; Stop 11/06/16 at 10:31; Status DC Sodium Chloride (NS Flush) See Protocol UNSCH PRN IV FLUSH SEE PROTOCOL TABLE; Start 10/30/16 at 16:00 Heparin Sodium (Porcine) (Heparin Central Flush) See Protocol DAILY IV FLUSH Last administered on 11/07/16 08:05; Start 10/31/16 at 09:00; Stop 11/09/16 at 07:10; Status DC Heparin Sodium (Porcine) (Heparin Central Flush) See Protocol UNSCH PRN IV FLUSH SEE PROTOCOL TABLE; Start 10/30/16 at 16:00; Stop 11/09/16 at 07:10; Status DC Sodium Chloride (NS Flush) UNSCH PRN IV FLUSH SEE PROTOCOL TABLE; Start at 16:00 Midazolam HCl (Versed Inj) 5 mg STK-MED ONCE .ROUTE Last administered on 15:30; Start 10/31/16 at 14:23; Stop 10/31/16 at 14:24; Status DC Fentanyl Citrate (fentaNYL INJ) 250 mcg STK-MED ONCE .ROUTE Last administered on 10/31/16 15:30; Start 10/31/16 at 14:23; Stop 10/31/16 at 14:24; Status DC Verapamil HCl (Isoptin Inj) 10 mg STK-MED ONCE .ROUTE Last administered on 10/31 14:23; Start 10/31/16 at 14:23; Stop 10/31/16 at 14:24; Status DC Verapamil HCl (Isoptin Inj) 10 mg STK-MED ONCE .ROUTE Last administered on 10/31 15:00; Start 10/31/16 at 14:24; Stop 10/31/16 at 14:25; Status DC Iodixanol 30 ml 30 ml STK-MED ONCE I-ARTERIAL Last administered on 10/31/16 15 :00; Start 10/31/16 at 15:35; Stop 10/31/16 at 15:36; Status DC Potassium Chloride/Sodium Chloride (NS + KCl 40 Meq Inj) 1,000 ml @ 84 mls/hr [id number] IV Last administered on 11/06/16 02:32; Start 11/01/16 at 08:15; Stop 11/06/16 at 10:31; Status DC Senna/Docusate Sodium (Natty-Colace) 1 tab BID PO Last administered on 09:10; Start 11/01/16 at 09:00 Bisacodyl (Dulcolax Supp) 10 mg DAILY PRN RECTAL CONSTIPATION; Start 11/01/16 at 08:15 Dexamethasone Sodium Phosphate 4 mg 4 mg Q6HR IV PUSH Last administered on 11/08 17:54; Start 11/03/16 at 18:00; Stop 11/08/16 at 21:37; Status DC Sodium Chloride 188 meq/Sodium Chloride 1,047 ml @ 20 mls/hr Q24H IV Last administered on 11/05/16 16:11; Start 11/03/16 at 16:00; Stop 11/06/16 at 10:32 ; Status DC Norepinephrine Bitartrate/Sodium Chloride (Levophed Inj/NS 250 ml Inj) 254 ml @ 0 mls/hr TITRATE IV Last administered on 11/06/16 18:42; Start 11/05/16 at 14: 30; Stop 11/09/16 at 07:10; Status DC Melatonin (Melatonin) 5 mg HS PO Last administered on 11/10/16 21:02; Start at 21:00 Quetiapine Fumarate 25 mg 25 mg Q24H PRN PO if not asleep by 2300 Last administered on 11/07/16 23:29; Start 11/06/16 at 23:00 Magnesium Sulfate/ Dextrose (Magnesium Sulfate 1 Gm Premix) 100 ml @ As Directed STK-MED ONCE .ROUTE ; Start 11/07/16 at 09:24; Stop 11/07/16 at 09:25; Status DC Atropine Sulfate (Atropine Inj) 1 mg STK-MED ONCE .ROUTE ; Start 11/07/16 at 09: 24; Stop 11/07/16 at 09:25; Status DC Epinephrine HCl 1 mg 1 mg STK-MED ONCE .ROUTE ; Start 11/07/16 at 09:25; Stop at 09:26; Status DC Sodium Bicarbonate (Sodium Bicarbonate 8.4% Inj) 50 ml @ As Directed STK-MED ONCE .ROUTE ; Start 11/07/16 at 09:25; Stop 11/07/16 at 09:26; Status DC Calcium Chloride (Calcium Chloride Inj) 1 gm STK-MED ONCE .ROUTE ; Start at 09:26; Stop 11/07/16 at 09:27; Status DC Iohexol 74 ml 74 ml STK-MED ONCE IV Last administered on 11/07/16 11:58; Start 11/07/16 at 11:58; Stop 11/07/16 at 11:59; Status DC Ceftriaxone Sodium/Sodium Chloride (Rocephin Inj/NS Inj) 100 ml @ 200 mls/hr Q24H IV Last administered on 11/11/16 09:10; Start 11/08/16 at 08:00 Midodrine 5 mg 5 mg TID@07,12,17 PO Last administered on 11/10/16 17:00; Start 11/08/16 at 07:35; Stop 11/11/16 at 08:19; Status DC Sodium Chloride (NS 1000 ml Inj) 1,000 ml @ 50 mls/hr Q20H IV Last administered on 11/10/16 21:02; Start 11/08/16 at 07:45 Dexamethasone (Decadron) 4 mg Q12HR PO Last administered on 11/11/16 09:10; Start 11/09/16 at 09:00 Famotidine (Pepcid) 20 mg BID PO Last administered on 11/11/16 09:10; Start at 21:00 A/P Assessment and Plan Assessment: 66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 s/p ACOM aneurysm coiling. the neuro exam change from yesterday has resolved. still unclear etiology from that: CT/ CTA negative, EEG negative. still on very low dose vasopressors. + u/a. will start rocephin IV for presumed UTI and follow cultures. will try to wean vasopressor support and start midodrine to augment cerebral perfusion pressure. ICH - Due to ruptured ACom aneurysm Subarachnoid hemorrhage -Status post ACOM aneurysm coiling - Nimodipine. - Pravachol - TCD's daily to monitor for vasospasm. Underwent cerebral angiogram with intra -arterial verapamil and bilateral internal carotid arteries on 10/31 by interventional radiology. - Nsgy: Silvina following. - frequent neuro checks. -Per neurologist weaning Decadron. Hypotension -Resolved. - Per neurosurgeon can normalize blood pressure. Will DC Midodrine since patient blood pressure is running in the 150s to 160s. -On midodrine for blood pressure support. -DC IV fluids since patient is taking good by mouth intake. Urinary Tract Infection: growing GNRs, speciation to follow. - rocephin 1gm iv q24h - Cultures growing Escherichia coli sensitive to Rocephin. - daily cbc Tobacco use disorder - Monitor for withdrawal DVT GI prophylaxis - Teds SCDs - No pharmacological DVT prophylaxis due to ICH - Pepcid Discharge Planning Once cleared by neurosurgeon patient can be discharged to rehabilitation. Brittney Harper MD November 11, 2016 12:51
--- NOTE | 2016-11-11 13:33 | RADRPT ---
EXAM DATE/TIME: 11/11/2016 07:56 [facility] COMPARISON: US TRANSCRANIAL DOPPLER COMPLETE, November 10, 2016, 9:06. INDICATIONS : Subarachnoid hemorrhage. MEDICAL HISTORY : Hypertension. Stroke. Depression. Subarachnoid hemorrhage. SURGICAL HISTORY : Bialteral cataract. Aneurysm coil. ENCOUNTER: [facility] ACUITY: 2 weeks PAIN SCORE: 1/10 LOCATION: Bilateral cranial Current Exam: November 11, 2016 [place] Ratio: Right: 1.7 Left: 2.1 [place] Ratio: Right: 0.77 Left: 0.74 Previous Exam: November 10, 2016 [place] Ratio: Right: 3.2 Left: 2.2 [place] Ratio: Right: 2.3 Left: UTO FINDINGS: Examination performed at bedside. Real-time ultrasound with the assistance of color and spectral Dop pler was utilized to evaluate the intracerebral circulation. Time-averaged maximal velocities are ca lculated in cm/s. All mean flow velocities are within normal limits. The previously mildly elevated right glenoid ratio has normalized. CONCLUSION: No evidence for vasospasm Joseph Vela MD on November 11, 2016 at 13:29 Board Certified Radiologist. This report was verified electronically.
--- NOTE | 2016-11-11 15:03 | HHI.NSPN ---
(Kyaw Talavera) History Chief Complaint: no complaints (Kyaw Talavera) Interval History 10/27: 66-year-old female in relatively good health until 3 or 4 weeks ago when she developed bronchitis. She was treated with a course of amoxicillin which did not help the symptoms. She was given another antibiotic which she finished approximately 3 days ago. She has continued to have a nonproductive cough. No definite fevers or chills. She has had a frontal headache for 2 or 3 weeks. Also some neck pain and stiffness. She was diagnosed with hypertension in the past 2 or 3 months and has been on medication. She does have a long history of smoking cigarettes. She ate dinner with her friend last evening. Her brother called her approximately 10:00 this morning on the telephone, and there was no answer. Her friend found the patient lying in her bathtub at home, significant speech difficulty with no definite seizure activity. Patient indicated to her friend that she had been lying in the bathtub all day long, unable to get up. 10/28: The patient went down for an aneurysm coiling in Interventional Radiology this morning. This afternoon when seen the patient is asleep but awakens to verbal stimuli. She remains nonverbal but shook her head "no" when asked if she had a headache or any numbness or tingling. She did follow some commands. 10/29: When the patient was seen with Dr Cool late yesterday afternoon the patient was able to say her name. This morning prior to being seen Nursing reports that the is not verbalising although she was yesterday. When seen the patient was not able to verbalise but she did nod her head appropriately. She nodded "yes" to having a headache. The patient did have a transcranial doppler study this morning, the report is pending. 10/30: The patient remains nonverbal this morning and makes no attempt to shake her head "no" when asked if she is able to speak. She is spontaneously moving the left side. A TCD is being done when seen. Yesterday a repeat CT brain demonstrated some improvement in the ICH and a new small IVH. A TCD & CTA demonstrated a right middle cerebral artery vasospasm. A minimal left anterior temporal artery vasospasm was noted on the CTA only. 10/31: The patient is having a TCD done when seen this morning. She remains nonverbal and makes no attempt to speak or stick her tongue out. She does follow commands to wiggle the toes and assistant principal with the left hand. Yesterday the TCD was unremarkable for any vasospasm. 11/01: The patient is awake and alert this morning. Ultrasound is finishing the TCD. She is nonverbal but does try to speak. She is able to stick her tongue out and has varying degrees of movement to the extremities. She went to Interventional Radiology yesterday afternoon for a cerebral angiogram which demonstrated a moderately severe spasm in the left LEONARDO territory. She received verapamil injected into both ICAs. 11/02: The patient is awake & alert this morning. She is feeding herself breakfast. She is able to verbalise but is confused. The TCD yesterday demonstrated a persistent right MCA territory vasospasm with mild improvement. 11/03: The patient is awake & alert, feeding herself breakfast. She has no complaints although her verbal response and nodding of her head are not necessarily consistent. A repeat CT brain this morning demonstrated a stable bleed although worsening cerebral edema. The TCD study yesterday demonstrated normalised ratios. 11/04: The patient is awake & alert this morning and working with Physical Therapy when seen. She is verbalising to questions. She lifts the right lower extremity off the bed when asked. 11/05: The patient is awake & alert when seen this afternoon. She is verbalising and following commands. She is able to move all extremities on her own. She had a TCD done this morning. 11/06: The patient is seen standing at the edge of the bed with a walker and Physical Therapy. She ambulates with an unsteady gait to the chair and sits down. She is unable to keep her balance without support. Once in the chair she states she feels "extremely good. 11/07: As I was going to see patient the Primary Special Education Teacher was entering the room. The patient had just become non-responsive while sitting in the chair. She was still breathing and had a pulse. After being placed in the bed and the head raised she did open her eyes and was noted to be pill rolling with the right thumb & index finger. She was also repetitively sticking her tongue partially out but was nonverbal. She was not following commands. 11/11: The patient is awake & alert, visiting with a friend and watching TV. She had no complaints when seen. (Kyaw Talavera) System Review Comments CONSTITUTIONAL: Patient denies any fever or chills. CARDIOVASCULAR: Patient denies any chest pain, palpitations or irregular heartbeat. RESPIRATORY: Patient denies any shortness of breath or productive cough. GASTROINTESTINAL: Patient denies any abdominal pain, nausea or vomiting. MUSCULOSKELETAL: Patient denies any arm or leg pain. NEUROLOGICAL: Patient denies any headache, dizziness, numbness or tingling. ( Kyaw Talavera) Exam Results Vital Signs Date Time Temp Pulse Resp B/P Pulse Ox O2 Delivery O2 Flow Rate FiO2 11/11/16 12:00 98.6 74 17 160/92 94 11/11/16 04:48 Room Air 11/08/16 20:20 21 Intake and Output 11/10/16 11/10/16 11/11/16 08:00 16:00 00:00 Intake Total 840 ml 840 ml Balance 840 ml 840 ml (Kyaw Talavera) Physical Examination GENERAL: Awake & alert sitting in chair, NAD. HEENT: Normocephalic, atraumatic. CARDIOVASCULAR: S1S2 w/RRR w/o M/G/R, radial 2+ bilaterally, cap refill < 2 sec , no pedal edema. RESPIRATORY: CTAB w/o W/R/R, equal excursion, non-laboured, on RA. GASTROINTESTINAL: Abdomen soft, non-tender, positive bowel sounds. MUSCULOSKELETAL: WALSH. No evident deformity, discolouration or clubbing. NEUROLOGICAL: AAOx3 Speech clear & appropriate Follows simple commands Motor strength LUE 5/5, RUE & LLE 4+/5, RLE 4/5 Sensation to light touch grossly intact all extremities (Kyaw Talavera) Lab, Micro, Other Results Allergies Coded Allergies Type Severity Reaction Last Updated Verified No Known Allergies 10/27/16 No Recent Impressions Transcranial Doppler Study Complete 11/11/16 0000 Signed Impressions: Service Date/Time: Friday, November 11, 2016 07:56 - CONCLUSION: No evidence for vasospasm Joseph Vela MD Transcranial Doppler Study Complete 11/10/16 0000 Signed Impressions: Service Date/Time: Thursday, November 10, 2016 09:06 - CONCLUSION: There are no findings to indicate vasospasm. Jose Roberto Mejia MD Transcranial Doppler Study Complete 11/09/16 0000 Signed Impressions: Service Date/Time: Wednesday, November 09, 2016 08:23 - CONCLUSION: The right middle cerebral artery mean flow velocities have normalized well the Lindegard ratio remains mildly elevated suggesting physiologic changes. There are no definite findings to indicate vasospasm. Jose Roberto Mejia MD //////// 06:00 18:00 06:00 18:00 06:00 18:00 Intake Total 1259 ml 678 ml 240 ml 1200 ml 240 ml 1094 ml Output Total 2350 ml 600 ml Balance -1091 ml 78 ml 240 ml 1200 ml 240 ml 1094 ml Intake Oral 450 ml 440 ml 240 ml 600 ml 240 ml 100 ml IV Total 809 ml 238 ml 600 ml 994 ml Output Urine Total 2350 ml 600 ml # Voids 5 6 Laboratory Tests Test 11/09/16 11/10/16 11/11/16 03:20 12:08 06:26 White Blood Count 13.7 TH/MM3 13.8 TH/MM3 10.5 TH/MM3 Red Blood Count 3.96 MIL/MM3 4.21 MIL/MM3 3.88 MIL/MM3 Hemoglobin 12.4 GM/DL 13.1 GM/DL 12.3 GM/DL Hematocrit 35.9 % 38.7 % 35.4 % Mean Corpuscular Volume 90.6 FL 91.8 FL 91.1 FL Mean Corpuscular Hemoglobin 31.2 PG 31.1 PG 31.7 PG Mean Corpuscular Hemoglobin 34.5 % 33.9 % 34.7 % Concent Red Cell Distribution Width 13.5 % 13.8 % 14.0 % Platelet Count 432 TH/MM3 492 TH/MM3 447 TH/MM3 Mean Platelet Volume 7.1 FL 7.3 FL 7.0 FL Sodium Level 139 MEQ/L 139 MEQ/L 140 MEQ/L Potassium Level 3.7 MEQ/L 3.8 MEQ/L 3.7 MEQ/L Chloride Level 100 MEQ/L 100 MEQ/L 104 MEQ/L Carbon Dioxide Level 31.1 MEQ/L 33.3 MEQ/L 29.8 MEQ/L Anion Gap 8 MEQ/L 6 MEQ/L 6 MEQ/L Blood Urea Nitrogen 15 MG/DL 17 MG/DL 15 MG/DL Creatinine 0.39 MG/DL 0.45 MG/DL 0.33 MG/DL Estimat Glomerular Filtration 163 ML/MIN 139 ML/MIN 198 ML/MIN Rate Random Glucose 103 MG/DL 101 MG/DL 103 MG/DL Calcium Level 8.3 MG/DL 8.6 MG/DL 8.3 MG/DL Vital Signs Date Time Temp Pulse Resp B/P Pulse Ox O2 Delivery O2 Flow Rate FiO2 11/11/16 12:00 98.6 74 17 160/92 94 11/11/16 08:00 98.2 70 17 155/91 97 11/11/16 06:15 158/91 11/11/16 04:48 95 Room Air 11/11/16 04:00 98.9 64 16 184/97 97 11/11/16 00:00 98.5 72 22 157/97 95 11/10/16 20:00 97.2 75 28 158/91 96 11/10/16 16:24 97.8 64 16 161/93 95 11/10/16 13:01 96.4 84 16 150/98 95 11/10/16 08:48 96.4 69 16 175/93 95 11/10/16 08:26 Room Air 11/10/16 04:00 97.8 72 18 153/88 95 11/10/16 00:00 97.3 71 16 151/88 97 11/09/16 20:15 Room Air 11/09/16 20:00 98.3 73 16 125/76 95 11/09/16 16:24 98.2 67 17 135/85 97 11/09/16 11:58 97.6 68 18 151/85 97 11/09/16 10:00 84 11/09/16 08:00 97.9 63 14 119/63 11/09/16 08:00 63 11/09/16 08:00 97 Room Air 11/09/16 06:00 66 11/09/16 04:00 70 11/09/16 04:00 97.6 71 145/76 17 11/09/16 02:00 60 11/09/16 00:00 97.8 75 12 142/97 96 11/09/16 00:00 72 11/08/16 22:00 70 11/08/16 20:20 97 21 11/08/16 20:00 97.5 72 18 145/82 11/08/16 20:00 97.8 72 20 148/83 96 11/08/16 20:00 76 11/08/16 19:00 98 Room Air 11/08/16 18:00 76 11/08/16 16:00 74 11/08/16 16:00 97.7 74 19 131/78 97 (Kyaw Talavera) Medical Decision Making Impression and Plan Impression: 1. Intracranial-intraventricular and subarachnoid hemorrhage. Anterior communicating artery aneurysm 2. Hypertension 3. Recent history of bronchitis POD # 14 s/p (): 1. ACOM aneurysm coiling CT brain w/evolving right cerebellar hemisphere infarct and evolving bifrontal haemorrhage & edema w/o mass effect/shift Cerebral angiogram w/o evidence of significant vasospasm Improving neurological status Plan: Continue frequent neuro checks Continue management per Hospitalist Will follow patient May need ventriculostomy Maintain SBP between 160 and 180 mm Hg due to vasospasms Vasopressors as needed to maintain SBP Decadron 4 mg PO q6h for cerebral edema PT/OT/ST (Kyaw Talavera) Attending Statement The exam, history, and the medical decision-making described in the above note were completed with the assistance of the mid-level provider. I reviewed and agree with the findings presented. I attest that I had a [id number] encounter with the patient on the same day, and personally performed and documented my assessment and findings in the medical record. (Brian Napier MD) Kyaw Talavera November 11, 2016 15:03 Brian Napier MD November 11, 2016 16:55
[2016-11-11] MEDS: NITROFURANTOIN MONOHYD MACROCR 100 MG CAP PO SCH (17:30)
[2016-11-11] MEDS: MELATONIN 5 MG TAB PO SCH (20:24)
[2016-11-11] MEDS: QUEtiapine FUMARATE 25 MG TAB PO PRN (23:38)
[2016-11-12 00:07] VITALS: BP 165/96; PULSE 67; RESP 17; TEMP 98.2; O2SAT 96
[2016-11-12] MEDS: CHLORHEXIDINE GLUCONATE 2 % 1 PACK (2 CLOTHS) TOP SCH ×2 (04:00→22:10)
[2016-11-12 04:14] VITALS: BP 151/78; PULSE 66; RESP 17; TEMP 97.4; O2SAT 96
[2016-11-12] MEDS: niMODipine 30 MG CAP PO SCH ×5 (04:25→22:08)
[2016-11-12 08:32] LABS: HEMATOCRIT 37.5 % (35.0-46.0); MEAN CORPUSCULAR HGB CONC 34.1 % (32.0-36.0); PLATELET COUNT 497 TH/MM3 (150-450); RED BLOOD COUNT 4.12 MIL/MM3 (4.00-5.30); RED CELL DISTRIBUTION WIDTH 13.9 % (11.6-17.2); REVIEW FLAG FINAL; WHITE BLOOD COUNT 9.8 TH/MM3 (4.0-11.0)
[2016-11-12 08:34] VITALS: BP 139/91; PULSE 73; RESP 18; TEMP 96.9; O2SAT 96
[2016-11-12] MEDS: DEXAMETHASONE 4 MG TAB PO SCH ×2 (09:39→22:10)
[2016-11-12] MEDS: NITROFURANTOIN MONOHYD MACROCR 100 MG CAP PO SCH ×2 (09:39→18:53)
[2016-11-12] MEDS: PRAVASTATIN SOD 40 MG TAB PO SCH (09:39)
[2016-11-12] MEDS: DOCUSATE SODIUM 50 MG/SENNA 8.6 MG TAB PO SCH ×2 (09:39→22:09)
[2016-11-12] MEDS: FAMOTIDINE 20 MG TAB PO SCH ×2 (09:39→22:09)
--- NOTE | 2016-11-12 10:08 | HHI.PR ---
Subjective Remarks Follow-up for intracranial bleed Patient has no complaints. Patient stated that she's regaining back her strength. She is asking to go home today. No acute events. Objective Vitals Vital Signs Date Time Temp Pulse Resp B/P Pulse Ox O2 Delivery O2 Flow Rate FiO2 11/12/16 08:34 96.9 73 18 139/91 96 11/12/16 04:14 97.4 66 17 151/78 96 11/12/16 00:07 98.2 67 17 165/96 96 11/11/16 20:13 98.4 78 16 137/87 97 11/11/16 20:00 97 Room Air 11/11/16 16:00 97.3 83 17 143/95 96 11/11/16 12:00 98.6 74 17 160/92 94 I/O 11/11/16 11/11/16 11/11/16 11/12/16 11/12/16 11/12/16 07:00 15:00 23:00 07:00 15:00 23:00 Intake Total 589 ml 1225 ml 120 ml 120 ml Balance 589 ml 1225 ml 120 ml 120 ml Intake Oral 820 ml 120 ml 120 ml IV Total 589 ml 405 ml # Voids 5 2 2 3 # Bowel Movements 0 Result Diagram: 11/12/16 0804 11/11/16 0626 Objective Remarks GENERAL: in NAD CARDIOVASCULAR: Regular rate and rhythm without murmurs, gallops, or rubs. RESPIRATORY: Breath sounds equal bilaterally. No accessory muscle use. GASTROINTESTINAL: Abdomen soft, non-tender, nondistended. MUSCULOSKELETAL: 5 out of 5 upper emotional strength. NEURO: CN 2-12 intact. Medications and IVs Current Medications Sodium Chloride 2 ml 2 ml UNSCH PRN IVF FLUSH AFTER USING IV ACCESS; Start at 22:15; Stop 11/01/16 at 08:11; Status DC Sodium Chloride (NS 1000 ml Inj) 1,000 ml @ 1,000 mls/hr Q1H IV Last administered on 10/27/16 23:26; Start 10/27/16 at 22:15; Stop 10/27/16 at 23:14 ; Status DC Ondansetron HCl (Zofran Inj) 4 mg ONCE ONCE IV PUSH Last administered on 22:55; Start 10/27/16 at 23:00; Stop 10/27/16 at 23:01; Status DC Ondansetron HCl 4 mg 4 mg STK-MED ONCE .ROUTE ; Start 10/27/16 at 22:52; Stop at 22:53; Status DC Nicardipine HCl 25 mg/Sodium Chloride 260 ml @ 0 mls/hr TITRATE IV Last administered on 10/27/16 23:26; Start 10/27/16 at 23:15; Stop 10/27/16 at 23:37 ; Status DC Sodium Chloride (NS 1000 ml Inj) 1,000 ml @ 84 mls/hr [id number] IV Last administered on 11/01/16 05:27; Start 10/27/16 at 23:30; Stop 11/01/16 at 08:08 ; Status DC Sodium Chloride (NS Flush) 2 ml UNSCH PRN .XX FLUSH AFTER USING IV ACCESS; Start 10/27/16 at 23:30 Sodium Chloride (NS Flush) 2 ml BID .XX Last administered on 11/06/16 08:32; Start 10/28/16 at 09:00; Stop 11/06/16 at 10:31; Status DC Acetaminophen (Tylenol) 650 mg Q6H PRN PO PAIN 1-10 AND/OR FEVER >101F; Start 10/27/16 at 23:30 Morphine Sulfate (Morphine Inj) 2 mg Q2H PRN IV PAIN SCALE 6 TO 10; Start 10/27 at 23:30 Famotidine (Pepcid Inj) 20 mg Q12HR IV PUSH Last administered on 11/10/16 08: 02; Start 10/28/16 at 09:00; Stop 11/10/16 at 12:40; Status DC Ondansetron HCl (Zofran Inj) 4 mg Q6H PRN IV NAUSEA OR VOMITING; Start at 23:30 Metoclopramide HCl (Reglan Inj) 10 mg Q6H PRN IV NAUSEA OR VOMITING Last administered on 10/28/16 00:47; Start 10/27/16 at 23:30 Docusate Sodium (Colace) 100 mg BID PO Last administered on 10/31/16 20:37; Start 10/28/16 at 09:00; Stop 11/01/16 at 08:10; Status DC Albuterol/ Ipratropium (Duoneb Neb) 1 ampule Q2HR NEB PRN INH WHEEZING; Start 10/27/16 at 23:30 Miscellaneous Information 1 [id number] XX Last administered on 10/27/16 23:30; Start 10/27/16 at 23:30 Chlorhexidine Gluconate (Chlorhexidine 2% Cloth) Taper DAILY@04 TOP Last administered on 11/04/16 04:00; Start 10/28/16 at 04:00; Stop 10/24/17 at 03:59 Chlorhexidine Gluconate (Chlorhexidine 2% Cloth) 3 pack UNSCH PRN TOP HYGIENIC CARE; Start 10/27/16 at 23:30 Hydralazine HCl 20 mg 20 mg Q4H PRN IV PUSH SBP>170, DBP>110 Last administered on 11/03/16 22:38; Start 10/27/16 at 23:45 Nicardipine HCl/ Sodium Chloride (Cardene Inj/NS 250 ml Inj) 260 ml @ 0 mls/hr TITRATE IV Last administered on 10/27/16 23:43; Start 10/27/16 at 23:45; Stop 10/28/16 at 16:42; Status DC Iohexol (Omnipaque 350 Inj) 80 ml STK-MED ONCE IV Last administered on 00:05; Start 10/28/16 at 00:05; Stop 10/28/16 at 00:06; Status DC Nimodipine (Nimotop) 60 mg Q4HR PO Last administered on 11/12/16 04:25; Start 10/28/16 at 01:00 Nimodipine (Nimotop) 60 mg Q4HR PO ; Start 10/28/16 at 04:00; Stop 10/28/16 at 04:00; Status DC Pravastatin Sodium 40 mg 40 mg DAILY PO Last administered on 11/12/16 09:39; Start 10/28/16 at 09:00 Potassium Chloride 100 ml @ 50 mls/hr Q2H PRN IV For Potassium 2.8 - 3.2 mEq/L ; Start 10/28/16 at 02:15; Stop 11/09/16 at 11:33; Status DC Potassium Chloride (KCl 20 Meq Premix Inj) 100 ml @ 50 mls/hr Q2H PRN IV For Potassium 2.8 - 3.2 mEq/L Last administered on 11/01/16t 10:20; Start 10/28/16 at 02:15; Stop 11/09/16 at 11:33; Status DC Potassium Bicarb/ Potassium Chloride 50 meq 50 meq UNSCH PRN PO For Potassium 3.3 - 3.5 mEq/L; Start 10/28/16 at 02:15; Stop 11/09/16 at 11:33; Status DC Potassium Chloride 100 ml @ 25 mls/hr UNSCH PRN IV For Potassium 3.3 - 3.5 mEq /L; Start 10/28/16 at 02:15; Stop 11/09/16 at 11:33; Status DC Potassium Chloride 100 ml @ 50 mls/hr Q2H PRN IV For Potassium 3.3 - 3.5 mEq/ L Last administered on 10/31/16t 23:28; Start 10/28/16 at 02:15; Stop 11/09/16 at 11:33; Status DC Magnesium Sulfate/ Sodium Chloride (Magnesium Sulfate Inj/NS Inj) 100 ml @ 50 mls/hr UNSCH PRN IV For Magnesium 0.9 - 1.1 mg/dL; Start 10/28/16 at 02:15; Stop 11/09/16 at 11:33; Status DC Magnesium Oxide 800 mg 800 mg UNSCH PRN PO For Magnesium 1.2 - 1.6 mg/dL; Start 10/28/16 at 02:15; Stop 11/09/16 at 11:33; Status DC Magnesium Sulfate/ Sodium Chloride (Magnesium Sulfate Inj/NS Inj) 100 ml @ 50 mls/hr UNSCH PRN IV For Magnesium 1.2 - 1.6 mg/dL; Start 10/28/16 at 02:15; Stop 11/09/16 at 11:33; Status DC Potassium Phosphate 2000 mg 2,000 mg Q4H PRN PO For Phosphorus < 2.5 mg/dL; Start 10/28/16 at 02:15; Stop 11/09/16 at 11:33; Status DC Sodium Phosphate/ Sodium Chloride (Sodium Phosphate Inj/NS 250 ml Inj) 250 ml @ 42 mls/hr UNSCH PRN IV For Phosphorus < 2.5 mg/dL; Start 10/28/16 at 02:15; Stop 11/09/16 at 11:33; Status DC Potassium Phosphate (K-Phos) 2,000 mg UNSCH PRN PO/TUBE SEE LABEL COMMENTS; Start 10/28/16 at 02:15; Stop 11/09/16 at 11:33; Status DC Verapamil HCl (Isoptin Inj) 10 mg STK-MED ONCE .ROUTE ; Start 10/28/16 at 08:51 ; Stop 10/28/16 at 08:52; Status DC Verapamil HCl (Isoptin Inj) 35 mg STK-MED ONCE .ROUTE ; Start 10/28/16 at 08:57 ; Stop 10/28/16 at 08:58; Status DC Verapamil HCl 5 mg 5 mg STK-MED ONCE .ROUTE ; Start 10/28/16 at 08:58; Stop at 08:59; Status DC Cefazolin Sodium/ Dextrose 50 ml @ As Directed STK-MED ONCE .ROUTE ; Start 10/28 at 09:30; Stop 10/28/16 at 09:31; Status DC Sodium Chloride (NS 1000 ml Inj) 1,000 ml @ 100 mls/hr Q10H IV Last administered on 10/28/16t 13:03; Start 10/28/16 at 11:28; Stop 10/28/16 at 21:27 ; Status DC Heparin Sodium (Porcine) (Heparin Inj) 10,000 units STK-MED ONCE .ROUTE ; Start 10/28/16 at 11:30; Stop 10/28/16 at 11:31; Status DC Iodixanol (VISIPAQUE 320 INJ (Windows Systems Architect)) 62 ml STK-MED ONCE I-ARTERIAL Last administered on 10/28/16t 11:49; Start 10/28/16 at 11:49; Stop 10/28/16 at 11:50 ; Status DC Fentanyl Citrate (fentaNYL INJ) 250 mcg STK-MED ONCE .ROUTE ; Start 10/28/16 at 12:15; Stop 10/28/16 at 12:16; Status DC Miscellaneous Information ALL NURSING DEPARTME... UNSCH PRN .XX SEE LABEL COMMENTS; Start 10/28/16 at 14:00; Stop 10/29/16 at 13:59; Status DC Nicardipine HCl/ Sodium Chloride (Cardene Inj/NS 250 ml Inj) 260 ml @ 0 mls/hr TITRATE IV ; Start 10/28/16 at 16:45; Stop 11/06/16 at 10:31; Status DC Epinephrine HCl (EPINEPHrine (1:10,000) INJ) 1 mg STK-MED ONCE .ROUTE ; Start at 03:08; Stop 10/29/16 at 03:09; Status DC Atropine Sulfate (Atropine Inj) 1 mg STK-MED ONCE .ROUTE ; Start 10/29/16 at 03: 08; Stop 10/29/16 at 03:09; Status DC Lidocaine HCl (Xylocaine 2% Inj) 100 mg STK-MED ONCE .ROUTE ; Start 10/29/16 at 03:08; Stop 10/29/16 at 03:09; Status DC Iohexol (Omnipaque 350 Inj) 50 ml STK-MED ONCE IV Last administered on t 13:39; Start 10/29/16 at 13:39; Stop 10/29/16 at 13:40; Status DC Propofol (Diprivan 200 Mg/20 ml Inj) 20 mg STK-MED ONCE IV ; Start 10/28/16 at 08:29; Stop 10/30/16 at 08:33; Status DC Ephedrine Sulfate (ePHEDrine/NS 25 MG/5 ML SYR) 5 mg STK-MED ONCE IV ; Start at 08:29; Stop 10/30/16 at 08:33; Status DC Phenylephrine HCl (Neosynephrine/ NS 1000 Mcg/10ml Syr) 2 mcg STK-MED ONCE IV ; Start 10/28/16 at 08:29; Stop 10/30/16 at 08:33; Status DC Phenylephrine HCl (Neosynephrine/ NS 1000 Mcg/10ml Syr) 4 mcg STK-MED ONCE IV ; Start 10/28/16 at 08:29; Stop 10/30/16 at 08:33; Status DC Sodium Chloride 1000 ml 1,000 ml STK-MED ONCE IV ; Start 10/28/16 at 08:29; Stop 10/30/16 at 08:33; Status DC Norepinephrine Bitartrate (Levophed-Dextrose Drip) 250 ml @ 0 mls/hr TITRATE IV Last administered on 11/05/16 14:12; Start 10/30/16 at 12:15; Stop 11/05/16 at 14:28; Status DC Terbutaline Sulfate (Brethine Inj) 1 mg UNSCH PRN SQ For Extravasation; Start 10/30/16 at 12:15; Stop 11/09/16 at 07:10; Status DC Sodium Chloride (NS Flush) See Protocol DAILY IV FLUSH Last administered on 08:32; Start 10/31/16 at 09:00; Stop 11/06/16 at 10:31; Status DC Sodium Chloride (NS Flush) See Protocol UNSCH PRN IV FLUSH SEE PROTOCOL TABLE; Start 10/30/16 at 16:00 Heparin Sodium (Porcine) (Heparin Central Flush) See Protocol DAILY IV FLUSH Last administered on 11/07/16 08:05; Start 10/31/16 at 09:00; Stop 11/09/16 at 07:10; Status DC Heparin Sodium (Porcine) (Heparin Central Flush) See Protocol UNSCH PRN IV FLUSH SEE PROTOCOL TABLE; Start 10/30/16 at 16:00; Stop 11/09/16 at 07:10; Status DC Sodium Chloride (NS Flush) UNSCH PRN IV FLUSH SEE PROTOCOL TABLE; Start at 16:00 Midazolam HCl (Versed Inj) 5 mg STK-MED ONCE .ROUTE Last administered on 15:30; Start 10/31/16 at 14:23; Stop 10/31/16 at 14:24; Status DC Fentanyl Citrate (fentaNYL INJ) 250 mcg STK-MED ONCE .ROUTE Last administered on 10/31/16 15:30; Start 10/31/16 at 14:23; Stop 10/31/16 at 14:24; Status DC Verapamil HCl (Isoptin Inj) 10 mg STK-MED ONCE .ROUTE Last administered on 10/31 14:23; Start 10/31/16 at 14:23; Stop 10/31/16 at 14:24; Status DC Verapamil HCl (Isoptin Inj) 10 mg STK-MED ONCE .ROUTE Last administered on 10/31 15:00; Start 10/31/16 at 14:24; Stop 10/31/16 at 14:25; Status DC Iodixanol 30 ml 30 ml STK-MED ONCE I-ARTERIAL Last administered on 10/31/16 15 :00; Start 10/31/16 at 15:35; Stop 10/31/16 at 15:36; Status DC Potassium Chloride/Sodium Chloride (NS + KCl 40 Meq Inj) 1,000 ml @ 84 mls/hr [id number] IV Last administered on 11/06/16 02:32; Start 11/01/16 at 08:15; Stop 11/06/16 at 10:31; Status DC Senna/Docusate Sodium (Natty-Colace) 1 tab BID PO Last administered on 09:39; Start 11/01/16 at 09:00 Bisacodyl (Dulcolax Supp) 10 mg DAILY PRN RECTAL CONSTIPATION; Start 11/01/16 at 08:15 Dexamethasone Sodium Phosphate 4 mg 4 mg Q6HR IV PUSH Last administered on 11/08 17:54; Start 11/03/16 at 18:00; Stop 11/08/16 at 21:37; Status DC Sodium Chloride 188 meq/Sodium Chloride 1,047 ml @ 20 mls/hr Q24H IV Last administered on 11/05/16 16:11; Start 11/03/16 at 16:00; Stop 11/06/16 at 10:32 ; Status DC Norepinephrine Bitartrate/Sodium Chloride (Levophed Inj/NS 250 ml Inj) 254 ml @ 0 mls/hr TITRATE IV Last administered on 11/06/16 18:42; Start 11/05/16 at 14: 30; Stop 11/09/16 at 07:10; Status DC Melatonin (Melatonin) 5 mg HS PO Last administered on 11/11/16 20:24; Start at 21:00 Quetiapine Fumarate 25 mg 25 mg Q24H PRN PO if not asleep by 2300 Last administered on 11/11/16 23:38; Start 11/06/16 at 23:00 Magnesium Sulfate/ Dextrose (Magnesium Sulfate 1 Gm Premix) 100 ml @ As Directed STK-MED ONCE .ROUTE ; Start 11/07/16 at 09:24; Stop 11/07/16 at 09:25; Status DC Atropine Sulfate (Atropine Inj) 1 mg STK-MED ONCE .ROUTE ; Start 11/07/16 at 09: 24; Stop 11/07/16 at 09:25; Status DC Epinephrine HCl 1 mg 1 mg STK-MED ONCE .ROUTE ; Start 11/07/16 at 09:25; Stop at 09:26; Status DC Sodium Bicarbonate (Sodium Bicarbonate 8.4% Inj) 50 ml @ As Directed STK-MED ONCE .ROUTE ; Start 11/07/16 at 09:25; Stop 11/07/16 at 09:26; Status DC Calcium Chloride (Calcium Chloride Inj) 1 gm STK-MED ONCE .ROUTE ; Start at 09:26; Stop 11/07/16 at 09:27; Status DC Iohexol 74 ml 74 ml STK-MED ONCE IV Last administered on 11/07/16 11:58; Start 11/07/16 at 11:58; Stop 11/07/16 at 11:59; Status DC Ceftriaxone Sodium/Sodium Chloride (Rocephin Inj/NS Inj) 100 ml @ 200 mls/hr Q24H IV Last administered on 11/11/16 09:10; Start 11/08/16 at 08:00; Stop at 12:52; Status DC Midodrine 5 mg 5 mg TID@07,12,17 PO Last administered on 11/10/16 17:00; Start 11/08/16 at 07:35; Stop 11/11/16 at 08:19; Status DC Sodium Chloride (NS 1000 ml Inj) 1,000 ml @ 50 mls/hr Q20H IV Last administered on 11/10/16 21:02; Start 11/08/16 at 07:45; Stop 11/11/16 at 12:52 ; Status DC Dexamethasone (Decadron) 4 mg Q12HR PO Last administered on 11/12/16 09:39; Start 11/09/16 at 09:00 Famotidine (Pepcid) 20 mg BID PO Last administered on 11/12/16 09:39; Start at 21:00 Nitrofurantoin Macrocrystals (Macrobid) 100 mg BIDPC PO Last administered on 09:39; Start 11/11/16 at 18:00 A/P Assessment and Plan 66y/o FF aneurysmal SAH PBD 12. s/p ACOM aneurysm coiling. ICH - Due to ruptured ACOM aneurysm Subarachnoid hemorrhage -Status post ACOM aneurysm coiling - on Nimodipine. - Pravachol - TCD's daily to monitor for vasospasm. Underwent cerebral angiogram with intra -arterial verapamil and bilateral internal carotid arteries on 10/31 by interventional radiology. - Cristinagy: Silvina following. - Per neurosurgery continue with frequent neuro checks, weaning Decadron and stated may need ventriculostomy. -Prior note stated that blood pressure can be normalize but now asking to keep systolic blood pressure between 160-180 due to vasospasms. So we will restart midodrine. Hypertension -Neurosurgery now wants patient systolic blood pressure to be between 160-180. Will start Midodrine. Urinary Tract Infection, Escherichia coli - Completed 3 day treatment with Rocephin. Tobacco use disorder - stable. -Counseling given. DVT - Teds SCDs - No pharmacological DVT prophylaxis due to ICH Discharge Planning Per neurosurgery want to continue to monitor. Stated that patient may need ventriculostomy. Brittney Harper MD November 12, 2016 10:08
--- NOTE | 2016-11-12 11:38 | HHI.NSPN ---
(Kyaw Talavera) History Chief Complaint: Patient has no complaints (Kyaw Talavera) Interval History 10/27: 66-year-old female in relatively good health until 3 or 4 weeks ago when she developed bronchitis. She was treated with a course of amoxicillin which did not help the symptoms. She was given another antibiotic which she finished approximately 3 days ago. She has continued to have a nonproductive cough. No definite fevers or chills. She has had a frontal headache for 2 or 3 weeks. Also some neck pain and stiffness. She was diagnosed with hypertension in the past 2 or 3 months and has been on medication. She does have a long history of smoking cigarettes. She ate dinner with her friend last evening. Her brother called her approximately 10:00 this morning on the telephone, and there was no answer. Her friend found the patient lying in her bathtub at home, significant speech difficulty with no definite seizure activity. Patient indicated to her friend that she had been lying in the bathtub all day long, unable to get up. 10/28: The patient went down for an aneurysm coiling in Interventional Radiology this morning. This afternoon when seen the patient is asleep but awakens to verbal stimuli. She remains nonverbal but shook her head "no" when asked if she had a headache or any numbness or tingling. She did follow some commands. 10/29: When the patient was seen with Dr Cool late yesterday afternoon the patient was able to say her name. This morning prior to being seen Nursing reports that the is not verbalising although she was yesterday. When seen the patient was not able to verbalise but she did nod her head appropriately. She nodded "yes" to having a headache. The patient did have a transcranial doppler study this morning, the report is pending. 10/30: The patient remains nonverbal this morning and makes no attempt to shake her head "no" when asked if she is able to speak. She is spontaneously moving the left side. A TCD is being done when seen. Yesterday a repeat CT brain demonstrated some improvement in the ICH and a new small IVH. A TCD & CTA demonstrated a right middle cerebral artery vasospasm. A minimal left anterior temporal artery vasospasm was noted on the CTA only. 10/31: The patient is having a TCD done when seen this morning. She remains nonverbal and makes no attempt to speak or stick her tongue out. 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 Yesterday the TCD was unremarkable for any vasospasm. 11/01: The patient is awake and alert this morning. Ultrasound is finishing the TCD. She is nonverbal but does try to speak. She is able to stick her tongue out and has varying degrees of movement to the extremities. She went to Interventional Radiology yesterday afternoon for a cerebral angiogram which demonstrated a moderately severe spasm in the left LEONARDO territory. She received verapamil injected into both ICAs. 11/02: The patient is awake & alert this morning. She is feeding herself breakfast. She is able to verbalise but is confused. The TCD yesterday demonstrated a persistent right MCA territory vasospasm with mild improvement. 11/03: The patient is awake & alert, feeding herself breakfast. She has no complaints although her verbal response and nodding of her head are not necessarily consistent. A repeat CT brain this morning demonstrated a stable bleed although worsening cerebral edema. The TCD study yesterday demonstrated normalised ratios. 11/04: The patient is awake & alert this morning and working with Physical Therapy when seen. She is verbalising to questions. She lifts the right lower extremity off the bed when asked. 11/05: The patient is awake & alert when seen this afternoon. She is verbalising and following commands. She is able to move all extremities on her own. She had a TCD done this morning. 11/06: The patient is seen standing at the edge of the bed with a walker and Physical Therapy. She ambulates with an unsteady gait to the chair and sits down. She is unable to keep her balance without support. Once in the chair she states she feels "extremely good. 11/07: As I was going to see patient the Sheriff was entering the room. The patient had just become non-responsive while sitting in the chair. She was still breathing and had a pulse. After being placed in the bed and the head raised she did open her eyes and was noted to be pill rolling with the right thumb & index finger. She was also repetitively sticking her tongue partially out but was nonverbal. She was not following commands. 11/11: The patient is awake & alert, visiting with a friend and watching TV. She had no complaints when seen. 11/12: The patient is awake & alert, watching TV in bed. She had no complaints. She did ask if she was able to go home today. (Kyaw Talavera) System Review Comments CONSTITUTIONAL: Patient denies any fever or chills. CARDIOVASCULAR: Patient denies any chest pain, palpitations or irregular heartbeat. RESPIRATORY: Patient denies any shortness of breath or productive cough. GASTROINTESTINAL: Patient denies any abdominal pain, nausea or vomiting. MUSCULOSKELETAL: Patient denies any arm or leg pain. NEUROLOGICAL: Patient denies any headache, dizziness, numbness or tingling. ( Kyaw Talavera) Exam Results Vital Signs Date Time Temp Pulse Resp B/P Pulse Ox O2 Delivery O2 Flow Rate FiO2 11/12/16 08:34 96.9 73 18 139/91 96 11/11/16 20:00 Room Air 11/08/16 20:20 21 Intake and Output 11/11/16 11/11/16 11/11/16 07:59 15:59 23:59 Intake Total 589 ml 1225 ml 120 ml Balance 589 ml 1225 ml 120 ml (Kyaw Talavera) Physical Examination GENERAL: Awake & alert in bed watching TV, NAD. HEENT: Normocephalic, atraumatic. CARDIOVASCULAR: S1S2 w/RRR w/o M/G/R, radial 2+ bilaterally, cap refill < 2 sec , no pedal edema. RESPIRATORY: CTAB w/o W/R/R, equal excursion, non-laboured, on RA. GASTROINTESTINAL: Abdomen soft, non-tender, positive bowel sounds. MUSCULOSKELETAL: WALSH. No evident deformity, discolouration or clubbing. NEUROLOGICAL: AAOx3 Speech clear & appropriate Follows simple commands Motor strength LUE 5/5, RUE & LLE 4+/5, RLE 4/5 Sensation to light touch grossly intact all extremities (Kyaw Talavera) Lab, Micro, Other Results Allergies Coded Allergies Type Severity Reaction Last Updated Verified No Known Allergies 10/27/16 No Recent Impressions Transcranial Doppler Study Complete 11/11/16 0000 Signed Impressions: Service Date/Time: Friday, November 11, 2016 07:56 - CONCLUSION: No evidence for vasospasm Joseph Vela MD Transcranial Doppler Study Complete 11/10/16 0000 Signed Impressions: Service Date/Time: Thursday, November 10, 2016 09:06 - CONCLUSION: There are no findings to indicate vasospasm. Jose Roberto Mejia MD / 05:59 17:59 05:59 17:59 05:59 17:59 Intake Total 240 ml 1200 ml 240 ml 1814 ml 120 ml 120 ml Balance 240 ml 1200 ml 240 ml 1814 ml 120 ml 120 ml Intake Oral 240 ml 600 ml 240 ml 820 ml 120 ml 120 ml IV Total 600 ml 994 ml # Voids 5 1 7 2 3 # Bowel Movements 0 Laboratory Tests Test 11/10/16 11/11/16 11/12/16 12:08 06:26 08:04 White Blood Count 13.8 TH/MM3 10.5 TH/MM3 9.8 TH/MM3 Red Blood Count 4.21 MIL/MM3 3.88 MIL/MM3 4.12 MIL/MM3 Hemoglobin 13.1 GM/DL 12.3 GM/DL 12.8 GM/DL Hematocrit 38.7 % 35.4 % 37.5 % Mean Corpuscular Volume 91.8 FL 91.1 FL 91.0 FL Mean Corpuscular Hemoglobin 31.1 PG 31.7 PG 31.0 PG Mean Corpuscular Hemoglobin 33.9 % 34.7 % 34.1 % Concent Red Cell Distribution Width 13.8 % 14.0 % 13.9 % Platelet Count 492 TH/MM3 447 TH/MM3 497 TH/MM3 Mean Platelet Volume 7.3 FL 7.0 FL 7.0 FL Sodium Level 139 MEQ/L 140 MEQ/L Potassium Level 3.8 MEQ/L 3.7 MEQ/L Chloride Level 100 MEQ/L 104 MEQ/L Carbon Dioxide Level 33.3 MEQ/L 29.8 MEQ/L Anion Gap 6 MEQ/L 6 MEQ/L Blood Urea Nitrogen 17 MG/DL 15 MG/DL Creatinine 0.45 MG/DL 0.33 MG/DL Estimat Glomerular Filtration 139 ML/MIN 198 ML/MIN Rate Random Glucose 101 MG/DL 103 MG/DL Calcium Level 8.6 MG/DL 8.3 MG/DL Vital Signs Date Time Temp Pulse Resp B/P Pulse Ox O2 Delivery O2 Flow Rate FiO2 11/12/16 08:34 96.9 73 18 139/91 96 11/12/16 04:14 97.4 66 17 151/78 96 11/12/16 00:07 98.2 67 17 165/96 96 11/11/16 20:13 98.4 78 16 137/87 97 11/11/16 20:00 97 Room Air 11/11/16 16:00 97.3 83 17 143/95 96 11/11/16 12:00 98.6 74 17 160/92 94 11/11/16 08:00 98.2 70 17 155/91 97 11/11/16 06:15 158/91 11/11/16 04:48 95 Room Air 11/11/16 04:00 98.9 64 16 184/97 97 11/11/16 00:00 98.5 72 22 157/97 95 11/10/16 20:00 97.2 75 28 158/91 96 11/10/16 16:24 97.8 64 16 161/93 95 11/10/16 13:01 96.4 84 16 150/98 95 11/10/16 08:48 96.4 69 16 175/93 95 11/10/16 08:26 Room Air 11/10/16 04:00 97.8 72 18 153/88 95 11/10/16 00:00 97.3 71 16 151/88 97 11/09/16 20:15 Room Air 11/09/16 20:00 98.3 73 16 125/76 95 11/09/16 16:24 98.2 67 17 135/85 97 11/09/16 11:58 97.6 68 18 151/85 97 (Kyaw Talavera) Medical Decision Making Impression and Plan Impression: 1. Intracranial-intraventricular and subarachnoid hemorrhage. Anterior communicating artery aneurysm 2. Hypertension 3. Recent history of bronchitis POD # 15 s/p (): 1. ACOM aneurysm coiling CT brain w/evolving right cerebellar hemisphere infarct and evolving bifrontal haemorrhage & edema w/o mass effect/shift Cerebral angiogram w/o evidence of significant vasospasm Neurological status stable Plan: Continue neuro checks Continue management per Hospitalist Will follow patient May need ventriculostomy Maintain SBP between 160 and 180 mm Hg due to vasospasms Vasopressors as needed to maintain SBP Decadron 4 mg PO q6h for cerebral edema PT/OT/ST (Kyaw Taalvera) Attending Statement The exam, history, and the medical decision-making described in the above note were completed with the assistance of the mid-level provider. I reviewed and agree with the findings presented. I attest that I had a [id number] encounter with the patient on the same day, and personally performed and documented my assessment and findings in the medical record. (Brian Napier MD) Kyaw Talavera November 12, 2016 11:38 Brian Napier MD Nov 15, 2016 14:49
[2016-11-12 12:28] VITALS: BP 145/85; PULSE 76; RESP 18; TEMP 98.3; O2SAT 94
[2016-11-12 12:58] LABS: POTASSIUM 3.7 MEQ/L (3.5-5.1)
[2016-11-12] MEDS: MIDODRINE 5 MG TAB PO SCH ×2 (13:39→18:53)
[2016-11-12 16:03] VITALS: BP 122/82; PULSE 74; RESP 18; TEMP 98.5; O2SAT 96
[2016-11-12 20:00] VITALS: BP 143/83; PULSE 70; RESP 20; TEMP 97.9; O2SAT 96
[2016-11-12] MEDS: MELATONIN 5 MG TAB PO SCH (22:09)
[2016-11-13] MEDS: niMODipine 30 MG CAP PO SCH ×6 (01:12→20:50)
[2016-11-13] MEDS: QUEtiapine FUMARATE 25 MG TAB PO PRN (01:12)
[2016-11-13 04:00] VITALS: BP 125/76; PULSE 60; RESP 20; TEMP 97; O2SAT 94
[2016-11-13] MEDS: MIDODRINE 5 MG TAB PO SCH ×2 (06:34→10:18)
[2016-11-13 08:11] LABS: MEAN CELL VOLUME 93.1 FL (80.0-100.0); MEAN CORPUSCULAR HEMOGLOBIN 29.7 PG (27.0-34.0); MEAN CORPUSCULAR HGB CONC 31.8 % (32.0-36.0); PLATELET COUNT 474 TH/MM3 (150-450); RED CELL DISTRIBUTION WIDTH 14.1 % (11.6-17.2); REVIEW FLAG FINAL; WHITE BLOOD COUNT 11.7 TH/MM3 (4.0-11.0)
[2016-11-13 08:36] LABS: BICARBONATE 29.7 MEQ/L (21.0-32.0); POTASSIUM 3.5 MEQ/L (3.5-5.1)
[2016-11-13 09:10] VITALS: BP 135/87; PULSE 69; RESP 16; TEMP 96.4; O2SAT 97
[2016-11-13] MEDS: FAMOTIDINE 20 MG TAB PO SCH ×2 (10:18→20:50)
[2016-11-13] MEDS: NITROFURANTOIN MONOHYD MACROCR 100 MG CAP PO SCH ×2 (10:18→16:58)
[2016-11-13] MEDS: DOCUSATE SODIUM 50 MG/SENNA 8.6 MG TAB PO SCH ×2 (10:18→20:50)
[2016-11-13] MEDS: PRAVASTATIN SOD 40 MG TAB PO SCH (10:18)
[2016-11-13] MEDS: DEXAMETHASONE 4 MG TAB PO SCH ×2 (10:18→20:50)
[2016-11-13 12:09] VITALS: BP 118/71; PULSE 71; RESP 16; TEMP 99.1; O2SAT 98
--- NOTE | 2016-11-13 14:38 | HHI.PR ---
Subjective Remarks Pt feels well. Denies any CP/SOB/V. Had mild nausea this morning. No headaches or blurry vision. Discussed w RN, lost IV access. Objective Vitals Vital Signs Date Time Temp Pulse Resp B/P Pulse Ox O2 Delivery O2 Flow Rate FiO2 11/13/16 12:09 99.1 71 16 118/71 98 11/13/16 09:10 96.4 69 16 135/87 97 11/13/16 08:00 Room Air 11/13/16 04:00 97.0 60 20 125/76 94 11/12/16 20:00 97.9 70 20 143/83 96 11/12/16 16:03 98.5 74 18 122/82 96 I/O 11/12/16 11/12/16 11/12/16 11/13/16 11/13/16 11/13/16 07:00 15:00 23:00 07:00 15:00 23:00 Intake Total 120 ml 600 ml Balance 120 ml 600 ml Intake Oral 120 ml 600 ml # Voids 3 3 2 2 # Bowel Movements 2 0 Result Diagram: 11/13/16 0703 11/13/16 0703 Imaging Last Impressions Transcranial Doppler Study Complete 11/11/16 0000 Signed Impressions: Service Date/Time: Friday, November 11, 2016 07:56 - CONCLUSION: No evidence for vasospasm Joseph Vela MD Neck CTA 11/07/16 0000 Signed Impressions: Service Date/Time: Monday, November 07, 2016 11:38 - CONCLUSION: Stable appearance of the carotids Jose Roberto Monaco MD Head CTA 11/07/16 0000 Signed Impressions: Service Date/Time: Monday, November 07, 2016 11:38 - CONCLUSION: No evidence of significant vasospasm at present Jose Roberto Monaco MD Head CT 11/07/16 0000 Signed Impressions: Service Date/Time: Monday, November 07, 2016 11:31 - CONCLUSION: 1. Evolving infarct right cerebellar hemisphere. 2. Evolving bifrontal hemorrhage and surrounding edema without any mass effect or shift. 3. Status post coiling of anterior communicating artery aneurysm. Estrada Hall MD Cerebral Arteriogram 10/31/16 0000 Signed Impressions: Service Date/Time: Monday, October 31, 2016 14:45 - CONCLUSION: 1. Moderately severe vasospasm in the left LEONARDO territory. The left MCA territory and the right MCA and LEONARDO territories remain patent. 2. 10 mg of verapamil was infused into both internal carotid arteries as detailed above. 3. 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 This is below the dural ring it would not be contributing to the intracranial hemorrhage identified. Chidi Elise MD Chest X-Ray 10/30/16 0000 Signed Impressions: Service Date/Time: October 15:58 - CONCLUSION: 1. Uncomplicated PICC line placement. Robin Muir MD Embolization, Transcatheter 10/28/16 0000 Signed Impressions: Service Date/Time: Friday, October 28, 2016 09:47 - CONCLUSION: 1. 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 There was good filling of the aneurysm with complete exclusion of the aneurysm from the circulation at the conclusion of the procedure. Carl Hernandez MD Objective Remarks GENERAL: in NAD CARDIOVASCULAR: Regular rate and rhythm without murmurs RESPIRATORY: Breath sounds equal bilaterally. No accessory muscle use. GASTROINTESTINAL: Abdomen soft, non-tender, nondistended. MUSCULOSKELETAL: moving extremities and following commands NEURO: CN 2-12 grossly intact. A/P Assessment and Plan ICH - Due to ruptured ACOM aneurysm Subarachnoid hemorrhage -Status post ACOM aneurysm coiling - on Nimodipine. - Pravachol - TCD's daily to monitor for vasospasm. Underwent cerebral angiogram with intra -arterial verapamil and bilateral internal carotid arteries on 10/31 by interventional radiology. - Nsgy: Silvina following. I discussed today via phone w Kyaw WARREN, and from a neurosx standpoint ok to bring down BP to normal range. He also recommends weaning down decadron to 2mg po BID. hold midodrine for now. - Hypertension -ok from a neurosx standpoint to bring BP to normal range. hold Midodrine. Urinary Tract Infection, Escherichia coli - Completed 3 day treatment with Rocephin. Tobacco use disorder - stable. -Counseling given. DVT - Teds SCDs - No pharmacological DVT prophylaxis due to ICH Discharge Planning awaiting final recs from neurosx she will need PT at rehab Cony Ely MD Nov 13, 2016 14:38
[2016-11-13] MEDS ORDERED: PILL SPLITTER OTHER PRN (15:15)
[2016-11-13 16:19] VITALS: BP 136/79; PULSE 65; RESP 16; TEMP 97.7; O2SAT 95
[2016-11-13 20:00] VITALS: BP 150/74; PULSE 66; RESP 20; TEMP 98.5; O2SAT 96
[2016-11-13 20:03] LABS: HDL CHOLESTEROL 76.1 MG/DL (40.0-60.0); LDL CHOLESTEROL 132 MG/DL (0-99)
[2016-11-13] MEDS: MELATONIN 5 MG TAB PO SCH (20:50)
[2016-11-13 22:18] LABS: HEMOGLOBIN A1a 1.6 %; HEMOGLOBIN A1b 0.8 %; HEMOGLOBIN Ao 85.3 %; HEMOGLOBIN F 1.5 %; HEMOGLOBIN LA1C 1.6 %; HEMOGLOBIN P3 3.6 %
[2016-11-14] VITALS: BP_SYST 150; BP_SYST 159; BP_DIAS 87; BP_DIAS 91; PULSE 61; PULSE 67; RESP 20; TEMP 97.7; TEMP 97.8; O2SAT 94; O2SAT 98
[2016-11-14 04:00] VITALS: BP 150/74; PULSE 61; RESP 20; TEMP 97.7; O2SAT 94
[2016-11-14 04:32] LABS: HEMATOCRIT 36.9 % (35.0-46.0); MEAN CELL VOLUME 91.1 FL (80.0-100.0); MEAN CORPUSCULAR HEMOGLOBIN 31.2 PG (27.0-34.0); MEAN CORPUSCULAR HGB CONC 34.2 % (32.0-36.0); PLATELET COUNT 458 TH/MM3 (150-450); RED BLOOD COUNT 4.05 MIL/MM3 (4.00-5.30); RED CELL DISTRIBUTION WIDTH 13.8 % (11.6-17.2); REVIEW FLAG FINAL; WHITE BLOOD COUNT 11.4 TH/MM3 (4.0-11.0)
[2016-11-14 04:48] LABS: BICARBONATE 30.2 MEQ/L (21.0-32.0); POTASSIUM 3.7 MEQ/L (3.5-5.1)
[2016-11-14] MEDS: niMODipine 30 MG CAP PO SCH ×6 (06:19→23:46)
[2016-11-14] MEDS: CHLORHEXIDINE GLUCONATE 2 % 1 PACK (2 CLOTHS) TOP SCH (06:22)
[2016-11-14 08:23] VITALS: BP 156/86; PULSE 66; RESP 20; TEMP 97.6; O2SAT 96
[2016-11-14] MEDS: FAMOTIDINE 20 MG TAB PO SCH ×2 (09:43→23:46)
[2016-11-14] MEDS: NITROFURANTOIN MONOHYD MACROCR 100 MG CAP PO SCH ×2 (09:45→16:42)
--- NOTE | 2016-11-14 09:45 | HHI.NSPN ---
(Kyaw Talavera) History Chief Complaint: Patient has no complaints (Kyaw Talavera) Interval History 10/27: 66-year-old female in relatively good health until 3 or 4 weeks ago when she developed bronchitis. She was treated with a course of amoxicillin which did not help the symptoms. She was given another antibiotic which she finished approximately 3 days ago. She has continued to have a nonproductive cough. No definite fevers or chills. She has had a frontal headache for 2 or 3 weeks. Also some neck pain and stiffness. She was diagnosed with hypertension in the past 2 or 3 months and has been on medication. She does have a long history of smoking cigarettes. She ate dinner with her friend last evening. Her brother called her approximately 10:00 this morning on the telephone, and there was no answer. Her friend found the patient lying in her bathtub at home, significant speech difficulty with no definite seizure activity. Patient indicated to her friend that she had been lying in the bathtub all day long, unable to get up. 10/28: The patient went down for an aneurysm coiling in Interventional Radiology this morning. This afternoon when seen the patient is asleep but awakens to verbal stimuli. She remains nonverbal but shook her head "no" when asked if she had a headache or any numbness or tingling. She did follow some commands. 10/29: When the patient was seen with Dr Cool late yesterday afternoon the patient was able to say her name. This morning prior to being seen Nursing reports that the is not verbalising although she was yesterday. When seen the patient was not able to verbalise but she did nod her head appropriately. She nodded "yes" to having a headache. The patient did have a transcranial doppler study this morning, the report is pending. 10/30: The patient remains nonverbal this morning and makes no attempt to shake her head "no" when asked if she is able to speak. She is spontaneously moving the left side. A TCD is being done when seen. Yesterday a repeat CT brain demonstrated some improvement in the ICH and a new small IVH. A TCD & CTA demonstrated a right middle cerebral artery vasospasm. A minimal left anterior temporal artery vasospasm was noted on the CTA only. 10/31: The patient is having a TCD done when seen this morning. She remains nonverbal and makes no attempt to speak or stick her tongue out. 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 Yesterday the TCD was unremarkable for any vasospasm. 11/01: The patient is awake and alert this morning. Ultrasound is finishing the TCD. She is nonverbal but does try to speak. She is able to stick her tongue out and has varying degrees of movement to the extremities. She went to Interventional Radiology yesterday afternoon for a cerebral angiogram which demonstrated a moderately severe spasm in the left LEONARDO territory. She received verapamil injected into both ICAs. 11/02: The patient is awake & alert this morning. She is feeding herself breakfast. She is able to verbalise but is confused. The TCD yesterday demonstrated a persistent right MCA territory vasospasm with mild improvement. 11/03: The patient is awake & alert, feeding herself breakfast. She has no complaints although her verbal response and nodding of her head are not necessarily consistent. A repeat CT brain this morning demonstrated a stable bleed although worsening cerebral edema. The TCD study yesterday demonstrated normalised ratios. 11/04: The patient is awake & alert this morning and working with Physical Therapy when seen. She is verbalising to questions. She lifts the right lower extremity off the bed when asked. 11/05: The patient is awake & alert when seen this afternoon. She is verbalising and following commands. She is able to move all extremities on her own. She had a TCD done this morning. 11/06: The patient is seen standing at the edge of the bed with a walker and Physical Therapy. She ambulates with an unsteady gait to the chair and sits down. She is unable to keep her balance without support. Once in the chair she states she feels "extremely good. 11/07: As I was going to see patient the Girls Tennis Coach was entering the room. The patient had just become non-responsive while sitting in the chair. She was still breathing and had a pulse. After being placed in the bed and the head raised she did open her eyes and was noted to be pill rolling with the right thumb & index finger. She was also repetitively sticking her tongue partially out but was nonverbal. She was not following commands. 11/11: The patient is awake & alert, visiting with a friend and watching TV. She had no complaints when seen. 11/12: The patient is awake & alert, watching TV in bed. She had no complaints. She did ask if she was able to go home today. 11/14: The patient is doing well. She is watching TV and just finished her breakfast. She has no complaints when seen. (Kyaw Talavera) System Review Comments CONSTITUTIONAL: Patient denies any fever or chills. CARDIOVASCULAR: Patient denies any chest pain, palpitations or irregular heartbeat. RESPIRATORY: Patient denies any shortness of breath or productive cough. GASTROINTESTINAL: Patient denies any abdominal pain, nausea or vomiting. MUSCULOSKELETAL: Patient denies any arm or leg pain. NEUROLOGICAL: Patient denies any headache, dizziness, numbness or tingling. ( Kyaw Talavera) Exam Results Vital Signs Date Time Temp Pulse Resp B/P Pulse Ox O2 Delivery O2 Flow Rate FiO2 11/14/16 08:23 97.6 66 20 156/86 96 11/13/16 08:00 Room Air (Kyaw Talavera) Physical Examination GENERAL: Awake & alert in bed watching TV, NAD. HEENT: Normocephalic, atraumatic. CARDIOVASCULAR: S1S2 w/RRR w/o M/G/R, radial 2+ bilaterally, cap refill < 2 sec , no pedal edema. RESPIRATORY: CTAB w/o W/R/R, equal excursion, non-laboured, on RA. GASTROINTESTINAL: Abdomen soft, non-tender, positive bowel sounds. MUSCULOSKELETAL: WALSH. No evident deformity, discolouration or clubbing. NEUROLOGICAL: AAOx3 Speech clear & appropriate Follows simple commands Motor strength LUE 5/5, RUE & LLE 4+/5, RLE 4/5 Sensation to light touch grossly intact all extremities (Kyaw Talavera) Lab, Micro, Other Results Allergies Coded Allergies Type Severity Reaction Last Updated Verified No Known Allergies 10/27/16 No 11/12///176//2/ 06:00 18:00 06:00 18:00 06:00 18:00 Intake Total 120 ml 720 ml Balance 120 ml 720 ml Intake Oral 120 ml 720 ml # Voids 2 7 3 2 4 # Bowel Movements 1 1 3 Laboratory Tests Test 11/12/16 11/13/16 11/14/16 08:04 07:03 04:18 White Blood Count 9.8 TH/MM3 11.7 TH/MM3 11.4 TH/MM3 Red Blood Count 4.12 MIL/MM3 4.30 MIL/MM3 4.05 MIL/MM3 Hemoglobin 12.8 GM/DL 12.7 GM/DL 12.6 GM/DL Hematocrit 37.5 % 40.0 % 36.9 % Mean Corpuscular Volume 91.0 FL 93.1 FL 91.1 FL Mean Corpuscular Hemoglobin 31.0 PG 29.7 PG 31.2 PG Mean Corpuscular Hemoglobin 34.1 % 31.8 % 34.2 % Concent Red Cell Distribution Width 13.9 % 14.1 % 13.8 % Platelet Count 497 TH/MM3 474 TH/MM3 458 TH/MM3 Mean Platelet Volume 7.0 FL 7.3 FL 6.8 FL Sodium Level 141 MEQ/L 140 MEQ/L 138 MEQ/L Potassium Level 3.7 MEQ/L 3.5 MEQ/L 3.7 MEQ/L Chloride Level 105 MEQ/L 103 MEQ/L 103 MEQ/L Carbon Dioxide Level 27.0 MEQ/L 29.7 MEQ/L 30.2 MEQ/L Anion Gap 9 MEQ/L 7 MEQ/L 5 MEQ/L Blood Urea Nitrogen 14 MG/DL 15 MG/DL 15 MG/DL Creatinine 0.31 MG/DL 0.35 MG/DL 0.40 MG/DL Estimat Glomerular Filtration 213 ML/MIN 185 ML/MIN 159 ML/MIN Rate Random Glucose 85 MG/DL 100 MG/DL 101 MG/DL Calcium Level 8.6 MG/DL 8.9 MG/DL 8.8 MG/DL Hemoglobin A1c 5.3 % Triglycerides Level 110 MG/DL Cholesterol Level 230 MG/DL LDL Cholesterol 132 MG/DL HDL Cholesterol 76.1 MG/DL Cholesterol/HDL Ratio 3.02 RATIO Vital Signs Date Time Temp Pulse Resp B/P Pulse Ox O2 Delivery O2 Flow Rate FiO2 11/14/16 08:23 97.6 66 20 156/86 96 11/14/16 04:00 97.7 61 20 150/74 94 11/14/16 00:00 97.8 67 20 150/87 98 11/13/16 20:00 98.5 66 20 150/74 96 11/13/16 16:19 97.7 65 16 136/79 95 11/13/16 12:09 99.1 71 16 118/71 98 11/13/16 09:10 96.4 69 16 135/87 97 11/13/16 08:00 Room Air 11/13/16 04:00 97.0 60 20 125/76 94 11/12/16 20:00 97.9 70 20 143/83 96 11/12/16 16:03 98.5 74 18 122/82 96 11/12/16 12:28 98.3 76 18 145/85 94 11/12/16 08:34 96.9 73 18 139/91 96 11/12/16 04:14 97.4 66 17 151/78 96 11/12/16 00:07 98.2 67 17 165/96 96 11/11/16 20:13 98.4 78 16 137/87 97 11/11/16 20:00 97 Room Air 11/11/16 16:00 97.3 83 17 143/95 96 11/11/16 12:00 98.6 74 17 160/92 94 (Kyaw Talavera) Medical Decision Making Impression and Plan Impression: 1. Intracranial-intraventricular and subarachnoid hemorrhage. Anterior communicating artery aneurysm 2. Hypertension 3. Recent history of bronchitis POD # 17 s/p (): 1. ACOM aneurysm coiling CT brain w/evolving right cerebellar hemisphere infarct and evolving bifrontal haemorrhage & edema w/o mass effect/shift Cerebral angiogram w/o evidence of significant vasospasm Neurological status stable Plan: Continue neuro checks Continue management per Hospitalist Will follow patient Decadron taper Maintain patient's BP in normal range PT/OT/ST (Kyaw Talavera) Attending Statement The exam, history, and the medical decision-making described in the above note were completed with the assistance of the mid-level provider. I reviewed and agree with the findings presented. I attest that I had a [id number] encounter with the patient on the same day, and personally performed and documented my assessment and findings in the medical record. Remains alert Continuing therapy Maintain sodium in normal range (Johnnie Cool MD) Kyaw Talavera Nov 14, 2016 09:44 Johnnie Cool MD Dec 16, 2016 17:17
[2016-11-14] MEDS: DEXAMETHASONE 4 MG TAB PO SCH ×2 (09:46→23:46)
[2016-11-14] MEDS: PRAVASTATIN SOD 40 MG TAB PO SCH (09:46)
[2016-11-14] MEDS: DOCUSATE SODIUM 50 MG/SENNA 8.6 MG TAB PO SCH ×2 (09:46→23:46)
[2016-11-14 13:53] VITALS: BP 144/90; PULSE 69; RESP 20; TEMP 98.3; O2SAT 97
[2016-11-14] MEDS: LISINOPRIL 10 MG TAB PO SCH (15:11)
--- NOTE | 2016-11-14 15:12 | HHI.PR ---
Subjective Remarks Pt states she is ok, denies any CP/sob/n/v/headaches/lightheadedness Objective Vitals Vital Signs Date Time Temp Pulse Resp B/P Pulse Ox O2 Delivery O2 Flow Rate FiO2 11/14/16 13:53 98.3 69 20 144/90 97 11/14/16 08:23 97.6 66 20 156/86 96 11/14/16 04:00 97.7 61 20 150/74 94 11/14/16 00:00 97.8 67 20 150/87 98 11/13/16 20:00 98.5 66 20 150/74 96 11/13/16 16:19 97.7 65 16 136/79 95 I/O 11/13/16 11/13/16 11/13/16 11/14/16 11/14/16 11/14/16 07:00 15:00 23:00 07:00 15:00 23:00 # Voids 2 4 2 1 # Bowel Movements 0 2 1 Result Diagram: 11/14/16 0418 11/14/16 0418 Imaging Last Impressions Transcranial Doppler Study Complete 11/11/16 0000 Signed Impressions: Service Date/Time: Friday, November 11, 2016 07:56 - CONCLUSION: No evidence for vasospasm Joseph Vela MD Neck CTA 11/07/16 0000 Signed Impressions: Service Date/Time: Monday, November 07, 2016 11:38 - CONCLUSION: Stable appearance of the carotids Jose Roberto Monaco MD Head CTA 11/07/16 0000 Signed Impressions: Service Date/Time: Monday, November 07, 2016 11:38 - CONCLUSION: No evidence of significant vasospasm at present Jose Roberto Monaco MD Head CT 11/07/16 0000 Signed Impressions: Service Date/Time: Monday, November 07, 2016 11:31 - CONCLUSION: 1. Evolving infarct right cerebellar hemisphere. 2. Evolving bifrontal hemorrhage and surrounding edema without any mass effect or shift. 3. Status post coiling of anterior communicating artery aneurysm. Estrada Hall MD Cerebral Arteriogram 10/31/16 0000 Signed Impressions: Service Date/Time: Monday, October 31, 2016 14:45 - CONCLUSION: 1. Moderately severe vasospasm in the left LEONARDO territory. The left MCA territory and the right MCA and LEONARDO territories remain patent. 2. 10 mg of verapamil was infused into both internal carotid arteries as detailed above. 3. 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 This is below the dural ring it would not be contributing to the intracranial hemorrhage identified. Chidi Elise MD Chest X-Ray 10/30/16 0000 Signed Impressions: Service Date/Time: October 15:58 - CONCLUSION: 1. Uncomplicated PICC line placement. Robin Muir MD Embolization, Transcatheter 10/28/16 0000 Signed Impressions: Service Date/Time: Friday, October 28, 2016 09:47 - CONCLUSION: 1. 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 There was good filling of the aneurysm with complete exclusion of the aneurysm from the circulation at the conclusion of the procedure. Carl Hernandez MD Objective Remarks GENERAL: in NAD CARDIOVASCULAR: Regular rate and rhythm without murmurs RESPIRATORY: Breath sounds equal bilaterally. No accessory muscle use. GASTROINTESTINAL: Abdomen soft, non-tender, nondistended. MUSCULOSKELETAL: moving extremities and following commands NEURO: CN 2-12 grossly intact. A/P Assessment and Plan ICH - Due to ruptured ACOM aneurysm Subarachnoid hemorrhage -Status post ACOM aneurysm coiling - on Nimodipine. - Pravachol - TCD's daily to monitor for vasospasm. Underwent cerebral angiogram with intra -arterial verapamil and bilateral internal carotid arteries on 10/31 by interventional radiology. - Nsgy: Silvina following. I discussed yesterday via phone w Kyaw WARREN, and from a neurosx standpoint ok to bring down BP to normal range. He also recommended weaning down decadron to 2mg po BID which I have done. d/c midodrine. BP's today in the 140's. I have added lisinopril 10mg daily. monitor BPs closely. - Hypertension -ok from a neurosx standpoint to bring BP to normal range. off Midodrine. Urinary Tract Infection, Escherichia coli - Completed 3 day treatment with Rocephin. Tobacco use disorder - stable. -Counseling given. DVT - Teds SCDs - No pharmacological DVT prophylaxis due to ICH Discharge Planning awaiting final recs from neurosx she will need PT at rehab [id number] form signed and in chart Cony Ely MD Nov 14, 2016 15:12
[2016-11-14 15:54] VITALS: BP 141/87; PULSE 86; RESP 20; TEMP 97; O2SAT 95
[2016-11-14 20:00] VITALS: BP 135/83; PULSE 75; RESP 17; TEMP 98.1; O2SAT 95
[2016-11-14] MEDS: MELATONIN 5 MG TAB PO SCH (23:46)
[2016-11-15] VITALS: BP 125/72; PULSE 66; RESP 18; TEMP 97.9; O2SAT 97
[2016-11-15] MEDS: CHLORHEXIDINE GLUCONATE 2 % 1 PACK (2 CLOTHS) TOP SCH (04:00)
[2016-11-15] MEDS: niMODipine 30 MG CAP PO SCH ×6 (04:34→20:48)
[2016-11-15 06:34] VITALS: BP 151/88; PULSE 71; RESP 18; TEMP 96.6; O2SAT 95
--- NOTE | 2016-11-15 07:52 | HHI.PR ---
Subjective Remarks Patient seen and examined this am. Talking on the phone. States her hair is dirty and has not been washed in weeks. She denies ARANDA, CP, or SOB. Tolerating diet. States she has no pain in her body. Wants to go home, states she has 4 people there who can take care of her. Objective Vital Signs Date Time Temp Pulse Resp B/P Pulse Ox O2 Delivery O2 Flow Rate FiO2 11/15/16 06:34 96.6 71 18 151/88 95 11/15/16 00:00 97.9 66 18 125/72 97 11/14/16 20:00 98.1 75 17 135/83 95 11/14/16 15:54 97.0 86 20 141/87 95 11/14/16 13:53 98.3 69 20 144/90 97 11/14/16 08:23 97.6 66 20 156/86 96 I/O 11/14/16 11/14/16 11/14/16 11/15/16 11/15/16 11/15/16 07:00 15:00 23:00 07:00 15:00 23:00 Intake Total 720 ml Output Total 800 ml Balance -80 ml Intake Oral 720 ml Output Urine Total 800 ml # Voids 2 1 2 3 # Bowel Movements 1 1 0 Result Diagram: 11/14/16 0418 11/14/16 0418 Imaging Last Impressions Transcranial Doppler Study Complete 11/11/16 0000 Signed Impressions: Service Date/Time: Friday, November 11, 2016 07:56 - CONCLUSION: No evidence for vasospasm Joseph Vela MD Neck CTA 11/07/16 0000 Signed Impressions: Service Date/Time: Monday, November 07, 2016 11:38 - CONCLUSION: Stable appearance of the carotids Jose Roberto Monaco MD Head CTA 11/07/16 0000 Signed Impressions: Service Date/Time: Monday, November 07, 2016 11:38 - CONCLUSION: No evidence of significant vasospasm at present Jose Roberto Monaco MD Head CT 11/07/16 0000 Signed Impressions: Service Date/Time: Monday, November 07, 2016 11:31 - CONCLUSION: 1. Evolving infarct right cerebellar hemisphere. 2. Evolving bifrontal hemorrhage and surrounding edema without any mass effect or shift. 3. Status post coiling of anterior communicating artery aneurysm. Estrada Hall MD Cerebral Arteriogram 10/31/16 0000 Signed Impressions: Service Date/Time: Monday, October 31, 2016 14:45 - CONCLUSION: 1. Moderately severe vasospasm in the left LEONARDO territory. The left MCA territory and the right MCA and LEONARDO territories remain patent. 2. 10 mg of verapamil was infused into both internal carotid arteries as detailed above. 3. 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 This is below the dural ring it would not be contributing to the intracranial hemorrhage identified. Chidi Elise MD Chest X-Ray 10/30/16 0000 Signed Impressions: Service Date/Time: October 15:58 - CONCLUSION: 1. Uncomplicated PICC line placement. Robin Muir MD Embolization, Transcatheter 10/28/16 0000 Signed Impressions: Service Date/Time: Friday, October 28, 2016 09:47 - CONCLUSION: 1. 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 There was good filling of the aneurysm with complete exclusion of the aneurysm from the circulation at the conclusion of the procedure. Carl Hernandez MD Other Results GENERAL: in NAD CARDIOVASCULAR: Regular rate and rhythm without murmurs RESPIRATORY: Breath sounds equal bilaterally. No accessory muscle use. GASTROINTESTINAL: Abdomen soft, non-tender, nondistended. Diaper on. MUSCULOSKELETAL: moving extremities and following commands NEURO: CN 2-12 grossly intact. 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 - Pravachol - TCD's daily to monitor for vasospasm. Underwent cerebral angiogram with intra -arterial verapamil and bilateral internal carotid arteries on 10/31 by interventional radiology. - Nsgy: Silvina following. Per Dr. Ely 11/14, "I discussed yesterday via phone w Kyaw WARREN, and from a neurosx standpoint ok to bring down BP to normal range. He also recommended weaning down decadron to 2mg po BID which I have done. d/c midodrine. I have added lisinopril 10mg daily." monitor BPs closely. Hypertension -ok from a neurosx standpoint to bring BP to normal range. off Midodrine. Urinary Tract Infection, Escherichia coli - Completed 3 day treatment with Rocephin. Tobacco use disorder - stable. -Counseling given. DVT - Teds SCDs - No pharmacological DVT prophylaxis due to ICH Discharge Planning awaiting final recs from neurosx she will need PT at rehab [id number] form signed and in chart placement pending Problem Qualifiers (1) ICH (intracerebral hemorrhage): Qualified Code: I61.1 - Nontraumatic cortical hemorrhage of left cerebral hemisphere Funmilayo Smith MD R3 Nov 15, 2016 07:51
[2016-11-15 08:00] VITALS: BP 120/78; PULSE 58; RESP 19; TEMP 97.8; O2SAT 95
[2016-11-15] MEDS: PRAVASTATIN SOD 40 MG TAB PO SCH (08:50)
[2016-11-15] MEDS: DOCUSATE SODIUM 50 MG/SENNA 8.6 MG TAB PO SCH ×2 (08:50→20:49)
[2016-11-15] MEDS: NITROFURANTOIN MONOHYD MACROCR 100 MG CAP PO SCH ×2 (08:51→18:18)
[2016-11-15] MEDS: LISINOPRIL 10 MG TAB PO SCH (08:51)
[2016-11-15] MEDS: FAMOTIDINE 20 MG TAB PO SCH ×2 (08:51→20:49)
[2016-11-15] MEDS: DEXAMETHASONE 4 MG TAB PO SCH (08:51)
[2016-11-15 12:00] VITALS: BP 113/58; PULSE 65; RESP 19; TEMP 96.2; O2SAT 94
[2016-11-15 16:00] VITALS: BP 119/75; PULSE 56; RESP 16; TEMP 97.1; O2SAT 94
[2016-11-15 20:00] VITALS: BP 124/74; PULSE 75; RESP 18; TEMP 98; O2SAT 96
[2016-11-15] MEDS: MELATONIN 5 MG TAB PO SCH (20:49)
[2016-11-16] VITALS: BP 119/74; PULSE 64; RESP 18; TEMP 97.7; O2SAT 94
[2016-11-16] MEDS: niMODipine 30 MG CAP PO SCH ×6 (00:27→20:57)
[2016-11-16] MEDS: CHLORHEXIDINE GLUCONATE 2 % 1 PACK (2 CLOTHS) TOP SCH (03:52)
[2016-11-16 04:00] VITALS: BP 127/78; PULSE 55; RESP 18; TEMP 97.5; O2SAT 95
[2016-11-16 08:00] VITALS: BP 122/79; PULSE 72; RESP 17; TEMP 97.2; O2SAT 96
[2016-11-16] MEDS: DOCUSATE SODIUM 50 MG/SENNA 8.6 MG TAB PO SCH ×2 (08:18→20:57)
[2016-11-16] MEDS: PRAVASTATIN SOD 40 MG TAB PO SCH (08:18)
[2016-11-16] MEDS: FAMOTIDINE 20 MG TAB PO SCH ×2 (08:18→20:57)
[2016-11-16] MEDS: DEXAMETHASONE 1.5 MG TAB PO SCH (08:18)
[2016-11-16] MEDS: LISINOPRIL 10 MG TAB PO SCH (08:18)
[2016-11-16] MEDS: NITROFURANTOIN MONOHYD MACROCR 100 MG CAP PO SCH (08:18)
--- NOTE | 2016-11-16 11:41 | HHI.PR ---
Subjective Remarks 66 years old right handed female feels great, no headaches, nausea or vomiting, very motivated Objective Vitals Vital Signs Date Time Temp Pulse Resp B/P Pulse Ox O2 Delivery O2 Flow Rate FiO2 11/16/16 08:00 97.2 72 17 122/79 96 11/16/16 04:00 97.5 55 18 127/78 95 11/16/16 00:00 97.7 64 18 119/74 94 11/15/16 20:00 98.0 75 18 124/74 96 11/15/16 16:00 97.1 56 16 119/75 94 11/15/16 12:00 96.2 65 19 113/58 94 I/O 11/15/16 11/15/16 11/15/16 11/16/16 11/16/16 11/16/16 07:00 15:00 23:00 07:00 15:00 23:00 Intake Total 480 ml 360 ml Balance 480 ml 360 ml Intake Oral 480 ml 360 ml # Voids 3 4 2 2 # Bowel Movements 0 1 Result Diagram: 11/14/16 0418 11/14/16 0418 Imaging Last Impressions Transcranial Doppler Study Complete 11/11/16 0000 Signed Impressions: Service Date/Time: Friday, November 11, 2016 07:56 - CONCLUSION: No evidence for vasospasm Joseph Vela MD Neck CTA 11/07/16 0000 Signed Impressions: Service Date/Time: Monday, November 07, 2016 11:38 - CONCLUSION: Stable appearance of the carotids Jose Roberto Monaco MD Head CTA 11/07/16 0000 Signed Impressions: Service Date/Time: Monday, November 07, 2016 11:38 - CONCLUSION: No evidence of significant vasospasm at present Jose Roberto Monaco MD Head CT 11/07/16 0000 Signed Impressions: Service Date/Time: Monday, November 07, 2016 11:31 - CONCLUSION: 1. Evolving infarct right cerebellar hemisphere. 2. Evolving bifrontal hemorrhage and surrounding edema without any mass effect or shift. 3. Status post coiling of anterior communicating artery aneurysm. Estrada Hall MD Cerebral Arteriogram 10/31/16 0000 Signed Impressions: Service Date/Time: Monday, October 31, 2016 14:45 - CONCLUSION: 1. Moderately severe vasospasm in the left LEONARDO territory. The left MCA territory and the right MCA and LEONARDO territories remain patent. 2. 10 mg of verapamil was infused into both internal carotid arteries as detailed above. 3. 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 This is below the dural ring it would not be contributing to the intracranial hemorrhage identified. Chidi Elise MD Chest X-Ray 10/30/16 0000 Signed Impressions: Service Date/Time: October 15:58 - CONCLUSION: 1. Uncomplicated PICC line placement. Robin Muir MD Embolization, Transcatheter 10/28/16 0000 Signed Impressions: Service Date/Time: Friday, October 28, 2016 09:47 - CONCLUSION: 1. 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 There was good filling of the aneurysm with complete exclusion of the aneurysm from the circulation at the conclusion of the procedure. 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 - Pravachol - TCD's daily to monitor for vasospasm. Underwent cerebral angiogram with intra -arterial verapamil and bilateral internal carotid arteries on 10/31 by interventional radiology. - Nsgy: Silvina following. Per Dr. Ely 11/14, "I discussed yesterday via phone w Kyaw WARREN, and from a neurosx standpoint ok to bring down BP to normal range. He also recommended weaning down decadron to 2mg po BID which I have done. d/c midodrine. I have added lisinopril 10mg daily." monitor BPs closely. - neurologically stable - ON Decadron taper - repeat head CT in am Hypertension -ok from a neurosx standpoint to bring BP to normal range. off Midodrine. Urinary Tract Infection, Escherichia coli - Completed 3 day treatment with Rocephin. -voiding spontaenously Tobacco use disorder - stable. -Counseling given. DVT - Teds SCDs - No pharmacological DVT prophylaxis due to ICH Discharge Planning awaiting final recs from neurosx she will need PT at rehab [id number] form signed and in chart placement pending- looking at [place] Oxana Gonzalez MD Nov 16, 2016 11:41 am
[2016-11-16 11:54] VITALS: BP 116/65; PULSE 71; RESP 18; TEMP 96.8; O2SAT 94
[2016-11-16 16:00] VITALS: BP 119/69; PULSE 62; RESP 18; TEMP 97.4; O2SAT 96
[2016-11-16 20:00] VITALS: BP 118/76; PULSE 77; RESP 18; TEMP 97.9; O2SAT 96
[2016-11-16] MEDS: MELATONIN 5 MG TAB PO SCH (20:57)
[2016-11-17] VITALS: BP 129/88; PULSE 64; RESP 18; TEMP 97.2; O2SAT 97
[2016-11-17] MEDS: niMODipine 30 MG CAP PO SCH ×3 (00:40→09:11)
[2016-11-17] MEDS: QUEtiapine FUMARATE 25 MG TAB PO PRN (00:40)
[2016-11-17] MEDS: CHLORHEXIDINE GLUCONATE 2 % 1 PACK (2 CLOTHS) TOP SCH (03:34)
[2016-11-17 04:00] VITALS: BP 116/74; PULSE 61; RESP 18; TEMP 97.2; O2SAT 96
--- NOTE | 2016-11-17 08:07 | RADRPT ---
EXAM DATE/TIME: 11/17/2016 07:55 [facility] COMPARISON: CT BRAIN W/O CONTRAST, October 27, 2016, 22:58. CTA BRAIN W 3D RECON, November 07, 2016, 11:38. INDICATIONS : Follow up post Aneurysm coiling. RADIATION DOSE: 34.63 CTDIvol (mGy) MEDICAL HISTORY : Hypertension. SURGICAL HISTORY : Post Aneurysm coiling post 11/28 ENCOUNTER: Subsequent ACUITY: 1 day PAIN SCALE: 2/10 LOCATION: TECHNIQUE: Multiple contiguous axial images were obtained of the head. Using automated exposure control and adj ustment of the mA and/or kV according to patient size, radiation dose was kept as low as reasonably a chievable to obtain optimal diagnostic quality images. FINDINGS: Noncontrast CT imaging of the brain demonstrates continuing resolution of the patient's large intrapa renchymal hemorrhage involving the frontal lobe and rostrum of the corpus callosum. The hemorrhage mayer s undergone the expected evolution. No new areas of hemorrhage are identified. There is streak artifa ct from the coil mass in the patient's anterior communicating artery aneurysm. No intraventricular hemorrhage is seen. The ventricles are normal in size and configuration. No abnor mal extra-axial hemorrhage is identified. The appearance of the posterior fossa is unremarkable. CONCLUSION: 1. Continued hemorrhage involving the frontal lobe and rostrum of the corpus callosum. This is underg oing expected evolution and is significantly improved. 2. Streak artifact from the patient's coil mass in the anterior communicating artery aneurysm. Carl Hernandez MD on November 17, 2016 at 8:02 Board Certified Radiologist. This report was verified electronically.
[2016-11-17 08:54] VITALS: BP 122/74; PULSE 64; RESP 20; TEMP 97.6; O2SAT 96
[2016-11-17] MEDS: FAMOTIDINE 20 MG TAB PO SCH ×2 (09:11→21:03)
[2016-11-17] MEDS: LISINOPRIL 10 MG TAB PO SCH (09:12)
[2016-11-17] MEDS: DEXAMETHASONE 1.5 MG TAB PO SCH (09:12)
[2016-11-17] MEDS: PRAVASTATIN SOD 40 MG TAB PO SCH (09:12)
[2016-11-17] MEDS: DOCUSATE SODIUM 50 MG/SENNA 8.6 MG TAB PO SCH ×2 (09:12→21:00)
--- NOTE | 2016-11-17 09:59 | HHI.NSPN ---
History Chief Complaint: Patient has no complaints Interval History No further episodes of altered mental status reported. 11/17/16: CT scan head reveals resolving frontal intracranial-subarachnoid- intraventricular hemorrhage. Mild hydrocephalus. Exam Results Vital Signs Date Time Temp Pulse Resp B/P Pulse Ox O2 Delivery O2 Flow Rate FiO2 11/17/16 08:54 97.6 64 20 122/74 96 11/13/16 08:00 Room Air Intake and Output 11/16/16 11/16/16 11/17/16 08:00 16:00 00:00 Intake Total 480 ml Balance 480 ml Physical Examination Gen.: Sitting up in bed, eating. Tolerating diet well. No apparent distress Respirations clear and regular Abdomen soft No extremity edema Awake and alert Oriented to hospital, month Diminished attachment and insight Diminished recent and remote memory Speech clear Sensation intact to light touch all extremities Motor within normal limits which are flexion and extension groups all extremities Fine movements intact upper extremities Lab, Micro, Other Results 11/17/16 CT scan head images reviewed by the undersigned. Anticipated evolution of primarily frontal-corpus callosum hemorrhage. Mild hydrocephalus. Head CT 11/17/16 0000 Signed Impressions: Service Date/Time: Thursday, November 17, 2016 07:55 - CONCLUSION: 1. Continued hemorrhage involving the frontal lobe and rostrum of the corpus callosum. This is undergoing expected evolution and is significantly improved. 2. Streak artifact from the patient's coil mass in the anterior communicating artery aneurysm. Carl Hernandez MD Medical Decision Making Impression and Plan Impression: 1. Neurologic exam continues to slowly improve. She is not conversing relatively well with improving orientation. Persistent memory deficit Plan: May allow blood pressure to normalize Discontinue nimodipine Follow-up CT scan in 2-3 weeks as an outpatient Stable for discharge to SNF or rehabilitation from neurosurgery standpoint. Johnnie Cool MD Nov 17, 2016 09:59
--- NOTE | 2016-11-17 10:29 | HHI.PR ---
Subjective Remarks up and ambulated with PT- gradually progressing - tends to bear to the right- still needs full standby assist - with a RW no headaches, nausea or vomiting po 100% Objective Vitals Vital Signs Date Time Temp Pulse Resp B/P Pulse Ox O2 Delivery O2 Flow Rate FiO2 11/17/16 08:54 97.6 64 20 122/74 96 11/17/16 04:00 97.2 61 18 116/74 96 11/17/16 00:00 97.2 64 18 129/88 97 11/16/16 20:00 97.9 77 18 118/76 96 11/16/16 16:00 97.4 62 18 119/69 96 11/16/16 11:54 96.8 71 18 116/65 94 I/O 11/16/16 11/16/16 11/16/16 11/17/16 11/17/16 11/17/16 07:00 15:00 23:00 07:00 15:00 23:00 Intake Total 480 ml Balance 480 ml Intake Oral 480 ml # Voids 2 3 2 3 # Bowel Movements 1 1 Result Diagram: 11/14/16 0418 11/14/16 0418 Imaging Last Impressions Head CT 11/17/16 0000 Signed Impressions: Service Date/Time: Thursday, November 17, 2016 07:55 - CONCLUSION: 1. Continued hemorrhage involving the frontal lobe and rostrum of the corpus callosum. This is undergoing expected evolution and is significantly improved. 2. Streak artifact from the patient's coil mass in the anterior communicating artery aneurysm. Carl Hernandez MD Transcranial Doppler Study Complete 11/11/16 0000 Signed Impressions: Service Date/Time: Friday, November 11, 2016 07:56 - CONCLUSION: No evidence for vasospasm oJseph Vela MD Neck CTA 11/07/16 0000 Signed Impressions: Service Date/Time: Monday, November 07, 2016 11:38 - CONCLUSION: Stable appearance of the carotids Jose Roberto Monaco MD Head CTA 11/07/16 0000 Signed Impressions: Service Date/Time: Monday, November 07, 2016 11:38 - CONCLUSION: No evidence of significant vasospasm at present Jose Roberto Monaco MD Cerebral Arteriogram 10/31/16 0000 Signed Impressions: Service Date/Time: Monday, October 31, 2016 14:45 - CONCLUSION: 1. Moderately severe vasospasm in the left LEONARDO territory. The left MCA territory and the right MCA and LEONARDO territories remain patent. 2. 10 mg of verapamil was infused into both internal carotid arteries as detailed above. 3. 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 This is below the dural ring it would not be contributing to the intracranial hemorrhage identified. Chidi Elise MD Chest X-Ray 10/30/16 0000 Signed Impressions: Service Date/Time: October 15:58 - CONCLUSION: 1. Uncomplicated PICC line placement. Robin Muir MD Embolization, Transcatheter 10/28/16 0000 Signed Impressions: Service Date/Time: Friday, October 28, 2016 09:47 - CONCLUSION: 1. 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 There was good filling of the aneurysm with complete exclusion of the aneurysm from the circulation at the conclusion of the procedure. 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 Underwent cerebral angiogram with intra -arterial verapamil and bilateral internal carotid arteries on 10/31 by interventional radiology. - Nsgy: Silvina following. Per Dr. Ely 11/14, "I discussed yesterday via phone w Kyaw WARREN, and from a neurosx standpoint ok to bring down BP to normal range. lisinopril 10mg daily." - neurologically stable - ON Decadron - repeat head CT - stable in evolution Cleared by Dr. Cool for DC DC to SNF today- [facility] Hypertension -ok from a neurosx standpoint to bring BP to normal range. Urinary Tract Infection, Escherichia coli - Completed 3 day treatment with Rocephin. -voiding spontaenously Tobacco use disorder - stable. -Counseling given. DVT - Teds SCDs - No pharmacological DVT prophylaxis due to ICH Discharge Planning she will need PT at rehab [id number] form signed and in chart Lacierda,Alfea M. MD Nov 17, 2016 10:29 Oxana Gonzalez MD Nov 17, 2016 10:29
[2016-11-17] MEDS ORDERED: LISI10TA3 PO (10:36)
[2016-11-17] MEDS ORDERED: GNP5TAB6 PO (10:36)
[2016-11-17] MEDS ORDERED: FAMO20TA2 PO (10:36)
[2016-11-17] MEDS ORDERED: PRAV40TA PO (10:36)
[2016-11-17] MEDS ORDERED: DEXA1.5T PO (10:36)
--- NOTE | 2016-11-17 10:39 | HHI.DS ---
Discharge Summary Admission Date October 27, 2016 at 23:48 Discharge Date: Nov 17, 2016 Admitting Diagnosis ICH (1) ICH (intracerebral hemorrhage) ICD Code: I61.9 Diagnosis: Principal (2) Cerebral vasospasm ICD Code: I67.848 Diagnosis: Principal Procedures s/p ACOM aneurysmal coiling Brief History - From Admission 66 year old female was found in her bathtub, fully clothed with no water on. She was unable to get up or talk. She was last seen to be normal yesterday. Patient follows commands appropriately however is unable to talk and cannot provide a history. Per documentation she was recently treated with antibiotics amoxicillin for bronchitis as well as started on blood pressure medications due to new onset of hypertension for about last [address] of the head revealed the ICH with IVH extension. The stat CTA revealed ACOM aneurysm. CBC/BMP: 11/14/16 0418 11/14/16 0418 Imaging Last Impressions Head CT 11/17/16 0000 Signed Impressions: Service Date/Time: Thursday, November 17, 2016 07:55 - CONCLUSION: 1. Continued hemorrhage involving the frontal lobe and rostrum of the corpus callosum. This is undergoing expected evolution and is significantly improved. 2. Streak artifact from the patient's coil mass in the anterior communicating artery aneurysm. Carl Hernandez MD Transcranial Doppler Study Complete 11/11/16 0000 Signed Impressions: Service Date/Time: Friday, November 11, 2016 07:56 - CONCLUSION: No evidence for vasospasm Joseph Vela MD Neck CTA 11/07/16 0000 Signed Impressions: Service Date/Time: Monday, November 07, 2016 11:38 - CONCLUSION: Stable appearance of the carotids Jose Roberto Monaco MD Head CTA 11/07/16 0000 Signed Impressions: Service Date/Time: Monday, November 07, 2016 11:38 - CONCLUSION: No evidence of significant vasospasm at present Jose Roberto Monaco MD Cerebral Arteriogram 10/31/16 0000 Signed Impressions: Service Date/Time: Monday, October 31, 2016 14:45 - CONCLUSION: 1. Moderately severe vasospasm in the left LEONARDO territory. The left MCA territory and the right MCA and LEONARDO territories remain patent. 2. 10 mg of verapamil was infused into both internal carotid arteries as detailed above. 3. 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 This is below the dural ring it would not be contributing to the intracranial hemorrhage identified. Chidi Elise MD Chest X-Ray 10/30/16 0000 Signed Impressions: Service Date/Time: October 15:58 - CONCLUSION: 1. Uncomplicated PICC line placement. Robin Muir MD Embolization, Transcatheter 10/28/16 0000 Signed Impressions: Service Date/Time: Friday, October 28, 2016 09:47 - CONCLUSION: 1. 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 There was good filling of the aneurysm with complete exclusion of the aneurysm from the circulation at the conclusion of the procedure. 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 Underwent cerebral angiogram with intra -arterial verapamil and bilateral internal carotid arteries on 10/31 by interventional radiology. - Yonathan: Silvina following. Per Dr. Ely 11/14, "I discussed yesterday via phone nikki WARREN, and from a neurosx standpoint ok to bring down BP to normal range. He also recommended weaning down decadron to 2mg po BID which I have done. d/c midodrine. lisinopril 10mg daily." monitor BPs closely. - neurologically stable - ON Decadron taper - repeat head CT - stable in evolution Cleared by Dr. Cool for DC [facility] Hypertension -ok from a neurosx standpoint to bring BP to normal range. off Midodrine. Urinary Tract Infection, Escherichia coli - Completed 3 day treatment with Rocephin. -voiding spontaenously Tobacco use disorder - stable. -Counseling given. DVT - Teds SCDs - No pharmacological DVT prophylaxis due to ICH Discharge Planning awaiting final recs from neurosx she will need PT at rehab [id number] form signed and in chart Pt Condition on Discharge: Stable Discharge Disposition: Discharge to SNF Discharge Time: <= 30 minutes Discharge Instructions DIET: Follow Instructions for: Heart Healthy Diet Speech Therapy-Diet Recommends: Regular Activities you can perform: Weight Bearing as Paul Activities to Avoid: Concussion Sports, Strenuous Activity Follow up Referrals: Neurosurgery - 2 Weeks with Johnnie Cool MD New Orders: CT Brain W/O Contrast - 2 Weeks New Medications: Dexamethasone (Dexamethasone) 1.5 Mg Tab 1.5 MG PO DAILY NEUR Days 3 TAB Famotidine (Famotidine) 20 Mg Tab 20 MG PO BID GIpro Days 7 TAB Lisinopril (Lisinopril) 10 Mg Tab 10 MG PO DAILY HTN Days 30 TAB Melatonin (Gnp Melatonin Maximum Str) 5 Mg Tab 5 MG PO HS sleep Days 14 TAB Pravastatin (Pravachol) 40 Mg Tab 40 MG PO DAILY HLP Days 30 TAB Oxana Gonzalez MD Nov 17, 2016 10:39
[2016-11-17 12:00] VITALS: BP 111/66; PULSE 69; RESP 20; TEMP 97.6; O2SAT 97
[2016-11-17 15:00] VITALS: BP 131/71; PULSE 73; RESP 21; TEMP 97.9; O2SAT 98
[2016-11-17 21:00] VITALS: BP 106/74; PULSE 75; RESP 18; TEMP 96.8; O2SAT 96
[2016-11-17] MEDS: MELATONIN 5 MG TAB PO SCH (21:02)
[2016-11-18 00:14] VITALS: BP 109/72; PULSE 76; RESP 18; TEMP 97.8; O2SAT 97
[2016-11-18] MEDS: CHLORHEXIDINE GLUCONATE 2 % 1 PACK (2 CLOTHS) TOP SCH (04:00)
[2016-11-18 04:10] VITALS: BP 133/88; PULSE 73; RESP 18; TEMP 97.5; O2SAT 96
[2016-11-18 08:28] VITALS: BP 151/52; PULSE 74; RESP 18; TEMP 98.1; O2SAT 94
[2016-11-18] MEDS: DEXAMETHASONE 1.5 MG TAB PO SCH (09:07)
[2016-11-18] MEDS: DOCUSATE SODIUM 50 MG/SENNA 8.6 MG TAB PO SCH (09:08)
[2016-11-18] MEDS: LISINOPRIL 10 MG TAB PO SCH (09:08)
[2016-11-18] MEDS: FAMOTIDINE 20 MG TAB PO SCH (09:08)
[2016-11-18] MEDS: PRAVASTATIN SOD 40 MG TAB PO SCH (09:08)
--- NOTE | 2016-11-18 10:20 | HHI.PR ---
Subjective Remarks d/w Marifer HAHN- very kind and understanding Dr- did a peer to peer review- d/w with MD- scenario approved for short term rehab Objective Vitals Vital Signs Date Time Temp Pulse Resp B/P Pulse Ox O2 Delivery O2 Flow Rate FiO2 11/18/16 08:28 98.1 74 18 151/52 94 11/18/16 04:10 97.5 73 18 133/88 96 11/18/16 00:14 97.8 76 18 109/72 97 11/17/16 21:00 96.8 75 18 106/74 96 11/17/16 15:00 97.9 73 21 131/71 98 11/17/16 12:00 97.6 69 20 111/66 97 I/O 11/17/16 11/17/16 11/17/16 11/18/16 11/18/16 11/18/16 07:00 15:00 23:00 07:00 15:00 23:00 # Voids 2 3 2 2 # Bowel Movements 1 0 Result Diagram: 11/14/16 0418 11/14/16 0418 Objective Remarks awake and alert, oriented x 3, speech clear anicteric lungs clear regular rhythm abdomen soft, nontender extremities no edema CN intact grossly motor 5/5 gait slow but steady A/P Problem List: (1) ICH (intracerebral hemorrhage) ICD Code: I61.9 Status: Acute (2) Cerebral vasospasm ICD Code: I67.848 Status: Acute Assessment and Plan 66 years old right handed female 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 Underwent cerebral angiogram with intra -arterial verapamil and bilateral internal carotid arteries on 10/31 by interventional radiology. - Cristinagy: Silvina following. Per Dr. Ely 11/14, "I discussed yesterday via phone w Kyaw WARREN, and from a neurosx standpoint ok to bring down BP to normal range. lisinopril 10mg daily." - neurologically stable - ON Decadron - repeat head CT - stable in evolution Cleared by Dr. Cool for DC DC to SNF today- [facility] Hypertension -ok from a neurosx standpoint to bring BP to normal range. Urinary Tract Infection, Escherichia coli - Completed 3 day treatment with Rocephin. -voiding spontaenously Tobacco use disorder - stable. -Counseling given. DVT - Teds SCDs - No pharmacological DVT prophylaxis due to ICH Discharge Planning she will need PT at rehab [id number] form signed and in chart Problem Qualifiers (1) ICH (intracerebral hemorrhage): Qualified Code: I61.1 - Nontraumatic cortical hemorrhage of left cerebral hemisphere Oxana Gonzalez MD Nov 18, 2016 10:20
[2016-11-18 12:00] VITALS: BP 142/80; PULSE 82; RESP 18; TEMP 98.3; O2SAT 95
== END 2016-11-18 12:55 | DRG 20 ==
LOC: NEPC 22:10 → NEDA 23:48 → N03A 10-28 01:51 → N05A 11-09 10:44
PROVIDERS: ADMIT Internal Medicine; ATTEND Internal Medicine
PROC: 03LG3DZ Occlusion of Intracranial Artery with Intraluminal Device, Percutaneous Approach (ICD-10-PCS; principal; 2016-10-28)
PROC: 02HV33Z Insertion of Infusion Device into Superior Vena Cava, Percutaneous Approach (ICD-10-PCS; 2016-10-30)
PROC: B318YZZ Fluoroscopy of Bilateral Internal Carotid Arteries using Other Contrast (ICD-10-PCS; 2016-10-31)
DX: I60.2 Nontraumatic subarachnoid hemorrhage from anterior communicating artery (principal); G93.6 Cerebral edema; I77.71 Dissection of carotid artery; G91.9 Hydrocephalus, unspecified; I95.9 Hypotension, unspecified; G81.91 Hemiplegia, unspecified affecting right dominant side; I67.848 Other cerebrovascular vasospasm and vasoconstriction; N39.0 Urinary tract infection, site not specified; I10 Essential (primary) hypertension; I61.5 Nontraumatic intracerebral hemorrhage, intraventricular; E87.6 Hypokalemia; I73.9 Peripheral vascular disease, unspecified; B96.20 Unspecified Escherichia coli [E. coli] as the cause of diseases classified elsewhere; F17.210 Nicotine dependence, cigarettes, uncomplicated
CPT/HCPCS: 36223; 36224; 36228; 36569; 36620; 51702; 61624; 61650; 61651; 70450; 70496; 70498; 71010; 75894; 76937; 80048; 80053; 80061; 80307; 81001; 81003; 82140; 82550; 82552; 82948; 83036; 83605; 83735; 83935; 84100; 84132; 84295; 84484; 85025; 85027; 85610; 85730; 87040; 87077; 87086; 87186; 87641; 93005; 93886; 95819; 96365; 96374; 96375; 99152; 99153; C1760; C1769; C1887; C1894; J0171; J0360; J0461; J0690; J0696; J1100; J1642; J1644; J2250; J2370; J2405; J2765; J3010; J3475; J3480; J7030; J7050; J8540; Q9967